=== PATIENT | female | born 1940 | race Caucasian/White ===

== ENCOUNTER → 2017-12-23 10:05 | Outpatient (CLI) | payer MEDICARE, SELFPAY ==
--- NOTE | 2017-12-23 10:10 | XR_ITS ---
XR knee LT 4V HISTORY: ITS.REASON: Left knee pain ORDERING PHYSICIAN: Dimas Reina MD PATIENT AGE: 77 years COMPARISON: 03/04/2013 FINDINGS: Moderate osteoarthritic changes involving the medial compartment and patellofemoral joint there is chondrocalcinosis of the menisci. There is increased density in the suprapatellar region suggesting knee joint effusion. No acute fracture or dislocation. IMPRESSION: Moderate osteoarthritis slightly progressed compared to the previous exam with knee joint effusion
== END ==
PROVIDERS: PCP Family Medicine; Visit Provider Orthopaedic Surgery
DX: M25.562 Pain in left knee (principal)
CPT/HCPCS: 73564

== ENCOUNTER 2018-12-10 14:00 | Outpatient (RCR) | payer MEDICARE, SELFPAY ==
--- NOTE | 2018-11-16 09:56 | HMH.PTOPEV ---
PT Outpatient Evaluation Rehab PT Outpatient Evaluation Start: 11/16/18 09:24 Freq: Status: Active Protocol: Document 11/16/18 09:24 [facility] (Rec: 11/16/18 09:56 [facility] [id number]) Electronically Signed By Charbel Muse, PT 11/16/18 09:24 Outpatient Therapy Subjective History Subjective History Pt reports h/o chronic B knee pain beginning ~1 yr ago. Pt reports anterio-medial B knee pain, and global L knee pain w /ambulation. pt reports recent Xrays have revealed DJD/OA in L knee, 'trying to hold off a replacement'. Pt reports R TKA 2004. Chief Complaint Pain Weakness Symptom Type Ache Sharp Dull Symptoms Relieved By Rest/Positioning Heat Symptoms Aggravated By Physical Activity Walking Prior Functional Limitations Housework Standing Walking Current Functional Limitations Housework Standing Squatting Walking Stairs Symptom Description Constant but Variable Level of pain today (0-10) 4 Pain scale - at its best (0-10) 3 Pain scale - at its worst (0-10) 8 Hip/Knee Eval Gait Observation General Gait Pattern Observation Antalgic Gait Wide Based Gait Palpation Tenderness left Knee Palpation Finding Tenderness Knee Palpation Overall Comment pes ans. 3/4, medial and lateral jt line 3/4 right Knee Palpation Finding Tenderness Knee Palpation Overall Comment pes ans. 3/4, medial jt line 3 /4 MMT bilateral Hip Flexion Strength Grade 4- Good- Hip Abduction Strength Grade 4- Good- Hip Adduction Strength Grade 4- Good- Hip Extension Strength Grade 4 Good Hip External Rotation Strength Grade 4 Good Hip Internal Rotation Strength Grade 4- Good- Knee Extension Strength Grade 4 Good Knee Flexion Strength Grade 4 Good ROM left Knee Flexion Active Range of Motion ( 0-130 degrees) right Knee Flexion Active Range of Motion ( 0-118 degrees) Effusion joint effusion knee exam standard left Mid - Patellar Circumerential Measure ( 41 cm) Special Tests K
== END 2018-12-10 14:05 | disposition home or self-care (01) ==
LOC: PT 14:00
PROVIDERS: Visit Provider Orthopaedic Surgery
DX: M71.562 Other bursitis, not elsewhere classified, left knee (principal); M71.561 Other bursitis, not elsewhere classified, right knee
CPT/HCPCS: 97010; 97014; 97033; 97035; 97110; 97163; G0283

== ENCOUNTER → 2019-03-25 13:35 | Outpatient (CLI) | payer MEDICARE, SELFPAY ==
--- NOTE | 2019-03-25 13:41 | US_ITS ---
PROCEDURE: US KIDNEY CLINICAL INDICATION: BACK PAIN,H/O OF FREQUENT URINARY TRACT INFECTIONS COMPARISON: No exams were available for comparison FINDINGS: The right kidney is 9.2 x 4.4 x 4.4 cm. Scarring is present along the lower pole of the right kidney. No hydronephrosis or mass evident. The left kidney is 9.3 x 4.2 x 4.7 cm. There is an 18 mm cyst along the lower pole of the left kidney IMPRESSION: Small cyst along the lower pole of the left kidney with cortical scarring on the right. No hydronephrosis or other significant anomaly Dictated by: Jayden Prealta MD 03/25/2019 16:53 Signed by: <Electronically signed by Jayden Peralta MD in [place]> 03/25/2019 16:53
== END ==
PROVIDERS: PCP Family Medicine; Visit Provider Nurse Practitioner Family
DX: M54.9 Dorsalgia, unspecified (principal); Z87.440 Personal history of urinary (tract) infections
CPT/HCPCS: 76770

== ENCOUNTER → 2019-04-14 10:03 | Outpatient (CLI) | payer MEDICARE, SELFPAY ==
--- NOTE | 2019-04-14 10:47 | CT_ITS ---
PROCEDURE: CT ABDOMEN PELVIS W CON CLINICAL HISTORY: ABD PAIN Abdominal pain, frequent UTIs COMPARISON: No exams were available for comparison TECHNIQUE: 75 mL Optiray 350 Axial images obtained with sagittal and coronal reformats. All CT scans at the facility use one or more dose reduction, viz: automated exposure control, ma/kV adjustment per patient size (including targeted exams where dose is matched to indication, i.e. head), or iterative reconstruction technique. FINDINGS: The there are atelectatic or fibrotic changes in the left lung base. Prior cholecystectomy. The liver, spleen, adrenal glands, and pancreas have an unremarkable appearance. There is a 2 cm cyst along the lower pole of the left kidney. No intestinal obstruction or free air. Unremarkable appendix. There is a mild amount of retained colonic feces. Postsurgical changes are present at the rectosigmoid junction. There is scattered diverticula but no evidence of diverticulitis. The uterus is bulky and has a somewhat heterogeneous density and may be related to fibroid involvement. Cystic lesion is present in the right adnexa at 3 by 4 cm. No adenopathy or cul-de-sac fluid evident. No ascites. Postsurgical changes are present in the lumbar spine with inter pedicular screws from L2-L5 with associated degenerative changes. There is an epidural stimulator device in the midthoracic region. IMPRESSION: Enlarged uterus with heterogeneous density which may be due to fibroid involvement. 4 x 3 cm cystic right adnexal lesion. Recommend pelvic ultrasound for further evaluation. Dictated by: Jayden Peralta MD 04/16/2019 05:21 Electronically signed by Jayden Peralta MD in [facility] 04/16/2019 05:21
== END ==
PROVIDERS: PCP Family Medicine; Visit Provider Nurse Practitioner Family
DX: R10.9 Unspecified abdominal pain (principal)
CPT/HCPCS: 74177; Q9967

== ENCOUNTER → 2019-04-22 13:44 | Outpatient (CLI) | payer MEDICARE, SELFPAY ==
--- NOTE | 2019-04-22 14:00 | US_ITS ---
PROCEDURE: US PELVIC CLINICAL INDICATION: ENLARGED UTERUS Pain, back pain, right adnexal cystic lesion by CT COMPARISON: CT ABDOMEN PELVIS W CON from 04/14/2019 FINDINGS: The uterus is enlarged at 10 x 5 x 6.5 cm with some heterogeneous echogenicity. Combined endometrial thickness is 9 mm which is abnormal for a postmenopausal patient. In the left aspect of the body uterus there is a 3.5 by 2.8 cm area of heterogeneous echogenicity consistent with a fibroid. The left ovary is small and unremarkable. The right ovary measures 4.3 x 3 cm and contains a 3 x 2 cm cyst. No cul-de-sac fluid evident. IMPRESSION: 1. Enlarged uterus with a 3.5 x 2.8 cm fibroid 2. Mildly thickened endometrium 3. 3 x 2 cm right ovarian cyst. The cyst has a simple appearance. Follow-up is suggested to confirm stability Dictated by: Jayden Peralta MD 04/22/2019 17:39 Electronically signed by Jayden Peralta MD in [facility] 04/22/2019 17:39
== END ==
PROVIDERS: PCP Family Medicine; Visit Provider Nurse Practitioner Family
DX: N85.2 Hypertrophy of uterus (principal)
CPT/HCPCS: 76856

== ENCOUNTER → 2019-05-17 14:49 | Outpatient (CLI) | payer MEDICARE, SELFPAY ==
--- NOTE | 2019-05-17 14:54 | XR_ITS ---
PROCEDURE: XR PELVIS 1-2V CLINICAL INDICATION: Back/Hip pain Low back pain and hip pain COMPARISON: No exams were available for comparison TECHNIQUE: XR Pelvis AP View FINDINGS: No fracture or dislocation is evident. Neurostimulator device is present with the power pack overlying the right ilium. There are inter pedicular screws at L3-L4 and L5. No acute fracture or dislocation is evident. There are mild osteoarthritic changes of the hips. IMPRESSION: No acute findings. Dictated by: Jayden Peralta MD 05/17/2019 17:05 Electronically signed by Jayden Peralta MD in [facility] 05/17/2019 17:05
--- NOTE | 2019-05-17 14:54 | XR_ITS ---
PROCEDURE: XR LUMBAR SPINE 2-3V CLINICAL INDICATION: back/hip pain Low back pain COMPARISON: CT ABDOMEN PELVIS W CON from 04/14/2019 FINDINGS: There is straightening of the lumbar lordosis. There is mild lumbar scoliosis convex left. Inter pedicular screws are present at L2 and L3 with connecting rods and L4 and L5 with connecting rods. Bony fusion with hyperostosis laterally at L2 through L5. There is minimal anterolisthesis of L4 of 6 mm. No acute fracture or dislocation. Degenerative disc disease is present at L1-L2 L2-L3 L3-L4 L4-5 and L5-S1. No acute fracture or dislocation. No lytic or blastic change. IMPRESSION: Postsurgical and degenerative changes as described above not significantly changed from 04/14/2019 Dictated by: Jayden Peralta MD 05/17/2019 17:10 Electronically signed by Jayden Peralta MD in [facility] 05/17/2019 17:10
== END ==
PROVIDERS: PCP Family Medicine; Visit Provider Orthopaedic Surgery
DX: M17.10 Unilateral primary osteoarthritis, unspecified knee (principal)
CPT/HCPCS: 72100; 72170

== ENCOUNTER → 2019-05-26 08:44 | Outpatient (CLI) | payer MEDICARE, SELFPAY ==
--- NOTE | 2019-05-26 08:46 | XR_ITS ---
PROCEDURE: XR DEXA AXIAL SKELETON CLINICAL HISTORY: screening COMPARISON: No exams were available for comparison FINDINGS: Right femoral neck density is 0.806 grams/centimeters sq with a T-score of -1.7 indicating osteopenia. IMPRESSION: Osteopenia with moderate fracture risk. Treatment advised. Suggest follow-up exam May 2021 Dictated by: Jayden Peralta MD 05/27/2019 09:55 Electronically signed by Jayden Peralta MD in [place] 05/27/2019 09:55
== END ==
PROVIDERS: PCP Family Medicine; Visit Provider Orthopaedic Surgery
DX: N95.9 Unspecified menopausal and perimenopausal disorder (principal); M85.89 Other specified disorders of bone density and structure, multiple sites
CPT/HCPCS: 77080

== ENCOUNTER → 2019-06-08 17:14 | Outpatient (CLI) | payer MEDICARE, SELFPAY | PROVIDERS: Visit Provider Urology | DX: N39.0 Urinary tract infection, site not specified (principal) | CPT/HCPCS: 87086; 87088; 87186 ==

== ENCOUNTER → 2019-06-15 08:52 | Outpatient (POV) | payer MEDICARE, SELFPAY ==
[2019-06-15 09:05] VITALS: BP 125/73; PULSE 81; RESP 18; O2SAT 98; BMI 25.7
--- NOTE | 2019-06-15 09:39 | HMH.PMCON ---
Assessment and Plan (1) Postlaminectomy syndrome Current visit: Yes Status: Chronic Category: Medical Code(s): M96.1 - Postlaminectomy syndrome, not elsewhere classified - Assessment and plan all Dx Assessment and Plan for all problems:: I will follow-up with the patient in 2 weeks. If patient decides she would like to go ahead with a intrathecal pain pump trial she is to call our office to be put on the schedule. We can trial the patient due to the fact that she is not on any anticoagulation therapy or have any active infections and then obtain a psychological evaluation. She is had one several years ago that was appropriate however we will update it. Patient also has a neurostimulator by [employer]. We will have her sales representative meats call her today to set up a time to reprogram her. Patient is been instructed to call the office if she has any issues prior to her next appointment. She is not currently on any opioid medications. Dr. Solo has reviewed this note and agrees with this plan of care. This note was dictated using voice recognition software and may contain errors or omissions HPI - Data of Consult Consult date: 06/15/19 Requesting Physician: Araceli Wang APRN Primary Care Provider: Andrew Benito MD - Consult Narrative Reason for consult: Back pain back pain History of present illness: Ms. Alejandro is a 78 year old female who presents today for consultation in regards to her low back pain. Patient had a lumbar fusion back in 2017. Patient states that since then she has had continual pain. She was seen by Dr. Hemphill for multiple injection therapies including medial branch blocks and epidurals she did not get any relief from this. She is completed physical therapy with no relief. She had a paddle lead [employer] stimulator placed which worked originally but now is not as effective. She rates her pain today 6 out of 10. She has troubles with activities of daily living including standing. Patient and I had a long discussion in regards to intrathecal pain pump. Patient was given information. Patient has a adverse reaction to morphine which is aggression. We discussed that morphine is not the only option for pain pump. I answered her questions in regards to this and gave her information to take home. Most of her pain is in her low back. CC: Araceli Wang APRN [facility] History I have reviewed the patient's past medical history: Yes Medical History: Reports:: Hyperlipidemia, Hypertension Denies:: Diabetes Mellitus Type 1, Diabetes Mellitus Type 2, Lung Disease *Have you ever received a pneumonia vaccine?: Yes *Have you received a flu vaccine this season?: Yes Other Medical History: Reports: Other Other Surgeries: Yes: Colonoscopy, Colon Resection, Other - *Social History Smoking Status: Current every day smoker Alcohol Intake: never Substance Use Type: denies use *Occupational Status:: other Housing: house Household Members: spouse *Travel in the last 8 weeks: None Family Hx:: No significant family history Review of Systems - Review of Systems ROS General: no recent weight change, no fever, no sleep disturbances Respiratory: no cough, no shortness of air, no recurring pulmonary infections Cardiovascular/Peripheral Vascular: No chest pain, No palpitations, no edema, no shortness of breath. Gastrointestinal: no new onset incontinence, normal bowel movements reported Genitourinary: no new onset incontinence Musculoskeletal: Back pain Psychiatric: normal mood/ affect Neurological: [denies new onset weakness in extremities], [denies new onset balance issues] Meds Home Medications Medication Instructions Recorded Confirmed Type aspirin 81 mg tablet,delayed 81 mg PO DAILY 04/02/18 06/08/19 History release calcium carbonate 400 mg/5 mL oral 400 mg PO DAILY ml 04/02/18 06/08/19 History suspension omega-3 fatty acids 1,000 mg 1,000 mg PO DAILY 04/02/18 06/08/19
--- NOTE | 2019-06-15 09:43 | P.CONS_ITS ---
Assessment and Plan (1) Postlaminectomy syndrome Current visit: Yes Status: Chronic Category: Medical Code(s): M96.1 - Postlaminectomy syndrome, not elsewhere classified - Assessment and plan all Dx Assessment and Plan for all problems:: I will follow-up with the patient in 2 weeks. If patient decides she would like to go ahead with a intrathecal pain pump trial she is to call our office to be put on the schedule. We can trial the patient due to the fact that she is not on any anticoagulation therapy or have any active infections and then obtain a psychological evaluation. She is had one several years ago that was appropriate however we will update it. Patient also has a neurostimulator by [employer]. We will have her site safety representative call her today to set up a time to reprogram her. Patient is been instructed to call the office if she has any issues prior to her next appointment. She is not currently on any opioid medications. Dr. Solo has reviewed this note and agrees with this plan of care. This note was dictated using voice recognition software and may contain errors or omissions HPI - Data of Consult Consult date: 06/15/19 Requesting Physician: Araceli Wang APRN Primary Care Provider: Andrew Benito MD - Consult Narrative Reason for consult: Back pain back pain History of present illness: Ms. Alejandro is a 78 year old female who presents today for consultation in regards to her low back pain. Patient had a lumbar fusion back in 2017. Patient states that since then she has had continual pain. She was seen by Dr. Hemphill for multiple injection therapies including medial branch blocks and epidurals she did not get any relief from this. She is completed physical therapy with no relief. She had a paddle lead [employer] stimulator placed which worked originally but now is not as effective. She rates her pain today 6 out of 10. She has troubles with activities of daily living including standing. Patient and I had a long discussion in regards to intrathecal pain pump. Patient was given information. Patient has a adverse reaction to morphine which is aggression. We discussed that morphine is not the only option for pain pump. I answered her questions in regards to this and gave her information to take home. Most of her pain is in her low back. CC: Araceli Wang APRN [facility] History I have reviewed the patient's past medical history: Yes Medical History: Reports:: Hyperlipidemia, Hypertension Denies:: Diabetes Mellitus Type 1, Diabetes Mellitus Type 2, Lung Disease *Have you ever received a pneumonia vaccine?: Yes *Have you received a flu vaccine this season?: Yes Other Medical History: Reports: Other Other Surgeries: Yes: Colonoscopy, Colon Resection, Other - *Social History Smoking Status: Current every day smoker Alcohol Intake: never Substance Use Type: denies use *Occupational Status:: other Housing: house Household Members: spouse *Travel in the last 8 weeks: None Family Hx:: No significant family history Review of Systems - Review of Systems ROS General: no recent weight change, no fever, no sleep disturbances Respiratory: no cough, no shortness of air, no recurring pulmonary infections Cardiovascular/Peripheral Vascular: No chest pain, No palpitations, no edema, no shortness of breath. Gastrointestinal: no new onset incontinence, normal bowel movements reported Genitourinary: no new onset incontinence Musculoskeletal: Back pain Psychiatric: normal mood/ affect Neurological: [denies new onset weakness in extremities], [denies new
== END ==
PROVIDERS: PCP Family Medicine; Visit Provider Clinical Nurse Specialist Family Health
DX: M96.1 Postlaminectomy syndrome, not elsewhere classified (principal)
CPT/HCPCS: 99202

== ENCOUNTER → 2019-06-29 08:56 | Outpatient (POV) | payer MEDICARE, SELFPAY ==
[2019-06-29 09:09] VITALS: BP 142/57; PULSE 66; RESP 18; BMI 25.7
--- NOTE | 2019-06-29 09:20 | HMH.PAINSOAP ---
[facility] Pain Management SOAP Note Subjective:: Patient is a pleasant 78-year-old white female who presents today for follow-up. Patient is asking me about the mild procedure. We also discussed intrathecal therapy in the past. She is unsure if she would like to move forward with anything. She rates her pain a 0 out of 10 today. She states for the first time she turned up her neurostimulator and it is been effective. Patient does have an appointment with the jewelry sales representative at [facility] this afternoon for reprogram. Patient would like to not move forward with any other therapies until we see if we can optimize this therapy and I do agree with her. ROS General: no recent weight change, no fever, no sleep disturbances Respiratory: no cough, no shortness of air, no recurring pulmonary infections Cardiovascular/Peripheral Vascular: No chest pain, No palpitations, no edema, no shortness of breath. Gastrointestinal: no new onset incontinence, normal bowel movements reported Genitourinary: no new onset incontinence Musculoskeletal: Back pain, leg pain Psychiatric: normal mood/ affect Neurological: [denies new onset weakness in extremities], [denies new onset balance issues] Objective:: Physical Exam General: Alert and oriented x3, no acute distress, pleasant and cooperative, [on room air] Lungs: Resps E/U, Symmetrical chest expansion, Eyes: PERRL Musculoskeletal: Flexion and extension of lumbar spine somewhat guarded secondary to pain, deep tendon reflexes normal, strength in upper and lower extremities [5/5], [abnormal gait noted] Neurological: speech clear, senior net application developer equal, no gross sensory deficits Assessment:: Degenerative disc disease lumbar spine with lumbar radiculopathy post laminectomy syndrome Plan:: We will see the patient back in 2 months reassess her symptoms at that time she is been instructed to call the office if she has any issues prior to her next appointment. My recommendation to her was to get an updated MRI she would like to think about this. Dr. Solo has reviewed this note and agrees with this plan of care. This note was dictated using voice recognition software and may contain errors or omissions [facility] History I have reviewed the patient's past medical history: Yes Medical History: Reports:: Hyperlipidemia, Hypertension Denies:: Diabetes Mellitus Type 1, Diabetes Mellitus Type 2, Lung Disease *Have you ever received a pneumonia vaccine?: Yes *Have you received a flu vaccine this season?: No Other Medical History: Reports: Other Other Surgeries: Yes: Colonoscopy, Colon Resection, Other - *Social History Smoking Status: Current every day smoker Alcohol Intake: never Substance Use Type: denies use *Occupational Status:: employed Housing: house Household Members: spouse *Travel in the last 8 weeks: None Family Hx:: No significant family history
--- NOTE | 2019-06-29 09:25 | P.CONS_ITS ---
[facility] Pain Management SOAP Note Subjective:: Patient is a pleasant 78-year-old white female who presents today for follow-up. Patient is asking me about the mild procedure. We also discussed intrathecal therapy in the past. She is unsure if she would like to move forward with anything. She rates her pain a 0 out of 10 today. She states for the first time she turned up her neurostimulator and it is been effective. Patient does have an appointment with the veterans contact representative at [facility] this afternoon for reprogram. Patient would like to not move forward with any other therapies until we see if we can optimize this therapy and I do agree with her. ROS General: no recent weight change, no fever, no sleep disturbances Respiratory: no cough, no shortness of air, no recurring pulmonary infections Cardiovascular/Peripheral Vascular: No chest pain, No palpitations, no edema, no shortness of breath. Gastrointestinal: no new onset incontinence, normal bowel movements reported Genitourinary: no new onset incontinence Musculoskeletal: Back pain, leg pain Psychiatric: normal mood/ affect Neurological: [denies new onset weakness in extremities], [denies new onset balance issues] Objective:: Physical Exam General: Alert and oriented x3, no acute distress, pleasant and cooperative, [on room air] Lungs: Resps E/U, Symmetrical chest expansion, Eyes: PERRL Musculoskeletal: Flexion and extension of lumbar spine somewhat guarded secondary to pain, deep tendon reflexes normal, strength in upper and lower extremities [5/5], [abnormal gait noted] Neurological: speech clear, sr. 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 My recommendation to her was to get an updated MRI she would like to think about this. Dr. Solo has reviewed this note and agrees with this plan of care. This note was dictated using voice recognition software and may contain errors or omissions [facility] History I have reviewed the patient's past medical history: Yes Medical History: Reports:: Hyperlipidemia, Hypertension Denies:: Diabetes Mellitus Type 1, Diabetes Mellitus Type 2, Lung Disease *Have you ever received a pneumonia vaccine?: Yes *Have you received a flu vaccine this season?: No Other Medical History: Reports: Other Other Surgeries: Yes: Colonoscopy, Colon Resection, Other - *Social History Smoking Status: Current every day smoker Alcohol Intake: never Substance Use Type: denies use *Occupational Status:: employed Housing: house Household Members: spouse *Travel in the last 8 weeks: None Family Hx:: No significant family history
== END ==
PROVIDERS: PCP Family Medicine; Visit Provider Clinical Nurse Specialist Family Health
DX: M51.16 Intervertebral disc disorders with radiculopathy, lumbar region (principal); M96.1 Postlaminectomy syndrome, not elsewhere classified
CPT/HCPCS: 99212

== ENCOUNTER → 2019-08-30 09:00 | Outpatient (POV) | payer MEDICARE, SELFPAY ==
[2019-08-30 09:18] VITALS: BP 136/86; PULSE 69; RESP 18; O2SAT 99; BMI 24.1
--- NOTE | 2019-08-31 08:19 | HMH.PAINSOAP ---
[facility] Pain Management SOAP Note Subjective:: Patient is a pleasant 78-year-old white female who presents today for follow-up. Patient denies any pain today. Patient states her pain does become quite significant when she is working or walking or having any other activities. Patient had lumbar back surgery. She also had the implant of a [employer] stimulator. Patient has failed the stimulation stating that it has never been very beneficial. Patient has been reprogrammed recently. Patient and I have talked about intrathecal therapy in the past. I do believe it would be beneficial for her. Patient and I discussed the process in great detail. Patient will be sent for psychological evaluation to determine if she is a candidate for an intrathecal pain pump we will also send her for an updated CT of her lower back. Patient is concerned in regards to having an MRI due to her titanium implants. ROS General: no recent weight change, no fever, no sleep disturbances Respiratory: no cough, no shortness of air, no recurring pulmonary infections Cardiovascular/Peripheral Vascular: No chest pain, No palpitations, no edema, no shortness of breath. Gastrointestinal: no new onset incontinence, normal bowel movements reported Genitourinary: no new onset incontinence Musculoskeletal: [Back pain, leg pain] Psychiatric: normal mood/ affect, [denies depression], [denies anxiety] Neurological: [denies new onset weakness in extremities], [denies new onset balance issues] Objective:: Physical Exam General: Alert and oriented x3, no acute distress, pleasant and cooperative, [on room air] Lungs: Resps E/U, Symmetrical chest expansion, Eyes: PERRL Musculoskeletal: Flexion and extension of lumbar spine somewhat guarded secondary to pain, deep tendon reflexes normal, strength in upper and lower extremities [5/5], [abnormal gait noted] Neurological: speech clear, video editing internship equal, no gross sensory deficits Assessment:: Postlaminectomy syndrome, degenerative disc disease lumbar spine lumbar radiculopathy Plan:: We will send the patient for psychological evaluation to determine if she is a candidate for intrathecal pain pump therapy. Patient currently is not on any narcotics I do believe she would be a good candidate for intrathecal pain pump therapy. Patient and I had a long talk about realistic goals, risks and benefits. Patient will also have a CT scan ordered for her lumbar spine to help determine any new pathology. I will follow-up with her after this reassess her symptoms at that time she is been instructed to call the office if she has any issues prior to her next appointment. Dr. Solo has reviewed this note and agrees with this plan of care. This note was dictated using voice recognition software and may contain errors or omissions [facility] History I have reviewed the patient's past medical history: Yes Medical History: Reports:: Hyperlipidemia, Hypertension Denies:: Diabetes Mellitus Type 1, Diabetes Mellitus Type 2, Lung Disease *Have you ever received a pneumonia vaccine?: Yes *Have you received a flu vaccine this season?: Yes Other Medical History: Reports: Other Other Surgeries: Yes: Colonoscopy, Colon Resection, Other - *Social History Smoking Status: Current every day smoker Alcohol Intake: never Substance Use Type: denies use *Occupational Status:: other Housing: house Household Members: spouse *Travel in the last 8 weeks: None Family Hx:: No significant family history
== END ==
PROVIDERS: PCP Family Medicine; Visit Provider Clinical Nurse Specialist Family Health
DX: M96.1 Postlaminectomy syndrome, not elsewhere classified (principal); M51.16 Intervertebral disc disorders with radiculopathy, lumbar region; Z72.0 Tobacco use
CPT/HCPCS: 99212

== ENCOUNTER → 2019-09-02 13:40 | Outpatient (CLI) | payer MEDICARE, SELFPAY ==
--- NOTE | 2019-09-02 13:42 | CT_ITS ---
PROCEDURE: CT LUMBAR SPINE WO CON CLINICAL HISTORY: BACK PAIN Low back pain, prior surgery COMPARISON: CT ABDOMEN PELVIS W CON from 04/14/2019 XR LUMBAR SPINE 2-3V from 05/17/2019 TECHNIQUE: Axial images obtained with sagittal and coronal reformats. All CT scans at the facility use one or more dose reduction, viz: automated exposure control, ma/kV adjustment per patient size (including targeted exams where dose is matched to indication, i.e. head), or iterative reconstruction technique. FINDINGS: There are extensive postsurgical and degenerative changes as described below. There is mild lumbar scoliosis convex left. T10-T11: Mild degenerative disc disease. T11-T12: Mild degenerative disc disease with mild bulging disc with minimal right paracentral disc osteophyte complex. T12-L1: Unremarkable. L1-L2: Severe degenerative disc disease. There is 3 mm retrolisthesis of L1. There is mild bilateral foraminal narrowing from facet and uncovertebral hypertrophy. Laminectomy defect is noted on the right.. There is suggestion of some minimal erosive change of the anterior inferior aspect of L1 with mild prominence of the paravertebral soft tissues at this region. This could be related to severe spondylopathy. There is vacuum disc at this level. This did have a similar appearance on 04/14/2019 and is not significantly changed. L2-L3: Inter pedicular screws are present at L2 and L3 with connecting rods. There are post laminectomy changes. There is some calcification along the right aspect of the thecal sac at L2-L3. There is a disc spacer at L2-L3. L3-L4: Mild bulging disc slightly eccentric toward the right. There is prominent hypertrophy of the posterior elements from prior fusion. L4-5: There is 6 mm anterolisthesis of L4 with degenerative disc disease and ossification of the disc space. There has been prior fixation with posterior inter pedicular screws and connecting rods at L4-L5. Significant artifact is present. There is bulging disc. L5-S1: Degenerate disc disease with bulging disc with partial calcification of the disc. Facet and ligamentum hypertrophy noted greater on the left. 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 There is generalized osteopenia. No acute fracture or dislocation is evident. There is a right ovarian cyst incidentally noted measuring 2.7 cm. There is diverticulosis of the sigmoid colon and postsurgical changes at the rectosigmoid junction. IMPRESSION: 1. Extensive postsurgical and degenerative changes. Please see above for detailed description at each level 2. L1-L2: Severe degenerative disc disease. There is 3 mm retrolisthesis of L1. There is mild bilateral foraminal narrowing from facet and uncovertebral hypertrophy. Laminectomy defect is noted on the right.. There is suggestion of some minimal erosive change of the anterior inferior aspect of L1 with mild prominence of the paravertebral soft tissues at this region. This could be related to severe spondylopathy. There is vacuum disc at this level. This did have a similar appearance on 04/14/2019 and is not significantly changed. 3. L2-L3: Inter pedicular screws are present at L2 and L3 with connecting rods. There are post laminectomy changes. There is some calcification along the right aspect of the thecal sac at L2-L3. There is a disc spacer at L2-L3. 4. L3-L4: Mild bulging disc slightly eccentric toward the right. There is prominent hypertrophy of the posterior elements from prior fusion. 5. L4-5: There is 6 mm anterolisthesis of L4 with degenerative disc disease and ossification of the disc space. There has been prior fixation with posterior inter pedicular screws and connecting rods at L4-L5. Si
== END ==
PROVIDERS: PCP Family Medicine; Visit Provider Clinical Nurse Specialist Family Health
DX: M54.5 Low back pain (principal)
CPT/HCPCS: 72131

== ENCOUNTER → 2019-09-17 08:06 | Outpatient (CLI) | payer MEDICARE, SELFPAY ==
[2019-09-17 08:42] LABS: Basophils % 0.5 % (0.1-2.0); Eosinophils # 0.1 K/mm3 (0.0-0.4); Hematocrit 39.8 % (37.0-47.0); Hemoglobin 12.4 g/dL (12.2-16.2); Lymphocytes # 1.7 K/mm3 (0.7-4.5); Lymphocytes % 37.4 % (10-50); Mean Corpuscular HGB Conc 31.3 g/dL (31.8-35.4); Mean Corpuscular Hemoglobin 30.9 pg (27.0-31.2); Mean Corpuscular Volume 98.7 fl (81-99); Mean Platelet Volume 8.3 fl (7.4-10.4); Monocytes # 0.2 K/mm3 (0.1-1.0); Monocytes % 5.3 % (1.7-9.3); Neutrophils # 2.4 K/mm3 (1.8-7.8); Neutrophils % 53.6 % (37.0-80.0); Platelet Count 270 K/mm3 (142-424); Red Blood Count 4.03 M/mm3 (4.20-5.40); Red Cell Distribution Width 12.9 % (11.5-17.5); White Blood Count 4.5 K/mm3 (4.8-10.8)
[2019-09-17 09:58] LABS: Alanine Aminotransferase 31 U/L (9-52); Albumin Level 3.6 g/dL (3.4-5.0); Albumin/Globulin Ratio 1.1 (1.1-1.8); Alkaline Phosphatase 60 U/L (46-116); Anion Gap 12.7 mEq/L (5-15); Aspartate Amino Transferase 23 U/L (15-37); Bilirubin,Total 0.4 mg/dL (0.2-1.0); Blood Urea Nitrogen 20 mg/dL (7-18); Calcium 8.9 mg/dL (8.5-10.1); Carbon Dioxide 26 mmol/L (21.0-32.0); Chloride 110 mmol/L (98-107); Cholesterol 266 mg/dL (140-200); Creatinine,Serum 1.12 mg/dL (0.55-1.02); Estimated Glomerular Filt Rate 47 ml/min (>60); GFR (African American) 57 ML/MIN (>60); Globulin 3.3 gm/dl (1.3-3.2); Glucose 88 mg/dL (74-106); HDL Cholesterol 66 mg/dL (29-89); LDL Cholesterol 179 mg/dL (0-130); Potassium 4.7 mmoL/L (3.5-5.1); Sodium 144 mmol/L (137-145); Thyroid Stimulating Hormone 3.04 uIU/ml (0.358-3.740); Total Protein,Serum 6.9 g/dL (6.4-8.2); Triglycerides 106 mg/dL (30-200); Uric Acid 5.3 mg/dL (2.6-7.2); VLDL Cholesterol 21 mg/dL (0-40)
[2019-09-18 19:11] LABS: Vitamin B12 >2000 pg/mL (232-1245)
[2019-09-18 19:12] LABS: Vitamin D 25 Hydroxy 34.2 ng/mL (30.0-100.0)
[2019-09-21 11:05] LABS: Iron 94 ug/dL (37-170)
== END ==
PROVIDERS: Visit Provider Nurse Practitioner Family
DX: I10 Essential (primary) hypertension (principal); E78.5 Hyperlipidemia, unspecified; E55.9 Vitamin D deficiency, unspecified; D64.9 Anemia, unspecified; G25.0 Essential tremor; R35.0 Frequency of micturition; M25.50 Pain in unspecified joint
CPT/HCPCS: 36415; 80053; 80061; 82607; 82652; 83540; 84443; 84550; 85025

== ENCOUNTER → 2019-09-27 10:18 | Outpatient (CLI) | payer MEDICARE, SELFPAY ==
--- NOTE | 2019-09-27 10:25 | XR_ITS ---
PROCEDURE: XR KNEE LT 4V CLINICAL INDICATION: lt knee pain COMPARISON: KNEE3L KNEE-3 VIEWS-LT from 03/04/2013 [id number] XR knee LT 4V from 12/23/2017 FINDINGS: There are severe osteoarthritic changes of the medial compartment with mild to moderate osteoarthritic changes of the patellofemoral joint. Chondrocalcinosis is present involving the lateral compartment. No fracture or dislocation. Other findings:There are vascular calcifications noted at the popliteal artery. Suspect small suprapatellar effusion IMPRESSION: Osteoarthritis. Small suprapatellar effusion Dictated by: Jayden Peralta MD 09/27/2019 10:43 Electronically signed by Jayden Peralta MD in [place] 09/27/2019 10:43
--- NOTE | 2019-09-27 12:11 | XR_ITS ---
PROCEDURE: XR KNEE RT 3V CLINICAL INDICATION: knee pain COMPARISON: KNEE3L KNEE-3 VIEWS-LT from 03/04/2013 [id number] XR knee LT 4V from 12/23/2017 XR KNEE LT 4V from 09/27/2019 FINDINGS: Status post total knee replacement. There is good alignment of the prosthesis with no obvious complication. No obvious fracture or dislocation . IMPRESSION: Status post total knee replacement, no acute finding Dictated by: Jayden Peralta MD 09/27/2019 12:42 Electronically signed by Jayden Peralta MD in [facility] 09/27/2019 12:42
== END ==
PROVIDERS: PCP Family Medicine; Visit Provider Orthopaedic Surgery
DX: M25.561 Pain in right knee (principal); Z96.651 Presence of right artificial knee joint; M17.12 Unilateral primary osteoarthritis, left knee
CPT/HCPCS: 73562; 73564

== ENCOUNTER → 2020-01-12 08:56 | Outpatient (CLI) | payer MEDICARE, SELFPAY ==
--- NOTE | 2020-01-12 09:12 | XR_ITS ---
PROCEDURE: XR CHEST 2V CLINICAL HISTORY: HTN Hypertension COMPARISON: No exams were available for comparison FINDINGS: The cardiomediastinal silhouette and pulmonary vascularity are within normal limits. The lungs are clear without infiltrates, suspicious nodules, or pleural effusions. There is an epidural stimulator device present overlying the mid thoracic region. There has been prior lumbar spine surgery. A small surgical clips are noted over the upper tracheal area. There are degenerative changes of the thoracic spine IMPRESSION: No acute findings. Dictated by: Jayden Peralta MD 01/12/2020 14:31 Electronically signed by Jayden Peralta MD in [facility] 01/12/2020 14:31
--- NOTE | 2020-01-12 09:32 | ECG_ITS ---
APPROVED REPORT Exam: Resting ECG HR:73 bpm ECG Measurements Heart Rate 73 AXES AR 136 P 54 QRSd 82 QRS 4 QT 390 T 19 QTc 429 <Conclusion> Normal sinus rhythm Normal ECG Electronically signed by : Case Valentin, 01/12/2020 17:32:16
== END ==
PROVIDERS: PCP Family Medicine; Visit Provider Family Medicine
DX: Z01.818 Encounter for other preprocedural examination (principal)
CPT/HCPCS: 71046; 93005

== ENCOUNTER → 2020-01-31 15:21 | Outpatient (CLI) | payer MEDICARE, SELFPAY | PROVIDERS: Visit Provider Orthopaedic Surgery | DX: Z01.818 Encounter for other preprocedural examination (principal) | CPT/HCPCS: 87081 ==

== ENCOUNTER → 2020-02-14 07:55 | Outpatient (CLI) | payer MEDICARE, SELFPAY ==
[2020-02-14 09:51] LABS: Coronavirus 19 IgG Antibody Negative (Negative); Coronavirus 19 IgM Antibody Negative (Negative)
== END ==
PROVIDERS: Visit Provider Orthopaedic Surgery
DX: Z01.818 Encounter for other preprocedural examination (principal)
CPT/HCPCS: 36415; 86328; 86850

== ENCOUNTER 2020-02-15 13:44 | Observation (INO) | payer MEDICARE, SELFPAY ==
--- NOTE | 2020-02-02 15:57 | SW/DCPLANNER ---
Addendum entered by [facility] 02/17/20 10:59: Patients COVID is NEGATIVE. I have informed Aidee with [facility] and . Dr Desai has stated that she will discharge today. Patient will transport via [facility] bus. I have made Dr Desai that latest bus will transport is 4PM. Patient agrees with this plan. Addendum entered by Jeanne Alton 02/16/20 14:28: Aidee from [facility] has stated that they can accept this patient pending negative nasal COVID testing. Nasal swab will be ordered. Aidee will visit this patient at [facility] today. Addendum entered by [facility] 02/16/20 13:27: Patient information has been faxed to [facility] and [facility] per patients request. Patient has been accepted to [facility]. I informed patient of situation and she stated she would prefer [facility]. Patient information has now been faxed to Aidee at [facility]. Addendum entered by [facility] 02/16/20 10:28: I did speak with this patient this morning. Patient did express that she is interested in placement at this time rather than home health if covered under [facility]. I will follow up with facilities (interested in [facility] and [facility]) to make sure [facility] guidelines are still not requiring qualifying stay due to COVID. Patient could potentially discharge tomorrow. Original Note: Received notification from [facility] staff (Enriqueta Garnett) regarding this patient and total knee replacement on 02/15/2020. I called and spoke with this patient this afternoon. Patient stated that she resides in a newly built home that is completely handicap accessible. Patient also stated that she resides with family that assist her whenever needed. Patient does have a walker x2 at home. Patient stated that due to handicap accessible home no other DME is needed. Patients intends on discharging home with family once medically stable for discharge after surgery. I will follow up with this patient once admitted to [facility].
[2020-02-09 08:53] VITALS: BMI 25.0
[2020-02-15] VITALS (23 sets, daily range): BP systolic 114–169; BP diastolic 61–95; PULSE 57–107; RESP 13–20; TEMP 36.4–43; O2SAT 90–100; BMI 25.0
--- NOTE | 2020-02-15 08:34 | P.PN_ITS ---
[facility] Anesthesia Checklist - Patient Identification Patient Identification: Arm Band - Structural Data Admitted From: Home Planned Operative Procedure/s: left total knee arthroplasty Consent for Planned Operative Procedure(s) Verified: Yes Verified Documents: Surgical Consent, History and Physical - NPO Status Verified Time NPO: 00:00 - Additional verifications Anesthesia Reactions: No - Airway Assessment C-Spine Mobility Assessed: Yes (mp2) TMJ Mobility Assessed: Yes Dentition: Partials (upper) - Neurological Assessment Level of Consciousness: Awake, Alert - Anesthesia Plan Anesthesia Risk discussed: Yes Anesthesia Plan: Verified ASA Class: II Anesthesia Type: General w/block [facility] History I have reviewed the patient's past medical history: Yes Medical History: Reports:: Anxiety, Cancer (breast), Hyperlipidemia, H ypertension Denies:: Diabetes Mellitus Type 1, Diabetes Mellitus Type 2, Lung Disease, MRSA *Have you ever received a pneumonia vaccine?: Yes *Have you received a flu vaccine this season?: Yes Other Medical History: Reports: Other Anesthesia experience/problems:: nac Laterality Cases: Right: Breast Biopsy, Lumpectomy, Total Knee Replacement Other Surgeries: Yes: Colonoscopy, Colon Resection, Other Amputation: No Fractures: No - *Social History Last grade of school completed: Some college Smoking Status: Never smoker Alcohol Intake: never Substance Use Type: denies use *Occupational Status:: retired Housing: house Household Members: spouse *Travel in the last 8 weeks: None Family Hx:: No significant family history
--- NOTE | 2020-02-15 13:23 | HMH.ANESI ---
[facility] Anesthesia Record Part I Intake, IV Amount: 1,500 Estimated blood loss (mL): 25 Urine output (mL): 500 Blood Products used (#): none Blood Pressure: 145/78 SaO2: 96 Pulse Rate: 92 Respiratory Rate: 13 Temperature: 97.5 F Patient is:: Awake, Drowsy, Stable Stable to PACU at:: 13:18
--- NOTE | 2020-02-15 13:46 | XR_ITS ---
PROCEDURE: XR KNEE LT 2V CLINICAL INDICATION: s/p L TKA Follow-up total knee replacement COMPARISON: KNEE3L KNEE-3 VIEWS-LT from 03/04/2013 [id number] XR knee LT 4V from 12/23/2017 XR KNEE LT 4V from 09/27/2019 XR KNEE RT 3V from 09/27/2019 FINDINGS: There is good alignment status post total knee replacement. There is air present within the joint space and the subcutaneous tissues. Lucency is noted in the intramedullary region of the distal femur consistent with postsurgical defect IMPRESSION: Good alignment status post total knee replacement Dictated by: Jayden Peralta MD 02/15/2020 14:40 Electronically signed by Jayden Peralta MD in [place] 02/15/2020 14:40
--- NOTE | 2020-02-15 13:53 | HMH.PHAVTE ---
[facility] Pharmacy VTE Monitoring - Patient Demographics Admission date: 02/15/20 Report Date: 02/15/20 Time: 13:53 Allergies/Adverse Reactions: Patient Allergies Sulfa (Sulfonamide Antibiotics) Allergy (Severe, Verified 02/15/20 08:33) Rash Penicillins Allergy (Verified 02/15/20 08:33) Height: 1.65 m Weight: 68.039 kg - Prophylaxis VTE Prophylaxis Ordered?: Yes Types of VTE Prophylaxis: IPCS Thigh High Location of Applied Device: Bilateral Lower Extremeties - VTE Diagnosis Confirmed Treatment or plan recommended: Continue Current Treatment
--- NOTE | 2020-02-15 13:53 | HMH.ORTHHP ---
*Admission Date: 02/15/20 *Reason for consult:: s/p L TKA *History of present illness: The patient underwent L TKA this morning without complication. EBL 100cc; tourniquet time 111min. Adductor canal block was performed post-operatively. [facility] History I have reviewed the patient's past medical history: Yes Medical History: Reports:: Anxiety, Cancer (breast), Hyperlipidemia, Hypertension Denies:: Diabetes Mellitus Type 1, Diabetes Mellitus Type 2, Lung Disease, MRSA, Seizures *Have you ever received a pneumonia vaccine?: Yes *Have you received a flu vaccine this season?: Yes Other Medical History: Reports: Other. Denies: Blood Transfusion Reaction Anesthesia experience/problems:: nac Laterality Cases: Right: Breast Biopsy, Lumpectomy, Total Knee Replacement Other Surgeries: Yes: Colonoscopy, Colon Resection, Other Amputation: No Fractures: No - *Social History Last grade of school completed: Some college Smoking Status: Never smoker Alcohol Intake: never Substance Use Type: denies use *Occupational Status:: retired Housing: house Household Members: spouse *Travel in the last 8 weeks: None - Psychiatric History Pschychiatric History:: Reports:: Anxiety Family Hx:: No significant family history Review of Systems - Review of Systems Review of systems:: pertinent systems reviewed and negative unless documented below Meds Home Medications Medication Instructions Recorded Confirmed Type atorvastatin 10 mg tablet 10 mg PO DAILY 09/27/19 02/15/20 History trazodone 100 mg tablet 100 mg PO HS tab 09/27/19 02/15/20 History Saccharomyces boulardii 250 mg 250 mg PO BID 01/06/20 02/15/20 History capsule cyanocobalamin (vitamin B-12) 500 500 mcg PO DAILY 01/06/20 02/15/20 History mcg tablet cyclobenzaprine 10 mg tablet 10 mg PO BID 01/06/20 02/15/20 History methylcellulose (laxative) 500 mg 500 mg PO DAILY 01/06/20 02/15/20 History tablet Losartan Potassium 100 mg PO DAILY 02/09/20 02/15/20 History hydroCHLOROthiazide 12.5 mg PO DAILY 02/09/20 02/15/20 History [Hydrochlorothiazide 12.5mg Tab] Calcium Carbonate/Vitamin D3 1 each PO BID 02/15/20 02/15/20 History [Calcium 600-Vit D3 200 Tablet] Citalopram Hydrobromide 10 mg PO DAILY 02/15/20 02/15/20 History [Citalopram 10mg Tablet] Allergies Allergy/AdvReac Type Severity Reaction Status Date / Time Sulfa (Sulfonamide Allergy Severe Rash Verified 02/15/20 08:33 Antibiotics) Penicillins Allergy Verified 02/15/20 08:33 Exam Vital signs and Labs for Last 24 Hours: Temp Pulse Resp BP Pulse Ox 97.5 F L 92 H 13 145/78 H 100 02/15/20 13:25 02/15/20 13:25 02/15/20 13:25 02/15/20 13:25 02/15/20 08:35 I & O for Last 24 hours: Intake & Output 02/13/20 02/14/20 02/15/20 02/16/20 11:59 11:59 11:59 11:59 Intake Total 1500 / 1500 Balance 1500 / 1500 - Constitutional no acute distress - *Routine HEENT Exam Head: Present: normocephalic Eye: Present: EOMI ENT: Present: mucous membranes moist - *Routine Neck Exam Present: supple - *Routine Respiratory Exam Present: CTA bilaterally. Absent: respiratory distress, wheezes - *Routine Cardiovascular Exam Present: RRR - *Routine Abdominal Exam Present: soft. Absent: tenderness - *Routine Rectal Exam Comments: deferred - *Routine Exam Comments: anderson placed for procedure - *Routine Extremities Exam Comments: LLE dressings c/d/i, no strikethrough motor/sensory impairment from distal thigh downwards; adductor canal block in place L calf soft, compressible palpable pedal pulses LLE - *Routine Skin Exam Present: warm - *Routine Neurological Exam Present: alert, oriented X3 Results - Labs Labs: All other labs normal. Assessment and Plan (1) Degenerative joint disease of left knee Current visit: Yes Status: Acute Category: Medical Code(s): M17.12 - Unilateral primary osteoarthritis, left knee (2) Chronic back pain
--- NOTE | 2020-02-15 13:53 | HMH.OPNOTE ---
Date of procedure: 02/15/20 Pre-op Diagnosis:: L knee degenerative joint disease Post-op Diagnosis:: L knee degenerative joint disease Procedure performed:: L total knee arthroplasty Surgeon:: Chelle Desai MD Assembler Billiard Table(s):: Kalyn Carpenter GAS LEAK TESTER:: Luis Langley Anesthesia: GETA, regional (adductor canal block) Estimated blood loss (mL): 100 Clinical Note:: 79yo F with chronic L knee pain, increasing difficulty with activity and radiographic findings of significant tricompartmetnal DJD of the knee. She has attempted conservative treatment consisting of tylenol, NSAIDs, votaren gel, ice, OTC bracing, physical therapy, intra-articular corticosteroid injections. She underwent R TKA in 2007, which she reports doing well after, but she did develop a post-operative DVT after that procedure. She is not currently on any anti-coagulation. The pain has become so severe that it is inhibiting her ability to perform ADLs and is adversely affecting her quality of life. I?ve discussed surgical options with the patient and have recommended total knee arthroplasty. We discussed at length the surgical technique and expected perioperative course, including length of hospitalization, need for postoperative physical therapy, use of anticoagulants, expected level of pain, and total length of recovery. I also explained the potential risks of surgery, including bleeding, infection, fracture, wound healing complications, need for revision surgery, continued pain post-operatively, DVT/PE, and risks of both general and regional anesthesia, including nerve damage, heart attack, stroke and even . The patient vocalized understanding of these risks and has agreed to proceed with surgery; informed consent was obtained. Operative findings:: [employer] Nephew Journey II BCS TKA 5 femur 4 tibia 11mm poly 32 x 9mm patella Operative note:: The patient was identified in pre-operative holding and the L leg signed by myself with marking pen. Consent was verified with the patient and all questions were answered. Pre-operative labs were confirmed to be within acceptable limits, and MRSA nasal swab negative. The patient was then taken to the OR and placed supine on the operative table; 900mg clindamycin was infused intravenously and general anesthesia induced. Once the patient was asleep, a nonsterile tourniquet was placed on the upper L thigh and the leg was prepped and draped in the usual sterile fashion for knee arthroplasty. Timeout was performed, identifying the correct patient, correct procedure, and correct site. The procedure was begun by exsanguinating the L lower extremity with an Esmarch and inflating the tourniquet to 300 mmHg. A longitudinal incision was made down the anterior aspect of the L knee centered over the patella, extending from 2 fingerbreadths superior to the patella to the tibial tubercle. Subcutaneous tissue was incised down to the patellar retinaculum and limited medial and lateral flaps were raised. Medial parapatellar arthrotomy was then made and Bovie used to perform a moderate medial release. Next, the patella was everted and the knee flexed to around 100 degrees. Fat pad was excised and both medial and lateral menisci were excised as well. The ACL and PCL were then excised sharply. The joint was exposed with Thalia retractors medially and laterally. Next the entry reamer was used to find and create the starting point for the distal femoral cutting guide. Through this entry point, the intramedullary geneva component of the distal femoral cutting guide was inserted and the cutting guide pinned into place, set at 6 degrees valgus. This cutting guide was pinned into place, the intramedullary geneva removed, and oscillating saw used to create distal femoral cut, removing 9 mm from the distal femur. The tibial cut was made next, using an extramedullary cutting guide. The decision was made to take 3 mm off the deficient medial plateau, and the guide was pinned
--- NOTE | 2020-02-15 14:24 | PC.NURSE ---
Pt arrived to floor at this time.
--- NOTE | 2020-02-15 14:52 | HMH.PHAINT ---
MEDICATION RECONCILIATION COMPLETED ON PATIENT USING LIST FROM [facility] OFFICE AND EXTERNAL FILL HISTORY FROM PHARMACY. -FRANCO SIDDIQUID
[2020-02-15 16:51] LABS: Microscopic,Cath URINE MICROSCOPIC (MICROSCOPIC)
[2020-02-15 16:55] LABS: Appearance,Urine/Cath CLEAR (Clear); Bilirubin,Cath Negative (Negative); Blood, Urine/Cath TRACE-L (Negative); Color,Urine/Cath STRAW (Yellow); Glucose,Urine/Cath (UA) TRACE (Negative); Ketones,Urine/Cath Negative (Negative); Leukocyte Esterase,Cath Negative (Negative); Nitrate,Cath Negative (Negative); Protein,Urine/Cath Negative (Negative); Specific Gravity, Urine/Cath 1.015 (1.005-1.030); Urobilinogen,Cath 0.2 EU/dl (0.2)
[2020-02-15 17:37] LABS: Bacteria,Urine/Cath TRACE /lpf; RBC,Urine/Cath Occasional # /hpf (0-3)
--- NOTE | 2020-02-15 18:21 | PC.NURSE ---
PT HAS HAD A GOOD DAY POST OP SINCE ARRIVAL TO FLOOR. EXPRESSED RANDOM SHARP PAINS TO RIGHT LEG. PRN PAIN MEDICATION GIVEN AND PT HAD ADEQUATE RELIEF. DRESSING IS CDI. POLAR PACK IN PLACE. FAMILY AT BEDSIDE. VSS. WILL CONT. TO MONITOR.
--- NOTE | 2020-02-15 19:06 | P.PN_ITS ---
[facility] Anesthesia Record Part II Discharge Time: 14:08 Destination: Medical Surgical Department PACU nurse assessment reviewed?: Yes Patient Condition:: Good Anesthesia Complications:: None Swallowing reflex intact?: Yes Cyanosis?: No Blood Pressure: 157/61 Pulse Rate: 107 Temperature: 98 F Mental Status: Alert & Oriented Pain level:: 5 (Medication administered, pain management controlled) Nausea and/or vomitting:: None Intake, IV Amount: 0
--- NOTE | 2020-02-15 19:20 | HMH.CONS ---
*Admission Date: 02/15/20 *Reason for consult:: Medical management of HBP *History of present illness: Ms. Alejandro is a 79-year-old white female with a history of hypertension, hyperlipidemia, and osteoarthritis who underwent a left total knee arthroplasty by Dr. Claire today and is now been admitted for postoperative care. I have been consulted for medical management of her hypertension. She had some issues with uncontrolled hypertension preoperatively but her blood pressure was brought well under control with losartan and hydrochlorothiazide. Her surgery went well today. She had no issues with her blood pressure during surgery. At the present time she is resting in bed. She appears reasonably comfortable with no unusual complaints of pain. She denies chest pain, palpitations, or shortness of breath. [facility] History Medical History: Reports:: Anxiety, Cancer (LEFT BREAST), Hyperlipidemia, Hypertension Denies:: Diabetes Mellitus Type 1, Diabetes Mellitus Type 2, Lung Disease, MRSA, Seizures *Have you ever received a pneumonia vaccine?: Yes *Have you received a flu vaccine this season?: Yes Other Medical History: Reports: Cataracts, Other (spinal nerve stimulator). Denies: Blood Transfusion Reaction Anesthesia experience/problems:: nac Laterality Cases: Right: Breast Biopsy, Lumpectomy, Total Knee Replacement Other Surgeries: Yes: Appendectomy, Colonoscopy, Colon Resection, Other Amputation: No Fractures: No - *Social History Last grade of school completed: Some college Smoking Status: Never smoker Alcohol Intake: never Substance Use Type: denies use *Occupational Status:: retired Housing: house Household Members: spouse *Travel in the last 8 weeks: None - Psychiatric History Pschychiatric History:: Reports:: Anxiety Family Hx:: Kidney Disease Review of Systems - Constitutional Denies headache(s) - Eyes Denies blurry vision - *Cardiovascular Denies chest pain, Denies shortness of breath, Denies generalized swelling - *Respiratory Denies chest congestion, Denies cough - *Gastrointestinal Reports constipation, Denies abdominal pain - *Genitourinary Denies painful urination - *Musculoskeletal Reports joint pain, Reports back pain - *Neurologic Denies dizziness, Denies memory loss - Psychiatric Reports anxiety Meds Home Medications Medication Instructions Recorded Confirmed Type atorvastatin 10 mg tablet 10 mg PO DAILY 09/27/19 02/15/20 History trazodone 100 mg tablet 100 mg PO HS tab 09/27/19 02/15/20 History Saccharomyces boulardii 250 mg 250 mg PO BID 01/06/20 02/15/20 History capsule cyanocobalamin (vitamin B-12) 500 500 mcg PO DAILY 01/06/20 02/15/20 History mcg tablet cyclobenzaprine 10 mg tablet 10 mg PO BID 01/06/20 02/15/20 History methylcellulose (laxative) 500 mg 500 mg PO DAILY 01/06/20 02/15/20 History tablet Losartan Potassium 100 mg PO DAILY 02/09/20 02/15/20 History hydroCHLOROthiazide 12.5 mg PO DAILY 02/09/20 02/15/20 History [Hydrochlorothiazide 12.5mg Tab] Calcium Carbonate/Vitamin D3 1 each PO BID 02/15/20 02/15/20 History [Calcium 600-Vit D3 200 Tablet] Citalopram Hydrobromide 10 mg PO DAILY 02/15/20 02/15/20 History [Citalopram 10mg Tablet] Allergies Allergy/AdvReac Type Severity Reaction Status Date / Time Sulfa (Sulfonamide Allergy Severe Rash Verified 02/15/20 08:33 Antibiotics) Penicillins Allergy Verified 02/15/20 08:33 Exam Vital signs and Labs for Last 24 Hours: Temp Pulse Resp BP Pulse Ox 98 F 107 H 16 157/61 H 99 02/15/20 19:09 02/15/20 19:09 02/15/20 14:08 02/15/20 19:09 02/15/20 14:08 Laboratory Results - last 24 hr 02/15/20 16:45: Urine Color Straw, Urine Appearance Clear, Urine pH 7.0, Ur Specific [place] 1.015, Urine Protein Negative, Urine Glucose (UA) Trace, Urine Ketones Negative, Urine Blood Trace-l, Urine Nitrate Negative, Urine Bilirubin Negative, Urine Urobilinogen 0.2, Ur Leukocyte Esterase
[2020-02-16] VITALS: BP 108/61; PULSE 80; RESP 18; TEMP 36.7; O2SAT 93
[2020-02-16 04:00] VITALS: BP 104/60; PULSE 77; RESP 18; TEMP 36.9; O2SAT 90
[2020-02-16 05:00] VITALS: BMI 26.2
--- NOTE | 2020-02-16 05:19 | PC.NURSE ---
A&OX4. PT HAS TOLERATED RA T/O SHIFT. PT HAS DONE VERY WELL THIS SHIFT. L KNEE WRAPPED AND WITH POLAR PACK APPLIED, CDI, PULSES PRESENT. PT HAS NOT C/O ANY PAIN T/O THIS SHIFT. PT HAS ALSO BEEN WIGGLING TOES AND FOOT. PT ALSO MOVING R LEG T/O SHIFT. F/C PRESENT DRAINING BRIGHT YELLOW URINE. PT DEMONSTRATES CORRECT USE OF IS. FAMILY AT BEDSIDE. PT HAS RESTED T/O MAJORITY OF THIS SHIFT. NO C/O THUS FAR. VSS WILL CONTINUE TO MONITOR.
[2020-02-16 07:59] LABS: Basophils % 0.1 % (0.1-2.0); Eosinophils # 0.2 K/mm3 (0.0-0.4); Eosinophils % 1.2 % (0.1-12.0); Hemoglobin 11.1 g/dL (12.2-16.2); Mean Corpuscular HGB Conc 31.6 g/dL (31.8-35.4); Mean Corpuscular Hemoglobin 31.4 pg (27.0-31.2); Mean Corpuscular Volume 99.2 fl (81-99); Mean Platelet Volume 8.5 fl (7.4-10.4); Monocytes # 0.4 K/mm3 (0.1-1.0); Monocytes % 2.6 % (1.7-9.3); Neutrophils # 12.8 K/mm3 (1.8-7.8); Neutrophils % 89.2 % (37.0-80.0); Platelet Count 238 K/mm3 (142-424); Red Blood Count 3.53 M/mm3 (4.20-5.40); Red Cell Distribution Width 12.9 % (11.5-17.5); White Blood Count 14.3 K/mm3 (4.8-10.8)
[2020-02-16 08:00] VITALS: BP 112/54; PULSE 86; RESP 18; TEMP 36.9; O2SAT 96
[2020-02-16 08:03] LABS: MANUAL DIFFERENTIAL MANUAL DIFFERENTIAL (MANUAL DIFF)
[2020-02-16 08:08] LABS: Chloride 104 mmol/L (98-107); Potassium 4.3 mmoL/L (3.5-5.1); Sodium 135 mmol/L (136-145)
[2020-02-16 08:11] LABS: Anion Gap 12.3 mEq/L (5-15); Blood Urea Nitrogen 28 mg/dl (7-17); Carbon Dioxide 23 mmol/L (22.0-30.0); Creatinine Clearance Estimated 53 mL/min (50-200); Estimated Glomerular Filt Rate 70 ml/min (>60); GFR (African American) 84 ML/MIN (>60)
[2020-02-16 08:12] LABS: Calcium 8.8 mg/dl (8.4-10.2); Glucose 131 mg/dl (74-100)
[2020-02-16 08:51] LABS: Lymphocytes % 4 % (10-50); Monocytes % 1 % (2-9); Neutrophils % 94 % (42-76); Total Cells Counted 100
--- NOTE | 2020-02-16 08:51 | HMH.PTEV ---
Physical Therapy Evaluation Rehab PT IP Evaluation Start: 02/15/20 13:47 Freq: ONCE Status: Active Protocol: Document 02/16/20 08:46 [email or web address] (Rec: 02/16/20 08:51 [email or web address] [id number]) Subjective/History History History This is the initial IPPT evalaution for Shani Do. Pt is a 79 y/o female admitted to [facility] s/p L TKA. Pt had TKA 02/15/20 due to severe degenerative OA in L knee. - Pt lives w/ spouse in 1 story home that is handicap accessible. Pt had previous R TKA. Subjective Subjective Pt reports 0/10 pain w/out mvmnt Rehab PT IP Eval Objective Appearance Patient Behavior Appropriate,Cooperative Patient Orientation Person,Place,Time Difficulty following instructions none Speech Pattern Clear,Appropriate Ambulation Patient Able to Ambulate Yes Ambulation Observation IP General Gait Pattern Observation Antalgic Gait Ambulation Distance (feet) 7 Ambulation Assistive Device None Ambulation Ability Contact Guard/Hand Hold Balance Ability to Arise Able, uses arms to help Sitting Balance Steady, safe Standing Balance Steady, wide stance Dynamic Sitting Balance Ability Good Dynamic Standing Balance Ability Fair Transfers Bed Transfer Ability Independent Chair Transfer Ability Independent Sit to Stand Bed Transfer Ability Contact Guard/Hand Hold Sit to Stand Chair Transfer Ability Contact Guard/Hand Hold Rehab PT IP prob,goals,plan Problems Date of Evaluation: 02/16/20 PT IP Problems Transfers,Gait,Self care Rehab Potential Rehab Potential Good Equipment Needs Assistive Devices Rolling / Wheeled Walker Plan PT Intervention Plan Transfers,Gait,Balance,Self care,Safety,Therapeutic Exercise PT Plan Frequency BID Duration LOS Discharge Goals Bed Transfer Ability Independent Sit to Stand Chair Transfer Ability Contact Guard/Hand Hold Ambulation Assistive Device Rolling Walker Ambulation Distance (feet) 15 Discharge Plan PT Discharge Plan Pt would benefit from skilled PT and SNF to allow return to PLOF and PLOI. Pt could be safe to return home w/ 24hr supervision and assistance for
[2020-02-16 08:52] LABS: Macrocytosis 1+; Platelet Estimate Normal
--- NOTE | 2020-02-16 08:59 | HMH.ACPN2 ---
Internal Medicine - PN: Subj *Date: 02/16/20 *Time: 08:59 Interval history: No unusual complaints. Rested fairly well. No SOA or CP. Exam Vital signs and Labs for Last 24 Hours: Temp Pulse Resp BP Pulse Ox 98.5 F 86 18 112/54 L 96 02/16/20 08:00 02/16/20 08:00 02/16/20 08:00 02/16/20 08:00 02/16/20 08:00 Laboratory Results - last 24 hr 02/15/20 16:45: Urine Color Straw, Urine Appearance Clear, Urine pH 7.0, Ur Specific [place] 1.015, Urine Protein Negative, Urine Glucose (UA) Trace, Urine Ketones Negative, Urine Blood Trace-l, Urine Nitrate Negative, Urine Bilirubin Negative, Urine Urobilinogen 0.2, Ur Leukocyte Esterase Negative, Urine RBC Occasional, Urine WBC 10-20 A, Ur Transition Epith Cell 3-5, Urine Bacteria Trace 02/16/20 07:45: WBC 14.3 H, RBC 3.53 L, Hgb 11.1 L, Hct 35.0 L, MCV 99.2 H, MCH 31.4 H, MCHC 31.6 L, RDW 12.9, Plt Count 238, MPV 8.5, Neut % (Auto) 89.2 H, Lymph % (Auto) 7.0 L, [place] % (Auto) 2.6, Eos % (Auto) 1.2, Baso % (Auto) 0.1, Neut # (Auto) 12.8 H, Lymph # (Auto) 1.0, [place] # (Auto) 0.4, Eos # (Auto) 0.2, Baso # (Auto) 0.0, Total Counted 100, Neutrophils % (Manual) 94 H, Band Neutrophils % 1.0, Lymphocytes % (Manual) 4 L, Monocytes % (Manual) 1 L, Platelet Estimate Normal, Macrocytosis 1+ 02/16/20 07:45: Sodium 135 L, Potassium 4.3, Chloride 104, Carbon Dioxide 23, Anion Gap 12.3, BUN 28 H, Creatinine 0.80, Estimated Creat Clear 53, Estimated GFR 70, Est GFR ( Amer) 84, Glucose 131 H, Calcium 8.8 I & O for Last 24 hours: Intake & Output 02/13/20 02/14/20 02/15/20 07/15/20 11:59 11:59 11:59 11:59 Intake Total 2825 / 2825 Output Total 1860 / 1860 Balance 965 / 965 Weight 157 lb 9 oz - Constitutional no acute distress - *Routine Respiratory Exam Present: CTA bilaterally - *Routine Cardiovascular Exam Present: RRR. Absent: murmur - *Routine Extremities Exam Absent: edema, calf tenderness Assessment and Plan (1) Hypertension Current visit: Yes Status: Acute Category: Medical Code(s): I10 - Essential (primary) hypertension (2) Degenerative joint disease of left knee Current visit: Yes Status: Acute Category: Medical Code(s): M17.12 - Unilateral primary osteoarthritis, left knee (3) Chronic back pain Current visit: Yes Status: Acute Category: Medical Code(s): M54.9 - Dorsalgia, unspecified; G89.29 - Other chronic pain (4) History of breast cancer Current visit: Yes Status: Acute Category: Medical Code(s): Z85.3 - Personal history of malignant neoplasm of breast - Assessment and plan all Dx Assessment and Plan for all problems:: Doing well. BP stable. Continue PT per ortho.
--- NOTE | 2020-02-16 10:45 | HMH.OTOPEV ---
PHYSICIAN CERTIFICATION: I certify the specified therapy services for Shani Sosbe are required, authorized, and reviewed every 30 days.
--- NOTE | 2020-02-16 11:06 | HMH.ORTHPN ---
Subjective Date: 02/16/20 Time: 10:00 Principal diagnosis: s/p L TKA Interval history: The patient is doing well this morning. She had a pain pill last night and once this morning; not requiring IV pain medication. Her block has worn off and motor/sensation returned to LLE. No fevers or chills reported, no chest pain or shortness of breath. Ibrahim was pulled this morning. She has been out of bed with PT and is currently sitting in bedside chair. PN: Obj Ex Vital signs: Temp Pulse Resp BP Pulse Ox 98.5 F 86 18 112/54 L 96 02/16/20 08:00 02/16/20 08:00 02/16/20 08:00 02/16/20 08:00 02/16/20 08:00 - Constitutional no acute distress - Routine HEENT Exam Head: Present: normocephalic Eye: Present: EOMI ENT: Present: mucous membranes moist - Routine Respiratory Exam Present: CTA bilaterally. Absent: respiratory distress, wheezes - Routine Cardiovascular Exam Present: RRR - Routine Abdominal Exam Present: soft. Absent: tenderness - Routine Extremities Exam Comments: LLE dressings c/d/i, no strikethrough +DF/PF/EHL LLE SILT distally LLE in all distributions L calf soft, non-tender; negative Homans palpable pedal pulses LLE, foot warm/pink - Routine Skin Exam Present: warm - Routine Neurological Exam Present: alert, oriented X3, moving all extremities, normal tone, vision grossly intact, hearing grossly intact, normal speech. Absent: sensory deficit, motor deficit, altered mental status - Routine Psychiatric Exam Present: normal affect - Urinary Catheter Management Ibrahim Cath placed during this visit: yes, but has since been removed by the nurse Urethral indwelling: No Insertion date: 02/15/20 Removal date: 02/16/20 Progress Note: A&P (1) Hypertension Status: Acute Current Visit: Yes (2) Degenerative joint disease of left knee Status: Acute Current Visit: Yes (3) Chronic back pain Status: Acute Current Visit: Yes (4) History of breast cancer Status: Acute Current Visit: Yes Assessment and Plan for All Diagnoses:: 79yo F POD 1 s/p L TKA -- up ad lizeth, with assistance/RW -- WBAT LLE -- elevate, ice L knee -- PT/OT to continue -- finish 24 hour prophy antibiotics -- continue home medications -- pain control; oral percocet w/dilaudid for breakthrough + IV toradol PRN x24hrs -- DVT prophy: lovenox 40mg SQ daily x14 days, when will transition to aspirin x1 month -- SCDs BLE -- encourage incentive spirometry 10x/hr while awake -- dispo planning: anticipate SNF transfer tomorrow if accepted -- Dr. Benito on consult
[2020-02-16 12:00] VITALS: BP 119/67; PULSE 76; RESP 16; TEMP 37; O2SAT 96
[2020-02-16 16:00] VITALS: BP 112/61; PULSE 85; RESP 18; TEMP 36.9; O2SAT 94
--- NOTE | 2020-02-16 18:23 | PC.NURSE ---
Awake and up to chair for most of the day, tolerating well. Remains on room air. Has been medicated per MAR for pain. Jame wraps/ surgical dressing C/D/I. Pt is able to move her toes freely, cap refill <3 sec. Ibrahim cath dc'd this shift, pt has voided w/o difficulty since that time. Polar pac has been applied to (R) knee at pt's request. Call mario w/in reach. Report to be given to oncoming shift.
--- NOTE | 2020-02-16 19:01 | PC.NURSE ---
reort given to manuel
[2020-02-16 20:00] VITALS: BP 179/85; PULSE 80; RESP 18; TEMP 36.4; O2SAT 95
[2020-02-17 04:00] VITALS: BP 186/95; PULSE 82; RESP 16; TEMP 36.8; O2SAT 97
--- NOTE | 2020-02-17 04:16 | PC.NURSE ---
A&OX4 pt has been medicated for pain per OCT. surgical dressing of nabeel wraps C/D/I. Polar pack apply to left knee. Pt has ambulated to BR with walker and x 1 assistance several times this shift. 20G R hand infusing LR @ 75. Pt has rested quietly this shift once pain was control
[2020-02-17 05:00] VITALS: BMI 27.0
[2020-02-17 06:56] LABS: Basophils % 0.2 % (0.1-2.0); Eosinophils # 0.1 K/mm3 (0.0-0.4); Eosinophils % 0.6 % (0.1-12.0); Hematocrit 33.1 % (37.0-47.0); Hemoglobin 10.8 g/dL (12.2-16.2); Lymphocytes # 2.3 K/mm3 (0.7-4.5); Lymphocytes % 29.8 % (10-50); Mean Corpuscular HGB Conc 32.6 g/dL (31.8-35.4); Mean Corpuscular Hemoglobin 31.8 pg (27.0-31.2); Mean Corpuscular Volume 97.5 fl (81-99); Monocytes # 0.6 K/mm3 (0.1-1.0); Monocytes % 7.3 % (1.7-9.3); Neutrophils # 4.7 K/mm3 (1.8-7.8); Neutrophils % 62.1 % (37.0-80.0); Platelet Count 221 K/mm3 (142-424); Red Blood Count 3.39 M/mm3 (4.20-5.40); Red Cell Distribution Width 12.9 % (11.5-17.5); White Blood Count 7.6 K/mm3 (4.8-10.8)
[2020-02-17 07:03] LABS: Anion Gap 7.4 mEq/L (5-15); Blood Urea Nitrogen 21 mg/dl (7-17); Calcium 8.9 mg/dl (8.4-10.2); Carbon Dioxide 31 mmol/L (22.0-30.0); Chloride 103 mmol/L (98-107); Creatinine Clearance Estimated 55 mL/min (50-200); Estimated Glomerular Filt Rate 70 ml/min (>60); GFR (African American) 84 ML/MIN (>60); Glucose 111 mg/dl (74-100); Potassium 4.4 mmoL/L (3.5-5.1); Sodium 137 mmol/L (136-145)
[2020-02-17 07:59] VITALS: BP 151/87; PULSE 94; RESP 20; TEMP 36.8; O2SAT 92
[2020-02-17 08:00] VITALS: O2SAT 92
[2020-02-17 08:34] LABS: Adenovirus,PCR Not Detected (NotDetected); Bordetella Pertussis Not Detected (NotDetected); Chlamydophila Pneumoniae, PCR Not Detected (NotDetected); Coronavirus 19, PCR Not Detected (NotDetected); Coronavirus 229E Not Detected (NotDetected); Coronavirus NL63 Not Detected (NotDetected); Coronavirus OC43 Not Detected (NotDetected); Coronovirus HKU1,PCR Not Detected (NotDetected); Human Metapneumovirus Not Detected (NotDetected); Influenza A, PCR Not Detected (NotDetected); Influenza AH1, 2009 Not Detected (NotDetected); Influenza AH1, PCR Not Detected (NotDetected); Influenza AH3,PCR Not Detected (NotDetected); Influenza B, PCR Not Detected (NotDetected); Mycoplasma Pneumoniae, PCR Not Detected (NotDected); Parainfluenza 1, PCR Not Detected (NotDetected); Parainfluenza 2, PCR Not Detected (NotDetected); Parainfluenza 3, PCR Not Detected (NotDetected); Parainfluenza 4, PCR Not Detected (NotDetected); Respiratory Syncytial Virus Not Detected (NotDetected); Rhinovirus/Enterovirus Not Detected (NotDetected)
--- NOTE | 2020-02-17 09:37 | PC.NURSE ---
Addendum entered by Deepali Carballo RN 02/17/20 09:59: OT HAD PATIENT UP TO RESTROOM. OT LET RN KNOW THAT INCISION TO LEFT KNEE WAS BLEEDING. DR GERMAN CALLED AND AWARE. N/O FOR 4X4, ANDREA WRAP, AND ICE TO LEFT KNEE FOR TIME BEING AND SHE WILL COME BACK AND EVALUATE HER AGAIN BEFORE DISCHARGE. PATIENT TOLERATED WELL, PLACED BACK TO BED WITH SAFETY MEASURES IN PLACE. Original Note: MD GERMAN AT BEDSIDE. REMOVED DSG TO LEFT KNEE; APPLIED [place] BORDER DRESSING. PLANS TO D/C PATIENT TO [facility] THIS AFTERNOON. ORDERS TO D/C IVF. PATIENT IN RECLINER; SAFETY MEASURES IN PLACE, OT AT BEDSIDE WORKING WITH PATIENT CURRENTLY.
--- NOTE | 2020-02-17 09:42 | HMH.ORTHPN ---
Subjective Date: 02/17/20 Time: 09:30 Principal diagnosis: s/p L TKA Interval history: The patient is doing well today, having increased pain in posterior/anterior knee, has required a few doses of dilaudid. No fevers/chills, no chest pain or shortness of breath. Vitals have remained stable. Taking good PO, voiding independently. PN: Obj Ex Vital signs: Temp Pulse Resp BP Pulse Ox 98.2 F 94 H 20 151/87 H 92 L 02/17/20 07:59 02/17/20 07:59 02/17/20 07:59 02/17/20 07:59 02/17/20 08:00 - Constitutional no acute distress - Routine HEENT Exam Head: Present: normocephalic Eye: Present: EOMI ENT: Present: mucous membranes moist - Routine Neck Exam Present: supple - Routine Respiratory Exam Present: CTA bilaterally. Absent: respiratory distress, wheezes - Routine Cardiovascular Exam Present: RRR - Routine Abdominal Exam Present: soft. Absent: tenderness, distended - Routine Extremities Exam Comments: LLE dressings c/d/i, no strikethrough as ANDREA/webril unwrapped, mild strikethrough on deeper layers L knee incision c/d/i, no active drainage +DF/PF/EHL LLE SILT distally LLE in all distributions L calf soft, non-tender; negative Homans palpable pedal pulses LLE, foot warm/pink - Routine Skin Exam Present: warm - Routine Neurological Exam Present: alert, oriented X3, moving all extremities, normal tone, vision grossly intact, hearing grossly intact, normal speech. Absent: sensory deficit, motor deficit, altered mental status - Urinary Catheter Management Ibrahim Cath placed during this visit: yes, but has since been removed by the nurse Urethral indwelling: No Insertion date: 02/15/20 Removal date: 02/16/20 Progress Note: A&P (1) Hypertension Status: Acute Current Visit: Yes (2) Degenerative joint disease of left knee Status: Acute Current Visit: Yes (3) Chronic back pain Status: Acute Current Visit: Yes (4) History of breast cancer Status: Acute Current Visit: Yes Assessment and Plan for All Diagnoses:: 79yo F POD 2 s/p L TKA -- up ad lizeth, with assistance/RW -- WBAT LLE -- elevate, ice L knee -- PT/OT to continue -- pain control; oral percocet w/dilaudid for breakthrough -- DVT prophy: lovenox 40mg SQ daily x14 days, when will transition to aspirin x1 month -- SCDs BLE -- encourage incentive spirometry 10x/hr while awake -- Dr. Benito on consult -- dispo planning: anticipate SNF transfer today, has been accepted and awaiting results of covid swab prior to transfer
--- NOTE | 2020-02-17 13:04 | HMH.ACPN2 ---
Internal Medicine - PN: Subj *Date: 02/17/20 *Time: 13:04 Interval history: Patient seen and examined this morning. States she had a rough night due to increased pain in the knee. She reportedly did well with physical therapy yesterday. She is anticipating possible discharge to [facility] today. Exam Vital signs and Labs for Last 24 Hours: Temp Pulse Resp BP Pulse Ox 98.2 F 94 H 20 151/87 H 92 L 02/17/20 07:59 02/17/20 07:59 02/17/20 07:59 02/17/20 07:59 02/17/20 08:00 Laboratory Results - last 24 hr 02/17/20 06:10: WBC 7.6 D, RBC 3.39 L, Hgb 10.8 L, Hct 33.1 L, MCV 97.5, MCH 31.8 H, MCHC 32.6, RDW 12.9, Plt Count 221, MPV 8.0, Neut % (Auto) 62.1, Lymph % (Auto) 29.8, [place] % (Auto) 7.3, Eos % (Auto) 0.6, Baso % (Auto) 0.2, Neut # (Auto) 4.7, Lymph # (Auto) 2.3, [place] # (Auto) 0.6, Eos # (Auto) 0.1, Baso # (Auto) 0.0 02/17/20 06:10: Sodium 137, Potassium 4.4, Chloride 103, Carbon Dioxide 31 H D, Anion Gap 7.4, BUN 21 H, Creatinine 0.80, Estimated Creat Clear 55, Estimated GFR 70, Est GFR ( Amer) 84, Glucose 111 H, Calcium 8.9 02/17/20 08:25: Chlamy pneumoniae PCR Not detected, Adenovirus (PCR) Not detected, B. pertussis DNA (PCR) Not detected, Coronavirus OC43 (PCR) Not detected, Coronavirus HKU1 (PCR) Not detected, Coronavirus 229E (PCR) Not detected, COVID-19 PCR Not detected, Coronavirus NL63 (PCR) Not detected, Human Metapneumovir PCR Not detected, Influenza A (H1) PCR Not detected, Influ A (H1N1/09) PCR Not detected, Influenza A (H3) PCR Not detected, Influenza Type A (PCR) Not detected, Influenza Type B (PCR) Not detected, M. pneumoniae (PCR) Not detected, Parainfluenza 1 (PCR) Not detected, Parainfluenza 2 (PCR) Not detected, Parainfluenza 3 (PCR) Not detected, Parainfluenza 4 (PCR) Not detected, RSV (PCR) Not detected, Entero/Rhino (PCR) Not detected I & O for Last 24 hours: Intake & Output 02/15/20 02/16/20 02/17/20 02/18/20 11:59 11:59 11:59 11:59 Intake Total 2825 / 2825 2893 / 2893 Output Total 2310 / 2310 450 / 450 Balance 515 / 515 2443 / 2443 Weight 157 lb 9 oz 162 lb 7 oz Microbiology Reports for the Last 24 Hours: Microbiology 02/15/20 16:45 Urine,Catheterized Urine Culture - Preliminary Narrative: She is sitting up in the chair this morning. She appears a bit uncomfortable but no acute distress. Color is adequate. Lungs are clear. Heart is regular with no ectopy. No calf tenderness. Assessment and Plan (1) Hypertension Current visit: Yes Status: Acute Category: Medical Code(s): I10 - Essential (primary) hypertension (2) Degenerative joint disease of left knee Current visit: Yes Status: Acute Category: Medical Code(s): M17.12 - Unilateral primary osteoarthritis, left knee (3) Chronic back pain Current visit: Yes Status: Acute Category: Medical Code(s): M54.9 - Dorsalgia, unspecified; G89.29 - Other chronic pain (4) History of breast cancer Current visit: Yes Status: Acute Category: Medical Code(s): Z85.3 - Personal history of malignant neoplasm of breast (5) Pyuria Current visit: Yes Status: Acute Category: Medical Code(s): R82.81 - Pyuria - Assessment and plan all Dx Assessment and Plan for all problems:: Her blood pressure is a bit elevated this morning likely due to her increased pain. She is medically stable for discharge if arrangements are made. If she goes to [facility], I would be happy to follow the patient at that facility.
--- NOTE | 2020-02-17 13:13 | PC.NURSE ---
MD JESUS AT BEDSIDE REDRESSING LEFT KNEE INCISION
--- NOTE | 2020-02-17 13:34 | HMH.DCSUM ---
General - General Admission date:: 02/15/20 Discharge date: 02/17/20 HPI HPI: 79yo F with chronic L knee pain, increasing difficulty with activity and radiographic findings of significant tricompartmetnal DJD of the knee. She has attempted conservative treatment consisting of tylenol, NSAIDs, votaren gel, ice, OTC bracing, physical therapy, intra-articular corticosteroid injections. She underwent R TKA in 2007, which she reports doing well after, but she did develop a post-operative DVT after that procedure. She is not currently on any anti-coagulation. The pain has become so severe that it is inhibiting her ability to perform ADLs and is adversely affecting her quality of life. I?ve discussed surgical options with the patient and have recommended total knee arthroplasty. We discussed at length the surgical technique and expected perioperative course, including length of hospitalization, need for postoperative physical therapy, use of anticoagulants, expected level of pain, and total length of recovery. I also explained the potential risks of surgery, including bleeding, infection, fracture, wound healing complications, need for revision surgery, continued pain post-operatively, DVT/PE, and risks of both general and regional anesthesia, including nerve damage, heart attack, stroke and even . The patient vocalized understanding of these risks and has agreed to proceed with surgery; informed consent was obtained. Hospital Course Hospital Course: The patient underwent L TKA on 02/15/20 without complication. Post-operatively she was admitted to the med/surg floor for continuing post-operative care. IV clindamycin was continued x24 hours for routine antibiotic prophylaxis. DVT prophy was started the morning of POD 1, lovenox 40mg SQ daily. Cryotherapy was initiated with a [facility] care device. SCDs were worn on the RLE and incentive spirometry encouraged. Pain medication was available as needed, which adequately controlled the patient's pain. Her anderson was removed POD 1 and she was able to void independently. Good PO intake was noted and IVF stopped. BP remained well controlled during stay, and she was followed medically by Dr. Benito. PT/OT was initiated and the patient performed well. She was medically appropriate for discharge on POD 2 and was transferred to local SNF for continuing care/PT. Objective Vital signs: Temp Pulse Resp BP Pulse Ox 98.2 F 94 H 20 151/87 H 92 L 02/17/20 07:59 02/17/20 07:59 02/17/20 07:59 02/17/20 07:59 02/17/20 08:00 no acute distress - *Routine HEENT Exam Head: Present: normocephalic Eye: Present: EOMI ENT: Present: mucous membranes moist - *Routine Neck Exam Present: supple - *Routine Respiratory Exam Present: CTA bilaterally. Absent: respiratory distress, wheezes - *Routine Cardiovascular Exam Present: RRR - *Routine Abdominal Exam Present: soft. Absent: tenderness, distended - *Routine Extremities Exam Comments: LLE dressings c/d/i, no strikethrough as ANDREA/webril unwrapped, mild strikethrough on deeper layers L knee incision c/d/i, no active drainage +DF/PF/EHL LLE SILT distally LLE in all distributions L calf soft, non-tender; negative Homans palpable pedal pulses LLE, foot warm/pink - *Routine Skin Exam Present: warm - *Routine Neurological Exam Present: alert, oriented X3, moving all extremities, normal tone, vision grossly intact, hearing grossly intact, normal speech. Absent: sensory deficit, motor deficit, altered mental status - Routine Psychiatric Exam Present: normal affect Results Completed studies during hospitalization [Text1]: Laboratory Tests 02/15/20 02/16/20 02/16/20 16:45 07:45 07:45 WBC 14.3 H RBC 3.53 L Hgb 11.1 L Hct 35.0 L MCV 99.2 H MCH 31.4 H MCHC 31.6 L RDW 12.9 Plt Count 238 MPV 8.5 Neut % (Auto) 89.2 H Lymph % (Auto) 7.0 L [place] % (Auto) 2.6 Eos % (Auto) 1.2 Baso % (Auto)
--- NOTE | 2020-02-17 14:30 | PC.NURSE ---
Detailed report called to DONY Cuellar @ [facility] at this time.
== END 2020-02-17 15:00 ==
LOC: 2ND 14:45
PROVIDERS: Admitting Provider Orthopaedic Surgery; PCP Family Medicine; Visit Provider Orthopaedic Surgery
PROC: (CPT 27447; principal; 2020-02-15 08:50)
DX: M17.12 Unilateral primary osteoarthritis, left knee (principal); I10 Essential (primary) hypertension; E78.5 Hyperlipidemia, unspecified; M54.9 Dorsalgia, unspecified; Z85.3 Personal history of malignant neoplasm of breast; Z88.0 Allergy status to penicillin; Z88.2 Allergy status to sulfonamides; Z79.899 Other long term (current) drug therapy; Z96.651 Presence of right artificial knee joint
CPT/HCPCS: 27447; 36415; 73560; 80048; 81001; 85007; 85025; 86328; 86850; 87086; 87088; 87186; 87581; 87633; 87798; 96374; 97110; 97116; 97161; 97165; 97530; 97535; C1713; C1776; G0378; J2405

== ENCOUNTER → 2020-02-24 08:51 | Outpatient (CLI) | payer MEDICARE, SELFPAY ==
--- NOTE | 2020-02-24 08:56 | XR_ITS ---
PROCEDURE: XR KNEE LT 3V CLINICAL INDICATION: s/p lt TKA Follow-up surgery COMPARISON: [id number] XR knee LT 4V from 12/23/2017 XR KNEE LT 4V from 09/27/2019 XR KNEE RT 3V from 09/27/2019 XR KNEE LT 2V from 02/15/2020 FINDINGS: Good alignment status post total knee replacement. No evidence of orthopedic complication. No acute fracture or dislocation. No lytic or blastic change. There is minimal amount of soft tissue gas once again noted but decreased in amount compared to 02/15/2020 IMPRESSION: Status post total knee replacement with good alignment. Dictated by: Jayden Peralta MD 02/24/2020 16:30 Electronically signed by Jayden Peralta MD in [place] 02/24/2020 16:30
== END ==
PROVIDERS: PCP Family Medicine; Visit Provider Orthopaedic Surgery
DX: Z96.652 Presence of left artificial knee joint (principal); M25.562 Pain in left knee
CPT/HCPCS: 73562

== ENCOUNTER → 2020-02-29 14:33 | Outpatient (CLI) | payer MEDICARE, SELFPAY ==
--- NOTE | 2020-02-29 | CA_ITS ---
APPROVED REPORT Left Lower Extremity Venous Study for DVT. Heel Slugger: CT Indications Left TKR 02/15/20 Vein Imaging CFV (L): compressive, spontaneous, phasic, augmentation SFJ (L): compressive, spontaneous, phasic, augmentation FEM (L): compressive, spontaneous, phasic, augmentation POP (L): compressive, spontaneous, phasic, augmentation DFV (L): compressive, spontaneous, phasic, augmentation PTV (L): compressive, spontaneous, phasic, augmentation GSV (L): compressive, spontaneous, phasic, augmentation SSV (L): compressive, spontaneous, phasic, augmentation Peroneals (L):compressive, spontaneous, phasic, augmentation GAS (L): compressive, spontaneous, phasic, augmentation Findings LLE Negative for DVT/SVT Vessels compressible No reflux noted Conclusion LLE Negative for DVT/SVT Vessels compressible No reflux noted Electronically signed by : Dora Martinez 03/01/2020 11:33:53
== END ==
PROVIDERS: PCP Family Medicine; Visit Provider Orthopaedic Surgery
DX: M79.605 Pain in left leg (principal); Z96.652 Presence of left artificial knee joint
CPT/HCPCS: 93971

== ENCOUNTER → 2020-03-03 12:28 | Outpatient (CLI) | payer MEDICARE, SELFPAY ==
--- NOTE | 2020-03-03 12:32 | XR_ITS ---
PROCEDURE: XR KNEE LT 3V CLINICAL INDICATION: s/p LT TKA Follow-up. COMPARISON: XR KNEE LT 4V from 09/27/2019 XR KNEE RT 3V from 09/27/2019 XR KNEE LT 2V from 02/15/2020 XR KNEE LT 3V from 02/24/2020 FINDINGS: There is bony demineralization. Redemonstrated total left knee replacement. Cemented for femoral and tibial prosthetic components appear in place. The patella is placed at an appropriate height. There is no acute fracture or dislocation. Other findings:Anteriorly extra-articular mild/moderate soft tissue edema/swelling is seen increased since the prior exam.. IMPRESSION: 1. Uncomplicated total left knee arthroplasty. 2. Anteriorly mild/moderate soft tissue edema/swelling of the knee. Dictated by: Dora Martinez 03/03/2020 15:49 Electronically signed by Dora Martinez in [place] 03/03/2020 15:49
== END ==
PROVIDERS: PCP Family Medicine; Visit Provider Orthopaedic Surgery
DX: M17.12 Unilateral primary osteoarthritis, left knee (principal)
CPT/HCPCS: 73562

== ENCOUNTER → 2020-05-05 08:33 | Outpatient (CLI) | payer MEDICARE, SELFPAY ==
--- NOTE | 2020-05-05 08:37 | XR_ITS ---
PROCEDURE: XR KNEE LT 3V CLINICAL INDICATION: s/p LT TKA COMPARISON: No exams were available for comparison FINDINGS: The femoral component is in good alignment and apposition to the tibial plateau component. The opaque plug is seen undersurface of the patella in good position. The soft tissues appear normal. IMPRESSION: Satisfactory appearance total knee prosthesis left knee Dictated by: Dr. Roberth Grover MD 05/05/2020 10:45 Dr. Roberth Grover MD in [place] 05/05/2020 10:45
== END ==
PROVIDERS: PCP Family Medicine; Visit Provider Orthopaedic Surgery
DX: Z96.659 Presence of unspecified artificial knee joint (principal); M25.562 Pain in left knee
CPT/HCPCS: 73562

== ENCOUNTER → 2020-05-30 13:11 | Outpatient (CLI) | payer MEDICARE, SELFPAY ==
[2020-05-31 09:09] LABS: Covid-19 Nasal PCR Sendout Lex NOT DETECTED
== END ==
PROVIDERS: PCP Nurse Practitioner Family; Visit Provider Nurse Practitioner Family
DX: Z03.818 Encounter for observation for suspected exposure to other biological agents ruled out (principal)
CPT/HCPCS: U0004

== ENCOUNTER → 2020-06-22 09:02 | Outpatient (POV) | payer MEDICARE, SELFPAY ==
[2020-06-22 09:40] VITALS: BP 145/81; PULSE 85; RESP 18; TEMP 36.6; O2SAT 98; BMI 25.7
--- NOTE | 2020-06-22 16:21 | HMH.PAINSOAP ---
[facility] Pain Management SOAP Note Subjective:: Patient is a 79-year-old white female who presents today for follow-up. She is being treated for chronic low back pain with lumbar radiculopathy symptoms and postlaminectomy syndrome of her lumbar spine. Patient does have a spinal cord stimulator in place. She does report that this does give her relief of her pain in her lower extremities, however, the patient does continue to have pain in her left low back area. She did discuss undergoing a psychological evaluation for intrathecal pain pump in the past, however, patient did decide against it and did not follow-up for the psychological evaluation. She is here today because she has decided she would like to, once again, proceed with the psychological evaluation. Patient has tried and failed other conservative therapies of injections, as well as physical therapy for greater than 6 weeks and anti-inflammatories. She also has had a spinal cord stimulator placed for her lower extremity pain. Oral medications have not been beneficial nor has physical therapy or a continued home stretching program. She does rate her pain a 7 out of 10 today. Review of Systems General: No recent weight changes, no fever, no sleep disturbances Respiratory: No cough, no shortness of air, no recurring pulmonary infections Cardiovascular/peripheral vascular: No chest pain, no palpitations, no edema, no shortness of breath Gastrointestinal: No new onset incontinence, normal bowel movements reported Genitourinary: No new onset incontinence Musculoskeletal: Low back pain worse in the left low back area Psychiatric: Normal mood/affect Neurological: [Denies weakness in extremities], [denies balance issues] Objective:: Physical exam General: Alert and oriented x3, no acute distress, pleasant and cooperative, [on room air] Lungs: Respirations even and unlabored, symmetrical chest expansion Eyes: PERRL Musculoskeletal: Flexion and extension of lumbar spine somewhat guarded secondary to pain, deep tendon reflexes normal, strength in upper and lower extremities [5/5], [abnormal gait noted] Neurological: Speech clear, dough catcher equal, no gross sensory deficit Assessment:: Degenerative disc disease lumbar spine with lumbar radiculopathy symptoms, postlaminectomy syndrome lumbar spine Plan:: Patient has decided she would like to proceed with the psychological evaluation. We we will schedule her for the psychological evaluation to see if she is a candidate for intrathecal therapy. She is not currently on any oral narcotics. She does have a spinal cord stimulator that does give her relief in her bilateral legs. She continues to have significant pain in her low back that is worse with standing and walking. She does have postlaminectomy syndrome of her lumbar spine. We will send her for psychological evaluation and follow-up with her after the evaluation to discuss further plan of care. She has been instructed to contact clinic if she has any concerns before next appointment. The patient and I specifically discussed risk factors for COVID19. These risks include, but are not limited to age greater than 60, heart or lung disease, diabetes, immunosuppression, and travel. We also discussed NSAIDs may worsen COVID19 infection or symptoms. Patient should not use NSAIDs to treat COVID19 signs or symptoms. Patient was also informed that any type of corticosteroid of any form (oral or injection) will decrease the patient's immune system response and may increase the likelihood of COVID19 infection [address] symptoms[address] Dr. Solo has reviewed this note and agrees with this plan of care. This note was dictated using voice recognition software and make contain errors or omissions. [facility] History I have reviewed the patient's past medical history: Yes Medical History: Reports:: Anxiety, Cancer, Hyperlipidemia, Hypertension Denies:: Diabetes Mellitus Type 1, Diabetes Mellitus Type 2, Lung Disease,
== END ==
PROVIDERS: PCP Family Medicine; Visit Provider Clinical Nurse Specialist Family Health
DX: M51.16 Intervertebral disc disorders with radiculopathy, lumbar region (principal); M96.1 Postlaminectomy syndrome, not elsewhere classified
CPT/HCPCS: 99212

== ENCOUNTER → 2020-08-11 08:02 | Outpatient (CLI) | payer MEDICARE, SELFPAY ==
--- NOTE | 2020-08-11 08:11 | XR_ITS ---
PROCEDURE: XR KNEE LT 3V CLINICAL INDICATION: s/p LT TKA- dos: 02/15/20 COMPARISON: CR XR KNEE LT 2V from 02/15/2020 CR XR KNEE LT 3V from 02/24/2020 CR XR KNEE LT 3V from 03/03/2020 CR XR KNEE LT 3V from 05/05/2020 FINDINGS: Status post total knee arthroplasty with good alignment. No change with no acute finding. Other findings:None. IMPRESSION: Good alignment status post total knee arthroplasty Dictated by: Jayden Peralta MD 08/11/2020 17:10 Jayden Peralta MD in [place] 08/11/2020 17:10
== END ==
PROVIDERS: PCP Family Medicine; Visit Provider Orthopaedic Surgery
DX: M25.562 Pain in left knee; Z96.652 Presence of left artificial knee joint
CPT/HCPCS: 73562

== ENCOUNTER 2020-08-18 08:20 | Day surgery (SDC) | payer MEDICARE, SELFPAY ==
[2020-08-18] VITALS (10 sets, daily range): BP systolic 142–170; BP diastolic 72–90; PULSE 53–79; RESP 18–20; TEMP 36.1; O2SAT 95–99; BMI 26.7
--- NOTE | 2020-08-18 09:32 | HMH.PMPROC ---
- Procedure Date: 08/18/20 Time: 09:32 Anesthesiologist:: Yariel Solo MD Complications:: None Pre-procedure Diagnosis:: Generative disc disease of lumbar spine with lumbar radiculopathy symptoms and postlaminectomy syndrome of lumbar spine Post-procedure Diagnosis:: Same Indications for Procedure:: Patient is a pleasant 79-year-old white female who we are treating for low back pain with lumbar radiculopathy symptoms and postlaminectomy syndrome lumbar spine. She does have a spinal cord stimulator in place which helps with her radicular symptoms however she does have increasing pain in her low back and radiation to her hips. She has failed all previous conservative therapy including injections, oral medications and previous surgery. She has had 2 surgeries on her back. She has had a successful psychological evaluation. She presents for intrathecal pump trial today. Procedure Details:: Pain pump trial Informed consent was obtained and the risk and benefits of the procedure was explained to the patient. The patient was taken to the procedure room and placed prone on the procedure table. Patient was prepped and draped in sterile fashion. C-arm fluoroscopy was used to view the lumbar spine. The skin and subcutaneous tissues were anesthetized using lidocaine. I placed a 18-gauge spinal needle into the L4-5 interspace and advanced until clear CSF was obtained. After this intrathecal catheter was inserted and advanced very easily to the L1 vertebral body. The needle was withdrawn. We were able to freely withdraw clear CSF through the catheter. We then injected intrathecal fentanyl single shot bolus of 25 mcg followed by saline and followed by the previous CSF that was withdrawn. The needle and catheter were then removed and a Band-Aid was placed. Patient tolerated the procedure well with no complications. We reevaluated the patient after 30 minutes to 1 hour. She was also reassessed by physical therapy. Patient did very well with 80 to 90% relief in her pain symptoms. She is also much more functional. She was to proceed to permanent placement of intrathecal pain pump. Plan and Disposition:: We will plan on permanent placement of intrathecal pain pump. This will be with intrathecal morphine 5 mg per mall to start at 0.25 mg/day. Catheter tip will be at the L1 vertebral body. We will also have her see Dr. Cardenas for evaluation of placement of pain pump reservoir.
--- NOTE | 2020-08-18 12:41 | PC.NURSE ---
0900-physical therapist at bedside, performing evaluation 0930-pt returned to bay, accompanied by nursing staff. no c/o pain. VSS. pt offered PO fluids and is agreeable, spouse remains at bedside. 0945-pt resting in chair. VSS, no c/o pain. spouse at bedside, no needs or concerns at this time 1000-pt resting in chair. VSS, no c/o pain. spouse remains at bedside. no needs or concerns at this time 1015-pt dozing in chair. VSS, no c/o pain. no needs or concerns at this time, no needs or concerns at this time. 1030-pt resting in chair. VSS, no c/o pain. spouse remains at bedside. no needs or concerns at this time. 1045-pt sitting up in chair. VSS, no c/o pain. spouse at bedside. no needs or concerns at this time. 1050-physical therapy at bedside, performing evaluation 1105-Dr. Solo at bedside.
== END 2020-08-18 11:15 | disposition home or self-care (01) ==
LOC: SC.PAINP 08:22
PROVIDERS: PCP Family Medicine; Visit Provider Anesthesiology
DX: M51.16 Intervertebral disc disorders with radiculopathy, lumbar region (principal); M96.1 Postlaminectomy syndrome, not elsewhere classified; I10 Essential (primary) hypertension; E78.5 Hyperlipidemia, unspecified; F41.9 Anxiety disorder, unspecified; F32.9 Major depressive disorder, single episode, unspecified; E07.9 Disorder of thyroid, unspecified; R25.1 Tremor, unspecified; Z85.3 Personal history of malignant neoplasm of breast; M19.90 Unspecified osteoarthritis, unspecified site; Z88.0 Allergy status to penicillin; Z88.2 Allergy status to sulfonamides
CPT/HCPCS: 62323; 96365

== ENCOUNTER → 2020-08-22 07:26 | Outpatient (CLI) | payer MEDICARE, SELFPAY ==
[2020-08-22 08:05] LABS: Basophils % 0.5 % (0.1-2.0); Eosinophils # 0.1 K/mm3 (0.0-0.4); Hematocrit 42.5 % (37.0-47.0); Hemoglobin 13.6 g/dL (12.2-16.2); Lymphocytes % 34.3 % (10-50); Mean Corpuscular HGB Conc 32.1 g/dL (31.8-35.4); Mean Corpuscular Hemoglobin 31.6 pg (27.0-31.2); Mean Corpuscular Volume 98.4 fl (81-99); Monocytes # 0.3 K/mm3 (0.1-1.0); Monocytes % 4.5 % (1.7-9.3); Neutrophils # 3.4 K/mm3 (1.8-7.8); Neutrophils % 58.6 % (37.0-80.0); Platelet Count 254 K/mm3 (142-424); Red Blood Count 4.32 M/mm3 (4.20-5.40); White Blood Count 5.8 K/mm3 (4.8-10.8)
[2020-08-22 09:13] LABS: Coronavirus 19 IgG Antibody Negative (Negative); Coronavirus 19 IgM Antibody Negative (Negative)
[2020-08-22 09:24] LABS: Anion Gap 11.7 mEq/L (5-15); Blood Urea Nitrogen 24 mg/dl (7-17); Calcium 10.2 mg/dl (8.4-10.2); Carbon Dioxide 28 mmol/L (22.0-30.0); Chloride 104 mmol/L (98-107); Estimated Glomerular Filt Rate 48 ml/min (>60); GFR (African American) 58 ML/MIN (>60); Glucose 101 mg/dl (74-100); Potassium 4.7 mmoL/L (3.5-5.1); Sodium 139 mmol/L (136-145)
[2020-08-22 09:38] LABS: Amphetamine/Metha Screen,Urine Negative ng/ml (<1000); Barbiturates Screen,Urine Negative ng/ml (<200)
[2020-08-22 09:39] LABS: Benzodiazepines Screen,Urine Negative ng/ml (<200)
[2020-08-22 09:40] LABS: Cannabinoid Screen,Urine Negative ng/ml (<50); Cocaine Screen,Urine Negative ng/ml (<300)
[2020-08-22 09:41] LABS: Methadone Screen,Urine Negative ng/ml (<300)
[2020-08-22 09:42] LABS: Opiate Screen,Urine Negative ng/ml (<300); Phencyclidine Screen,Urine Negative ng/ml (<25)
== END ==
PROVIDERS: Visit Provider Anesthesiology
DX: Z01.812 Encounter for preprocedural laboratory examination (principal); Z11.52 Encounter for screening for COVID-19; M51.36 Other intervertebral disc degeneration, lumbar region
CPT/HCPCS: 36415; 80048; 80305; 85025; 86328

== ENCOUNTER 2020-08-23 12:32 | Day surgery (SDC) | payer MEDICARE, SELFPAY ==
[2020-08-21 12:36] VITALS: BMI 26.6
[2020-08-23 13:20] VITALS: BP 184/91; PULSE 61; RESP 18; TEMP 36.2; O2SAT 96
--- NOTE | 2020-08-23 13:58 | HMH.PMCON ---
Assessment and Plan - Assessment and plan all Dx Assessment and Plan for all problems:: Impression-degenerative disc disease of the lumbar spine with radiculopathy as well as postlaminectomy syndrome Plan-placement of intrathecal pain pump system today HPI - Data of Consult Patient: new to practice Consult date: 08/23/20 Requesting Physician: Yariel Solo MD Primary Care Provider: Andrew Benito MD - Consult Narrative Reason for consult: Chronic back pain History of present illness: Ms. Alejandro is a 79 year old female with degenerative disc disease of the lumbar spine with radiculopathy. She has also had a lumbar laminectomy with postlaminectomy syndrome. She had a pain pump trial significant improvement in her pain. She also has a pain stimulator system in place which is helpful to her pain. CC: Yariel Solo MD [facility] History Medical History: Reports:: Anxiety, Cancer (breast), Hyperlipidemia, Hypertension Denies:: Diabetes Mellitus Type 1, Diabetes Mellitus Type 2, Internal Pacemaker, Lung Disease, MRSA, Seizures *Have you ever received a pneumonia vaccine?: Yes *Have you received a flu vaccine this season?: No Other Medical History: Reports: Cataracts, Thyroid Disease, Other. Denies: Blood Transfusion Reaction Comment:: Illnesses-hypertension, hyperlipidemia, breast cancer, chronic back pain, osteoarthritis, hypothyroidism Laterality Cases: Left: Breast Biopsy, Lumpectomy, Bilateral: Total Knee Replacement Other Surgeries: Yes: Appendectomy, Cholecystectomy, Colonoscopy, Colon Resection, Other (three back surgery). No: Pacemaker Amputation: No Fractures: No Comment: Operations right breast biopsy, lumbar laminectomy, bilateral total knee surgery, appendectomy, cholecystectomy, colon resection for diverticulitis, right stimulator placement - *Social History Last grade of school completed: Some college Smoking Status: Never smoker Alcohol Intake: never Substance Use Type: denies use *Occupational Status:: retired Housing: house Household Members: spouse *Travel in the last 8 weeks: None - Psychiatric History Pschychiatric History:: Reports:: Anxiety Family Hx:: Hypertension Review of Systems - Review of Systems Review of systems:: pertinent systems reviewed and negative unless documented below Meds Home Medications Medication Instructions Recorded Confirmed Type atorvastatin 10 mg tablet 10 mg PO DAILY 09/27/19 08/18/20 History trazodone 100 mg tablet 100 mg PO HS tab 09/27/19 08/18/20 History Saccharomyces boulardii 250 mg 250 mg PO BID 01/06/20 08/18/20 History capsule cyanocobalamin (vitamin B-12) 500 500 mcg PO DAILY 01/06/20 08/18/20 History mcg tablet cyclobenzaprine 10 mg tablet 10 mg PO BID 01/06/20 08/18/20 History methylcellulose (laxative) 500 mg 500 mg PO DAILY 01/06/20 08/18/20 History tablet Losartan Potassium 100 mg PO DAILY 02/09/20 08/18/20 History hydroCHLOROthiazide 12.5 mg PO DAILY 02/09/20 08/18/20 History [Hydrochlorothiazide 12.5mg Tab] Calcium Carbonate/Vitamin D3 1 each PO BID 02/15/20 08/18/20 History [Calcium 600-Vit D3 200 Tablet] Citalopram Hydrobromide 10 mg PO DAILY 02/15/20 08/18/20 History [Citalopram 10mg Tablet] Acetaminophen [Acetaminophen 325mg 650 mg PO Q6HP PRN tab 02/17/20 08/18/20 Rx tab] Docusate Sodium [Docusate Sodium 100 mg PO BIDP PRN cap 02/17/20 08/18/20 Rx 100mg Cap] oxycodone-acetaminophen 5 mg-325 1 tab PO Q6HP PRN #30 tab 03/16/20 08/18/20 Rx mg tablet propranolol 20 mg tablet 20 mg PO BID 08/11/20 08/18/20 History Calcium Citrate/Vitamin D3 1 each PO DAILY 08/21/20 08/21/20 History [Citracal + D Maximum Caplet] Cholecalciferol (Vitamin D3) 5,000 unit PO DAILY 08/21/20 08/21/20 History [Vitamin D3 1,000 Unit Tab] Meloxicam 7.5 mg PO BID 08/21/20 08/21/20 History Oxybutynin Chloride [Ditropan Xl] 10 mg PO DAILY 08/21/20 08/21/20 History Primidone 50 mg PO DAILY 08/21/20 08/21/20 Hist
--- NOTE | 2020-08-23 15:06 | P.OP_ITS ---
Date of procedure: 08/23/20 Pre-op Diagnosis:: Degenerative disc disease of the lumbar spine with radiculopathy Post-op Diagnosis:: Same Procedure performed:: Placement of pain pump generator Surgeon:: Ehsan Cardenas MD OUTSIDE SALES REPRESENTATIVE:: Hernan Nicole, Lucius Fatima, Jay Marin, Luis Langley, Other Anesthesia: MAC Estimated blood loss (mL): 5 Operative findings:: Not applicable Operative note:: Patient was placed prone on the operating table and her back and flank regions were prepped and draped in sterile fashion. Once adequate IV sedation was obtained utilizing anesthesia and local using 1% Xylocaine with epinephrine a paraspinal incision was made by Dr. Arreguin there which an intrathecal catheter was passed into the intrathecal space where he desired. At this point a left flank incision was made over generator for pocket for placement of the generator. Utilizing of the tunneling device the catheter was passed from the paraspinal incision to the pocket incision. Both pockets incisions were irrigated with antibiotic solution. The catheter was connected to the generator which was placed in the pocket. CSF was aspirated from the generator noting patency of the system. This point subcutaneous tissues closed with interrupted stitches of 2-0 Vicryl. Skin closed with stitches of 4-0 nylon. Wound VAC dressings and a binder applied to the wound. The patient taught procedure well was taken recovery in stable condition. Upon recovery the patient will be discharged home and will follow 1 week for wound removal and wound VAC dressings and in 2 weeks for removal of sutures. Antibiotic x1 week per protocol. The patient tolerated procedure well. Condition: stable Disposition: PACU Complications:: None
--- NOTE | 2020-08-23 15:54 | P.PN_ITS ---
[facility] Anesthesia Checklist - Patient Identification Patient Identification: Verbal (Name & ) - Structural Data Admitted From: Home Planned Operative Procedure/s: tiva Consent for Planned Operative Procedure(s) Verified: Yes Verified Documents: Surgical Consent, History and Physical - NPO Status Verified Time NPO: 00:00 - Additional verifications Anesthesia Reactions: No Hx Blood Transfusions: No Blood Transfusion Reaction: No - Neurological Assessment Level of Consciousness: Awake - Anesthesia Plan Anesthesia Plan: Verified ASA Class: III Anesthesia Type: Local & MAC [facility] History I have reviewed the patient's past medical history: Yes Medical History: Reports:: Anxiety, Cancer (breast), Hyperlipidemia, Hypertension Denies:: Diabetes Mellitus Type 1, Diabetes Mellitus Type 2, Internal Pacemaker, Lung Disease, MRSA, Seizures *Have you ever received a pneumonia vaccine?: Yes *Have you received a flu vaccine this season?: No Other Medical History: Reports: Cataracts, Thyroid Disease, Other. Denies: Blood Transfusion Reaction Anesthesia experience/problems:: non Laterality Cases: Left: Breast Biopsy, Lumpectomy, Bilateral: Total Knee Replacement Other Surgeries: Yes: Appendectomy, Cholecystectomy, Colonoscopy, Colon Resection, Other (three back surgery). No: Pacemaker Amputation: No Fractures: No - *Social History Last grade of school completed: Some college Smoking Status: Never smoker Alcohol Intake: never Substance Use Type: denies use *Occupational Status:: retired Housing: house Household Members: spouse *Travel in the last 8 weeks: None - Psychiatric History Pschychiatric History:: Reports:: Anxiety Family Hx:: Hypertension
[2020-08-23 16:15] VITALS: BP 106/65; PULSE 75; RESP 16; TEMP 36.9; O2SAT 95
--- NOTE | 2020-08-23 16:16 | P.OP_ITS ---
Date of procedure: 08/23/20 Pre-op Diagnosis:: Degenerative disc disease of lumbar spine with lumbar radiculopathy symptoms Post-op Diagnosis:: Same Procedure performed:: Intrathecal catheter placement with tunneling for permanent intrathecal pain pump Surgeon:: Yariel Solo MD ORNAMENTAL METAL WORKER:: Other Anesthesia: GETA Estimated blood loss (mL): 5 Clinical Note:: This patient is a pleasant 79-year-old white female who we are treating for low back pain with lumbar radiculopathy symptoms and postlaminectomy syndrome lumbar spine. She does have a spinal cord stimulator in place which helps her radicular symptoms however she does have increasing pain in her low back with radiation to her hips. She has failed all previous conservative therapy. She has had 2 back surgeries. She has had a successful psychological evaluation and a successful intrathecal pump trial. She presents for permanent placement of her intrathecal pain pump today. Operative findings:: None Operative note:: Informed consent was obtained and the risk and benefits of the procedure were explained to the patient. The patient was taken to the procedure room. The back was prepped using ChloraPrep. The skin and subcutaneous tissues adjacent to the L4-5 and L5-S1 interspace were anesthetized using lidocaine. I made an incision and dissected down to the lumbar paraspinous fascia. A 14-gauge spinal needle was inserted and advanced into the L3-L4 interspace until clear CSF was obtained. After this intrathecal catheter was inserted and advanced very easily to the T12 vertebral body. The stylette of the catheter and the needle were withdrawn. The catheter was secured to the fascia with 2 anchoring devices and 2-0 Prolene. I prepared the pump with 20 mL of intrathecal morphine 5 mg/mL while Dr. Cardenas prepared the pump pocket. I tunneled the catheter from the back to the pump pocket and attached the catheter to the pump. We were able to freely withdraw clear CSF through the side-port. The pump was placed in the pocket. The pump was secured to the fascia with 2-0 Prolene. Both incisions were irrigated with bacitracin solution. Both incisions were then closed with 2-0 Vicryl followed by 4-0 nylon. The pump was interrogated and started at 0.25 mg/day of intrathecal morphine. Patient tolerated the procedure well with no complications. She was discharged home neurologically intact with good relief of pain symptoms. Plan and disposition: We will follow-up with patient in 1 week for reprogramming and wound check. We will follow-up in 2 weeks for suture removal. If the patient has any problems or questions she is to call us back in the pain clinic. Condition: stable Disposition: PACU Complications:: None
[2020-08-23 16:30] VITALS: BP 148/60; PULSE 80; RESP 16; O2SAT 98
[2020-08-23 16:45] VITALS: BP 152/90; PULSE 82; RESP 16; O2SAT 98
[2020-08-23 17:00] VITALS: BP 162/90; PULSE 72; RESP 16; O2SAT 98
[2020-08-23 17:25] VITALS: BP 167/92; PULSE 68; RESP 16; TEMP 36.7; O2SAT 98
== END 2020-08-23 17:30 | disposition home or self-care (01) ==
LOC: OR 12:33
PROVIDERS: PCP Family Medicine; Visit Provider Anesthesiology
PROC: (CPT 62362; principal; 2020-08-23 13:30)
DX: M51.16 Intervertebral disc disorders with radiculopathy, lumbar region (principal); M96.1 Postlaminectomy syndrome, not elsewhere classified; Z85.3 Personal history of malignant neoplasm of breast; F41.9 Anxiety disorder, unspecified; E78.5 Hyperlipidemia, unspecified; I10 Essential (primary) hypertension; E07.9 Disorder of thyroid, unspecified; Z90.49 Acquired absence of other specified parts of digestive tract; Z82.49 Family history of ischemic heart disease and other diseases of the circulatory system; Z88.0 Allergy status to penicillin; Z88.2 Allergy status to sulfonamides; Z79.899 Other long term (current) drug therapy
CPT/HCPCS: 62362; 63650; 96374; C1755; C1772; J3370

== ENCOUNTER → 2020-08-31 13:22 | Outpatient (POV) | payer MEDICARE, SELFPAY ==
[2020-08-31 14:02] VITALS: BP 139/78; PULSE 70; RESP 20; TEMP 36.5; O2SAT 97; BMI 26.6
--- NOTE | 2020-08-31 15:23 | HMH.PAINSOAP ---
[facility] Pain Management SOAP Note Subjective:: Patient is a pleasant 79-year-old white female who presents today for follow-up after intrathecal pain pump placement. Patient's wound VAC was removed her stitches are intact no sign symptoms of infection. Overall patient doing quite well she denies any side effects to her intrathecal infusion of morphine 0.25 mg/day patient states that she has no pain today. Overall doing well ROS General: no recent weight change, no fever, no sleep disturbances Respiratory: no cough, no shortness of air, no recurring pulmonary infections Cardiovascular/Peripheral Vascular: No chest pain, No palpitations, no edema, no shortness of breath. Gastrointestinal: no new onset incontinence, normal bowel movements reported Genitourinary: no new onset incontinence Musculoskeletal: Back pain and leg pain at times Psychiatric: normal mood/ affect Neurological: [denies new onset weakness in extremities], [denies new onset balance issues] Objective:: Physical Exam General: Alert and oriented x3, no acute distress, pleasant and cooperative, [on room air] Lungs: Resps E/U, Symmetrical chest expansion, Eyes: PERRL Musculoskeletal: Flexion and extension of lumbar spine somewhat guarded secondary to pain, deep tendon reflexes normal, strength in upper and lower extremities [5/5], [abnormal gait noted] Neurological: speech clear, munitions worker equal, no gross sensory deficits Assessment:: Degenerative disc disease lumbar spine lumbar radiculopathy Plan:: We will see the patient back in 2 weeks for stitch removal. She is been instructed to call the office if she has any issues prior to her next appointment. Dr. Solo has reviewed this note and agrees with this plan of care. This note was dictated using voice recognition software and may contain errors or omissions [facility] History I have reviewed the patient's past medical history: Yes Medical History: Reports:: Anxiety, Cancer (breast), Hyperlipidemia, Hypertension Denies:: Diabetes Mellitus Type 1, Diabetes Mellitus Type 2, Internal Pacemaker, Lung Disease, MRSA, Seizures *Have you ever received a pneumonia vaccine?: Yes *Have you received a flu vaccine this season?: Yes Other Medical History: Reports: Cataracts, Thyroid Disease, Other. Denies: Blood Transfusion Reaction Laterality Cases: Left: Breast Biopsy, Lumpectomy Other Surgeries: Yes: Appendectomy, Cholecystectomy, Colonoscopy, Colon Resection, Other (three back surgery). No: Pacemaker Amputation: No Fractures: No - *Social History Smoking Status: Never smoker Alcohol Intake: never Substance Use Type: denies use *Occupational Status:: retired Housing: house Household Members: spouse *Travel in the last 8 weeks: None - Psychiatric History Pschychiatric History:: Reports:: Anxiety Family Hx:: Hypertension
== END ==
PROVIDERS: PCP Family Medicine; Visit Provider Clinical Nurse Specialist Family Health
DX: M51.16 Intervertebral disc disorders with radiculopathy, lumbar region (principal)
CPT/HCPCS: 99212; G0463

== ENCOUNTER → 2020-09-18 11:59 | Outpatient (POV) | payer MEDICARE, SELFPAY ==
[2020-09-18 12:23] VITALS: BP 135/85; PULSE 85; RESP 18; TEMP 36.8; O2SAT 98; BMI 26.6
--- NOTE | 2020-09-18 12:47 | HMH.PMPROC ---
- Procedure Date: 09/18/20 Time: 12:47 Anesthesiologist:: Araceli Wang APRN Complications:: None Pre-procedure Diagnosis:: Degenerative disc disease lumbar spine lumbar radiculopathy Post-procedure Diagnosis:: Same Indications for Procedure:: Patient is a pleasant 79-year-old white female who presents today for follow-up. Patient had intrathecal pain pump placed. She had her stitches removed today no sign symptoms of infection overall patient doing extremely well patient would like a slight increase in her intrathecal infusion. Patient is currently going at 0.25 mg of morphine a day. Patient denies any side effects to this. Procedure Details:: Informed consent was obtained and the risk and benefits of the procedure were explained to the patient. The patient was taken to the procedure room where noninvasive monitoring was placed including noninvasive blood pressure cuff and pulse oximeter. Patient's pump was interrogated and reprogrammed. The infusion rate was increased to 0.3 mg of morphine a day. The patient tolerated the procedure well. Plan and Disposition:: I will see the patient at her next intrathecal pain pump refill and reprogram she has been instructed to call the office if she has any issues prior to her next appointment. Dr. Solo has reviewed this note and agrees with this plan of care. This note was dictated using voice recognition software and may contain errors or omissions
== END ==
PROVIDERS: PCP Family Medicine; Visit Provider Clinical Nurse Specialist Family Health
DX: M51.16 Intervertebral disc disorders with radiculopathy, lumbar region (principal)
CPT/HCPCS: 62368

== ENCOUNTER → 2020-10-05 08:27 | Outpatient (POV) | payer MEDICARE, SELFPAY ==
[2020-10-05 08:30] VITALS: BP 141/76; PULSE 73; RESP 20; TEMP 36.7; O2SAT 99; BMI 31.1
--- NOTE | 2020-10-05 08:39 | P.PCN_ITS ---
- Procedure Date: 10/05/20 Time: 08:39 Anesthesiologist:: Karine Butcher APRN Complications:: None Pre-procedure Diagnosis:: Degenerative disc disease lumbar spine with lumbar radiculopathy symptoms Post-procedure Diagnosis:: Same Indications for Procedure:: Patient is a 79-year-old white female who presents today for intrathecal pain pump adjustment. She is being treated for pain due to degenerative disc disease lumbar spine with lumbar radiculopathy symptoms. Patient rates her pain a 7 out of 10 when standing is 0 out of 10 with sitting. She says anytime she gets up her pain is severe. She would like an increase in her dose. She is currently on morphine at 0.3 mg/day. We will increase her to see if she gets relief. Jordy and drug screens have been appropriate. Physical exam General: Alert and oriented x3, no acute distress, pleasant and cooperative, [on room air] Lungs: Respirations even and unlabored, symmetrical chest expansion Eyes: PERRL Musculoskeletal: Flexion and extension of lumbar spine somewhat guarded secondary to pain, deep tendon reflexes normal, strength in upper and lower extremities [5/5], [abnormal gait noted] Neurological: Speech clear, cardiology nurse practitioner equal, no gross sensory deficit Procedure Details:: Informed consent was obtained and the risk and benefits of the procedure were explained to the patient. Patient was taken to the procedure room where noninvasive monitoring was placed including noninvasive blood pressure cuff and pulse oximeter. Patient's pump was interrogated and was reprogrammed to morphin e at 0.37 mg/day. The patient tolerated the procedure well with no complications. Plan and Disposition:: We will see the patient back at her next intrathecal refill and reprogram. Her PTC was set up today as well to begin at morphine at 0.03 mg up to 4 times daily. If the patient is having pain before her refill she can contact clinic and we will get her back in for an adjustment. She has been instructed to contact clinic if she has any concerns before next appointment. The patient and I specifically discussed risk factors for COVID19. These risks include, but are not limited to age greater than 60, heart or lung disease, diabetes, immunosuppression, and travel. We also discussed NSAIDs may worsen COVID19 infection or symptoms. Patient should not use NSAIDs to treat COVID19 signs or symptoms. Patient was also informed that any type of corticosteroid of any form (oral or injection) will decrease the patient's immune system response and may increase the likelihood of COVID19 infection and symptoms[address] Dr. Solo has reviewed this note and agrees with this plan of care. This note was dictated using voice recognition software and make contain errors or omissions.
== END ==
PROVIDERS: Visit Provider Clinical Nurse Specialist Family Health
DX: M51.16 Intervertebral disc disorders with radiculopathy, lumbar region (principal)
CPT/HCPCS: 62368

== ENCOUNTER → 2020-10-17 09:33 | Outpatient (CLI) | payer MEDICARE, SELFPAY ==
[2020-10-17 10:44] LABS: Hemoglobin A1C 5.7 % (4.0-6.0)
[2020-10-17 10:58] LABS: 25-OH Vitamin D, Total 49.9 ng/mL (30-100)
[2020-10-17 11:00] LABS: Free T4 (Free Thyroxine) 0.99 ng/dl (0.78-2.19)
--- NOTE | 2020-10-17 12:57 | XR_ITS ---
PROCEDURE: XR DEXA AXIAL SKELETON CLINICAL HISTORY: OSTEOPENIA COMPARISON: No exams were available for comparison FINDINGS: The right hip BMD is 0.703 with a T-score of -1.3. The left hip BMD is 0.627 with a T-score of -2.0. The left forearm BMD is 0.646 with a T-score of -0.8. IMPRESSION: This patient is considered osteopenic according to the World Health Organization criteria. Bone density is between 10 and 25 percent below young normal. Fracture risk is moderate. Treatment is advised. Based on these results a follow-up exam is recommended in 2 year. Dictated by: Jayden Peralta MD 10/18/2020 20:25 Jayden Peralta MD in [place] 10/19/2020 07:59
[2020-10-17 19:47] LABS: Alanine Aminotransferase 13 U/L (12-78); Albumin Level 4.1 g/dl (3.5-5.0); Albumin/Globulin Ratio 1.2 (1.1-1.8); Alkaline Phosphatase 78 U/L (38-126); Aspartate Amino Transferase 26 U/L (14-36); Bilirubin,Total 0.3 mg/dl (0.2-1.3); Blood Urea Nitrogen 19 mg/dl (7-17); Calcium 9.8 mg/dl (8.4-10.2); Carbon Dioxide 27 mmol/L (22.0-30.0); Chloride 104 mmol/L (98-107); Chol/HDL Ratio 3.4 (1-3.5); Cholesterol 228 mg/dl (140-200); Estimated Glomerular Filt Rate 54 ml/min (>60); GFR (African American) 65 ML/MIN (>60); Globulin 3.5 g/dL (1.3-3.2); Glucose 99 mg/dl (74-100); HDL Cholesterol 67 mg/dl (40-60); Iron 76 ug/dL (37-170); Sodium 138 mmol/L (136-145); Total Protein,Serum 7.6 g/dl (6.3-8.2); Triglycerides 201 mg/dl (30-150); VLDL Cholesterol 40 mg/dL (0-40)
[2020-10-17 19:58] LABS: Direct LDL Cholesterol 94.72 mg/dL (100-129)
[2020-10-17 20:18] LABS: Thyroid Stimulating Hormone 3.39 uIU/mL (0.465-4.68)
[2020-10-17 20:36] LABS: Vitamin B12 950 pg/mL (239-931)
[2020-10-17 21:00] LABS: Total Iron Binding Capacity 273 ug/dL (265-497)
== END ==
PROVIDERS: PCP Family Medicine; Visit Provider Nurse Practitioner Family
DX: M85.89 Other specified disorders of bone density and structure, multiple sites (principal); R73.9 Hyperglycemia, unspecified; D64.9 Anemia, unspecified; E53.8 Deficiency of other specified B group vitamins; E55.9 Vitamin D deficiency, unspecified; I10 Essential (primary) hypertension; Z13.29 Encounter for screening for other suspected endocrine disorder
CPT/HCPCS: 36415; 77080; 80053; 80061; 82306; 82607; 83036; 83540; 83550; 84439; 84443

== ENCOUNTER → 2020-10-19 09:38 | Outpatient (CLI) | payer MEDICARE, SELFPAY ==
[2020-10-19 12:14] LABS: Basophils % 0.5 % (0.1-2.0); Eosinophils # 0.2 K/mm3 (0.0-0.4); Eosinophils % 1.9 % (0.1-12.0); Hematocrit 41.8 % (37.0-47.0); Hemoglobin 12.9 g/dL (12.2-16.2); Lymphocytes # 2.4 K/mm3 (0.7-4.5); Lymphocytes % 30.8 % (10-50); Mean Corpuscular HGB Conc 30.8 g/dL (31.8-35.4); Mean Corpuscular Volume 100.7 fl (81-99); Mean Platelet Volume 7.9 fl (7.4-10.4); Monocytes # 0.5 K/mm3 (0.1-1.0); Monocytes % 6.1 % (1.7-9.3); Neutrophils # 4.8 K/mm3 (1.8-7.8); Neutrophils % 60.7 % (37.0-80.0); Platelet Count 246 K/mm3 (142-424); Red Blood Count 4.15 M/mm3 (4.20-5.40); Red Cell Distribution Width 13.2 % (11.5-17.5); White Blood Count 7.9 K/mm3 (4.8-10.8)
== END ==
PROVIDERS: Visit Provider Nurse Practitioner Family
DX: I10 Essential (primary) hypertension (principal); R73.9 Hyperglycemia, unspecified; E55.9 Vitamin D deficiency, unspecified; E53.8 Deficiency of other specified B group vitamins; E78.5 Hyperlipidemia, unspecified; D64.9 Anemia, unspecified; Z79.899 Other long term (current) drug therapy
CPT/HCPCS: 36415; 85025

== ENCOUNTER → 2020-10-26 15:18 | Outpatient (POV) | payer MEDICARE, SELFPAY ==
--- NOTE | 2020-10-26 15:33 | HMH.PMPROC ---
- Procedure Date: 10/26/20 Time: 15:33 Anesthesiologist:: Araceli Wang APRN Complications:: None Pre-procedure Diagnosis:: Degenerative disc disease lumbar spine lumbar radiculopathy symptoms of back pain Post-procedure Diagnosis:: Same Indications for Procedure:: Patient is a pleasant 79-year-old white female who presents today for intrathecal pain pump adjustment. She rates her pain a 3 out of 10. Patient overall doing well she is currently on a morphine infusion of 0.37 mg/day. We will give her a 22% increase today. She denies side effects to her medication. She states her PTC is beneficial. Procedure Details:: Informed consent was obtained and the risk and benefits of the procedure were explained to the patient. The patient was taken to the procedure room where noninvasive monitoring was placed including noninvasive blood pressure cuff and pulse oximeter. Patient's pump was interrogated and reprogrammed. The infusion rate was increased to 0.45 mg/day of morphine. The patient tolerated the procedure well. Plan and Disposition:: We will see the patient back at her next intrathecal pain pump refill and reprogram she has been instructed to call the office if she has any issues prior to her next appointment. Dr. Solo has reviewed this note and agrees with this plan of care. This note was dictated using voice recognition software and may contain errors or omissions
[2020-10-26 16:06] VITALS: BP 135/74; PULSE 87; RESP 18; O2SAT 96; BMI 28.3
== END ==
PROVIDERS: Visit Provider Clinical Nurse Specialist Family Health
DX: M51.16 Intervertebral disc disorders with radiculopathy, lumbar region (principal)
CPT/HCPCS: 62368

== ENCOUNTER → 2020-11-09 08:21 | Outpatient (POV) | payer MEDICARE, SELFPAY ==
[2020-11-09 08:36] VITALS: BP 159/94; PULSE 65; RESP 20; TEMP 36; O2SAT 97; BMI 28.3
--- NOTE | 2020-11-09 08:39 | P.PCN_ITS ---
- Procedure Date: 11/09/20 Time: 08:39 Anesthesiologist:: Araceli Wang APRN Complications:: None Pre-procedure Diagnosis:: Degenerative disc disease lumbar spine lumbar radiculopathy, back pain Post-procedure Diagnosis:: Same Indications for Procedure:: Patient is a pleasant 79-year-old white female who presents today for intrathecal pain pump adjustment. She rates her pain an 8 out of 10 when she standing and walking she denies any side effects from medication. We will increase her today. She is currently on 0.45 mg of morphine. [facility] #[id number] reviewed and appropriate. Procedure Details:: Informed consent was obtained and the risk and benefits of the procedure were explained to the patient. The patient was taken to the procedure room where noninvasive monitoring was placed including noninvasive blood pressure cuff and pulse oximeter. Patient's pump was interrogated and reprogrammed. The infusion rate was increased to 0.6 mg of morphine a day. The patient tolerated the procedure well. Plan and Disposition:: The patient back at her next intrathecal pain pump refill and reprogram. She has been instructed to call the office if she has any issues prior to her next appointment. Dr. Solo has reviewed this note and agrees with this plan of care. This note was dictated using voice recognition software and may contain errors or omissions
== END ==
PROVIDERS: PCP Family Medicine; Visit Provider Clinical Nurse Specialist Family Health
DX: M51.16 Intervertebral disc disorders with radiculopathy, lumbar region (principal)
CPT/HCPCS: 62368

== ENCOUNTER 2020-11-16 16:50 | Emergency (ER) | payer MEDICARE, SELFPAY ==
[2020-11-16 16:51] VITALS: BP 178/106; PULSE 76; RESP 16; TEMP 37.1; O2SAT 98; BMI 27.4
--- NOTE | 2020-11-16 16:53 | CT_ITS ---
PROCEDURE: CT CERVICAL SPINE WO CON CLINICAL INDICATION: trauma Neck injury with pain, contusion/abrasion or hematoma, cervical sprain/strain the COMPARISON: No exams were available for comparison TECHNIQUE: Axial images obtained with sagittal and coronal reformats. All CT scans at the facility use one or more dose reduction, viz: automated exposure control, ma/kV adjustment per patient size (including targeted exams where dose is matched to indication, i.e. head), or iterative reconstruction technique. Axial spiral CT scanning performed of the cervical spine beginning at the base of the skull and continuing to the upper T-spine. 3-D multiplanar reconstruction with 3-D manipulation of volumetric data set in image rendering was completed by the radiologist and/or technologist with the supervision of the radiologist on independent workstation. FINDINGS: There is straightening/reversal of the normal lordosis which may be due to patient positioning or muscle spasm.. No acute fracture or dislocation. Multilevel cervical spondylosis. C2-C3 unremarkable. C3-C4: Degenerative disc disease. 2 mm anterolisthesis of C3 C4-C5: Degenerative disc disease. Mild bony exostosis of the left lamina medially projecting inward into the posterior canal. C5-C6: Degenerative disc disease with endplate hypertrophy with bony canal stenosis and mild bilateral foraminal narrowing. C6-C7: Degenerative disc disease with endplate sclerosis and bony canal stenosis. C7-T1: Unremarkable. There is prominent calcification posteriorly at the C7 and T1 spinous processes involving the soft tissues. Lung apices are clear. There is bony sclerosis involving the left 1st rib anteriorly and may be related to an old fracture. Surgical clips are present in the thyroid region IMPRESSION: 1. No acute fracture. 2. Multilevel cervical spondylosis as detailed above. 3. Sclerosis of the anterior aspect of the left 1st rib possibly related to an old fracture versus a blastic lesion Dictated by: Jayden Peralta MD 11/17/2020 06:51 Jayden Peralta MD in [place] 11/17/2020 06:51
--- NOTE | 2020-11-16 16:53 | CT_ITS ---
PROCEDURE: CT HEAD/BRAIN WO CON CLINICAL INDICATION: trauma Head injury with headache/pain, contusion, abrasion or hematoma COMPARISON: No exams were available for comparison TECHNIQUE: Axial images obtained. All CT scans at the facility use one or more dose reduction, viz: automated exposure control, ma/kV adjustment per patient size (including targeted exams where dose is matched to indication, i.e. head), or iterative reconstruction technique. FINDINGS: No midline shift, mass effect, intracranial hemorrhage, hydrocephalus, or extra-axial fluid collection is evident. Mild involutional changes of age. The calvarium has an unremarkable appearance. No mastoid effusion. Left paracentral parietal occipital scalp hematoma with overlying skin clips. Mild mucosal thickening ethmoid sinuses. IMPRESSION: 1. No acute intracranial findings. 2. Left posterior parietal occipital scalp hematoma Dictated by: Jayden Peralta MD 11/17/2020 06:46 Jayden Peralta MD in [place] 11/17/2020 06:46
--- NOTE | 2020-11-16 17:11 | HMH.EDGENADL ---
ED Disposition Clinical Impression: Head injury, Laceration Disposition: Home, Self-Care Condition on Discharge: Good Instructions: DI for Laceration Repair Additional Instructions: Follow-up in 1 week for table removal. Return to emergency department for any other concerns headache nausea vomiting within the next 8 hours otherwise follow-up with your primary care physician Referrals: Andrew Benito MD [Primary Care Provider] - - Critical Care Critical Care Time: No Attestation: On 11/16/20, the high probability of a clinically significant, sudden or life threatening deterioration of the following system(s) required my full and direct attention, intervention and personal management. The time I documented below is in addition to time spent performing reported procedures but includes the following listed in this critical care notation. Medical Decision Making - Medical Records Medical records reviewed: Yes: I reviewed the patient's medical records. - Jordy Inquiry Pt receiving controlled substance: No Vital Signs: 11/16/20 16:51 11/16/20 17:45 Temperature 98.7 F Temperature Source Oral Pulse Rate 61 Pulse Rate [Radial] 76 Respiratory Rate 16 Blood Pressure 184/89 H Blood Pressure [Right Arm] 178/106 H Blood Pressure Mean [Right Arm] 130 Blood Pressure Source Automatic Cuff Blood Pressure Position Sitting Blood Pressure Position [Right Arm] Sitting 02 Sat by Pulse Oximetry 98 97 Oxygen Delivery Method Room Air Room Air Orders (Tests/Meds): ORDERS Category Date Time Status CT cervical spine wo con Stat Cat Scan 11/16/20 16:[address] head/brain wo con Stat Cat Scan 11/16/20 16:53 Taken Medical Decision Narrative: 79-year-old female with traumatic head injury. She is awake and alert with normal neurological exam on initial evaluation with normal vital signs as well. She is in no acute distress. Tetanus shot is up-to-date and laceration was repaired with 2 nikolas. She is high risk per Indian CT head and C-spine rules for injury, CT scans obtained CT scans were negative, patient to be discharged with return precautions General Adult HPI - General Chief complaint: Wound/Laceration Stated complaint: [id number] fell hit head Time Seen by Provider: 11/16/20 17:00 Mode of Arrival: Ambulatory Limitations: No Limitations Description of Symptoms (Recalled from ER Triage Doc. by RN): TO ED PER PVT CAR PT STATES OUTSIDE BENDING DOWN LOST BALANCE FELL BACKWARDS HITTING HEAD ON A CONCRETE BIRD FEEDER. PT DENIES ANY LOC. LAC NOTED TO OCCIPITAL AREA SCALP. NO ACTIVE BLEEDING NOTED, - History of Present Illness HPI narrative: Female with fall from standing. She says she lost her balance and fell backwards and hit the bird feeder. She had no loss of consciousness nausea vomiting numbness weakness or tingling arms or legs. She says that this was a mechanical fall. She is not on a blood thinner. Her tetanus shot with is within the last 10 years. Onset (ago): hour(s) (1) Location: head Radiation: non-radiation Quality: burning Consistency: constant - Related Data Home Medications Medication Instructions Recorded Confirmed atorvastatin 10 mg tablet 10 mg PO DAILY 09/27/19 11/09/20 trazodone 100 mg tablet 100 mg PO HS tab 09/27/19 11/09/20 Saccharomyces boulardii 250 mg 250 mg PO BID 01/06/20 11/09/20 capsule cyanocobalamin (vitamin B-12) 500 500 mcg PO DAILY 01/06/20 11/09/20 mcg tablet cyclobenzaprine 10 mg tablet 10 mg PO BID 01/06/20 11/09/20 methylcellulose (laxative) 500 mg 500 mg PO DAILY 01/06/20 11/09/20 tablet Losartan Potassium 100 mg PO DAILY 02/09/20 11/09/20 hydroCHLOROthiazide 12.5 mg PO DAILY 02/09/20 11/09/20 [Hydrochlorothiazide 12.5mg Tab] Calcium Carbonate/Vitamin D3 1 each PO BID 02/15/20 11/09/20 [Calcium 600-Vit D3 200 Tablet] Citalopram Hydrobromide 10 mg PO DAILY 02/15/20 11/09/20 [Citalopram 10mg Tablet] propranolol 20 mg
--- NOTE | 2020-11-16 17:26 | PC.NURSE ---
pt returning from rad
[2020-11-16 17:45] VITALS: BP 184/89; PULSE 61; O2SAT 97
--- NOTE | 2020-11-16 17:53 | PC.NURSE ---
Preliminary radiology report given to MD Olivas
[2020-11-16 18:42] VITALS: BP 179/87; PULSE 78; RESP 16; TEMP 36.6; O2SAT 98
== END 2020-11-16 18:43 | disposition home or self-care (01) ==
PROVIDERS: Emergency Provider Emergency Medicine; PCP Family Medicine
DX: S01.01XA Laceration without foreign body of scalp, initial encounter (principal); W01.10XA Fall on same level from slipping, tripping and stumbling with subsequent striking against unspecified object, initial encounter; Y92.89 Other specified places as the place of occurrence of the external cause; I10 Essential (primary) hypertension; E78.5 Hyperlipidemia, unspecified; E03.9 Hypothyroidism, unspecified; Z79.899 Other long term (current) drug therapy; Z88.0 Allergy status to penicillin; Z88.2 Allergy status to sulfonamides
CPT/HCPCS: 12001; 70450; 72125; 99282

== ENCOUNTER 2020-11-20 13:11 | Day surgery (SDC) | payer MEDICARE, SELFPAY ==
[2020-11-20 13:26] VITALS: BP 183/91; PULSE 69; RESP 18; TEMP 36.4; O2SAT 98; BMI 28.3
[2020-11-20 13:37] VITALS: BP 171/84; PULSE 68; RESP 18; O2SAT 98
--- NOTE | 2020-11-20 13:44 | P.PCN_ITS ---
- Procedure Date: 11/20/20 Time: 13:44 Anesthesiologist:: Araceli Wang APRN Complications:: None Pre-procedure Diagnosis:: Degenerative disc disease lumbar spine lumbar radiculopathy and back pain Post-procedure Diagnosis:: Same Indications for Procedure:: Patient is a pleasant 79-year-old white female who presents today for intrathecal pain pump refill and reprogram. Patient recently had a fall and hit her head on a birdbath. She was seen in the emergency room she has nikolas in the back of her head and appointment with her primary care physician tomorrow. Patient states she is not getting any pain relief from her pain pump. She rates it an 8 out of 10. We will make some adjustments today she is currently on 0.6 mg of morphine a day she does denies side effects from medication. [facility] #[id number] reviewed Procedure Details:: Informed consent was obtained and the risk and benefits of the procedure were explained to the patient. The patient was taken to the procedure room where noninvasive monitoring was placed including noninvasive blood pressure cuff and pulse oximeter. Patient's pump was interrogated. The area over the pump was cleansed with chlorhexidine as a cleansing solution. In sterile fashion the pump was accessed with a 22-gauge needle. Approximately 13 mL's were removed of the pump solution and discarded appropriately. The pump was then refilled with 20 mL's of morphine 5 mg/mL. The needle was withdrawn and a bandage was placed over the puncture site. The infusion rate was reprogrammed to 0.75 mg/day. The patient tolerated the procedure well. Plan and Disposition:: We will see the patient back in our office in 2 weeks reassess her symptoms at that time. If she is not getting any relief we may discuss changing to Dilaudid. Patient's been instructed to call the office if she has any issues prior to her next appointment. Dr. Solo has reviewed this note and agrees with this plan of care. This note was dictated using voice recognition software and may contain errors or omissions
[2020-11-20 13:49] VITALS: BP 168/84; PULSE 66; RESP 18; O2SAT 98
[2020-11-20 14:31] VITALS: BP 158/84; PULSE 58; RESP 18; TEMP 36.4; O2SAT 98
== END 2020-11-20 14:00 | disposition home or self-care (01) ==
LOC: SC.PAINP 13:12
PROVIDERS: PCP Family Medicine; Visit Provider Clinical Nurse Specialist Family Health
DX: M51.16 Intervertebral disc disorders with radiculopathy, lumbar region (principal); E78.5 Hyperlipidemia, unspecified; I10 Essential (primary) hypertension; F41.9 Anxiety disorder, unspecified; H26.9 Unspecified cataract; Z88.0 Allergy status to penicillin; Z88.2 Allergy status to sulfonamides; F32.9 Major depressive disorder, single episode, unspecified
CPT/HCPCS: 62370

== ENCOUNTER → 2020-11-21 15:11 | Outpatient (CLI) | payer MEDICARE, SELFPAY ==
--- NOTE | 2020-11-21 15:14 | XR_ITS ---
PROCEDURE: XR MULTIPLE SPINE 6+V CLINICAL INDICATION: BACK PAIN COMPARISON: CT CT LUMBAR SPINE WO CON from 09/02/2019 DX XR CHEST 2V from 01/12/2020 FINDINGS: Thoracic spine: There is an epidural stimulator device present at T7 region. There is minimal lower thoracic curvature convex right. Mild multilevel degenerative disc disease is present with endplate hypertrophic change. No acute fracture or dislocation. No lytic or blastic change. Lumbar spine: Lumbar scoliosis convex left. Inter pedicular screws are present at L2-L3 and L4-5. There is a pain pump present with the tip at the L1 level. There is degenerative disc disease at L1-L2. Disc spacers are noted at L2-L3 and L4-L5. There is minimal rounding off of the anterior inferior endplate of L1. This had a similar appearance on 09/02/2019 CT scan IMPRESSION: Mild degenerative changes of the thoracic spine with degenerative and postsurgical changes of the lumbar spine. No acute finding Dictated by: Jayden Peralta MD 11/21/2020 17:07 Jayden Peralta MD in [place] 11/21/2020 17:07
== END ==
PROVIDERS: PCP Nurse Practitioner Family; Visit Provider Nurse Practitioner Family
DX: M54.6 Pain in thoracic spine (principal); M54.5 Low back pain
CPT/HCPCS: 72084

== ENCOUNTER → 2020-12-01 15:55 | Outpatient (CLI) | payer MEDICARE, SELFPAY ==
--- NOTE | 2020-12-01 16:01 | XR_ITS ---
PROCEDURE INFORMATION: Exam: XR Left Hip Exam date and time: 12/01/2020 4:01 PM Age: 79 years old Clinical indication: Injury or trauma; Fall; Sprain or strain; Left; Hip; Additional info: Recent fall on 11/16/20 TECHNIQUE: Imaging protocol: XR Left hip. Views: 2 or 3 views hip with pelvis when performed. COMPARISON: CR XR PELVIS 1-2V 05/17/2019 3:33 PM FINDINGS: Bones/joints: There is no evidence of acute fracture. There is no evidence of joint malalignment or dislocation. Postoperative changes of the lower lumbar spine. Soft tissues: There are no soft tissue masses or fluid collections. IMPRESSION: 1. No evidence of acute fracture. 2. No evidence of acute dislocation.
--- NOTE | 2020-12-01 16:20 | XR_ITS ---
PROCEDURE INFORMATION: Exam: XR Left Knee Exam date and time: 12/01/2020 4:20 PM Age: 79 years old Clinical indication: Pain and injury or trauma; Fall; Swelling (edema); Bilateral; Injury date: 11/16/20; Prior surgery; Surgery date: 6+ months; Surgery type: Lt knee replacement; Additional info: Recent fall TECHNIQUE: Imaging protocol: XR Left knee. Views: 4 or more views. COMPARISON: CR XR KNEE LT 3V 08/11/2020 8:13 AM FINDINGS: Bones/joints: Status post left total knee replacement without evidence of complication. There is no evidence of acute fracture. There is no evidence of joint malalignment or dislocation. Soft tissues: Mild soft tissue swelling. IMPRESSION: 1. Status post left total knee replacement without evidence of complication. 2. No evidence of acute fracture. 3. No evidence of acute dislocation. 4. Mild soft tissue swelling.
== END ==
PROVIDERS: PCP Nurse Practitioner Family; Visit Provider Orthopaedic Surgery
DX: M25.562 Pain in left knee (principal); M25.561 Pain in right knee; Z96.652 Presence of left artificial knee joint; W19.XXXA Unspecified fall, initial encounter
CPT/HCPCS: 73502; 73564

== ENCOUNTER → 2020-12-04 10:34 | Outpatient (POV) | payer MEDICARE, SELFPAY ==
[2020-12-04 10:57] VITALS: BP 128/69; PULSE 72; RESP 18; O2SAT 98; BMI 28.4
--- NOTE | 2020-12-04 11:15 | HMH.PMPROC ---
- Procedure Date: 12/04/20 Time: 11:15 Anesthesiologist:: Araceli Wang APRN Complications:: None Pre-procedure Diagnosis:: Degenerative disc disease lumbar spine lumbar radiculopathy and back pain Post-procedure Diagnosis:: Same Indications for Procedure:: Is a very pleasant 79-year-old white female who presents today for intrathecal pain pump program. Patient notes she rates her pain today a 5 out of 10. Overall she is doing well. She is currently at 0.75 mg of morphine a day. She would like a slight increase. She denies side effects. [facility] #[id number] reviewed and appropriate. Procedure Details:: Informed consent was obtained and the risk and benefits of the procedure were explained to the patient. The patient was taken to the procedure room where noninvasive monitoring was placed including noninvasive blood pressure cuff and pulse oximeter. Patient's pump was interrogated and reprogrammed. The infusion rate was increased to 0.8 mg of morphine a day. The patient tolerated the procedure well. Plan and Disposition:: I will see the patient back at her next intrathecal pain pump refill and reprogram. She has been instructed to call the office if she has any issues prior to her next appointment. Patient also is awaiting a appointment with a [facility] herbicide service sales representative for her neurostimulator. [facility] is aware. Dr. Solo has reviewed this note and agrees with this plan of care. This note was dictated using voice recognition software and may contain errors or omissions
== END ==
PROVIDERS: PCP Family Medicine; Visit Provider Clinical Nurse Specialist Family Health
DX: M51.16 Intervertebral disc disorders with radiculopathy, lumbar region (principal); Z45.1 Encounter for adjustment and management of infusion pump
CPT/HCPCS: 62368

== ENCOUNTER → 2021-01-16 10:36 | Outpatient (CLI) | payer MEDICARE, SELFPAY ==
[2021-01-16 11:15] LABS: Basophils % 0.4 % (0.1-2.0); Eosinophils # 0.1 K/mm3 (0.0-0.4); Eosinophils % 1.4 % (0.1-12.0); Hematocrit 40.6 % (37.0-47.0); Hemoglobin 13.3 g/dL (12.2-16.2); Lymphocytes % 31.3 % (10-50); Mean Corpuscular HGB Conc 32.8 g/dL (31.8-35.4); Mean Corpuscular Hemoglobin 31.8 pg (27.0-31.2); Mean Platelet Volume 8.1 fl (7.4-10.4); Monocytes # 0.4 K/mm3 (0.1-1.0); Monocytes % 5.6 % (1.7-9.3); Neutrophils # 3.9 K/mm3 (1.8-7.8); Neutrophils % 61.2 % (37.0-80.0); Platelet Count 211 K/mm3 (142-424); Red Blood Count 4.18 M/mm3 (4.20-5.40); White Blood Count 6.3 K/mm3 (4.8-10.8)
[2021-01-16 11:42] LABS: Chloride 104 mmol/L (98-107); Sodium 137 mmol/L (136-145)
[2021-01-16 11:43] LABS: Potassium 5.3 mmoL/L (3.5-5.1)
[2021-01-16 11:45] LABS: Anion Gap 10.3 mEq/L (5-15); Blood Urea Nitrogen 19 mg/dl (7-17); Carbon Dioxide 28 mmol/L (22.0-30.0); Estimated Glomerular Filt Rate 61 ml/min (>60); GFR (African American) 73 ML/MIN (>60)
[2021-01-16 11:46] LABS: Calcium 9.5 mg/dl (8.4-10.2); Glucose 99 mg/dl (74-100)
== END ==
PROVIDERS: Visit Provider Anesthesiology
DX: Z01.812 Encounter for preprocedural laboratory examination (principal); Z20.822 Contact with and (suspected) exposure to COVID-19; I10 Essential (primary) hypertension
CPT/HCPCS: 36415; 80048; 85025; U0003

== ENCOUNTER 2021-01-17 06:14 | Day surgery (SDC) | payer MEDICARE, SELFPAY ==
[2021-01-11 08:16] VITALS: BMI 27.4
[2021-01-17] VITALS (7 sets, daily range): BP systolic 96–151; BP diastolic 59–84; PULSE 47–67; RESP 16–18; TEMP 36.4–36.9; O2SAT 93–97
--- NOTE | 2021-01-17 06:54 | P.PN_ITS ---
[facility] Anesthesia Checklist - Patient Identification Patient Identification: Arm Band - Structural Data Admitted From: Home Planned Operative Procedure/s: Removal of existing neurostimulator generator/placement of generator Consent for Planned Operative Procedure(s) Verified: Yes - NPO Status Verified Time NPO: 00:00 - Additional verifications Anesthesia Reactions: No Hx Blood Transfusions: No Blood Transfusion Reaction: No - Airway Assessment C-Spine Mobility Assessed: Yes TMJ Mobility Assessed: Yes Dentition: Dentures-good fit (Removed) - Neurological Assessment Level of Consciousness: Awake Hx Seizures: No Numbness or tingling in extremities: No - Anesthesia Plan Anesthesia Risk discussed: Yes Anesthesia Plan: Verified ASA Class: III Anesthesia Type: General [facility] History I have reviewed the patient's past medical history: Yes Medical History: Reports:: Anxiety, Cancer (Left breast cancer), Depression, Hyperlipidemia, Hypertension Denies:: Diabetes Mellitus Type 1, Diabetes Mellitus Type 2, Internal Pacemaker, Lung Disease, MRSA, Seizures *Have you ever received a pneumonia vaccine?: Yes *Have you received a flu vaccine this season?: Yes Other Medical History: Reports: Arthritis, Cataracts, Thyroid Disease, Other (Tremors). Denies: Blood Transfusion Reaction Anesthesia experience/problems:: None Laterality Cases: Left: Breast Biopsy, Lumpectomy, Bilateral: Total Knee Replacement Other Surgeries: Yes: Appendectomy, Cholecystectomy, Colonoscopy, Colon Resection, Other (three back surgery). No: Pacemaker Amputation: No Fractures: No - *Social History Last grade of school completed: Some college Smoking Status: Never smoker Alcohol Intake: never Substance Use Type: denies use *Occupational Status:: retired Housing: house Household Members: spouse *Travel in the last 8 weeks: None - Psychiatric History Pschychiatric History:: Reports:: Anxiety Family Hx:: Hypertension
--- NOTE | 2021-01-17 08:28 | P.OP_ITS ---
Date of procedure: 01/17/21 Pre-op Diagnosis:: End of life, pain stimulator generator Post-op Diagnosis:: Same Procedure performed:: Removal and replacement of pain stimulator generator Surgeon:: Ehsan Cardenas MD POT HOLDER BINDER:: Hernan Nicole, Lucius Fatima, Jay Marin, Luis Langley, Leticia Anesthesia: MAC Estimated blood loss (mL): 1 Operative findings:: Not applicable Operative note:: Once adequate IV sedation was obtained via anesthesia the patient was placed prone on the operating table and her back and flank region was prepped and draped in sterile fashion. Once adequate local anesthesia was obtained with 1% Xylocaine with epinephrine and incision was made over the generator site and carried down through the skin and subcutaneous tissues. Generator was easily delivered from the incision without difficulty. The leads were disconnected from the old generator and were put into the new generator without difficulty. Evaluation of the system noted to be functioning properly. The generator was then placed back into the pocket without difficulty. Subcutaneous tissues closed with 2-0 Vicryl. Skin closed with interrupted stitches of 4-0 nylon. Wound VAC dressing and a binder applied to the wound. The patient Toller procedure well and was taken recovery in stable fashion. Upon recovery the patient will be discharged home will follow up in 1 week for removal of the wound VAC dressing and in 2 weeks remove the sutures. Bactrim DS twice daily x1 week per protocol. The patient tolerated procedure well. Condition: stable Disposition: PACU Complications:: None
--- NOTE | 2021-01-17 09:00 | PC.NURSE ---
called in Rx for Clindamycin 300mg TID PO x7 days per MD order.
== END 2021-01-17 10:25 | disposition home or self-care (01) ==
LOC: OR 06:16
PROVIDERS: PCP Family Medicine; Visit Provider Surgery
DX: T85.190A Other mechanical complication of implanted electronic neurostimulator of brain electrode (lead), initial encounter (principal); F41.9 Anxiety disorder, unspecified; Z85.3 Personal history of malignant neoplasm of breast; F32.9 Major depressive disorder, single episode, unspecified; E78.5 Hyperlipidemia, unspecified; I10 Essential (primary) hypertension; M19.90 Unspecified osteoarthritis, unspecified site; E07.9 Disorder of thyroid, unspecified; Z90.49 Acquired absence of other specified parts of digestive tract; Z88.0 Allergy status to penicillin; Z88.2 Allergy status to sulfonamides; Z79.899 Other long term (current) drug therapy
CPT/HCPCS: 63688; 96374; C1767; J2704; J3370

== ENCOUNTER → 2021-01-25 11:56 | Outpatient (POV) | payer MEDICARE, SELFPAY ==
[2021-01-25 12:14] VITALS: BP 132/78; PULSE 61; RESP 18; O2SAT 97; BMI 26.6
--- NOTE | 2021-01-25 13:48 | HMH.PAINSOAP ---
[facility] Pain Management SOAP Note Subjective:: Patient is a 80-year-old white female who presents today for follow-up after replacement of spinal cord stimulator. The patient is being treated for degenerative disc disease lumbar spine with lumbar radiculopathy symptoms. Patient says she is doing well overall since replacement of her device. She does have sutures in place. Her wound VAC will be removed today. She says she is doing well overall with the pain of 0 out of 10. Patient I discussed we will follow up with her in 2 weeks for suture removal. Her incision is well approximated, no redness, no drainage, no edema noted to site. Sutures intact. Review of Systems General: No recent weight changes, no fever, no sleep disturbances Respiratory: No cough, no shortness of air, no recurring pulmonary infections Cardiovascular/peripheral vascular: No chest pain, no palpitations, no edema, no shortness of breath Gastrointestinal: No new onset incontinence, normal bowel movements reported Genitourinary: No new onset incontinence Musculoskeletal: No pain Psychiatric: Normal mood/affect Neurological: [Denies weakness in extremities], [denies balance issues] Objective:: Physical exam General: Alert and oriented x3, no acute distress, pleasant and cooperative, [on room air] Lungs: Respirations even and unlabored, symmetrical chest expansion Eyes: PERRL Musculoskeletal: Flexion and extension of [] spine nonguarded, deep tendon reflexes normal, strength in upper and lower extremities [5/5], [abnormal gait noted] Neurological: Speech clear, commercial diver equal, no gross sensory deficit Integumentary: Incision well approximated, no redness, no drainage, no edema noted site. Wound VAC removed from incision. Sutures intact Assessment:: Degenerative disc disease lumbar spine with lumbar radiculopathy symptoms Plan:: Patient is doing well overall since replacement of her spinal cord stimulator. We will follow up with her in 2 weeks for suture removal. Her incision is well approximated, no redness, no drainage, no edema noted to site. Sutures intact. [facility] History I have reviewed the patient's past medical history: Yes Medical History: Reports:: Anxiety, Cancer (Left breast cancer), Depression, Hyperlipidemia, Hypertension Denies:: Diabetes Mellitus Type 1, Diabetes Mellitus Type 2, Internal Pacemaker, Lung Disease, MRSA, Seizures *Have you ever received a pneumonia vaccine?: Yes *Have you received a flu vaccine this season?: Yes Other Medical History: Reports: Arthritis, Cataracts, Thyroid Disease, Other (Tremors). Denies: Blood Transfusion Reaction Laterality Cases: Left: Breast Biopsy, Lumpectomy Other Surgeries: Yes: Appendectomy, Cholecystectomy, Colonoscopy, Colon Resection, Other (three back surgery). No: Pacemaker Amputation: No Fractures: No - *Social History Smoking Status: Never smoker Alcohol Intake: never Substance Use Type: denies use *Occupational Status:: unemployed Housing: house Household Members: spouse *Travel in the last 8 weeks: None - Psychiatric History Pschychiatric History:: Reports:: Anxiety, Depression Family Hx:: Hypertension
== END ==
PROVIDERS: PCP Family Medicine; Visit Provider Clinical Nurse Specialist Family Health
DX: M51.16 Intervertebral disc disorders with radiculopathy, lumbar region (principal); Z96.82 Presence of neurostimulator
CPT/HCPCS: 99212; G0463

== ENCOUNTER → 2021-02-08 13:50 | Outpatient (POV) | payer MEDICARE, SELFPAY ==
[2021-02-08 13:59] VITALS: BP 125/71; PULSE 66; RESP 18; O2SAT 97; BMI 26.6
--- NOTE | 2021-02-08 15:07 | HMH.PAINSOAP ---
[facility] Pain Management SOAP Note Subjective:: Patient is a 80-year-old white female who presents today for follow-up. She recently underwent replacement of her spinal cord stimulator. She is being treated for degenerative disc disease lumbar spine with lumbar radiculopathy symptoms. She is doing well overall since replacement of her device. She denies any side effects. She is here today to have her sutures removed and meet with the stimulator manufacturers representative. She says her pain is a 0 out of 10. She is having some occasional left hip pain, however, she says that it is not to the point that she needs injective therapy. Overall, she is doing well. Her incision is well approximated, no redness, no drainage, no edema is noted to site. Review of Systems General: No recent weight changes, no fever, no sleep disturbances Respiratory: No cough, no shortness of air, no recurring pulmonary infections Cardiovascular/peripheral vascular: No chest pain, no palpitations, no edema, no shortness of breath Gastrointestinal: No new onset incontinence, normal bowel movements reported Genitourinary: No new onset incontinence Musculoskeletal: Intermittent left hip pain Psychiatric: Normal mood/affect Neurological: [Denies weakness in extremities], [denies balance issues] Objective:: Physical exam General: Alert and oriented x3, no acute distress, pleasant and cooperative, [on room air] Lungs: Respirations even and unlabored, symmetrical chest expansion Eyes: PERRL Musculoskeletal: Flexion and extension of [] spine nonguarded, deep tendon reflexes normal, strength in upper and lower extremities [5/5], [abnormal gait noted] Neurological: Speech clear, dtp operator equal, no gross sensory deficit Integumentary: Incision well approximated, no redness, no drainage, no edema noted to site. Sutures removed today Assessment:: Degenerative disc disease lumbar spine with lumbar radiculopathy symptoms Plan:: Patient sutures were removed today. She is doing well overall. She is having some occasional left hip pain but does not want to undergo intervention at this time. We will plan to follow-up with the patient at her next intrathecal refill for reevaluation of symptoms. She has been encouraged to bring her PTC device with her at that time. She says the device has not been giving her any boluses. She has been instructed to contact the clinic if she has any concerns for next ointment. Patient has been instructed to contact the clinic with any concerns before the next appointment. Dr. Solo has reviewed this note and agrees with this plan of care. This note was dictated using voice recognition software and make contain errors or omissions. [facility] History I have reviewed the patient's past medical history: Yes Medical History: Reports:: Anxiety, Cancer (Left breast cancer), Depression, Hyperlipidemia, Hypertension Denies:: Diabetes Mellitus Type 1, Diabetes Mellitus Type 2, Internal Pacemaker, Lung Disease, MRSA, Seizures *Have you ever received a pneumonia vaccine?: Yes *Have you received a flu vaccine this season?: Yes Other Medical History: Reports: Arthritis, Cataracts, Thyroid Disease, Other (Tremors). Denies: Blood Transfusion Reaction Laterality Cases: Left: Breast Biopsy, Lumpectomy Other Surgeries: Yes: Appendectomy, Cholecystectomy, Colonoscopy, Colon Resection, Other (three back surgery). No: Pacemaker Amputation: No Fractures: No - *Social History Smoking Status: Never smoker Alcohol Intake: never Substance Use Type: denies use *Occupational Status:: employed, unemployed Housing: house Household Members: spouse *Travel in the last 8 weeks: None - Psychiatric History Pschychiatric History:: Reports:: Anxiety, Depression Family Hx:: Hypertension
== END ==
PROVIDERS: PCP Family Medicine; Visit Provider Clinical Nurse Specialist Family Health
DX: M51.16 Intervertebral disc disorders with radiculopathy, lumbar region (principal)
CPT/HCPCS: 99212; G0463

== ENCOUNTER 2021-02-19 14:42 | Day surgery (SDC) | payer MEDICARE, SELFPAY ==
[2021-02-19 14:44] VITALS: BP 178/96; PULSE 71; RESP 19; TEMP 36.4; O2SAT 98; BMI 27.4
[2021-02-19 15:07] VITALS: BP 144/97; PULSE 67; RESP 18; O2SAT 98
[2021-02-19 15:08] VITALS: BP 144/97; PULSE 64; RESP 18; O2SAT 100
[2021-02-19 15:19] VITALS: BP 155/92; PULSE 58; RESP 20; O2SAT 98
--- NOTE | 2021-02-19 15:26 | HMH.PMPROC ---
- Procedure Date: 02/19/21 Time: 15:00 Anesthesiologist:: Karine Butcher APRN Complications:: None Pre-procedure Diagnosis:: Degenerative disc disease lumbar spine with lumbar radiculopathy symptoms Post-procedure Diagnosis:: Same Indications for Procedure:: Is a pleasant 80-year-old white female who presents today for intrathecal pain pump refill and reprogram. She has been treated for degenerative disc disease lumbar spine with lumbar radiculopathy symptoms. Patient rates her pain a 3 out of 10. She would like a small increase today. She says the medication is working well for her. She denies any side effects to the medicine. Jordy #[id number] has been reviewed and is appropriate. Morphine equivalent is 0. Physical exam General: Alert and oriented x3, no acute distress, pleasant and cooperative, [on room air] Lungs: Respirations even and unlabored, symmetrical chest expansion Eyes: PERRL Musculoskeletal: Flexion and extension of lumbar spine somewhat guarded secondary to pain, deep tendon reflexes normal, strength in upper and lower extremities [5/5], [abnormal gait noted] Neurological: Speech clear, chlorobutadiene scrubber operator equal, no gross sensory deficit Procedure Details:: Informed consent was obtained and the risk and benefits of the procedure were explained to the patient. The patient was taken to the procedure room where noninvasive monitoring was placed including noninvasive blood pressure cuff and pulse oximeter. Patient's pump was interrogated. The area over the pump was cleansed with chlorhexidine as a cleansing solution. In sterile fashion the pump was accessed with a 22-gauge needle. Approximately 5 mls of the pump solution was removed and discarded appropriately. The pump was then refilled with 20 mL's of morphine 5 mg/mL. The needle was withdrawn and a bandage was placed over the puncture site. The infusion rate was reprogrammed at increased to morphine at 0.88 mg/day. The patient tolerated well with no complication. Plan and Disposition:: We will see the patient back at her next intrathecal refill and reprogram. She has been instructed to contact the clinic if she has any concerns for next appointment. Patient has been instructed to contact the clinic with any concerns before the next appointment. Dr. Solo has reviewed this note and agrees with this plan of care. This note was dictated using voice recognition software and make contain errors or omissions.
== END 2021-02-19 15:20 | disposition home or self-care (01) ==
LOC: SC.PAINP 14:43
PROVIDERS: PCP Family Medicine; Visit Provider Clinical Nurse Specialist Family Health
DX: M51.16 Intervertebral disc disorders with radiculopathy, lumbar region (principal); Z45.1 Encounter for adjustment and management of infusion pump
CPT/HCPCS: 62370

== ENCOUNTER → 2021-03-12 14:12 | Outpatient (POV) | payer MEDICARE, SELFPAY ==
[2021-03-12 14:24] VITALS: BP 183/82; PULSE 60; RESP 20; TEMP 36.2; O2SAT 97; BMI 26.6
--- NOTE | 2021-03-12 14:55 | HMH.PMPROC ---
- Procedure Date: 03/12/21 Time: 14:56 Anesthesiologist:: Karine Butcher APRN Complications:: None Pre-procedure Diagnosis:: Degenerative disc disease lumbar spine with lumbar radiculopathy symptoms Post-procedure Diagnosis:: Same Indications for Procedure:: Patient is a 80-year-old white female who presents today for intrathecal pain pump adjustment. She is complaining of worsening low back pain. Her pain is a 7 out of 10. She says that she is unable to use her boluses. She says sometimes it works and sometimes it does not work. She says her bolus PTC device has reported that she needs to see a physician . She is here today to discuss the PTC device. She is currently on morphine at 0.88 mg/day. She denies any side effects. Her Jordy and drug screen are appropriate. Physical exam General: Alert and oriented x3, no acute distress, pleasant and cooperative, [on room air] Lungs: Respirations even and unlabored, symmetrical chest expansion Eyes: PERRL Musculoskeletal: Flexion and extension of lumbar [spine] somewhat guarded secondary to pain, strength in upper and lower extremities [5/5], [antalgic gait noted] Neurological: Speech clear, [sales order specialist equal], no gross sensory deficit Procedure Details:: Informed consent was obtained and the risk and benefits of the procedure were explained to the patient. Patient was taken to the procedure room where noninvasive monitoring was placed including noninvasive blood pressure cuff and pulse oximeter. Patient's pump was interrogated and was reprogrammed to morphine at 1 mg/day. The patient tolerated the procedure well with no complications. Plan and Disposition:: Patient was educated regarding her PTC device and location of her intrathecal pump. The PTC device is working properly today. We did increase her. She has been advised if she continues to have pain to contact clinic and we will see her back in the clinic for adjustment. We will see the patient back at the next refill. If the patient has any questions, contact the clinic.
== END ==
PROVIDERS: PCP Family Medicine; Visit Provider Clinical Nurse Specialist Family Health
DX: M51.16 Intervertebral disc disorders with radiculopathy, lumbar region (principal); Z45.1 Encounter for adjustment and management of infusion pump
CPT/HCPCS: 62368

== ENCOUNTER → 2021-04-16 11:44 | Outpatient (POV) | payer MEDICARE, SELFPAY ==
[2021-04-16 12:09] VITALS: BP 196/98; PULSE 63; RESP 18; O2SAT 94; BMI 27.4
--- NOTE | 2021-04-16 12:11 | P.PCN_ITS ---
- Procedure Date: 04/16/21 Time: 12:11 Anesthesiologist:: Karine Butcher APRN Complications:: None Pre-procedure Diagnosis:: Degenerative disc disease lumbar spine with lumbar radiculopathy symptoms Post-procedure Diagnosis:: Same Indications for Procedure:: Patient is a pleasant 80-year-old white female who presents today for intrathecal pain pump adjustment. She is being treated for degenerative disc disease lumbar spine with lumbar radiculopathy today, the patient says she is not having pain, for, she does say last week her pain was excruciating. Her pain does intermittently start into the low back area and radiate into the right leg. She says that she was having to use a walker last week due to her pain. She would like a small increase in her dosing today. She says that her PTC device is also not functioning. She would like it reprogrammed today as well. She is currently getting intrathecal therapy at morphine at 1 mg/day. Jordy and drug screen are appropriate. Physical exam General: Alert and oriented x3, no acute distress, pleasant and cooperative, [on room air] Lungs: Respirations even and unlabored, symmetrical chest expansion Eyes: PERRL Musculoskeletal: Flexion and extension of lumbar [spine] somewhat guarded secondary to pain, strength in upper and lower extremities [5/5], [antalgic gait noted] Neurological: Speech clear, [student life coordinator equal], no gross sensory deficit Procedure Details:: Informed consent was obtained and the risk and benefits of the procedure were explained to the patient. Patient was taken to the procedure room where noninvasive monitoring was placed including noninvasive blood pressure cuff and pulse oximeter. Patient's pump was interrogated and was reprogrammed to morphine at 1.2 to 0 mg/day, PTC increased to 0.12 mg up to 4 times daily. The patient tolerated the procedure well with no complications. Plan and Disposition:: We will see the patient back at the next refill. If the patient has any questions, contact the clinic.
== END ==
PROVIDERS: Visit Provider Clinical Nurse Specialist Family Health
DX: M51.16 Intervertebral disc disorders with radiculopathy, lumbar region (principal); Z45.1 Encounter for adjustment and management of infusion pump
CPT/HCPCS: 62368

== ENCOUNTER → 2021-04-18 15:58 | Outpatient (CLI) | payer MEDICARE, SELFPAY ==
[2021-04-18 16:51] LABS: D-Dimer 0.97 ug/mL (0.0-0.5)
[2021-04-18 17:37] LABS: Alanine Aminotransferase 12 U/L (12-78); Albumin Level 3.8 g/dl (3.5-5.0); Albumin/Globulin Ratio 1.3 (1.1-1.8); Alkaline Phosphatase 78 U/L (38-126); Anion Gap 13.6 mEq/L (5-15); Aspartate Amino Transferase 24 U/L (14-36); Blood Urea Nitrogen 24 mg/dl (7-17); Carbon Dioxide 26 mmol/L (22.0-30.0); Chloride 103 mmol/L (98-107); Estimated Glomerular Filt Rate 61 ml/min (>60); GFR (African American) 73 ML/MIN (>60); Glucose 82 mg/dl (74-100); Potassium 4.6 mmoL/L (3.5-5.1); Sodium 138 mmol/L (136-145); Total Protein,Serum 6.8 g/dl (6.3-8.2)
[2021-04-18 17:43] LABS: NT Pro Brain Natriuretic Pep. 452 pg/mL (0-450)
[2021-04-18 17:46] LABS: Bilirubin,Total 0.1 mg/dl (0.2-1.3)
== END ==
PROVIDERS: Visit Provider Nurse Practitioner Family
DX: R06.02 Shortness of breath (principal); I10 Essential (primary) hypertension; M54.9 Dorsalgia, unspecified
CPT/HCPCS: 80053; 83880; 85378

== ENCOUNTER → 2021-04-19 11:00 | Outpatient (CLI) | payer MEDICARE, SELFPAY ==
--- NOTE | 2021-04-19 | CA_ITS ---
APPROVED REPORT Right Lower Extremity Venous Study for DVT. Elder Assistant: Mina RCS, RVS Indications Lower Extremity Pain: Right Hx-bilateral knee replacements, Pain pump Vein Imaging CFV (R): compressive, spontaneous, phasic, augmentation SFJ (R): compressive, spontaneous, phasic, augmentation FEM (R): compressive, spontaneous, phasic, augmentation POP (R): compressive, spontaneous, phasic, augmentation DFV (R): compressive, spontaneous, phasic, augmentation PTV (R): compressive, spontaneous, phasic, augmentation GSV (R): compressive, spontaneous, phasic, augmentation SSV (R): compressive, spontaneous, phasic, augmentation Peroneals (R):compressive, spontaneous, phasic, augmentation GAS (R): compressive, spontaneous, phasic, augmentation CFV (L): compressive, spontaneous, phasic, augmentation SFJ (L): compressive, spontaneous, phasic, augmentation FEM (L): compressive, spontaneous, phasic, augmentation POP (L): compressive, spontaneous, phasic, augmentation DFV (L): compressive, spontaneous, phasic, augmentation PTV (L): compressive, spontaneous, phasic, augmentation GSV (L): compressive, spontaneous, phasic, augmentation SSV (L): compressive, spontaneous, phasic, augmentation Peroneals (L):compressive, spontaneous, phasic, augmentation GAS (L): compressive, spontaneous, phasic, augmentation Findings Color flow duplex demonstrates no evidence of DVT of the following bilateral lower extremity Veins:Common Femoral Vein, Femoral Vein, Popliteal Vein, Posterior Tibial Veins, Peroneal Veins, Deep Femoral Vein. Negative for DVT. Conclusion Negative for DVT. Electronically signed by : Jayden Perlata MD 04/19/2021 15:57:41
--- NOTE | 2021-04-19 11:08 | XR_ITS ---
PROCEDURE: XR KNEE RT 3V CLINICAL INDICATION: LEG PAIN Right knee pain COMPARISON: CR XR KNEE RT 3V from 09/27/2019 CR XR KNEE LT 3V from 03/03/2020 CR XR KNEE LT 3V from 05/05/2020 CR XR KNEE LT 3V from 08/11/2020 CR XR KNEE LT 4V from 12/01/2020 FINDINGS: Status post total knee arthroplasty with good alignment. No fracture or dislocation. No lytic or blastic change. No evidence of prosthesis loosening. Other findings:None. IMPRESSION: No change with no acute finding status post right total knee arthroplasty Dictated by: Jayden Peralta MD 04/19/2021 13:46 Jayden Peralta MD in [facility] 04/19/2021 13:46
--- NOTE | 2021-04-19 11:08 | XR_ITS ---
PROCEDURE: XR CHEST 2V CLINICAL HISTORY: SOB COMPARISON: DX XR CHEST 2V from 01/12/2020 FINDINGS: Normal heart size. Faint increased markings are present in the left lung base laterally and could be due to an area of atelectasis or infiltrate with some silhouetting out of the hemidiaphragm. The right lung is clear. There is an epidural stimulator device with electrode tips in the midthoracic spine region. The electrodes are coiled at the spinal entrance at the T10-T11 level. Inter pedicular screws are present in the upper lumbar region. IMPRESSION: Faint increased markings in the left lung base which may be due to an area of atelectasis or infiltrate Dictated by: Jayden Peralta MD 04/19/2021 13:45 Jayden Peralta MD in [facility] 04/19/2021 13:45
== END ==
PROVIDERS: PCP Family Medicine; Visit Provider Family Medicine
DX: R06.02 Shortness of breath (principal); M79.604 Pain in right leg
CPT/HCPCS: 71046; 73562; 93971

== ENCOUNTER 2021-05-01 15:07 | Day surgery (SDC) | payer MEDICARE, SELFPAY ==
--- NOTE | 2021-05-01 10:15 | CT_ITS ---
PROCEDURE: CT CHEST W CON CLINCAL INDICATION: ABN CXR COMPARISON: CT CT CERVICAL SPINE WO CON from 11/16/2020 CR XR CHEST 2V from 04/19/2021 TECHNIQUE: IV Contrast: 75ml Isovue 370 Axial images obtained with sagittal and coronal reformats. All CT scans at the facility use one or more dose reduction, viz: automated exposure control, ma/kV adjustment per patient size (including targeted exams where dose is matched to indication, i.e. head), or iterative reconstruction technique. FINDINGS: HEART AND MEDIASTINAL STRUCTURES: There is a small metallic density at the sternal notch and small metallic densities are present also in the right lower neck consistent with surgical clips. No mediastinal or hilar mass or adenopathy. No evidence of aortic aneurysm or central pulmonary embolus. A 12 x 6 mm hypodense nodule is present in the right lobe of the thyroid gland inferiorly LUNGS AND PLEURAL SPACES: No suspicious pulmonary nodule evident. Calcified granuloma is present in the left upper lobe. There are mild atelectatic or fibrotic changes in the left lung base. Small subpleural opacities are present in the right CP angle and in the right upper lobe nonspecific each approximately 5 mm. There is sclerosis of the anterior aspect of the left 1st rib similar to a prior CT of the cervical spine on 11/16/2020 simulating a left upper lobe nodule. No effusions or infiltrates. BONY STRUCTURES: Sclerosis of the anterior aspect of the left 1st rib. Degenerative change thoracic spine. Minimal periarticular calcification noted in the right shoulder posterior to the humeral head UPPER ABDOMEN: Small hiatal hernia. ADDITIONAL FINDINGS: Neurostimulator device is present. The cephalad portion of the device is at the T7-T8 level. IMPRESSION: No acute finding. No suspicious pulmonary nodule evident. Minimal atelectatic or fibrotic change left lung base Persistent sclerosis and mild expansion of the left 1st rib anteriorly simulating a left apical nodule not significantly changed from 11/16/2020. This could be due to an old fracture. Please correlate with clinical findings. Other nonacute findings as described above. Dictated by: Jayden Peralta MD 05/03/2021 07:18 Jayden Peralta MD in [facility] 05/03/2021 07:18
[2021-05-01 10:25] LABS: Blood Urea Nitrogen 16 mg/dl (7-17); Estimated Glomerular Filt Rate 69 ml/min (>60); GFR (African American) 84 ML/MIN (>60)
--- NOTE | 2021-05-01 15:16 | P.PCN_ITS ---
- Procedure Date: 05/01/21 Time: 15:16 Anesthesiologist:: Karine Butcher APRN Complications:: None Pre-procedure Diagnosis:: Degenerative disc disease lumbar spine with lumbar radiculopathy symptoms Post-procedure Diagnosis:: Same Indications for Procedure:: Patient is a 80-year-old white female who presents today for intrathecal pain pump refill and reprogram. She has been treated for degenerative disc disease lumbar spine with lumbar radiculopathy symptoms. Patient reports that she has had an increase in swelling in her bilateral lower extremities with shortness of breath. She did undergo a Doppler of her bilateral lower extremities that she reports was negative for DVT. She recently had a CT of the chest today. These results are pending. She does rate her pain a 7 out of 10. Due to the patient's increased swelling, she and I did discuss decreasing her intrathecal pump today to see if it is morphine that is causing her symptoms. If the patient does not have any changes in symptoms, we creased the patient's medication back to previous dose. If she does notice a change in symptoms, we will need to change the medication. [facility] #[id number] has been reviewed and is appropriate. Morphine equivalent is 0. Drug screens have been appropriate. Physical exam General: Alert and oriented x3, no acute distress, pleasant and cooperative, [on room air] Lungs: Respirations even and unlabored, symmetrical chest expansion Eyes: PERRL Musculoskeletal: Flexion and extension of lumbar [spine] somewhat guarded secondary to pain, strength in upper and lower extremities [5/5], [antalgic gait noted] Neurological: Speech clear, [water technician equal], no gross sensory deficit Procedure Details:: Informed consent was obtained and the risk and benefits of the procedure were explained to the patient. The patient was taken to the procedure room where noninvasive monitoring was placed including noninvasive blood pressure cuff and pulse oximeter. Patient's pump was interrogated. The area over the pump was cleansed with chlorhexidine as a cleansing solution. In sterile fashion the pump was accessed with a 22-gauge needle. Approximately 7.5 mls of the pump solution was removed and discarded appropriately. The pump was then refilled with 20 mL's of morphine 5 mg per. The needle was withdrawn and a bandage was placed over the puncture site. The infusion rate was reprogrammed and decreased to morphine at 1.08 mg/day. The patient tolerated well with no complication. Plan and Disposition:: Patient was decreased with her intrathecal therapy today. We did decrease the patient today to see if this helps with her symptoms of edema to bilateral lower extremities. If the patient does see changes in edema and shortness of breath, we will change the medication in the pump. She is seeing Dr. Serrato. She did have a CT of the chest today. She is also had Doppler study to rule out DVT lower extremities. If the patient does not have any changes in symptoms, we can increase the patient back to previous dose. We will see the patient back in the clinic at the next intrathecal refill. Patient has been instructed to contact the clinic with any concerns before the next appointment. Dr. Solo has reviewed this note and agrees with this plan of care. This note was dictated using voice recognition software and make contain errors or omissions.
[2021-05-01 15:34] VITALS: BP 148/82; PULSE 63; RESP 20; O2SAT 97; BMI 27.4
[2021-05-01 15:46] VITALS: BP 182/86; PULSE 65; RESP 18; O2SAT 96
[2021-05-01 15:49] VITALS: BP 185/95; PULSE 60; RESP 18; O2SAT 97
[2021-05-01 16:03] VITALS: BP 150/80; PULSE 55; RESP 20; O2SAT 97
== END 2021-05-01 16:05 | disposition home or self-care (01) ==
LOC: SC.PAINP 15:08
PROVIDERS: Nurse Practitioner Family; PCP Family Medicine; Visit Provider Clinical Nurse Specialist Family Health
DX: M51.16 Intervertebral disc disorders with radiculopathy, lumbar region (principal); Z45.1 Encounter for adjustment and management of infusion pump
CPT/HCPCS: 36415; 62370; 71260; 82565; 84520; Q9967

== ENCOUNTER → 2021-05-04 10:43 | Outpatient (POV) | payer MEDICARE, SELFPAY ==
[2021-05-04 11:14] VITALS: BP 168/81; PULSE 71; RESP 20; TEMP 36.9; O2SAT 96; BMI 27.4
--- NOTE | 2021-05-04 11:24 | HMH.PMPROC ---
- Procedure Date: 05/04/21 Time: 11:24 Anesthesiologist:: Yariel Solo MD Complications:: None Pre-procedure Diagnosis:: Degenerative disc disease of lumbar spine with lumbar radiculopathy symptoms Post-procedure Diagnosis:: Same Indications for Procedure:: Patient is a pleasant 80-year-old white female who we are treating for low back pain with lumbar radiculopathy symptoms. She has had some swelling of her legs. She was refilled last Friday and her pump infusion was decreased. This has increased her pain however it has not affected her swelling. She also does note some shortness of breath. She is on a water pill once a day. She may be exhibiting some symptoms of heart failure. We will not adjust her constant infusion however I will give her additional boluses to help with her pain symptoms. We will also refer her back to her primary care to adjust her water pill and evaluate her for symptoms of CHF. Procedure Details:: Analysis and reprogram of intrathecal pain pump Informed consent was obtained the risk and benefits of the procedure were explained to the patient. Patient was taken the procedure room. The pump was interrogated. Patient continued on a dose of 1 mg/day of intrathecal morphine. PTC was adjusted to 0.15 mg up to 6 times a day. Patient tolerated procedure well with no complications. Plan and Disposition:: We will refer this patient back to her primary care to be evaluated for symptoms of CHF. We can adjust her intrathecal morphine dose lower if needed also we can switch her over to Dilaudid if this is contributing to her lower extremity swelling. However given her shortness of breath and other symptoms I believe she may need an increase in her water pill. We reduced her dose which did not have any effect on her lower extremity swelling.
== END ==
PROVIDERS: PCP Family Medicine; Visit Provider Anesthesiology
DX: M51.16 Intervertebral disc disorders with radiculopathy, lumbar region (principal); Z45.1 Encounter for adjustment and management of infusion pump
CPT/HCPCS: 62368

== ENCOUNTER → 2021-05-09 13:12 | Outpatient (CLI) | payer MEDICARE, SELFPAY ==
[2021-05-09 13:49] LABS: Basophils % 0.7 % (0.1-2.0); Eosinophils # 0.2 K/mm3 (0.0-0.4); Eosinophils % 2.7 % (0.1-12.0); Hematocrit 37.9 % (37.0-47.0); Hemoglobin 12.3 g/dL (12.2-16.2); Lymphocytes # 2.3 K/mm3 (0.7-4.5); Lymphocytes % 41.1 % (10-50); Mean Corpuscular HGB Conc 32.6 g/dL (31.8-35.4); Mean Corpuscular Hemoglobin 32.4 pg (27.0-31.2); Mean Corpuscular Volume 99.3 fl (81-99); Mean Platelet Volume 9.1 fl (7.4-10.4); Monocytes # 0.3 K/mm3 (0.1-1.0); Monocytes % 5.5 % (1.7-9.3); Neutrophils # 2.8 K/mm3 (1.8-7.8); Platelet Count 230 K/mm3 (142-424); Red Blood Count 3.81 M/mm3 (4.20-5.40); Red Cell Distribution Width 13.4 % (11.5-17.5); White Blood Count 5.6 K/mm3 (4.8-10.8)
[2021-05-09 15:21] LABS: Alanine Aminotransferase 13 U/L (12-78); Albumin Level 3.6 g/dl (3.5-5.0); Albumin/Globulin Ratio 1.2 (1.1-1.8); Alkaline Phosphatase 78 U/L (38-126); Anion Gap 7.7 mEq/L (5-15); Aspartate Amino Transferase 26 U/L (14-36); Blood Urea Nitrogen 17 mg/dl (7-17); Carbon Dioxide 26 mmol/L (22.0-30.0); Chloride 107 mmol/L (98-107); Estimated Glomerular Filt Rate 61 ml/min (>60); GFR (African American) 73 ML/MIN (>60); Globulin 2.9 g/dL (1.3-3.2); Glucose 93 mg/dl (74-100); Potassium 4.7 mmoL/L (3.5-5.1); Sodium 136 mmol/L (136-145); Total Protein,Serum 6.5 g/dl (6.3-8.2)
[2021-05-09 15:24] LABS: Bilirubin,Total 0.1 mg/dl (0.2-1.3)
[2021-05-09 16:24] LABS: Folate 7.94 ng/mL; Vitamin B12 > 1000 pg/mL (239-931)
[2021-05-14 18:09] LABS: Methylmalonic Acid 241 nmol/L (0-378)
== END ==
PROVIDERS: Visit Provider Specialist
DX: R25.1 Tremor, unspecified (principal); R26.9 Unspecified abnormalities of gait and mobility; Z85.3 Personal history of malignant neoplasm of breast; R06.00 Dyspnea, unspecified
CPT/HCPCS: 36415; 80053; 82131; 82607; 82746; 85025

== ENCOUNTER → 2021-05-16 12:58 | Outpatient (CLI) | payer MEDICARE, SELFPAY ==
[2021-05-16 13:45] VITALS: PULSE 60; PULSE 66
--- NOTE | 2021-05-16 14:15 | CT_ITS ---
PROCEDURE: CT CERVICAL SPINE WO CON CLINICAL INDICATION: Gait disturbances COMPARISON: CT CT CERVICAL SPINE WO CON from 11/16/2020 TECHNIQUE: Axial images obtained with sagittal and coronal reformats. All CT scans at the facility use one or more dose reduction, viz: automated exposure control, ma/kV adjustment per patient size (including targeted exams where dose is matched to indication, i.e. head), or iterative reconstruction technique. Axial spiral CT scanning performed of the cervical spine beginning at the base of the skull and continuing to the upper T-spine. 3-D multiplanar reconstruction with 3-D manipulation of volumetric data set in image rendering was completed by the radiologist and/or technologist with the supervision of the radiologist on independent workstation. FINDINGS: There is normal alignment. There is multilevel cervical spondylosis as outlined below. No fracture or dislocation. No lytic or blastic change. C1-C2: Mild ossification and hypertrophy the transverse ligament posterior to the odontoid. This is causing canal stenosis superiorly with the canal measuring 10 mm. C2-C3: Minimal bulging disc with a small broad-based central and right paracentral disc osteophyte complex. Degenerative disc disease C3-C4: Degenerative disc disease with minimal partially calcified bulging disc. C4-C5: Degenerative disc disease. Small area of bony exostosis projects off the lamina posteriorly at C4 medially projecting inward into the posterior canal as before. This measures 7 x 6 mm. C5-C6: Degenerative disc disease with canal stenosis and moderate bilateral foraminal narrowing from endplate hypertrophic change. Similar to the previous exam. C6-C7: Degenerative disc disease with bulging disc and canal stenosis with bilateral foraminal narrowing slightly greater on the right similar to the previous exam. C7-T1: Unremarkable. Lung apices are clear. There is extensive ossification of the soft tissues posteriorly to the spinous processes at C7 and T1 also similar to the previous exam. Surgical clips are present adjacent to the right lobe of the thyroid gland and at the sternal notch area. IMPRESSION: Multilevel cervical spondylosis as detailed above overall not significantly changed. Dictated by: Jayden Peralta MD 05/17/2021 08:13 Jayden Peralta MD in [place] 05/17/2021 08:13
--- NOTE | 2021-05-16 14:15 | CT_ITS ---
PROCEDURE: CT HEAD/BRAIN WO/W CON CLINICAL INDICATION: Gait disturbances, ataxia, tremor COMPARISON: CT CT HEAD/BRAIN WO CON from 11/16/2020 TECHNIQUE: IV Contrast: 100ML Isovue 370 Axial images obtained. All CT scans at the facility use one or more dose reduction, viz: automated exposure control, ma/kV adjustment per patient size (including targeted exams where dose is matched to indication, i.e. head), or iterative reconstruction technique. FINDINGS: No midline shift, mass effect, intracranial hemorrhage, hydrocephalus, or extra-axial fluid collection is evident. No enhancing lesions are evident. No enhancing CP angle mass apparent. The calvarium has an unremarkable appearance. No mastoid effusion. No sinus air-fluid level. IMPRESSION: No acute finding, negative CT head without and contrast Dictated by: Jayden Peralta MD 05/16/2021 19:13 Jayden Peralta MD in [place] 05/16/2021 19:13
== END ==
PROVIDERS: PCP Nurse Practitioner Family; Visit Provider Specialist
DX: R26.9 Unspecified abnormalities of gait and mobility (principal); Z85.3 Personal history of malignant neoplasm of breast; R06.09 Other forms of dyspnea
CPT/HCPCS: 70470; 72125; 94060; 94640; 94727; 94729; Q9967

== ENCOUNTER → 2021-05-22 06:11 | Outpatient (CLI) | payer MEDICARE, SELFPAY ==
--- NOTE | 2021-05-22 | CA_ITS ---
APPROVED REPORT Exam: Pharmacologic Technologist: Deepali Meadows, Ht: 5 ft 5 in Wt: 172 lbs BSA: 1.86 m2 HR: 56 bpm BP: 153/84 mmHg Rhythm: SINUS WARREN, PVC Medical History Medical History: HTN, Hyperlipidemia Medications: Trazadone,,,,, Losartan,,,,, Atorvastatin,,,,, HCTZ,,,,, Citalopram,,,,, MeLOXICAM,,,,, B12,,,,, D3,,,,, PropANOLOL,,,,, MoRPHINE,,,,, PriMIDONE,,,,, DOcusate,,,,, Allergies: No known drug allergies Cardiac Risk Factors: HTN, Hyperlipidemia Stress Test Details Test: LEXISCAN HR Resting HR: 56 bpm Max Heart Rate (APMHR): 142.818573 bpm Max HR Achieved: 79 bpm Target HR (85% APMHR): 120.971150 bpm % of APMHR: 55.63 Recovery HR: 68 bpm BP Resting BP: 153/84 mmHg Max BP: 174/79 mmHg Recovery BP: 163.0/82.0 mmHg ECG Resting ECG: SINUS WARREN, PVC Clinical Exercise duration: 04:04 min Highest Stage Achieved: Exercise capacity: 1.0 METs Stress ECG Conclusion PT BECAME SOA, HAD STOMACH CRAMPS, TROTTER, MALAISE. AMINOPHYLLINE 100MG SLOW IV GIVEN. SYMPTOMS BECAME BETTER AND MOST OF THEM RESOLVED AT 7 MINUTES. PT HAD NO CP. TRANSIENT SINUS WARREN INTO MID-30S. NO SIGNIFICANT ST-T CHANGES. UNREMARKABLE LEXISCAN STRESS. MYOVIEW IMAGES REPORTED CHRISTEL. Test Summary REST 05:58 . . 56 . 153/ 84 . . Stage 1 01:00 . . 58 . . . . Stage 2 01:00 . . 74 . 162/ 84 . . Stage 3 01:00 . . 78 . . . . Stage 4 01:00 . . 74 . . . . Stage 4 01:04 . . 76 . . . Stop exercise at 04:04 RECOVERY 01:00 . . 65 . . . . RECOVERY 02:00 . . 71 . . . . RECOVERY 03:00 . . 67 . 174/ 79 . . RECOVERY 04:00 . . 68 . 174/ 79 . . RECOVERY 05:00 . . 63 . 174/ 79 . . RECOVERY 06:00 . . 64 . 173/ 85 . . RECOVERY 07:00 . . 69 . 173/ 85 . . RECOVERY 08:00 . . 60 . 163/ 82 . . RECOVERY 08:03 . . 61 . 163/ 82 . . Electronically signed by : Ga Page MD 05/23/2021 06:25:19
--- NOTE | 2021-05-22 06:13 | CA_ITS ---
APPROVED REPORT EXAM: Comprehensive 2D, Doppler, and color-flow Echocardiogram Wind Turbine Installer: Antonia Gannon CRT Ht: 5 ft 5 in Wt: 172lbs BSA: 1.86 BP: 131/70 mmHg Indications: CP, SOB, HTN, Edema, Fatigue 2D Dimensions LVOT 2.00 cm (M/F) 1.5-2.5 M-Mode Dimensions RVDd 2.00 cm (0.9-2.6) LA Diam 4.00 cm (1.9-4.0) LVDd 4.50 cm (3.5-5.7) Ao Diam 3.50 cm (2.0-3.7) LVDs 3.20 cm (3.5-5.7) AV Cusp 2.00 cm (1.5-2.6) IVSd 1.40 cm (0.6-1.1) PWd 0.90 cm (0.6-1.1) EF (Teich) 55.60% FS 28.90% EDV (Teich) 92.40 mL ESV (Teich) 41.00 mL LV Diastology E/A Ratio 0.9 MED E' 3.31 (< 7 cm/sec) MED A' 7.02 cm/s E'/MED E' Ratio 22.50 (>14) LAT E' 3.12 (<10 cm/sec) LAT A' 11.70 cm/s E/LAT E' Ratio 23.90 (>14) Aortic Valve AoV Peak Ryan. 89.00 (50-130 cm/s) AO Peak GR. 3.00 mmHg Mitral Valve MV E Max Ryan. 74.50 (40-130 cm/s) MV A Velocity 84.40 (40-130 cm/s) E/A Ratio 0.90 Pulmonary Valve OH End VMAX 138.00 cm/s PA Accel Time 285.00 (>120 msec) Tricuspid Valve TR P. Velocity 132.00 cm/s RAP Estimate 10.00 mmHg RVSP 17.00 mmHg Left Ventricle Left atrium is mildly enlarged, left ventricle is normal size, mild concentric left ventricular hypertrophy, visually estimated ejection fraction 55% with no regional wall motion abnormality, grade 1 diastolic dysfunction seen with tissue Doppler evidence of raise left atrial pressure. Right Ventricle Right atrium and right ventricle are normal size and contractility. Aortic Valve Aortic valve is minimally thickened and fibrosed, there is no aortic stenosis or aortic insufficiency. Mitral Valve Mitral valve grossly normal, there is trace mitral regurgitation. Tricuspid Valve Tricuspid valve grossly normal, there is trace tricuspid regurgitation, tricuspid regurgitation jet velocity is inadequate for calculation of the right ventricular systolic pressure. Pulmonic Valve Pulmonic valve is poorly visualized. Great Vessels Aortic root is normal size. Inferior vena cava normal size with normal inspiratory collapse. Pericardium No significant pericardial effusion noted. Conclusion 1. Mildly enlarged left atrium, normal left ventricular size, mild concentric left ventricular hypertrophy, visually estimated ejection fraction 55% with no regional wall motion abnormality, grade 1 diastolic dysfunction seen with tissue Doppler evidence of raise left atrial pressure. 2. Trace mitral and tricuspid regurgitation. 3. No significant pericardial effusion noted. 4. Inferior vena cava is normal size with normal inspiratory collapse. Electronically signed by : Ga Page MD 05/22/2021 20:59:19
--- NOTE | 2021-05-22 06:13 | NM_ITS ---
APPROVED REPORT Exam: Nuclear Stress Test Indication: Chest pain, SOB, HTN, High cholesterol Patient Location: Outpatient Stress Tech: Deepali Meadows [place] Tech:Holly Awan, ARRT, RT (R)(N) Ht: 5 ft 5 in Wt: 170 lbs Bra Size: 40B HR: 56 bpm BP: 153/84 mmHg BSA: 1.85 m2 BMI: 28.2 History: Chest pain, SOB, HTN, High cholesterol Procedure: Patient received a 0.4 mg of intravenous Lexiscan, resting heart rate 56 bpm, resting blood pressure 153/84 mmHg, with Lexiscan maximum heart rate achived was 74 bpm which is Less than 85 % of the maximum predicted heart rate and blood pressure was 162/84 mmHg. With Lexiscan, patient denied any complaint of chest pain. Electrocardiogram Resting electrocardiogram showed sinus rhythm, with Lexiscan there is less than 1.[address] segment depression noted from the baseline EKG. The EKG portion of the Lexiscan is nondiagnostic. Cardiac Stress and Resting SPECT Images: Cardiac Stress and Resting SPECT images were obtained using technetium 99m Myoview 30.7 mCi stress and 9.99 mCi at rest. Gated SPECT for analysis of segmental wall motion and calculation of the ejection fraction also done. Cardiac stress and resting SPECT images show uniform myocardial activity without segmental perfusion abnormality, computer derived ejection fraction is 63% with no regional wall motion abnormality, right ventricle is normal size and contractility. Conclusion: 1. The EKG portion of the Lexiscan is nondiagnostic. 2. No scintigraphic evidence of reversible ischemia seen, computer derived ejection fraction is 63% with no regional wall motion abnormality, right ventricle is normal size and contractility. 3. Normal Lexiscan Myoview study. Electronically signed by : Ga Page MD 05/23/2021 06:45:23
--- NOTE | 2021-05-22 08:25 | HMH.ITSHM ---
Current Home Medications as stated by this patient Shani Alejandro or traveling representative. []TRAZODONE PROPRANOLOL HCTZ VITAMIN B12 CITALOPRAM ATORVASTATIN PRIMIDONE OXYBUTYNIN LOSARTAN MELOXICAM DOCUSATE VITAMIN D3
== END ==
PROVIDERS: PCP Nurse Practitioner Family; Visit Provider Physician Assistant
DX: I10 Essential (primary) hypertension (principal); R06.00 Dyspnea, unspecified; R60.0 Localized edema; Z86.718 Personal history of other venous thrombosis and embolism; R07.9 Chest pain, unspecified
CPT/HCPCS: 78452; 93017; 93306; A9502; J2785

== ENCOUNTER → 2021-06-07 11:59 | Outpatient (CLI) | payer MEDICARE, SELFPAY ==
--- NOTE | 2021-06-07 12:13 | XR_ITS ---
PROCEDURE: XR CHEST 2V CLINICAL HISTORY: SOB COMPARISON: DX XR CHEST 2V from 01/12/2020 CR XR CHEST 2V from 04/19/[address] CHEST W CON from 05/01/2021 FINDINGS: The cardiomediastinal silhouette and pulmonary vascularity are within normal limits. Patchy density is present in the left lung base laterally consistent with an area of atelectasis or infiltrate. The remaining lungs are clear. Epidural neurostimulator device is noted in the midthoracic region. Postsurgical changes with prior posterior fusion at L1-L2. IMPRESSION: Patchy left basilar atelectasis or infiltrate. Dictated by: Jayden Peralta MD 06/07/2021 16:14 Jayden Peralta MD in [place] 06/07/2021 16:14
[2021-06-07 12:48] LABS: Basophils % 0.4 % (0.1-2.0); Eosinophils # 0.1 K/mm3 (0.0-0.4); Eosinophils % 1.9 % (0.1-12.0); Hemoglobin 13.1 g/dL (12.2-16.2); Lymphocytes # 2.1 K/mm3 (0.7-4.5); Lymphocytes % 32.4 % (10-50); Mean Corpuscular HGB Conc 31.3 g/dL (31.8-35.4); Mean Corpuscular Hemoglobin 31.6 pg (27.0-31.2); Mean Corpuscular Volume 101.1 fl (81-99); Mean Platelet Volume 8.9 fl (7.4-10.4); Monocytes # 0.3 K/mm3 (0.1-1.0); Neutrophils # 3.9 K/mm3 (1.8-7.8); Neutrophils % 60.3 % (37.0-80.0); Platelet Count 255 K/mm3 (142-424); Red Blood Count 4.15 M/mm3 (4.20-5.40); Red Cell Distribution Width 12.8 % (11.5-17.5); White Blood Count 6.5 K/mm3 (4.8-10.8)
[2021-06-07 12:58] LABS: D-Dimer 1.36 ug/mL (0.0-0.5)
[2021-06-07 13:39] LABS: Blood Urea Nitrogen 16 mg/dl (7-17); Estimated Glomerular Filt Rate 81 ml/min (>60); GFR (African American) 98 ML/MIN (>60)
[2021-06-10 21:07] LABS: D001-IgE D pteronyssinus <0.10 kU/L (Class 0); D002-IgE D farinae <0.10 kU/L (Class 0); E001-IgE Cat Dander <0.10 kU/L (Class 0); E005-IgE Dog Dander <0.10 kU/L (Class 0); E072-IgE Mouse Urine <0.10 kU/L (Class 0); G002-IgE Bermuda Grass <0.10 kU/L (Class 0); G006-IgE Timothy Grass <0.10 kU/L (Class 0); I006-IgE Cockroach, German <0.10 kU/L (Class 0); Immunoglobulin E, Total 14 IU/mL (6-495); M001-IgE Penicillium chrysogen <0.10 kU/L (Class 0); M002-IgE Cladosporium herbarum <0.10 kU/L (Class 0); M003-IgE Aspergillus fumigatus <0.10 kU/L (Class 0); M006-IgE Alternaria alternata <0.10 kU/L (Class 0); T001-IgE Maple/Box Elder <0.10 kU/L (Class 0); T003-IgE Common Silver Birch <0.10 kU/L (Class 0); T006-IgE Cedar, Mountain <0.10 kU/L (Class 0); T007-IgE Oak, White <0.10 kU/L (Class 0); T008-IgE Elm, American <0.10 kU/L (Class 0); T010-IgE Walnut <0.10 kU/L (Class 0); T011-IgE Maple Leaf Sycamore <0.10 kU/L (Class 0); T014-IgE Cottonwood <0.10 kU/L (Class 0); T015-IgE Ash, White <0.10 kU/L (Class 0); T022-IgE Pecan, Hickory <0.10 kU/L (Class 0); T070-IgE White Mulberry <0.10 kU/L (Class 0); W001-IgE Ragweed, Short <0.10 kU/L (Class 0); W011-IgE Thistle, Russian <0.10 kU/L (Class 0); W014-IgE Pigweed, Common <0.10 kU/L (Class 0); W018-IgE Sheep Sorrel <0.10 kU/L (Class 0)
== END ==
PROVIDERS: Visit Provider Internal Medicine Pulmonary Disease
DX: I26.99 Other pulmonary embolism without acute cor pulmonale; J45.909 Unspecified asthma, uncomplicated
CPT/HCPCS: 36415; 71046; 82565; 82785; 84520; 85025; 85378; 86003

== ENCOUNTER → 2021-06-08 09:45 | Outpatient (CLI) | payer MEDICARE, SELFPAY ==
--- NOTE | 2021-06-08 09:47 | CA_ITS ---
APPROVED REPORT Bilateral Lower Extremity Venous Study for DVT. Humanities Division Chair: MELISSA Indications Lower Extremity Edema: Bilateral dyspnea, edema x 3 months. Denies trauma. Patient states she has a history of DVT. HTN, HLD. Vein Imaging CFV (R): compressive, spontaneous, phasic, augmentation FEM (R): compressive, spontaneous, phasic, augmentation POP (R): compressive, spontaneous, phasic, augmentation PTV (R): Compressible GSV (R): compressive, spontaneous, phasic, augmentation Peroneals (R):Compressible GAS (R): Compressible CFV (L): compressive, spontaneous, phasic, augmentation FEM (L): compressive, spontaneous, phasic, augmentation POP (L): compressive, spontaneous, phasic, augmentation PTV (L): Compressible GSV (L): compressive, spontaneous, phasic, augmentation Peroneals (L):Compressible GAS (L): Compressible Findings No evidence of DVT or superficial thrombophlebitis in the veins scanned of the right lower extremity. No evidence of DVT or superficial thrombophlebitis in the veins scanned of the left lower extremity. Conclusion No evidence of DVT or superficial thrombophlebitis in the veins scanned of the right lower extremity. No evidence of DVT or superficial thrombophlebitis in the veins scanned of the left lower extremity. Electronically signed by : Jayden Peralta MD 06/08/2021 15:33:44
--- NOTE | 2021-06-08 09:54 | CT_ITS ---
PROCEDURE: CT ANGIO CHEST PE PROTOCOL CLINCIAL INDICATION: Dyspnea COMPARISON: CT CT CHEST W CON from 05/01/2021 TECHNIQUE: IV Contrast: 70ML Isovue 370 Axial images obtained with sagittal and coronal reformats. All CT scans at the facility use one or more dose reduction, viz: automated exposure control, ma/kV adjustment per patient size (including targeted exams where dose is matched to indication, i.e. head), or iterative reconstruction technique. FINDINGS: HEART AND MEDIASTINAL STRUCTURES: No evidence of pulmonary embolus, aortic aneurysm, or aortic dissection.. No mediastinal or mass or adenopathy. LUNGS AND PLEURAL SPACES: 3 mm noncalcified nodule right upper lobe anteriorly image 38 series 3. Calcified granuloma left upper lobe medially. 3 mm noncalcified nodule lingula image 56 series 3. 3 mm noncalcified nodule left lower lobe laterally image 47 series 3. The small nodules are not significantly changed. No new nodules or suspicious nodules. There is slightly elevated left hemidiaphragm with mild left basilar atelectasis. No effusions. Scattered areas of scarring in the lung bases. No change in the nodular opacity in the right CP angle. BONY STRUCTURES: Epidural stimulator device is present in the midthoracic region. There are degenerative changes of the thoracic spine. Postsurgical changes in the upper lumbar spine with intrathecal catheter present with the tip at the L1 region. Sclerotic changes involving anterior aspect of the left 1st rib as before. UPPER ABDOMEN: Unremarkable. ADDITIONAL FINDINGS: No other significant abnormalities. IMPRESSION: Overall stable CT appearance of the chest with no acute finding.. Dictated by: Jayden Peralta MD 06/08/2021 17:32 Jayden Peralta MD in [place] 06/08/2021 17:32
== END ==
PROVIDERS: PCP Nurse Practitioner Family; Visit Provider Internal Medicine Pulmonary Disease
DX: R06.00 Dyspnea, unspecified (principal); R07.9 Chest pain, unspecified; R79.89 Other specified abnormal findings of blood chemistry
CPT/HCPCS: 71275; 93970; Q9967

== ENCOUNTER → 2021-06-11 13:52 | Outpatient (CLI) | payer MEDICARE, SELFPAY ==
[2021-06-11 13:56] LABS: Microscopic, Urine URINE MICROSCOPIC (MICROSCOPIC)
[2021-06-11 14:22] LABS: Appearance,Urine CLOUDY (Clear); Bilirubin,Urine Negative (Negative); Blood, Urine 1+ (Negative); Color,Urine YELLOW (Yellow); Glucose,Urine (UA) Negative (Negative); Ketones,Urine Negative (Negative); Leukocyte Esterase,Urine 2+ (Negative); Nitrate,Urine POSITIVE (Negative); PH,Urine 5.5 (5.0-8.5); Protein,Urine Negative (Negative); Urobilinogen,Urine 0.2 EU/dl (0.2)
[2021-06-11 14:57] LABS: RBC,Urine 20-50 #/hpf (0-3)
[2021-06-11 14:58] LABS: Bacteria,Urine 3+ /lpf; WBC,Urine 50-100 #/hpf (0-3)
[2021-06-11 15:29] LABS: Amphetamine/Metha Screen,Urine Negative ng/ml (<1000); Barbiturates Screen,Urine Positive ng/ml (<200)
[2021-06-11 15:30] LABS: Benzodiazepines Screen,Urine Negative ng/ml (<200)
[2021-06-11 15:31] LABS: Cannabinoid Screen,Urine Negative ng/ml (<50)
[2021-06-11 15:32] LABS: Cocaine Screen,Urine Negative ng/ml (<300); Methadone Screen,Urine Negative ng/ml (<300)
[2021-06-11 15:33] LABS: Opiate Screen,Urine Positive ng/ml (<300); Phencyclidine Screen,Urine Negative ng/ml (<25)
== END ==
PROVIDERS: Visit Provider Family Medicine
DX: N39.0 Urinary tract infection, site not specified (principal); Z79.891 Long term (current) use of opiate analgesic
CPT/HCPCS: 80305; 81001; 87086; 87088

== ENCOUNTER 2021-06-11 14:03 | Day surgery (SDC) | payer MEDICARE, SELFPAY ==
[2021-06-11 14:07] VITALS: BP 197/101; PULSE 69; RESP 18; TEMP 36.3; O2SAT 99; BMI 28.3
--- NOTE | 2021-06-11 14:08 | P.PCN_ITS ---
- Procedure Date: 06/11/21 Time: 14:08 Anesthesiologist:: Karine Butcher APRN Complications:: None Pre-procedure Diagnosis:: Degenerative disc disease lumbar spine with lumbar radiculopathy symptoms, low back pain Post-procedure Diagnosis:: Same Indications for Procedure:: Patient is a pleasant 61-year-old white female who presents today for intrathecal pain pump refill and reprogram.. Patient is being treated for degenerative disc disease lumbar spine with lumbar radiculopathy symptoms. He is being treated for degenerative disc disease lumbar spine with lumbar radiculopathy symptoms and low back pain. She rates her pain a 7/10. She does report that she has had an extensive workup with cardiology and pulmonary, as well as her PCP. She had an unremarkable workup per the patient. She has been advised her bilateral lower extremity is likely due to her intrathecal therapy. I did discuss the patient with Dr. Solo. We will plan to change the patient's medication out to Dilaudid 1 mg/mL to start at 0.05 mg/day. Physical exam Physical exam General: Alert and oriented x3, no acute distress, pleasant and cooperative, Lungs: Respirations even and unlabored, symmetrical chest expansion Eyes: PERRL Musculoskeletal: Flexion and extension of lumbar [spine] somewhat guarded secondary to pain, strength in upper and lower extremities [5/5], [antalgic gait noted] Neurological: Speech clear, [utilization review specialist equal], no gross sensory deficit Procedure Details:: Informed consent was obtained and the risk and benefits of the procedure were explained to the patient. The patient was taken to the procedure room where noninvasive monitoring was placed including noninvasive blood pressure cuff and pulse oximeter. Patient's pump was interrogated. The area over the pump was cleansed with chlorhexidine as a cleansing solution. In sterile fashion the pump was accessed with a 22-gauge needle. Approximately 10 mls of the pump solution was removed and discarded appropriately. The pump was then refilled with 20 mL's of morphine 5 mg per male. The needle was withdrawn and a bandage was placed over the puncture site. The infusion rate was reprogrammed at morphine 1.08 mg/day. The patient tolerated well with no complication. Plan and Disposition:: We will plan to change the patient's medication to Dilaudid at 1 mg per mill to start at 0.05 mg/day per Dr. Solo. She is having swelling to her bilateral lower extremities. She did have an extensive work-up with cardiology, pulmonary, and her primary care provider which is proven unremarkable, and has been advised that is likely due to her morphine intrathecal therapy. She will undergo a double cath with Dr. Solo. We will see the patient back at her next refill. Patient has been instructed to contact the clinic with any concerns before the next appointment. Dr. Solo has reviewed this note and agrees with this plan of care. This note was dictated using voice recognition software and make contain errors or omissions.
[2021-06-11 14:28] VITALS: BP 154/82; PULSE 70; PULSE 73; RESP 18; O2SAT 96; O2SAT 97
[2021-06-11 14:45] VITALS: BP 180/91; PULSE 75; RESP 20; O2SAT 96
== END 2021-06-11 14:45 | disposition home or self-care (01) ==
LOC: SC.PAINP 14:04
PROVIDERS: PCP Nurse Practitioner Family; Visit Provider Clinical Nurse Specialist Family Health
DX: M51.16 Intervertebral disc disorders with radiculopathy, lumbar region (principal); Z45.1 Encounter for adjustment and management of infusion pump; E07.9 Disorder of thyroid, unspecified; E78.5 Hyperlipidemia, unspecified; I10 Essential (primary) hypertension; M19.90 Unspecified osteoarthritis, unspecified site; F41.9 Anxiety disorder, unspecified; F32.9 Major depressive disorder, single episode, unspecified; Z79.891 Long term (current) use of opiate analgesic
CPT/HCPCS: 62370; 80305; 81001; 87086; 87088; 87186

== ENCOUNTER 2021-06-12 16:00 | Outpatient (RCR) | payer MEDICARE, SELFPAY ==
--- NOTE | 2021-06-06 15:28 | HMH.PTOPWND ---
Rehab Outpt Wound Evaluation Rehab OP Wound Evaluation Start: 06/06/21 15:03 Freq: Status: Active Protocol: Document 06/06/21 15:22 RADHA (Rec: 06/06/21 15:27 PHORCHELSEY [id number]) Electronically Signed By Marquise Contreras, PT 06/06/21 15:22 Subjective/History History History Pt is 81 yowf who presents with c/o increased B LE edema x ~ 2-3 mos with significant tenderness throughout as well with insidious onset of symptoms. She also reports increased SOA over the same time-span. She reports an increase in her diuretic medications has helped her condition slightly. She has hx of B TKA, HTN, HL, chronic back pain with implanted stimulator and pain pump. Subjective Subjective Currently pain is 0/10 at rest , 5/10 with walking. Multiple areas of obvious varicosities throughout B LE. Lymphedema Eval Classification of Lymphedema Secondary Lymphedema Yes Stemmer's sign Stemmer's Sign no Stage of Lymphedema Lymphedema stages Stage I (Pitting edema, reduces w/ elevation, no fibrosis) Skin Changes Dry Skin Yes Redness Yes Discoloration of Skin Yes Other Changes Yes Pain Scale Pain Scale (0-10) 5 Affected Extremities Areas Affected by Lymphedema/Edema Right Lower Extremity,Left Lower Extremity Manual Lymphatic Drainage Treatment Area MLD Treatment Area Right Lower Extremity,Left Lower Extremity Wound Problems/Impairments Impairments Problems/Impairmments Palpation Tenderness,Impaired Endurance,Impaired Gait Pattern,Impaired Walking, Impaired Standing,Increased Edema,Lymphedema Present, Subjective C/O Pain,Impaired Self Care/Self Management Prognosis Rehab Potential Good Clinical Impression Consistent with Diagnosis Yes Short Term Goals Number of Weeks 4 Decreased Palpation Tenderness Yes: 1/4 Decrease Edema Yes Patient to Understand Lymphedema Yes Treatment and Exercises Decrease Girth Me
== END 2021-06-12 16:05 | disposition home or self-care (01) ==
LOC: PT 16:00
PROVIDERS: PCP Nurse Practitioner Family; Visit Provider Nurse Practitioner Family
DX: I89.0 Lymphedema, not elsewhere classified (principal)
CPT/HCPCS: 97140; 97162; 97760

== ENCOUNTER → 2021-07-23 11:37 | Outpatient (CLI) | payer MEDICARE, SELFPAY ==
--- NOTE | 2021-07-23 11:42 | XR_ITS ---
PROCEDURE: XR CHEST PORTABLE CLINICAL HISTORY: COVID OUTPATIENT COMPARISON: DX XR CHEST 2V from 01/12/2020 CR XR CHEST 2V from 04/19/2021 CR XR CHEST 2V from 06/07/[address] ANGIO CHEST PE PROTOCOL from 06/08/2021 FINDINGS: The cardiomediastinal silhouette and pulmonary vascularity are within normal limits. The lungs are clear without infiltrates, suspicious nodules, or pleural effusions. Mild atelectatic or fibrotic change left lung base. Epidural stimulator device noted in the midthoracic region. IMPRESSION: No change with no acute finding Dictated by: Jayden Peralta MD 07/23/2021 12:35 Jayden Peralta MD in OV 07/23/2021 12:35
[2021-07-23 12:39] LABS: Microscopic, Urine URINE MICROSCOPIC (MICROSCOPIC)
[2021-07-23 12:50] LABS: Basophils % 0.8 % (0.1-2.0); Eosinophils # 0.1 K/mm3 (0.0-0.4); Eosinophils % 2.4 % (0.1-12.0); Hematocrit 38.9 % (37.0-47.0); Hemoglobin 12.7 g/dL (12.2-16.2); Lymphocytes # 2.3 K/mm3 (0.7-4.5); Lymphocytes % 42.3 % (10-50); Mean Corpuscular HGB Conc 32.6 g/dL (31.8-35.4); Mean Corpuscular Hemoglobin 32.1 pg (27.0-31.2); Mean Corpuscular Volume 98.5 fl (81-99); Mean Platelet Volume 8.2 fl (7.4-10.4); Monocytes # 0.4 K/mm3 (0.1-1.0); Monocytes % 6.9 % (1.7-9.3); Neutrophils # 2.6 K/mm3 (1.8-7.8); Neutrophils % 47.6 % (37.0-80.0); Platelet Count 247 K/mm3 (142-424); Red Blood Count 3.95 M/mm3 (4.20-5.40); Red Cell Distribution Width 12.4 % (11.5-17.5); White Blood Count 5.4 K/mm3 (4.8-10.8)
[2021-07-23 14:43] LABS: Appearance,Urine CLEAR (Clear); Bilirubin,Urine Negative (Negative); Blood, Urine Negative (Negative); Color,Urine YELLOW (Yellow); Glucose,Urine (UA) Negative (Negative); Ketones,Urine Negative (Negative); Leukocyte Esterase,Urine Negative (Negative); Nitrate,Urine Negative (Negative); Protein,Urine Negative (Negative); Urobilinogen,Urine 0.2 EU/dl (0.2)
[2021-07-23 15:08] LABS: WBC,Urine Occasional #/hpf (0-3)
[2021-07-23 15:09] LABS: Bacteria,Urine Trace /lpf
== END ==
PROVIDERS: PCP Nurse Practitioner Family; Visit Provider Nurse Practitioner
DX: Z20.822 Contact with and (suspected) exposure to COVID-19 (principal)
CPT/HCPCS: 36415; 71045; 81001; 85025; 87275; 87276; C9803; U0003; U0005

== ENCOUNTER → 2021-08-23 12:48 | Day surgery (SDC) | payer MEDICARE, SELFPAY ==
[2021-08-23 13:40] VITALS: BP 125/92; BP 144/86; PULSE 66; PULSE 76; RESP 18; TEMP 36.2; O2SAT 95; O2SAT 96; BMI 26.6
--- NOTE | 2021-08-23 13:47 | HMH.PMPROC ---
- Procedure Date: 08/23/21 Time: 13:47 Anesthesiologist:: Karine Butcher APRN Complications:: None Pre-procedure Diagnosis:: Degenerative disc disease lumbar spine with lumbar radiculopathy symptoms Post-procedure Diagnosis:: Same Indications for Procedure:: Patient is a 80-year-old black female who presents today for intrathecal pain pump refill and reprogram. The patient is managed with intrathecal therapy she is currently on morphine 1.08 mg/day. She does report to continue to have significant swelling bilateral lower. She is seeing pulmonary as well as cardiology. The patient I have discussed in the past this may be related to medications. We did discuss changing the medication to Dilaudid versus bupivacaine in the past. The patient did defer. She does report to have gotten a bill from a as. She says that the cost of medication has doubled in size as well. She is unsure if she will be able to think she would, however, like an increase in the medication today pain is 6 or 7 out of 10 Jordy #[id number] has been reviewed and is appropriate. Physical exam General: Alert and oriented x3, no acute distress, pleasant and cooperative Lungs: Respirations even and unlabored, symmetrical chest expansion Eyes: PERRL Musculoskeletal: Flexion and extension of lumbar [spine] somewhat guarded secondary to pain, [antalgic gait noted] Neurological: Speech clear, no gross sensory deficit Procedure Details:: Informed consent was obtained and the risk and benefits of the procedure were explained to the patient. The patient was taken to the procedure room where noninvasive monitoring was placed including noninvasive blood pressure cuff and pulse oximeter. Patient's pump was interrogated. The area over the pump was cleansed with chlorhexidine as a cleansing solution. In sterile fashion the pump was accessed with a 22-gauge needle. Approximately 4 mls of the pump solution was removed and discarded appropriately. The pump was then refilled with 20 mL's of morphine 5 mg/mL. The needle was withdrawn and a bandage was placed over the puncture site. The infusion rate was reprogrammed at increased to morphine at 1.19 mg. The patient tolerated well with no complication. Plan and Disposition:: We will see the patient back in the clinic at the next intrathecal refill. Patient has been instructed to contact the clinic with any concerns before the next appointment. Dr. Solo has reviewed this note and agrees with this plan of care. This note was dictated using voice recognition software and make contain errors or omissions.
== END ==
PROVIDERS: PCP Nurse Practitioner Family; Visit Provider Clinical Nurse Specialist Family Health
DX: M51.16 Intervertebral disc disorders with radiculopathy, lumbar region (principal); Z45.1 Encounter for adjustment and management of infusion pump
CPT/HCPCS: 62370

== ENCOUNTER 2021-10-01 12:55 | Day surgery (SDC) | payer MEDICARE, SELFPAY ==
[2021-10-01 13:32] VITALS: BP 138/20; BP 144/79; BP 156/76; PULSE 62; PULSE 64; PULSE 74; RESP 18; TEMP 36.3; O2SAT 96; O2SAT 97; O2SAT 98; BMI 26.6
[2021-10-01 14:00] VITALS: BP 142/78; PULSE 70; RESP 20; O2SAT 97
--- NOTE | 2021-10-01 14:12 | P.PCN_ITS ---
- Procedure Date: 10/01/21 Time: 14:13 Anesthesiologist:: Christiana Park MD Complications:: None Pre-procedure Diagnosis:: Degenerative disc disease of the lumbar spine with lumbar radiculopathy Post-procedure Diagnosis:: Same Indications for Procedure:: Patient is a very pleasant 80-year-old white female who presents today for intrathecal pump refill and reprogram. She is currently being treated for degenerative disc disease of the lumbar spine with lumbar radiculopathy. She has a pump with a flow Withams system with intrathecal morphine 5 mg/mL on constant flow and PCC with a daily dose of 1.19 mg/day. She states that her pain has gradually worsened since her last refill and she is requesting an increase in her dose settings today. The plan for today is for the patient to undergo intrathecal pain pump refill and reprogram with an increase of 20% to her constant flow rate. Procedure Details:: Informed consent was obtained and the risks and benefits of the procedure was explained to the patient. The patient was taken to the procedure room. The pump was interrogated. The area over the pump was prepped using ChloraPrep. The pump was accessed with a 22-gauge needle. Approximately 10.1 mL's of the intrathecal solution was withdrawn and discarded. The pump was then refilled with 20 mL's of intrathecal morphine 5 mg/mL. The pump was interrogated and the infusion was [increased to 1.3 mg per day]. The patient tolerated the procedure well with no complications. Next refill date is on [November 16, 2021]. Plan and Disposition:: Follow-up with this patient on her before next refill date. Will reassess pain symptoms at that time and make additional pain at adjustments if needed. [facility] #[id number] from prior drug screens were reviewed and appropriate.
== END 2021-10-01 13:45 | disposition home or self-care (01) ==
LOC: SC.PAINP 12:56
PROVIDERS: PCP Nurse Practitioner Family; Visit Provider Anesthesiology Pain Medicine
DX: M51.16 Intervertebral disc disorders with radiculopathy, lumbar region (principal); Z45.1 Encounter for adjustment and management of infusion pump; E78.5 Hyperlipidemia, unspecified; I10 Essential (primary) hypertension; Z86.718 Personal history of other venous thrombosis and embolism
CPT/HCPCS: 62370

== ENCOUNTER 2021-11-05 12:47 | Day surgery (SDC) | payer MEDICARE, SELFPAY ==
[2021-11-05 12:53] VITALS: BP 188/91; PULSE 66; RESP 20; TEMP 36.4; O2SAT 96; BMI 27.4
[2021-11-05 13:03] VITALS: BP 153/88; PULSE 64; RESP 18; O2SAT 97
[2021-11-05 13:08] VITALS: BP 175/73; PULSE 69; RESP 17; O2SAT 96
[2021-11-05 13:16] VITALS: BP 168/87; PULSE 62; RESP 18; TEMP 36.5; O2SAT 96
--- NOTE | 2021-11-05 13:21 | P.PCN_ITS ---
- Procedure Date: 11/05/21 Time: 13:21 Anesthesiologist:: NORA Mcmahon Complications:: None Pre-procedure Diagnosis:: Degenerative disc disease of lumbar spine with lumbar radiculopathy symptoms Post-procedure Diagnosis:: Same Indications for Procedure:: Patient is a pleasant 80-year-old female who presents today for intrathecal pain pump [refill] [and reprogram]. The patient is being treated for degenerative disc disease of lumbar spine with lumbar radiculopathy symptoms. Patient is currently being managed with morphine 5 mg/mL at a rate of 1.3 mg/day. Denies any constipation or urinary hesitancy. Patient is complaining of bilateral leg swelling that has been going on for several months now. We have discussed this issue previously and have tried to decrease her intrathecal pain pump dose. However, decreasing her dose did not help her swelling. Her swelling did get worse when we increase it. She has been cleared by her heart doctor and lung doctor from any issues that might cause her bilateral leg swelling. She is interested in switching to a different medication. Patient rates pain a 0 out of 10 when standing but it goes up to a 10 out of 10 when she starts moving around. Drug screen is appropriate. Jordy [id number] has been reviewed and is appropriate. Physical exam General: Alert and oriented x3, no acute distress, pleasant and cooperative, [on room air] Lungs: Respirations even and unlabored, symmetrical chest expansion Eyes: PERRL Musculoskeletal: Flexion and extension of lumbar [spine] somewhat guarded secondary to pain, [antalgic gait noted] Neurological: Speech clear, no gross sensory deficit Procedure Details:: Informed consent was obtained and the risk and benefits of the procedure were explained to the patient. The patient was taken to the procedure room where noninvasive monitoring was placed including noninvasive blood pressure cuff and pulse oximeter. Patient's pump was interrogated. The area over the pump was cleansed with chlorhexidine as a cleansing solution. In sterile fashion the pump was accessed with a 22-gauge needle. Approximately 10 mls of the pump solution was removed and discarded appropriately. The pump was then refilled with 20 mL's of morphine 5 mg/mL. The needle was withdrawn and a bandage was placed over the puncture site. The infusion rate was reprogrammed and continued at morphine 1.3 mg/day. The patient tolerated well with no complication. Plan and Disposition:: Patient has been having bilateral leg swelling with the morphine. Has been going on for several months. She has seen her electronic imaging system operator and death surveys coder and have ruled out cardiovascular and pulmonary to cause her bilateral leg swelling. We will schedule the patient for a change of intrathecal medication to Dilaudid. Patient has been instructed to contact the clinic with any concerns before the next appointment. Dr. Solo has reviewed this note and agrees with this plan of care. This note was dictated using voice recognition software and make contain errors or omissions.
== END 2021-11-05 13:16 | disposition home or self-care (01) ==
LOC: SC.PAINP 12:48
PROVIDERS: PCP Nurse Practitioner Family; Visit Provider Student in an Organized Health Care Education/Training Program
DX: M51.16 Intervertebral disc disorders with radiculopathy, lumbar region (principal); Z45.1 Encounter for adjustment and management of infusion pump; F41.9 Anxiety disorder, unspecified; F32.A Depression, unspecified; E78.5 Hyperlipidemia, unspecified; I10 Essential (primary) hypertension; Z86.718 Personal history of other venous thrombosis and embolism
CPT/HCPCS: 95991

== ENCOUNTER 2021-11-30 10:50 | Day surgery (SDC) | payer MEDICARE, SELFPAY ==
[2021-11-30 11:24] VITALS: BP 163/71; PULSE 61; RESP 20; TEMP 36.3; O2SAT 99; BMI 27.4
[2021-11-30 11:25] VITALS: BP 156/77; PULSE 67; RESP 18; O2SAT 96
[2021-11-30 11:36] VITALS: BP 148/77; PULSE 72; RESP 18; O2SAT 97
--- NOTE | 2021-11-30 11:45 | P.PCN_ITS ---
- Procedure Date: 11/30/21 Time: 11:45 Anesthesiologist:: Yariel Solo MD Complications:: None Pre-procedure Diagnosis:: Degenerative disc disease of lumbar spine with lumbar radiculopathy symptoms and increasing side effects with current intrathecal morphine infusion Post-procedure Diagnosis:: Same Indications for Procedure:: This patient is a pleasant 80-year-old white female who has an intrathecal morphine pain pump currently going at 1.3 mg/day. She continues to have swelling of her lower extremities. She does have adequate pain control it seems however side effects have worsened. We will change her out to intrathecal Dilaudid today. We will fill her with intrathecal Dilaudid 1 mg/mL and start at 0.1 mg/day. She does have an antalgic gait. Motor strength of the lower e xtremities is 5/5. There is no gross sensory deficit. Jordy and drug screen are all appropriate. Procedure Details:: Informed consent was obtained and the risks and benefits of the procedure was explained to the patient. The patient was taken to the procedure room. The pump was interrogated. The area over the pump was prepped using ChloraPrep. The pump was accessed with a 22-gauge needle. Approximately 12 mL's of the intrathecal solution was withdrawn and discarded. The pump was then refilled with 20 mL's of intrathecal Dilaudid 1 mg/mL. After double catheter aspiration at the catheter aspiration port, the pump was interrogated and the infusion was started at 0.1 mg/day. The patient tolerated the procedure well with no complication. Plan and Disposition:: We will follow-up with her in 2 weeks. Will reevaluate her symptoms at that time and make adjustments as needed.
[2021-11-30 11:53] VITALS: BP 143/73; PULSE 61; RESP 20; TEMP 36.4; O2SAT 96
== END 2021-11-30 11:54 | disposition home or self-care (01) ==
LOC: SC.PAINP 10:51
PROVIDERS: PCP Nurse Practitioner Family; Visit Provider Anesthesiology
DX: M51.16 Intervertebral disc disorders with radiculopathy, lumbar region (principal); Z45.1 Encounter for adjustment and management of infusion pump; F41.9 Anxiety disorder, unspecified; F32.A Depression, unspecified; E78.5 Hyperlipidemia, unspecified; I10 Essential (primary) hypertension; Z86.718 Personal history of other venous thrombosis and embolism; M19.90 Unspecified osteoarthritis, unspecified site; M96.1 Postlaminectomy syndrome, not elsewhere classified; Z85.3 Personal history of malignant neoplasm of breast; Z88.0 Allergy status to penicillin; Z88.2 Allergy status to sulfonamides
CPT/HCPCS: 62370; C1772

== ENCOUNTER 2021-12-01 16:57 | Observation (INO) | payer MEDICARE, SELFPAY ==
[2021-12-01] VITALS (9 sets, daily range): BP systolic 168–195; BP diastolic 79–152; PULSE 58–77; RESP 12–24; TEMP 36.7–36.8; O2SAT 97–100; BMI 28.3; BMI 26.9
--- NOTE | 2021-12-01 17:08 | HMH.EDGENADL ---
ED Disposition Clinical Impression: Opiate withdrawal Disposition: Admitted as Observation Condition on Discharge: Fair Referrals: Andrew Benito MD [Primary Care Provider] - - Critical Care Critical Care Time: No Attestation: On 12/01/21, the high probability of a clinically significant, sudden or life threatening deterioration of the following system(s) required my full and direct attention, intervention and personal management. The time I documented below is in addition to time spent performing reported procedures but includes the following listed in this critical care notation. Medical Decision Making - Medical Records Medical records reviewed: Yes: I reviewed the patient's medical records. MR Comment: Pain clinic note from 11/30/2021 reviewed. - Jordy Inquiry Pt receiving controlled substance: Yes Jordy was queried for this patient: Yes Risks and benefits of using a controlled substance: were discussed with pt by me Vital Signs: 12/01/21 16:58 12/01/21 17:32 12/01/21 17:42 Temperature 98.3 F Temperature Source Oral Pulse Rate 77 76 Pulse Rate [Right Radial] 74 Respiratory Rate 16 16 17 Blood Pressure 183/152 H 168/113 H Blood Pressure [Right Arm] 176/98 H Blood Pressure Mean 161 147 Blood Pressure Mean [Right Arm] 124 Blood Pressure Source [Right Arm] Automatic Cuff Blood Pressure Position [Right Arm] Sitting 02 Sat by Pulse Oximetry 99 100 98 Oxygen Delivery Method Room Air Oxygen Flow Rate (LPM) 12/01/21 18:08 12/01/21 18:21 Temperature Temperature Source Pulse Rate 61 60 Pulse Rate [Right Radial] Respiratory Rate 16 24 Blood Pressure 188/100 H 182/98 H Blood Pressure [Right Arm] Blood Pressure Mean 149 137 Blood Pressure Mean [Right Arm] Blood Pressure Source [Right Arm] Blood Pressure Position [Right Arm] 02 Sat by Pulse Oximetry 97 97 Oxygen Delivery Method Nasal Cannula Oxygen Flow Rate (LPM) 4 - Lab Data Lab Results 12/01/21 17:15: WBC 7.1, RBC 4.27, Hgb 13.7, Hct 41.4, MCV 97.0, MCH 32.2 H, MCHC 33.2, RDW 13.9, Plt Count 283, MPV 8.8, Neut % (Auto) 67.1, Lymph % (Auto) 28.2, Finney % (Auto) 2.9, Eos % (Auto) 0.2, Baso % (Auto) 1.6, Neut # (Auto) 4.8, Lymph # (Auto) 2.0, Finney # (Auto) 0.2, Eos # (Auto) 0.0, Baso # (Auto) 0.1 12/01/21 17:15: Sodium 139, Potassium 3.4 L, Chloride 109 H, Carbon Dioxide 20 L, Anion Gap 13.4, BUN 18 H, Creatinine 0.90, Estimated Creat Clear 56, Estimated GFR 61, Est GFR ( Amer) 73, Glucose 131 H, Calcium 10.4 H, Total Bilirubin 0.6, AST 37 H, ALT 30, Alkaline Phosphatase 111, Total Protein 7.6, Albumin 4.3, Globulin 3.3 H, Albumin/Globulin Ratio 1.3 Result diagrams: 12/01/21 17:15 12/01/21 17:15 Orders (Tests/Meds): ED MEDICATIONS Generic Name Dose Route Start Last Admin Trade Name Freq PRN Reason Stop Dose Admin Sodium Chloride 10 ml 12/01/21 17:20 Sodium Chloride 0.9% 10ml Flush Syringe IV 12/31/21 17:19 NEEDED PRN Maintain IV Site Discontinued Medications Generic Name Dose Route Start Last Admin Trade Name Freq PRN Reason Stop Dose Admin Diazepam 5 mg 12/01/21 18:02 12/01/21 18:10 Diazepam 10mg/2ml Syringe IV 12/01/21 18:03 5 mg ONCE ONE Administration Morphine Sulfate 4 mg 12/01/21 17:33 12/01/21 17:35 Morphine 4mg/Ml Syringe IV 12/01/21 17:34 4 mg ONCE ONE Administration Ondansetron HCl 4 mg 12/01/21 17:33 12/01/21 17:35 Ondansetron 4mg/2ml Vial IV 12/01/21 17:34 4 mg ONCE ONE Administration - ECG Data Tracing #1 EKG interpreted by Dash Krishnamurthy MD: Rhythm: sinus Rate: 65 [place]: normal Ectopy: none Conduction: normal ST Segment Changes: none T Wave Changes: none Q Waves: none No evidence of acute ischemia or injury Normal electrocardiogram - Physician Consults Physician Consulted: Bux Time: 18:03 Reason -: Pt condition Comment/Response: Discussed patient's symptoms. Discussed my concern that
--- NOTE | 2021-12-01 17:20 | ECG_ITS ---
APPROVED REPORT Exam: Resting ECG HR:65 bpm ECG Measurements Heart Rate 65 AXES NV 146 P 37 QRSd 88 QRS 26 QT 421 T 27 QTc 432 Conclusion SINUS RHYTHM NORMAL ECG UNCONFIRMED REPORT Electronically signed by : Lucius Garcia MD 12/02/2021 20:11:44
--- NOTE | 2021-12-01 17:26 | PC.NURSE ---
ENMA PARRISH at
[2021-12-01 17:27] LABS: Basophils # 0.1 K/mm3 (0-0.2); Basophils % 1.6 % (0.1-2.0); Eosinophils % 0.2 % (0.1-12.0); Hematocrit 41.4 % (37.0-47.0); Hemoglobin 13.7 g/dL (12.2-16.2); Lymphocytes % 28.2 % (10-50); Mean Corpuscular HGB Conc 33.2 g/dL (31.8-35.4); Mean Corpuscular Hemoglobin 32.2 pg (27.0-31.2); Mean Platelet Volume 8.8 fl (7.4-10.4); Monocytes # 0.2 K/mm3 (0.1-1.0); Monocytes % 2.9 % (1.7-9.3); Neutrophils # 4.8 K/mm3 (1.8-7.8); Neutrophils % 67.1 % (37.0-80.0); Platelet Count 283 K/mm3 (142-424); Red Blood Count 4.27 M/mm3 (4.20-5.40); Red Cell Distribution Width 13.9 % (11.5-17.5); White Blood Count 7.1 K/mm3 (4.8-10.8)
--- NOTE | 2021-12-01 17:28 | PC.NURSE ---
ED MD at
[2021-12-01 17:30] LABS: Chloride 109 mmol/L (98-107); Sodium 139 mmol/L (136-145)
[2021-12-01 17:31] LABS: Potassium 3.4 mmoL/L (3.5-5.1)
[2021-12-01 17:33] LABS: Alanine Aminotransferase 30 U/L (12-78); Albumin Level 4.3 g/dl (3.5-5.0); Albumin/Globulin Ratio 1.3 (1.1-1.8); Alkaline Phosphatase 111 U/L (38-126); Anion Gap 13.4 mEq/L (5-15); Aspartate Amino Transferase 37 U/L (14-36); Bilirubin,Total 0.6 mg/dl (0.2-1.3); Blood Urea Nitrogen 18 mg/dl (7-17); Carbon Dioxide 20 mmol/L (22.0-30.0); Creatinine Clearance Estimated 56 mL/min (50-200); Estimated Glomerular Filt Rate 61 ml/min (>60); GFR (African American) 73 ML/MIN (>60); Globulin 3.3 g/dL (1.3-3.2); Total Protein,Serum 7.6 g/dl (6.3-8.2)
[2021-12-01 17:34] LABS: Calcium 10.4 mg/dl (8.4-10.2); Glucose 131 mg/dl (74-100)
--- NOTE | 2021-12-01 17:41 | PC.NURSE ---
family at BS pt given blanket and pillow pt is medicated per MAR will continue to monitor
--- NOTE | 2021-12-01 17:46 | PC.NURSE ---
has been paged.
--- NOTE | 2021-12-01 18:24 | PC.NURSE ---
has bee paged
--- NOTE | 2021-12-01 18:26 | PC.NURSE ---
on the phone with
--- NOTE | 2021-12-01 18:32 | PC.NURSE ---
drying and winding supervisor has been called about admission. Will call back with a bed.
--- NOTE | 2021-12-01 18:35 | PC.NURSE ---
pt placed on O2 at 4L per NC, pt had fallen asleep and SaO2 dropped. Pt was easily arousable. will continue to monitor ER MD aware
[2021-12-01 18:38] LABS: Coronavirus 19, PCR Not Detected (NotDetected); Influenza A, PCR Not Detected (NotDetected); Influenza B, PCR Not Detected (NotDetected)
--- NOTE | 2021-12-01 18:56 | PC.NURSE ---
decreased O2 to 3L per NC at this time pt given ice chips
--- NOTE | 2021-12-01 20:31 | PC.NURSE ---
patient up to floor via wheelchair @ this time.
[2021-12-02] VITALS: BP 185/78; PULSE 70; RESP 16; O2SAT 98
[2021-12-02 00:47] VITALS: RESP 22
[2021-12-02 04:00] VITALS: BP 159/82; PULSE 71; RESP 14; TEMP 36.9; O2SAT 93
--- NOTE | 2021-12-02 05:15 | PC.NURSE ---
When patient arrived to floor could state name and , appeared to be very drowsy. As shift has continued pt is now A/O x4. Can state name, , place, and situation. Pt c/o of shivering and could not get comfortable and showed signs of agitation x1 this shift, admin meds per MAR with relief. Pt seems to be doing much better after medication. Pt can ambulate to bathroom to void with x1 assist.
[2021-12-02 08:00] VITALS: BP 178/95; PULSE 94; RESP 17; TEMP 36.7; O2SAT 97
--- NOTE | 2021-12-02 08:56 | HMH.HP ---
*Admission Date: 12/01/21 *Chief complaint: Shakey and weak *History of present illness: Ms. 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 Solo with an intrathecal pain pump. She had her pump medication changed from morphine to Dilaudid on 11/30/2021 due to side effects and ineffectiveness of morphine. She was previously on morphine 1.3 mg/day and was switched to Dilaudid 0.1 mg/day. She states she felt well after the change of medication on Friday and rested well Friday night. As the day progressed yesterday, she began feeling more restless, shaky, and weak. She presented to the ER with these complaints. Her work-up was noncontributory it was felt she was experiencing withdrawal from the morphine. Dr. Solo was contacted and recommended starting the patient on Valium 5 mg daily with plans to follow-up on Friday for adjustment in the Dilaudid dose. She was given a dose of Valium in the ER and the pain on the left. Family was concerned about taking her home and her somnolent state. She has been admitted for further observation. She still feels shaky and weak this morning although feels better than yesterday. [facility] History Medical History: Reports:: Anxiety, Cancer (Breast Cancer), Deep Vein Thrombosis, Depression, Hyperlipidemia, Hypertension, Urinary Tract Infection Denies:: Diabetes Mellitus Type 1, Diabetes Mellitus Type 2, Internal Pacemaker, Lung Disease, MRSA, Seizures *Have you ever received a pneumonia vaccine?: Yes *Have you received a flu vaccine this season?: Yes Other Medical History: Reports: Arthritis, Cataracts, Other (DDD/DJD of spine, gout, tremors). Denies: Blood Transfusion Reaction Laterality Cases: Left: Breast Biopsy, Lumpectomy, Bilateral: Cataract, Total Knee Replacement Other Surgeries: Yes: Appendectomy, Cholecystectomy, Colonoscopy, Colon Resection, Other (three back surgery, nerve stimulator, intrathecal pain pump). No: Pacemaker Amputation: No Fractures: No - *Social History Smoking Status: Never smoker Alcohol Intake: never Substance Use Type: denies use *Occupational Status:: retired Housing: house Household Members: spouse *Travel in the last 8 weeks: None - Psychiatric History Pschychiatric History:: Reports:: Anxiety, Depression Family Hx:: Coronary Artery Disease, Kidney Disease Review of Systems - Constitutional Reports fatigue, Reports weakness, Denies weight loss - Eyes Denies change in vision - ENT Reports poor balance, Denies abnormal hearing, Denies difficulty swallowing - *Respiratory Denies chest congestion, Denies cough - *Gastrointestinal Reports constipation, Denies abdominal pain, Denies nausea, Denies vomiting - *Genitourinary Denies abnormal vaginal bleeding - *Musculoskeletal Reports back pain, Denies joint swelling, Denies muscle cramps - Integumentary/Breasts Denies hair loss, Denies change in skin color, Denies rash - *Neurologic Reports weakness, Denies headache(s), Denies numbness, Denies seizure-like activity - Psychiatric Reports abnormal sleep pattern, Reports depression - Endocrine Denies cold intolerance, Denies excessive sweating, Denies flushing - Hematologic/Lymphatic Denies easy bruising - Allergic/Immunologic Denies itchy eyes, Denies wheezing Meds Home Medications Medication Instructions Recorded Confirmed Type atorvastatin 10 mg tablet 10 mg PO DAILY 09/27/19 12/01/21 History trazodone 100 mg tablet 100 mg PO HS tab 09/27/19 11/30/21 History Saccharomyces boulardii 250 mg 250 mg PO BID 01/06/20 11/30/21 History capsule cyanocobalamin (vitamin B-12) 500 500 mcg PO DAILY 01/06/20 11/30/21 History mcg tablet Losartan Potassium 100 mg PO DAILY 02/09/20 12/01/21 History hydroCHLOROthiazide 25 mg PO DAILY 02/09/20 12/01/21 History [Hydrochlorothiazide 12.5mg Tab] Calcium Carbonate/Vitamin D3 1 each PO BID 02/15/20 11/30/21 History [Calcium 60
--- NOTE | 2021-12-02 09:13 | P.CONPHA_ITS ---
[facility] Pharmacy VTE Monitoring - Patient Demographics Admission date: 12/01/21 Report Date: 12/02/21 Time: 09:13 Allergies/Adverse Reactions: Patient Allergies Sulfa (Sulfonamide Antibiotics) Allergy (Severe, Verified 06/11/21 14:25) Rash Penicillins Allergy (Verified 08/09/21 10:18) Unknown allergy reaction Height: 1.65 m Weight: 73.255 kg Patient Problems: Current Active Problems Opiate withdrawal (Acute) - VTE Risk Labs: VTE Related Lab Results Hgb 13.7 g/dL (12.2-16.2) 12/01/21 17:15 Hct 41.4 % (37.0-47.0) 12/01/21 17:15 Plt Count 283 K/mm3 (142-424) 12/01/21 17:15 BUN 18 mg/dl (7-17) H 12/01/21 17:15 Creatinine 0.90 mg/dl (0.52-1.04) 12/01/21 17:15 Estimated Creat Clear 56 mL/min (50-200) 12/01/21 17:15 VTE Score: 1 VTE Risk Level: Very Low Risk - Prophylaxis VTE Prophylaxis Ordered?: Yes Types of VTE Prophylaxis: TEDS Knee High Location of Applied Device: Bilateral Lower Extremeties
--- NOTE | 2021-12-02 10:42 | HMH.PHAINT ---
MEDICATION RECONCILIATION COMPLETED ON PATIENT USING EXTERNAL FILL HISTORY FROM PHARMACY AND ENEIDA REPORT. -FRANCO SIDDIQUID
--- NOTE | 2021-12-02 14:00 | PC.NURSE ---
pt noted to be confused. She is tremulous and anxious. son @ bedside. Gave medications per MAR
[2021-12-02 15:35] VITALS: BP 148/81; PULSE 67; RESP 16; TEMP 37.1; O2SAT 96
--- NOTE | 2021-12-02 17:23 | PC.NURSE ---
PT IS SITTING UP IN THE CHAIR WITH FAMILY IN THE ROOM. SAFETY IN PLACE DUE TO PT HAVING SOME OCCASIONAL CONFUSION. PT STATES SHE STILL FEELS VERY WEAK/JITTERY. MEDICATED PER MAR WITH VALIUM. AMBULATES TO THE BATHROOM WITH 1 ASSIST AND PT AMBULATED IN THE MOHR X1 THIS SHIFT. LUNG SOUNDS CLEAR. ABDOMEN SOFT/NON TENDER WITH ACTIVE BOWEL SOUNDS. WILL CONTINUE TO MONITOR.
[2021-12-02 20:00] VITALS: BP 184/97; PULSE 83; RESP 17; TEMP 36.3; O2SAT 95
[2021-12-03 04:00] VITALS: BP 132/76; PULSE 68; RESP 16; TEMP 36.7; O2SAT 95
--- NOTE | 2021-12-03 04:37 | PC.NURSE ---
Pt has rested well this shift. pt voiced x1 of feeling weak and jittery, admin meds per MAR. No c/o of pain, N/V. Pt ambulates to bathroom with standby assist. Bed alarm on for safety. Pt remains on RA with O2 sats >90%.
[2021-12-03 05:00] VITALS: BMI 27.0
[2021-12-03 08:00] VITALS: BP 146/90; PULSE 91; RESP 16; TEMP 36.6; O2SAT 95; O2SAT 97
--- NOTE | 2021-12-03 08:54 | HMH.ACPN2 ---
<Joi Lepe - Last Filed: 12/03/21 08:54> Internal Medicine - PN: Subj *Date: 12/03/21 *Time: 08:54 Interval history: Patient feels better today. She denies dizziness and shakiness. She did sleep after taking Valium last night. She is eating without difficulty. She is ambulated without problems. She is anxious to go home. She awaits Dr. Solo's input. She states that she has no pain whatsoever this AM. Exam Vital signs and Labs for Last 24 Hours: Temp Pulse Resp BP Pulse Ox 98.1 F 68 16 132/76 95 12/03/21 04:00 12/03/21 04:00 12/03/21 04:00 12/03/21 04:00 12/03/21 04:00 I & O for Last 24 hours: Intake & Output 11/30/21 12/01/21 12/02/21 12/03/21 11:59 11:59 11:59 11:59 Intake Total 240 / 240 120 / 120 Output Total 1000 / 1000 300 / 300 Balance -760 / -760 -180 / -180 Weight 161 lb 8 oz 162 lb 1.6 oz - Constitutional no acute distress Comments: Appears comfortable. - *Routine Respiratory Exam Present: CTA bilaterally (Anteriorly and posteriorly) - *Routine Cardiovascular Exam Present: RRR - *Routine Abdominal Exam Present: soft, normoactive bowel sounds. Absent: tenderness - *Routine Extremities Exam Absent: edema, calf tenderness - *Routine Neurological Exam Present: alert, oriented X3 Assessment and Plan (1) Opiate withdrawal Status: Acute Category: Medical Code(s): F11.23 - Opioid dependence with withdrawal (2) Chronic back pain Status: Acute Qualifiers: Back pain location: low back pain Back pain laterality: midline Sciatica presence: unspecified whether sciatica present Qualified Code(s): M54.50 - Low back pain, unspecified; G89.29 - Other chronic pain Category: Medical Code(s): M54.9 - Dorsalgia, unspecified; G89.29 - Other chronic pain (3) Constipation Status: Acute Category: Medical Code(s): K59.00 - Constipation, unspecified (4) Osteoarthritis Status: Acute Category: Medical Code(s): M19.90 - Unspecified osteoarthritis, unspecified site (5) History of DVT (deep vein thrombosis) Status: Chronic Category: Medical Code(s): Z86.718 - Personal history of other venous thrombosis and embolism (6) Hypertension Status: Chronic Qualifiers: Hypertension type: primary hypertension Qualified Code(s): I10 - Essential (primary) hypertension Category: Medical Code(s): I10 - Essential (primary) hypertension (7) History of breast cancer Status: Resolved Category: Medical Code(s): Z85.3 - Personal history of malignant neoplasm of breast - Assessment and plan all Dx Assessment and Plan for all problems:: Await Dr. Solo's input. Will be discharged after this. <Andrew Benito - Last Filed: 12/03/21 21:50> Internal Medicine - PN: Subj *Date: 12/03/21 *Time: 21:46 Exam Vital signs and Labs for Last 24 Hours: Temp Pulse Resp BP Pulse Ox 97.8 F 91 H 16 146/90 H 95 12/03/21 08:00 12/03/21 08:00 12/03/21 08:00 12/03/21 08:00 12/03/21 08:00 I & O for Last 24 hours: Intake & Output 12/01/21 12/02/21 12/03/21 12/04/21 11:59 11:59 11:59 11:59 Intake Total 240 / 240 480 / 480 Output Total 1000 / 1000 300 / 300 Balance -760 / -760 180 / 180 Weight 161 lb 8 oz 162 lb 1.6 oz Assessment and Plan (1) Opiate withdrawal Status: Acute Category: Medical Code(s): F11.23 - Opioid dependence with withdrawal (2) Chronic back pain Status: Acute Qualifiers: Back pain location: low back pain Back pain laterality: midline Sciatica presence: unspecified whether sciatica present Qualified Code(s): M54.50 - Low back pain, unspecified; G89.29 - Other chronic pain Category: Medical Code(s): M54.9 - Dorsalgia, unspecified; G89.29 - Other chronic pain (3) Constipation Status: Acute Category: Medical Code(s): K59.00 - Constipation, unspecified (4) Osteoarthritis Status: Acute Category: Medical Code(s): M19.90 - Unspeci
--- NOTE | 2021-12-03 11:12 | PC.NURSE ---
Addendum entered by Camille Sharma RN 12/03/21 11:26: Dr. Benito notified Original Note: Received call from Dulce Landa RN at Dr. Solo's office stating patient has been given clearance to be discharged with a follow-up on , December 06, at 8:30AM as long as Dr. Benito approved the discharge. Dr. Solo's was doing surgery's today and that there is not another provider in the office at this time to consult. Dr. Roberson and Joi Lepe APRN notified during rounds this AM.
--- NOTE | 2021-12-03 15:28 | HMH.HP ---
*Admission Date: 12/01/21 *History of present illness: Ms. 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 Solo with an intrathecal pain pump. She had her pump medication changed from morphine to Dilaudid on 11/30/2021 due to side effects and ineffectiveness of morphine. She was previously on morphine 1.3 mg/day and was switched to Dilaudid 0.1 mg/day. She stated she felt well after the change of medication on Friday and rested well Friday night. As the day progressed yesterday, she began feeling more restless, shaky, and weak. She presented to the ER with these complaints. Her work-up was noncontributory. it was felt she was experiencing withdrawal from the morphine. Dr. Solo was contacted and recommended starting the patient on Valium 5 mg daily with plans to follow-up on Friday for adjustment in the Dilaudid dose. She was given a dose of Valium in the ER and the pain left. Family was concerned about taking her home in her somnolent state. She was admitted for further observation. She still felt shaky and weak the following morning although better than the previous day. [facility] History Medical History: Reports:: Anxiety, Cancer (Breast Cancer), Deep Vein Thrombosis, Depression, Hyperlipidemia, Hypertension, Urinary Tract Infection Denies:: Diabetes Mellitus Type 1, Diabetes Mellitus Type 2, Internal Pacemaker, Lung Disease, MRSA, Seizures *Have you ever received a pneumonia vaccine?: No *Have you received a flu vaccine this season?: No Other Medical History: Reports: Arthritis, Cataracts, Other (DDD/DJD of spine, gout, tremors). Denies: Blood Transfusion Reaction Laterality Cases: Left: Breast Biopsy, Lumpectomy, Bilateral: Cataract, Total Knee Replacement Other Surgeries: Yes: Appendectomy, Cholecystectomy, Colonoscopy, Colon Resection, Other (three back surgery, nerve stimulator, intrathecal pain pump). No: Pacemaker Amputation: No Fractures: No - *Social History Smoking Status: Never smoker Alcohol Intake: never Substance Use Type: denies use *Occupational Status:: retired Housing: house Household Members: spouse *Travel in the last 8 weeks: None - Psychiatric History Pschychiatric History:: Reports:: Anxiety, Depression Family Hx:: Coronary Artery Disease, Kidney Disease Review of Systems - *Neurologic Reports unsteadiness, Reports weakness, Denies abnormal hearing, Denies headache(s), Denies numbness, Denies seizure-like activity Meds Home Medications Medication Instructions Recorded Confirmed Type atorvastatin 10 mg tablet 10 mg PO DAILY 09/27/19 12/01/21 History Losartan Potassium 100 mg PO DAILY 02/09/20 12/01/21 History hydroCHLOROthiazide 25 mg PO DAILY 02/09/20 12/01/21 History [Hydrochlorothiazide 12.5mg Tab] propranolol 20 mg tablet 20 mg PO BID 08/11/20 12/01/21 History Ciprofloxacin HCl [Cipro 500mg 500 mg PO BID 12/02/21 12/02/21 History Tab] Citalopram Hydrobromide 20 mg PO DAILY 12/02/21 12/02/21 History [Citalopram 20mg Tablet] Diclofenac Sodium [Diclofenac 75mg 75 mg PO BID 12/02/21 12/02/21 History Tab] Hydromorphone HCl 0.1 mg IT DAILY 12/02/21 12/02/21 History Primidone [Mysoline] 50 mg PO BID 12/02/21 12/02/21 History Allergies Allergy/AdvReac Type Severity Reaction Status Date / Time Sulfa (Sulfonamide Allergy Severe Rash Verified 06/11/21 14:25 Antibiotics) Penicillins Allergy Unknown Verified 08/09/21 10:18 allergy reaction Exam Vital signs and Labs for Last 24 Hours: Temp Pulse Resp BP Pulse Ox 97.8 F 91 H 16 146/90 H 97 12/03/21 08:00 12/03/21 08:00 12/03/21 08:00 12/03/21 08:00 12/03/21 08:00 I & O for Last 24 hours: Intake & Output 12/01/21 12/02/21 12/03/21 12/04/21 11:59 11:59 11:59 11:59 Intake Total 240 / 240 120 / 120 Output Total 1000 / 1000 300 / 300 Balance -760 / -760 -180 / -180 Weight 161 lb 8 oz 162 lb 1.6 oz
--- NOTE | 2021-12-03 15:34 | HMH.DCSUM ---
General - General Admission date:: 12/01/21 <Andrew Benito - 12/17/21 14:26> 12/01/21 <Joi Lepe - 12/03/21 15:49> Discharge date: 12/03/21 <Joi Lepe - 12/03/21 15:49> HPI HPI: Ms. 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 Solo with an intrathecal pain pump. She had her pump medication changed from morphine to Dilaudid on 11/30/2021 due to side effects and ineffectiveness of morphine. She was previously on morphine 1.3 mg/day and was switched to Dilaudid 0.1 mg/day. She stated she felt well after the change of medication on Friday and rested well Friday night. As the day progressed yesterday, she began feeling more restless, shaky, and weak. She presented to the ER with these complaints. Her work-up was noncontributory it was felt she was experiencing withdrawal from the morphine. Dr. Solo was contacted and recommended starting the patient on Valium 5 mg daily with plans to follow-up on Friday for adjustment in the Dilaudid dose. She was given a dose of Valium in the ER. Family was concerned about taking her home and in her somnolent state. She was admitted for further observation. She still felt shaky and weak the following morning although better than the previous day. <Joi Lepe - 12/03/21 15:49> Hospital Course Hospital Course: On admission patient was very drowsy but oriented. Nursing did note some confusion. She had also some weakness/jitteriness and was medicated with Valium. She ambulated to the bathroom and in the hallway. The a.m. of 12/03/2021 patient was alert and oriented. Speech was very clear. She was noted to have her usual tremor. She was eating her breakfast. She noted no some shortness of breath or chest pain. Also she had no leg edema. She states she was ambulating independently. She was anxious to be discharged. Dr. Solo's office was contacted and she was given clearance for discharge. She was to follow-up with him Thursday, May 5 at 8:30 AM. Patient was discharged to home in stable and satisfactory condition. Medications as per medication reconciliation sheet. To follow-up with Dr. Benito As well as Dr. Solo. <Joi Lepe - 12/03/21 15:49> Objective Vital signs: Temp Pulse Resp BP Pulse Ox 97.8 F 91 H 16 146/90 H 95 12/03/21 08:00 12/03/21 08:00 12/03/21 08:00 12/03/21 08:00 12/03/21 08:00 <Andrew Benito - 12/17/21 14:26> Temp Pulse Resp BP Pulse Ox 97.8 F 91 H 16 146/90 H 97 12/03/21 08:00 12/03/21 08:00 12/03/21 08:00 12/03/21 08:00 12/03/21 08:00 <Joi Lepe - 12/03/21 15:49> Narrative: Exam Vital signs and Labs for Last 24 Hours: Temp Pulse Resp BP Pulse Ox 98.1 F 68 16 132/76 95 12/03/21 04:00 12/03/21 04:00 12/03/21 04:00 12/03/21 04:00 12/03/21 04:00 I & O for Last 24 hours: Intake & Output 11/30/21 12/01/21 12/02/21 12/03/21 11:59 11:59 11:59 11:59 Intake Total 240 / 240 120 / 120 Output Total 1000 / 1000 300 / 300 Balance -760 / -760 -180 / -180 Weight 161 lb 8 oz 162 lb 1.6 oz - Constitutional no acute distress Comments: Appears comfortable. - *Routine Respiratory Exam Present: CTA bilaterally (Anteriorly and posteriorly) - *Routine Cardiovascular Exam Present: RRR - *Routine Abdominal Exam Present: soft, normoactive bowel sounds. Absent: tenderness - *Routine Extremities Exam Absent: edema, calf tenderness - *Routine Neurological Exam Present: alert, oriented X3 <Joi Lepe - 12/03/21 15:49> Results Completed studies during hospitalization [Text1]: EKG 12/01/2021 Conclusion SINUS RHYTHM NORMAL ECG UNCONFIRMED REPORT Electronically signed by : Lucius Garcia MD 12/02/2021 20:11:44 12/01/21 17:15: WBC 7.1, RBC 4.27, Hgb 13.7, Hct 41.4, MCV 97.0, MCH 32.2 H, MCHC 33.2, RDW 13.9, Plt Count 283, MPV 8.8, Neut %
--- NOTE | 2021-12-04 13:33 | CARE MANAGER ---
Spoke with patient. She has follow up appointment with Dr. Solo on and will call and schedule appointment with Dr. Benito for next week. She had no new medication she states. Denies any other questions or concerns. DONY Roberts
== END 2021-12-03 11:35 | disposition home or self-care (01) ==
LOC: ER 18:31 → 2ND 19:13
PROVIDERS: Admitting Provider Family Medicine; Emergency Provider Emergency Medicine; PCP Family Medicine; Visit Provider Family Medicine
DX: F11.23 Opioid dependence with withdrawal (principal); T40.2X5A Adverse effect of other opioids, initial encounter; Z45.1 Encounter for adjustment and management of infusion pump; Z20.822 Contact with and (suspected) exposure to COVID-19; Z86.718 Personal history of other venous thrombosis and embolism; M54.50 Low back pain, unspecified; K59.00 Constipation, unspecified; I10 Essential (primary) hypertension; Z85.3 Personal history of malignant neoplasm of breast
CPT/HCPCS: 96365; G0378; 80053; 85025; 93005; 96375; 99285; C9803; J2405; U0003; U0005

== ENCOUNTER → 2021-12-06 08:25 | Outpatient (POV) | payer MEDICARE, SELFPAY ==
[2021-12-06 08:48] VITALS: BP 136/76; PULSE 74; RESP 18; TEMP 36.6; O2SAT 98; BMI 26.6
--- NOTE | 2021-12-06 09:02 | HMH.PAINSOAP ---
[facility] Pain Management SOAP Note Subjective:: Patient is a pleasant 80-year-old female who presents today for follow-up. Patient is currently being treated for degenerative disc disease of lumbar spine with lumbar radiculopathy symptoms. Patient has an intrathecal pain pump with the [employer] system. We changed this patient's intrathecal morphine to Dilaudid this past 11/30/2021, because the patient felt like she was not getting any relief from the medication. Over the weekend, the patient developed withdrawal symptoms from changing to Dilaudid and had to be hospitalized. She was given Valium to help with the withdrawal symptoms. She was discharged home on Friday. Before the change, patient was on morphine 1.3 mg/day. She is currently on Dilaudid 1 mg/mL at a rate of 0.1 mg/day. Today, patient says that she still feels a little weak and groggy. She also has had no appetite in the last week. She is also frustrated because nobody discussed with her that she might develop withdrawal symptoms. She does rate her pain a 0 out of 10. Denies any falls in the last week. Denies any nausea, vomiting, headache. [facility] #[id number] with an active morphine equivalent of 0. Review of Systems: General: No recent weight changes, no fever, no sleep disturbances Respiratory: No cough, no shortness of air, no recurring pulmonary infections Cardiovascular/peripheral vascular: No chest pain, no palpitations, no edema, no shortness of breath Gastrointestinal: No new onset incontinence, normal bowel movements reported Genitourinary: No new onset incontinence Musculoskeletal: Low back pain Psychiatric: [Normal mood/affect] Neurological: [Denies weakness in extremities], [denies balance issues] Objective:: Physical Exam: General: Alert and oriented x3, no acute distress, pleasant and cooperative Lungs: Respirations even and unlabored, symmetrical chest expansion Eyes: PERRL Musculoskeletal: Flexion and extension of lumbar [spine] somewhat guarded secondary to pain, [antalgic gait noted] Neurological: Speech clear, no gross sensory deficit Assessment:: Degenerative disc disease of the lumbar spine with lumbar radiculopathy symptoms Plan:: Patient is doing better with the Dilaudid in terms of her pain. She rates her pain as 0 out of 10 today. She does still feel weak and groggy. She is walking with a cane today. We will not adjust her intrathecal pain pump today. I will refer the patient for physical therapy to help with her weakness and mobility. We will follow-up with the patient on December 17, 2021. Patient has been instructed to contact the clinic with any concerns before the next appointment. Dr. Solo has reviewed this note and agrees with this plan of care. This note was dictated using voice recognition software and make contain errors or omissions. [facility] History Medical History: Reports:: Anxiety, Cancer (Breast Cancer), Deep Vein Thrombosis, Depression, Hyperlipidemia, Hypertension, Urinary Tract Infection Denies:: Diabetes Mellitus Type 1, Diabetes Mellitus Type 2, Internal Pacemaker, Lung Disease, MRSA, Seizures *Have you ever received a pneumonia vaccine?: Yes *Have you received a flu vaccine this season?: Yes Other Medical History: Reports: Arthritis, Cataracts, Other (DDD/DJD of spine, gout, tremors). Denies: Blood Transfusion Reaction Laterality Cases: Left: Breast Biopsy, Lumpectomy Other Surgeries: Yes: Appendectomy, Cholecystectomy, Colonoscopy, Colon Resection, Other (three back surgery, nerve stimulator, intrathecal pain pump). No: Pacemaker Amputation: No Fractures: No - *Social History Smoking Status: Never smoker Alcohol Intake: never Substance Use Type: denies use *Occupational Status:: retired Housing: house Household Members: spouse *Travel in the last 8 weeks: None - Psychiatric History Pschychiatric History:: Reports:: Anxiety, Depression Family Hx:: Coronary Artery Disease, Kidney Disease
== END ==
PROVIDERS: Visit Provider Student in an Organized Health Care Education/Training Program
DX: M51.16 Intervertebral disc disorders with radiculopathy, lumbar region (principal)
CPT/HCPCS: 99212; G0463

== ENCOUNTER 2021-12-13 10:00 | Outpatient (RCR) | payer MEDICARE, SELFPAY ==
--- NOTE | 2021-11-14 13:56 | HMH.PTOPWND ---
Rehab Outpt Wound Evaluation Rehab OP Wound Evaluation Start: 11/14/21 12:56 Freq: Status: Active Protocol: Document 11/14/21 13:51 RADHA (Rec: 11/14/21 13:56 RADHA [id number]) Electronically Signed By Marquise Contreras, PT 11/14/21 13:51 Subjective/History History History Pt is 80 yowf who presents with c/o B LE edema, worse x ~ 6 mos. She has an implanted pain pump for chronic LBP and the medication appears to increase her edema. She has worsening edema with LE in dependent positioning. She also suffers from CVI. Subjective Subjective Pain with palpation 2/4 throughout L lower leg and B LE superior calf. 2+ pitting edema throughout B lower legs. Lymphedema Eval Classification of Lymphedema Secondary Lymphedema Yes Stemmer's sign Stemmer's Sign no Stage of Lymphedema Lymphedema stages Stage I (Pitting edema, reduces w/ elevation, no fibrosis) Skin Changes Dry Skin Yes Redness Yes Other Changes Yes Affected Extremities Areas Affected by Lymphedema/Edema Right Lower Extremity,Left Lower Extremity Manual Lymphatic Drainage Treatment Area MLD Treatment Area Right Lower Extremity,Left Lower Extremity Wound Problems/Impairments Impairments Problems/Impairmments Palpation Tenderness,Impaired Endurance,Impaired Walking, Impaired Standing,Impaired Stepping on Uneven Surface, Impaired Recreational Activities,Increased Edema, Lymphedema Present,Subjective C/O Pain,Impaired Self Care/ Self Management Prognosis Rehab Potential Good Clinical Impression Consistent with Diagnosis Yes Short Term Goals Number of Weeks 2 Decreased Palpation Tenderness Yes Decrease Edema Yes Patient to Understand Lymphedema Yes Treatment and Exercises Digital Marketing Analyst Goals Number of Weeks 4 Return to Recreational Activities Yes Decrease Lymphedema Yes Patient to be Ind w/ HEP Yes Patient to be Ind w/ Donning/[place] Yes Compression Garments Patient to Adhere Lymphedema Precau
== END 2021-12-13 10:05 | disposition home or self-care (01) ==
LOC: PT 10:00
PROVIDERS: PCP Nurse Practitioner Family; Visit Provider Nurse Practitioner Family
DX: R60.0 Localized edema (principal)
CPT/HCPCS: 97140; 97162

== ENCOUNTER → 2021-12-17 09:36 | Outpatient (POV) | payer MEDICARE, SELFPAY ==
[2021-12-17 09:47] VITALS: BP 130/76; PULSE 68; RESP 18; TEMP 36.6; O2SAT 100; BMI 27.4
--- NOTE | 2021-12-17 09:54 | HMH.PMPROC ---
- Procedure Date: 12/17/21 Time: 09:54 Anesthesiologist:: NORA Mcmahon Complications:: None Pre-procedure Diagnosis:: Degenerative disc disease of the lumbar spine with lumbar radiculopathy symptoms Post-procedure Diagnosis:: Same Indications for Procedure:: Patient is a pleasant 80-year-old female who presents today for intrathecal pain pump reprogram. The patient is being treated for degenerative disc disease of lumbar spine with lumbar radiculopathy symptoms. Patient is currently being managed with intrathecal Dilaudid 1 mg/mL at a rate of 0.1 mg/day. We recently changed this patient to Dilaudid from morphine. She was previously on morphine 1.3 mg/day. When we changed her to Dilaudid, she developed some withdrawal symptoms and had to be hospitalized for a few days. She is not complaining of pain today and rates her pain a 0 out of 10. She is still complaining of weakness. She continues to go to physical therapy for this. She wants to know if we can decrease her intrathecal dose to see if this would help with some of her weakness. Drug screen is appropriate. Jordy [id number] has been reviewed and is appropriate. Physical Exam: General: Alert and oriented x3, no acute distress, pleasant and cooperative Lungs: Respirations even and unlabored, symmetrical chest expansion Eyes: PERRL Musculoskeletal: Flexion and extension of lumbar [spine] somewhat guarded secondary to pain, [antalgic gait noted] Neurological: Speech clear, no gross sensory deficit Procedure Details:: Informed consent was obtained and the risk and benefits of the procedure were explained to the patient. Patient was taken to the procedure room where noninvasive monitoring was placed including noninvasive blood pressure cuff and pulse oximeter. Patient's pump was interrogated and was reprogrammed to Dilaudid 0.08 mg/day. PTC device was set up to give Dilaudid 0.01 mg up to 4 times a day. The patient tolerated the procedure well with no complications. Plan and Disposition:: Patient is doing well overall for the intrathecal pain pump. We did decrease her intrathecal dose to Dilaudid 0.08 mg/day. We also set up her PTC device to Dilaudid 0.01 mg up to 4 times a day. She wants to see if decreasing the dose would improve her mobility and weakness. We will follow-up with this patient in 2 weeks. Patient has been instructed to contact the clinic with any concerns before the next appointment. Dr. Solo has reviewed this note and agrees with this plan of care. This note was dictated using voice recognition software and make contain errors or omissions.
== END ==
PROVIDERS: Visit Provider Student in an Organized Health Care Education/Training Program
DX: M51.16 Intervertebral disc disorders with radiculopathy, lumbar region (principal); Z45.1 Encounter for adjustment and management of infusion pump
CPT/HCPCS: 62368; 99213; G0463

== ENCOUNTER 2022-01-01 14:00 | Outpatient (RCR) | payer MEDICARE, SELFPAY ==
--- NOTE | 2021-12-11 14:46 | HMH.PTOPEV ---
PT Outpatient Evaluation Rehab PT Outpatient Evaluation Start: 12/11/21 14:01 Freq: Status: Active Protocol: Document 12/11/21 14:33 VALARIEEMMIE (Rec: 12/11/21 14:45 [place] [id number]) Electronically Signed By Mihir Hart, PT 12/11/21 14:33 Outpatient Therapy Subjective History Subjective History Patient is a 80 year old female presenting to outpatient PT with reports of chronic LBP and BLE weakness/ deconditioning. Patient has previously been seen by pain management where she had a lumbar spine stimulator and a pain pump inserted. Symptoms had progressively gotten worse until 11/2021. Pain managment decided to switch pain pump medication from morphine to dilaudid which has provied some significant improvements. Other comorbidities include hx of B TKA, LS fusion x 2, colon resection and HTN. Chief Complaint Pain,Weakness Symptom Type Sharp,Dull Symptoms Relieved By Rest/Positioning,Prescription Meds Symptoms Aggravated By Standing,Bending/Stooping, Physical Activity,Walking, Lifting Prior Functional Limitations Lifting,Housework,Standing, Walking,Bending/Stooping Current Functional Limitations Lifting,Housework,Standing, Walking,Bending/Stooping Symptom Description Intermittent Level of pain today (0-10) 0 Pain scale - at its best (0-10) 0 Pain scale - at its worst (0-10) 10 Lumbopelvic Eval Posture Thoracic Spine Posture Standing Position Increased Kyphosis Lumbar Spine Posture Standing Position Decreased Lordosis Assistive device Assistive Devices None / NA Accessory Movement L2 bilateral L3 bilateral L4 bilateral L5 bilateral S1 bilateral Range of Motion Lumbar Spine Active Flexion Range of 62 Motion (degrees) Lumbar Spine Active Extension Range of 14 Motion (degrees) Left Lumbar Spine Lateral Flexion Active 12 Range of Motion (degrees) Right Lumbar Spine Lateral Flexion 18 Active Range of Motion (degrees) Lumbar Spine ROM Limitations Soft Tissue Tightness,Bony
--- NOTE | 2022-01-03 13:24 | HMH.PMPROC ---
- Procedure Date: 01/03/22 Time: 13:24 Anesthesiologist:: NORA Mcmahon Complications:: None Pre-procedure Diagnosis:: Degenerative disc disease of the lumbar spine with lumbar radiculopathy symptoms Post-procedure Diagnosis:: Same Indications for Procedure:: Patient is a pleasant 81-year-old female presents today for intrathecal pain pump adjustment. Patient is currently being treated for degenerative disc disease of the lumbar spine with lumbar radiculopathy symptoms. We recently changed this patient's intrathecal medication from morphine to Dilaudid on 11/30/2021 because she felt like she was not getting any relief from this medication. She did develop some withdrawal symptoms after this change and had to be hospitalized. She was on morphine 1.3 mg/day before changing her to Dilaudid. We started her on Dilaudid 0.1 mg/day. When I saw her last time, she was complaining of weakness so we decrease her Dilaudid to 0.08 mg/day. Today, patient reports 0 out of 10 pain at rest and pain is slightly worse when she starts moving. She is wanting an adjustment today. She does report some mild constipation that she takes fiber for. I do recommend that she take MiraLAX on top of the fiber. She does use her PTC device up to 4 times a day. We will adjust her intrathecal pain pump today. Physical Exam: General: Alert and oriented x3, no acute distress, pleasant and cooperative Lungs: Respirations even and unlabored, symmetrical chest expansion Eyes: PERRL Musculoskeletal: Flexion and extension of lumbar [spine] somewhat guarded secondary to pain, [antalgic gait noted] Neurological: Speech clear, no gross sensory deficit Procedure Details:: Informed consent was obtained and the risk and benefits of the procedure were explained to the patient. Patient was taken to the procedure room where noninvasive monitoring was placed including noninvasive blood pressure cuff and pulse oximeter. Patient's pump was interrogated and was reprogrammed to Dilaudid 0.088 mg/day. The patient tolerated the procedure well with no complications. Plan and Disposition:: We will see the patient back in the clinic at the next intrathecal refill. Patient has been instructed to contact the clinic with any concerns before the next appointment. Dr. Solo has reviewed this note and agrees with this plan of care. This note was dictated using voice recognition software and make contain errors or omissions.
== END 2022-01-01 14:05 | disposition home or self-care (01) ==
LOC: PT 14:00
PROVIDERS: PCP Family Medicine; Visit Provider Student in an Organized Health Care Education/Training Program
DX: M54.50 Low back pain, unspecified (principal); M79.605 Pain in left leg; M79.604 Pain in right leg
CPT/HCPCS: 97110; 97163

== ENCOUNTER → 2022-01-03 10:05 | Outpatient (POV) | payer MEDICARE, SELFPAY ==
[2022-01-03 12:12] VITALS: BP 126/70; PULSE 70; RESP 18; TEMP 36.7; O2SAT 97; BMI 26.6
== END ==
PROVIDERS: Visit Provider Student in an Organized Health Care Education/Training Program
DX: M51.16 Intervertebral disc disorders with radiculopathy, lumbar region (principal)
CPT/HCPCS: 62368; 99213; G0463

== ENCOUNTER → 2022-03-19 13:03 | Outpatient (POV) | payer MEDICARE, SELFPAY ==
[2022-03-19 13:27] VITALS: BP 164/88; PULSE 76; RESP 20; BMI 27.4
--- NOTE | 2022-03-19 14:42 | HMH.PMPROC ---
- Procedure Date: 03/19/22 Time: 13:18 Anesthesiologist:: Kalyn Gill APRN Complications:: None Pre-procedure Diagnosis:: Degenerative disc disease of lumbar spine with lumbar radiculopathy symptoms Post-procedure Diagnosis:: Same Indications for Procedure:: Patient is a pleasant 81-year-old female who presents today for intrathecal pain pump adjustment. We are currently treating the patient for degenerative disc disease of lumbar spine with lumbar radiculopathy symptoms. Today she rates her pain a 0 out of 10 however patient states she just woke up and has not started moving around. She states her pain is typically in her low back that radiates into her legs and describes it as a aching throbbing sensation that is worse with activity. She is currently being managed with Dilaudid 1 mg/mL with a daily dose of 0.088 mg/day. She states that she has had 2 increased use of her bolus device and feels like it is still not adequately helping her manage her pain. She is requesting a adjustment at today's visit. Patient denies any side effects from this medication. She states it is adequately helping manage her pain. Patient denies any new trauma or injury to the site. She denies any change to the location or type of pain she experiences. Patient does have a spinal cord stimulator with [employer]. She states this does adequately help her right leg pain however they have been unable to get coverage on her left leg. Dr. Dennison was the physician who implanted her spinal cord stimulator. She states that they did contact the [employer] field representative previously to try and see if they could get better coverage with the device however they were unable to. Patient states this has been a while ago since they have tried to better capture her pain. Her Jordy is [id number]. It has been reviewed and appropriate. Physical Exam: General: Alert and oriented x3, no acute distress, pleasant and cooperative Lungs: Respirations even and unlabored, symmetrical chest expansion Eyes: PERRL Musculoskeletal: Flexion and extension of lumbar [spine] somewhat guarded secondary to pain, [antalgic gait noted] Neurological: Speech clear, no gross sensory deficit Procedure Details:: Informed consent was obtained and the risk and benefits of the procedure were explained to the patient. Patient was taken to the procedure room where noninvasive monitoring was placed including noninvasive blood pressure cuff and pulse oximeter. Patient's pump was interrogated and was reprogrammed to Dilaudid 1 mg/mL with a daily dose of 0.0968 mg/day. The patient tolerated the procedure well with no complications. Plan and Disposition:: We will see the patient back in the clinic in 2 weeks. I have discussed with the patient that I will contact our [employer] field representative and get them in contact with her to see if they can better capture her pain on her left leg. Patient has been instructed to contact the clinic with any concerns before the next appointment. Dr. Solo has reviewed this note and agrees with this plan of care. This note was dictated using voice recognition software and make contain errors or omissions. -- It Is medically necessary for this patient to continue to have their intrathecal pump refilled at regular intervals. This patient had an intrathecal pain pump implanted after meeting criteria of chronic intractable pain for greater than 3 months and failing conservative treatments. Patient has committed and been compliant to the treatment plan and all planned follow up care. Since implantation of the intrathecal pain pump, the patient has had decreased pain and been more functional. Oral medications have been reduced including intake of oral opioids. Patient continues to do well with intrathecal therapy with decrease in pain symptoms and increase in functional status. Stopping intrathecal medications can lead to life threatening withdrawal, seizures,
== END ==
PROVIDERS: PCP Family Medicine; Visit Provider Nurse Practitioner Family
DX: M51.16 Intervertebral disc disorders with radiculopathy, lumbar region (principal)
CPT/HCPCS: 62368

== ENCOUNTER → 2022-03-28 11:06 | Outpatient (CLI) | payer MEDICARE, SELFPAY ==
--- NOTE | 2022-03-28 11:14 | XR_ITS ---
FINAL REPORT CLINICAL HISTORY: RT HAND INJURY FINDINGS: AP, lateral and oblique views of the right hand were obtained. There is no prior exam for comparison. There is no acute fracture or dislocation. There is multi joint degenerative disease, most pronounced at the 1st CMC joint and the DIP joint of the 3rd and 4th fingers. There is no acute soft tissue abnormality. IMPRESSION: No acute osseous abnormality of the right hand. Degenerative joint disease. Reviewed, Interpreted and Dictated by Carlie Croonado MD Transcribed by Karine Saleh Authenticated and . [facility]
--- NOTE | 2022-03-28 11:14 | XR_ITS ---
FINAL REPORT CLINICAL HISTORY: RT HAND INJURY FINDINGS: AP, oblique, and lateral views of the right wrist were obtained. There is no prior exam for comparison. There is no acute fracture or dislocation. There is degenerative disease at the 1st CMC joint. There is no acute soft tissue abnormality. IMPRESSION: No acute osseous abnormality of the right wrist. If pain persists, MR is recommended. Reviewed, Interpreted and Dictated by Carlie Coronado MD Transcribed by Karine Saleh Authenticated and [facility]
== END ==
PROVIDERS: PCP Nurse Practitioner Family; Visit Provider Nurse Practitioner Family
DX: M25.531 Pain in right wrist (principal); S69.91XA Unspecified injury of right wrist, hand and finger(s), initial encounter
CPT/HCPCS: 73110; 73130

== ENCOUNTER → 2022-04-03 09:24 | Outpatient (POV) | payer MEDICARE, SELFPAY ==
[2022-04-03 09:39] VITALS: BP 133/72; PULSE 71; RESP 18; TEMP 36.1; O2SAT 99; BMI 27.4
--- NOTE | 2022-04-03 15:24 | EXP.PAIN.SOA ---
[facility] Pain Management SOAP Note Subjective:: Patient is a pleasant 81-year-old female who presents today for follow-up from intrathecal pump adjustment on 03/19/2022. We are currently treating the patient for degenerative disc disease of lumbar spine with lumbar radiculopathy symptoms. Patient states that she has had significant improvement in her symptoms following her increase of her pump medication. Today the patient rates her pain a 0 out of 10. She is currently managed with Dilaudid 1 mg/mL with a daily dose of 0.0968 mg/day. Patient denies any side effects from this medication. She states this medication is adequately managing her pain. Patient denies any falls. Her Jordy is [id number]. It has been reviewed and appropriate. Review of Systems: General: No recent weight changes, no fever, no sleep disturbances Respiratory: No cough, no shortness of air, no recurring pulmonary infections Cardiovascular/peripheral vascular: No chest pain, no palpitations, no edema, no shortness of breath Gastrointestinal: No new onset incontinence, normal bowel movements reported Genitourinary: No new onset incontinence Musculoskeletal: Low back pain Psychiatric: [Normal mood/affect] Neurological: [Denies weakness in extremities], [denies balance issues] Objective:: Physical Exam: General: Alert and oriented x3, no acute distress, pleasant and cooperative Lungs: Respirations even and unlabored, symmetrical chest expansion Eyes: PERRL Musculoskeletal: Flexion and extension of lumbar [spine] somewhat guarded secondary to pain, [antalgic gait noted] Neurological: Speech clear, no gross sensory deficit Assessment:: Degenerative disc disease of lumbar spine with lumbar radiculopathy symptoms Plan:: Patient has had significant improvement in her pain symptoms following her intrathecal pump adjustment. Patient is scheduled to have her next refill date in April. We will follow-up with the patient at this intrathecal refill date. At that time we will reevaluate her symptoms. Patient has been instructed to contact the clinic with any concerns before the next appointment. Dr. Solo has reviewed this note and agrees with this plan of care. This note was dictated using voice recognition software and make contain errors or omissions. -- It Is medically necessary for this patient to continue to have their intrathecal pump refilled at regular intervals. This patient had an intrathecal pain pump implanted after meeting criteria of chronic intractable pain for greater than 3 months and failing conservative treatments. Patient has committed and been compliant to the treatment plan and all planned follow up care. Since implantation of the intrathecal pain pump, the patient has had decreased pain and been more functional. Oral medications have been reduced including intake of oral opioids. Patient continues to do well with intrathecal therapy with decrease in pain symptoms and increase in functional status. Stopping intrathecal medications can lead to life threatening withdrawal, seizures, cardiac arrest, severe pain, and possible . Pumps that are not refilled at regular intervals can be damages and cause and need for replacement. We continually titrate dose and concentration to optimize pain relief and function. We are limited in concentration for certain drugs to safely deliver medications through the pump and stay within the recommendations from the Polyanalgesic Consensus Committee Guidelines. Depending on dose and concentration these pumps may need to be refilled sooner than 3 [address] [facility] Medical History (Updated 12/01/21 @ 18:31 by Dash Krishnamurthy MD) Chest pain Social History Smoking Status: Never smoker second hand exposure: No alcohol intake: never substance use type: denies use current occupational status: retired Travel in the last 8 weeks: None household members: spouse housing: house current occupational exposures/h
== END ==
PROVIDERS: PCP Family Medicine; Visit Provider Nurse Practitioner Family
DX: M51.16 Intervertebral disc disorders with radiculopathy, lumbar region (principal)
CPT/HCPCS: 99212; G0463

== ENCOUNTER → 2022-04-15 09:45 | Outpatient (POV) | payer MEDICARE, SELFPAY ==
--- NOTE | 2022-04-15 10:18 | EXP.PAIN.SOA ---
[facility] Pain Management SOAP Note Subjective:: Patient is a pleasant 81-year-old female who presents today for follow-up. We are currently treating the patient for degenerative disc disease of lumbar spine with lumbar radiculopathy symptoms. Today the patient rates her pain an 8 out of 10. She states this pain is in her low back that radiates into her left hip and left leg but stops at the knee. Patient states that she has been doing a yard sale and has increased her activity lately which has worsened her symptoms. She does feel like this is a aching, throbbing sensation that is worse with increased activity as well as weather dependent. Patient does use Tylenol arthritis as needed in these times of flareup. She is also managed with a intrathecal pain pump of Dilaudid 1 mg/mL with a daily dose of 0.0968 mg/day. Patient denies any side effects from this medication. She states this medication is adequately helping manage her pain. Patient denies any new falls or trauma. Patient states she also has a spinal cord stimulator that she believes is [employer]. She states she has not had this reprogrammed for quite a while. She states it was placed by Dr. Dennison. Review of Systems: General: No recent weight changes, no fever, no sleep disturbances Respiratory: No cough, no shortness of air, no recurring pulmonary infections Cardiovascular/peripheral vascular: No chest pain, no palpitations, no edema, no shortness of breath Gastrointestinal: No new onset incontinence, normal bowel movements reported Genitourinary: No new onset incontinence Musculoskeletal: Low back pain, left hip pain, left leg pain Psychiatric: [Normal mood/affect] Neurological: [Denies weakness in extremities], [denies balance issues] Objective:: Physical Exam: General: Alert and oriented x3, no acute distress, pleasant and cooperative Lungs: Respirations even and unlabored, symmetrical chest expansion Eyes: PERRL Musculoskeletal: Flexion and extension of lumbar [spine] somewhat guarded secondary to pain, [antalgic gait noted]. Point tenderness along left SI and greater trochanteric bursa. Positive left Camila's, Katia's, [place]'s, compression and distraction exam Neurological: Speech clear, no gross sensory deficit Assessment:: Degenerative disc disease of lumbar spine with lumbar radiculopathy symptoms, left sacroiliitis, left greater trochanteric bursitis Plan:: Patient continues to have significant pain in her low back that radiates to her left hip and into her left leg. Patient had positive point tenderness along her left SI and left greater trochanteric bursa, as well as positive left Camila's, Katia's, Ga[place]'s, compression and distraction exam during today's visit. I have discussed with the patient regarding SI and bursa injections. Risk and benefits were discussed with the patient. She would like to proceed forward with these injections. I will also contact [employer] to see if her solar sales representative and assessor can possibly reprogram her spinal cord stimulator. We will schedule the patient for left SI and left greater trochanteric bursa injections at today's visit. I have counseled the patient that if she continues to have significant pain in this area we will give a increase of her intrathecal Dilaudid medication at her next visit. Patient has been instructed to contact the clinic with any concerns before the next appointment. Dr. Solo has reviewed this note and agrees with this plan of care. This note was dictated using voice recognition software and make contain errors or omissions. -- It Is medically necessary for this patient to continue to have their intrathecal pump refilled at regular intervals. This patient had an intrathecal pain pump implanted after meeting criteria of chronic intractable pain for greater than 3 months and failing conservative treatments. Patient has committed and been compliant to the treatment plan and all planned follow up care. Since implantation o
[2022-04-15 10:44] VITALS: BP 150/90; PULSE 76; RESP 18; TEMP 36.3; O2SAT 99; BMI 27.4
== END ==
PROVIDERS: Visit Provider Nurse Practitioner Family
DX: M51.16 Intervertebral disc disorders with radiculopathy, lumbar region (principal); M46.1 Sacroiliitis, not elsewhere classified; M70.62 Trochanteric bursitis, left hip
CPT/HCPCS: 99212; G0463

== ENCOUNTER 2022-04-23 13:00 | Day surgery (SDC) | payer MEDICARE, SELFPAY ==
[2022-04-23 13:12] VITALS: BP 186/88; PULSE 70; RESP 20; TEMP 36.7; O2SAT 96; BMI 28.3
[2022-04-23 13:16] VITALS: BP 191/110; PULSE 69; RESP 18; O2SAT 99
[2022-04-23 13:17] VITALS: BP 191/110; PULSE 69; RESP 18; O2SAT 99
--- NOTE | 2022-04-23 13:32 | P.PCN_ITS ---
Procedure Date: 04/23/22 Time: 13:32 Anesthesiologist:: Shubham Lao CRNA Complications:: None Pre-procedure Diagnosis:: Left trochanteric bursitis. Left sacroiliitis Post-procedure Diagnosis:: Same Indications for Procedure:: Very pleasant 81-year-old female that comes to our clinic today for her initial left SI joint injection as well as left trochanteric bursa injection. She has extreme point tenderness over each area. She rates pain 8/10. Procedure Details:: Procedure:Left trochanteric bursa injection under fluoroscopy We then moved to the left trochanteric bursa.~ C-arm fluoroscopy was used to view the left greater trochanter.~ The skin and subcutaneous tissues overlying the left greater trochanter were anesthetized using lidocaine, 1.5% and a 25- gauge needle.~ After this, a 22-gauge spinal needle was inserted and advanced until it contacted the left greater trochanter.~ Dye was injected and good spread was seen throughout the left trochanteric bursa. After this, approximately 5 mL of bupivacaine, 0.25% and Depo-Medrol, 40 mg was incrementally injected into the left trochanteric bursa.~ The patient tolerated the procedure well with no complications. Informed consent was obtained and the risk and benefits of the procedure were explained to the patient.~ The patient was taken to the procedure room and noninvasive monitors were placed including noninvasive blood pressure cuff and pulse oximeter.~ The patient was placed prone on the procedure table.~ The~ left hip was cleansed using Betadine as a cleansing solution.~ C-arm fluorosocpy was used to view the left SI joint.~ The skin and subcutaneous tissues were anesthetized using Lidocaine 1.5% and a 25-gauge needle.~ After this, a 22-gauge spinal needle was inserted under fluoroscopic guidance into the inferior aspect of the left SI joint.~ Omnipaque dye was injected and a good spread was seen throughout the joint.~ After this, approximately 5 mL of bupivacaine 0.25% and Depo-Medrol 40 mg was incrementally injected into the sacroiliac joint.~ The pat ient tolerated the procedure well with no complications.~ The patient was observed in the Pain Clinic for a period of 30-45 minutes, then discharged home neurologically intact.~ Plan and Disposition:: Patient was discharged without incident.
[2022-04-23 13:47] VITALS: BP 138/79; PULSE 61; RESP 18; O2SAT 98
== END 2022-04-23 13:47 | disposition home or self-care (01) ==
PROVIDERS: PCP Family Medicine; Visit Provider Nurse Anesthetist, Certified Registered
DX: M46.1 Sacroiliitis, not elsewhere classified (principal); M70.62 Trochanteric bursitis, left hip
CPT/HCPCS: 20610; 77002; J1030

== ENCOUNTER 2022-05-07 13:43 | Day surgery (SDC) | payer MEDICARE, SELFPAY ==
[2022-05-07 13:48] VITALS: BP 140/69; BP 149/79; PULSE 65; PULSE 67; RESP 20; TEMP 36.2; O2SAT 98; BMI 27.4
[2022-05-07 13:58] VITALS: BP 173/103; PULSE 69; RESP 18; O2SAT 98
[2022-05-07 14:00] VITALS: BP 172/103; PULSE 69; RESP 18; O2SAT 97
--- NOTE | 2022-05-07 14:05 | P.PCN_ITS ---
Procedure Date: 05/07/22 Time: 14:00 Anesthesiologist:: Shubham Lao CRNA Complications:: None Pre-procedure Diagnosis:: Degenerative disc disease of lumbar spine with lumbar radiculopathy symptoms, greater trochanteric bursitis, sacroiliitis Post-procedure Diagnosis:: Same Indications for Procedure:: patient is a pleasant 81-year-old female who presents today for intrathecal pain pump refill and reprogram. We are currently treating the patient for degenerative disc disease of lumbar spine with lumbar radiculopathy symptoms, greater trochanteric bursitis, sacroiliitis. Today the patient rates her pain a 6 out of 10. She states that she is done well on her left side following her left SI and left bursa injection on 04/23/2022 however last week she was doing some light mopping and dusting and may have pulled a muscle on the right. The patient is currently managed with Dilaudid 1 mg/mL with a daily dose of 0.0968 mg/day. Patient denies any side effects from this medication. She states this medication does adequately help manage her pain symptoms. Physical exam General: Alert and oriented x3, pleasant and cooperative on room air, no acute distress noted Lungs: Respirations even and unlabored, symmetrical chest expansion Eyes: PERRL Musculoskeletal: Flexion and extension of lumbar spine somewhat guarded secondary to pain, antalgic gait noted. Extreme point tenderness along right SI and positive right Camila's, Katia's, Gaenslen's, compression and distraction exam Neurological: Speech clear, no gross sensory deficit Procedure Details:: Informed consent was obtained and the risk and benefits of the procedure was discussed with the patient. The patient was taken to the procedure room where a noninvasive blood pressure cuff and pulse oximeter were placed on the patient. Patient was in a sitting position when the pump was interrogated. Area around the pump was cleansed with chlorhexidine as a cleansing solution. Through the interrogation of the pump 5.16 mL was expected. Using a 22-gauge needle the pum p was accessed and approximately 5 mL of pump solution was removed and discarded appropriately. The pump was then refilled with 20 mL of Dilaudid 1 mg/mL. Needle was withdrawn and a sterile bandage was applied over the puncture site. The pump was continued at Dilaudid 0.0968 mg/day. The patient tolerated the procedure well with no complication. Plan and Disposition:: Patient was watched in the clinic for short period of time following procedure and discharged neurologically intact. We will see the patient back at the next intrathecal pain pump refill date. Patient has been instructed to contact the clinic with any questions or concerns before the next appointment date. Dr. Solo is read this note and agrees with this plan of care. This note was dictated using voice recognition and may contain errors or omissions.
== END 2022-05-07 14:17 | disposition home or self-care (01) ==
PROVIDERS: PCP Family Medicine; Visit Provider Nurse Anesthetist, Certified Registered
DX: M51.16 Intervertebral disc disorders with radiculopathy, lumbar region (principal); M46.1 Sacroiliitis, not elsewhere classified; M70.60 Trochanteric bursitis, unspecified hip
CPT/HCPCS: 95991

== ENCOUNTER 2022-05-17 13:37 | Day surgery (SDC) | payer MEDICARE, SELFPAY ==
[2022-05-17 13:30] VITALS: BP 137/85; PULSE 60; RESP 20; O2SAT 96; BMI 27.4
[2022-05-17 13:56] VITALS: BP 148/73; PULSE 66; RESP 18; O2SAT 98
[2022-05-17 14:15] VITALS: BP 137/85; PULSE 66; RESP 20; O2SAT 96
--- NOTE | 2022-05-17 15:22 | P.PCN_ITS ---
Procedure Date: 05/17/22 Time: 15:22 Anesthesiologist:: Yariel Solo MD Complications:: None Pre-procedure Diagnosis:: Sacroiliitis Post-procedure Diagnosis:: Same Indications for Procedure:: Patient is a pleasant 81-year-old white female who we are treating for right- sided hip pain. She is tender over the right SI joint. She has a positive Camila's test on the right side. She has positive [place]'s test on the right side. She has positive SI joint compression test on the right side. She presents for right SI joint injection under fluoroscopy today to help her with her pain symptoms. Procedure Details:: Right SI joint injection under fluoroscopy Informed consent was obtained and the risks and benefits of the procedure was going to the patient. Patient was taken to the procedure room. Patient was placed prone on the procedure table. The right hip was prepped using ChloraPrep. The skin and subcutaneous tissues were anesthetized using lidocaine. I placed a 22-gauge spinal needle into the inferior aspect of the right SI joint. Needle placement was confirmed with dye. After this we injected 5 mL bupivacaine 0.25% and Depo-Medrol 40 mg into the right SI joint. The patient tolerated the procedure well with no complication. Plan and Disposition:: We will follow-up with her in 2 weeks. Will reevaluate symptoms at that time.
== END 2022-05-17 14:15 | disposition home or self-care (01) ==
PROVIDERS: PCP Family Medicine; Visit Provider Anesthesiology
DX: M46.1 Sacroiliitis, not elsewhere classified (principal)
CPT/HCPCS: 27096; G0260; J1040; Q9966

== ENCOUNTER → 2022-05-30 08:51 | Outpatient (POV) | payer MEDICARE, SELFPAY ==
[2022-05-30 09:38] VITALS: BP 150/73; PULSE 64; RESP 18; TEMP 36.6; O2SAT 96; BMI 27.4
--- NOTE | 2022-05-30 09:51 | EXP.PAIN.SOA ---
[facility] Pain Management SOAP Note Subjective:: Patient is a pleasant 81-year-old female who presents today for follow-up of right SI injection on 05/17/2022. We are currently treating the patient for degenerative disc disease of lumbar spine with lumbar radiculopathy symptoms, sacroiliitis, greater trochanteric bursitis. Today the patient states she is gotten about 70% relief following this injection and feels like it is continuing to help her pain symptoms. Today she rates her pain a 0 out of 10. Patient is currently managed with an intrathecal pain pump of Dilaudid 1 mg/mL with a daily dose of 0.0968 mg/day. Patient denies any side effects from this medication. She states this medication is adequately managing her pain symptoms. Patient does also have a spinal cord stimulator in place. Her Jordy is [id number]. Its been reviewed and appropriate. Review of Systems: General: No recent weight changes, no fever, no sleep disturbances Respiratory: No cough, no shortness of air, no recurring pulmonary infections Cardiovascular/peripheral vascular: No chest pain, no palpitations, no edema, no shortness of breath Gastrointestinal: No new onset incontinence, normal bowel movements reported Genitourinary: No new onset incontinence Musculoskeletal: Low back pain Psychiatric: [Normal mood/affect] Neurological: [Denies weakness in extremities], [denies balance issues] Objective:: Physical Exam: General: Alert and oriented x3, no acute distress, pleasant and cooperative Lungs: Respirations even and unlabored, symmetrical chest expansion Eyes: PERRL Musculoskeletal: Flexion and extension of lumbar [spine] somewhat guarded secondary to pain, [antalgic gait noted] Neurological: Speech clear, no gross sensory deficit Assessment:: Degenerative disc disease of lumbar spine with lumbar radiculopathy symptoms, sacroiliitis, greater trochanteric bursitis Plan:: Patient has had significant relief of her pain symptoms following this last injection. At this time the patient does not require any additional injective therapy. We will follow-up with the patient at her next intrathecal refill date. Patient has been instructed to contact the clinic with any concerns before the next appointment. Dr. Solo has reviewed this note and agrees with this plan of care. This note was dictated using voice recognition software and make contain errors or omissions. -- It Is medically necessary for this patient to continue to have their intrathecal pump refilled at regular intervals. This patient had an intrathecal pain pump implanted after meeting criteria of chronic intractable pain for greater than 3 months and failing conservative treatments. Patient has committed and been compliant to the treatment plan and all planned follow up care. Since implantation of the intrathecal pain pump, the patient has had decreased pain and been more functional. Oral medications have been reduced including intake of oral opioids. Patient continues to do well with intrathecal therapy with decrease in pain symptoms and increase in functional status. Stopping intrathecal medications can lead to life threatening withdrawal, seizures, cardiac arrest, severe pain, and possible . Pumps that are not refilled at regular intervals can be damages and cause and need for replacement. We continually titrate dose and concentration to optimize pain relief and function. We are limited in concentration for certain drugs to safely deliver medications through the pump and stay within the recommendations from the Polyanalgesic Consensus Committee Guidelines. Depending on dose and concentration these pumps may need to be refilled sooner than 3 months as we titrate. [facility] Medical History Chest pain H/O malignant neoplasm of female breast HLD (hyperlipidemia) Implantable intrathecal infusion pump present Lumbar degenerative disc disease Presence of neurostimulator
== END ==
PROVIDERS: PCP Family Medicine; Visit Provider Nurse Practitioner Family
DX: M51.16 Intervertebral disc disorders with radiculopathy, lumbar region (principal); M46.1 Sacroiliitis, not elsewhere classified; M70.60 Trochanteric bursitis, unspecified hip; Z79.899 Other long term (current) drug therapy
CPT/HCPCS: 99212; G0463

== ENCOUNTER → 2022-05-30 09:47 | Outpatient (CLI) | payer MEDICARE, SELFPAY ==
[2022-05-30 10:50] LABS: Barbiturates Screen,Urine Positive ng/ml (<200)
[2022-05-30 10:51] LABS: Amphetamine/Metha Screen,Urine Negative ng/ml (<1000); Benzodiazepines Screen,Urine Negative ng/ml (<200)
[2022-05-30 10:52] LABS: Methadone Screen,Urine Negative ng/ml (<300)
[2022-05-30 10:53] LABS: Cannabinoid Screen,Urine Negative ng/ml (<50); Cocaine Screen,Urine Negative ng/ml (<300)
[2022-05-30 10:54] LABS: Opiate Screen,Urine Negative ng/ml (<300); Phencyclidine Screen,Urine Negative ng/ml (<25)
[2022-06-05 11:12] LABS: Opiates Negative (Cutoff=100)
== END ==
PROVIDERS: PCP Family Medicine; Visit Provider Nurse Practitioner Family
DX: Z79.891 Long term (current) use of opiate analgesic (principal)
CPT/HCPCS: 80305; 80361; 80365; 99212; G0463; G0480

== ENCOUNTER 2022-08-27 13:00 | Day surgery (SDC) | payer MEDICARE, SELFPAY ==
[2022-08-27 13:09] VITALS: BP 157/93; PULSE 79; RESP 18; TEMP 36.2; O2SAT 96; BMI 27.4
[2022-08-27 13:20] VITALS: BP 180/90; PULSE 66; RESP 18; O2SAT 98
--- NOTE | 2022-08-27 13:30 | P.PCN_ITS ---
Procedure Date: 08/27/22 Time: 13:41 Anesthesiologist:: Shubham Lao CRNA Complications:: None Pre-procedure Diagnosis:: Degenerative disc disease of lumbar spine with lumbar radiculopathy symptoms, sacroiliitis, greater trochanteric bursitis Post-procedure Diagnosis:: Same Indications for Procedure:: Patient is a pleasant 81-year-old female who presents today for intrathecal refill and reprogram. We are currently treating the patient for degenerative disc disease of lumbar spine with lumbar radiculopathy symptoms, sacroiliitis, greater trochanteric bursitis. Today she rates her pain a 0 out of 10. Patient states that she has not done a whole lot's today and has only needed her bolus device on occasions such as extreme cold weather or rainy weather or in times of activity such as mopping and sweeping. Patient does state that she has had some trouble positioning the bolus device over her pump and is requesting that we check to make sure it is working correctly. Patient is currently managed with Dilaudid 1 mg/mL with a daily dose of 0.096 8 mg/day. Patient denies any side effects from this medication. She states this medication does adequately help manage her pain symptoms. Her Jordy has been reviewed and appropriate. General: Alert and oriented x3, no acute distress, pleasant and cooperative Lungs: Respiration even unlabored, symmetrical chest expansion Eyes: PERRL Musculoskeletal: Flexion and extension of lumbar spine somewhat guarded secondary to pain, antalgic gait noted Neurological: Speech clear, no gross sensory deficit Procedure Details:: Informed consent was obtained and the risk and benefits of the procedure were explained to the patient. The patient was taken to the procedure room where noninvasive monitoring was placed on the patient including a noninvasive blood pressure cuff and pulse oximeter. The area over the pump was interrogated with approximately 8.4 mL of solution expected. The area over the pump was then cleansed with ChloraPrep as a cleansing solution. Using a 22-gauge sterile needle the pump was accessed and approximately 9 mL of solution was removed and discarded appropriately. The pump was then refilled with 20 mL of Dilaudid 1 mg/mL. The needle was withdrawn and a sterile bandage placed over the puncture site. The pump was then reinterrogated and continued at Dilaudid 0.0968 mg/day. The patient's bolus device was checked and was determined to be working co rrectly. Patient tolerated the procedure well with no complications. Plan and Disposition:: Patient will return to clinic at the next intrathecal refill date. Patient has been counseled to contact the office with any questions or concerns before the next appointment day. Dr. Solo has read this note and agrees with this plan of care. This note was dictated using voice recognition software and may contain errors or omissions.
[2022-08-27 13:33] VITALS: BP 185/86; PULSE 62; RESP 18; O2SAT 99
== END 2022-08-27 13:33 | disposition home or self-care (01) ==
PROVIDERS: PCP Family Medicine; Visit Provider Nurse Anesthetist, Certified Registered
DX: M51.16 Intervertebral disc disorders with radiculopathy, lumbar region (principal); M46.1 Sacroiliitis, not elsewhere classified; M70.60 Trochanteric bursitis, unspecified hip; Z45.1 Encounter for adjustment and management of infusion pump
CPT/HCPCS: 62370

== ENCOUNTER → 2022-11-01 11:58 | Outpatient (POV) | payer MEDICARE, SELFPAY ==
[2022-11-01 12:48] VITALS: BP 125/67; PULSE 70; RESP 20; BMI 27.4
--- NOTE | 2022-11-01 12:48 | EXP.PAIN.PRO ---
Procedure Date: 11/01/22 Time: 12:49 Anesthesiologist:: Kalyn Gill APRN Complications:: None Pre-procedure Diagnosis:: Degenerative disc disease of lumbar spine with lumbar radiculopathy symptoms, sacroiliitis, greater trochanteric bursitis Post-procedure Diagnosis:: Same Indications for Procedure:: Patient is a pleasant 81-year-old female who presents today for intrathecal pain pump reprogramming adjustment. The patient is being treated for degenerative disc disease of lumbar spine with lumbar radiculopathy symptoms, sacroiliitis, greater trochanteric bursitis. Patient is currently being managed with Dilaudid 1 mg/mL with a daily dose of 0.0968 mg/day. Patient denies any side effects from this medication. Patient rates pain a 8 out of 10. Patient states she is having increased pain over her low back along the left side and describes this as a throbbing sensation that is worse with increased activity. Patient cannot tolerate prolonged standing, sitting, walking due to her pain. Patient does state this interferes with her ability to perform activities of daily living such as cooking and cleaning. She frequently has to take multiple breaks due to her worsening pain symptoms. Drug screen is appropriate. [facility] [id number] has been reviewed and is appropriate. Physical exam General: Alert and oriented x3, no acute distress, pleasant and cooperative Lungs: Respirations even and unlabored, symmetrical chest expansion Eyes: PERRL Musculoskeletal: Flexion and extension of lumbar [spine] somewhat guarded secondary to pain, [antalgic gait noted] extreme point tenderness along left SI with left Camila's, Katia's, Gaenslen's, compression and distraction exam Neurological: Speech clear, no gross sensory deficit Procedure Details:: Informed consent was obtained and the risk and benefits of the procedure were explained to the patient. Patient was taken to the procedure room where noninvasive monitoring was placed including noninvasive blood pressure cuff and pulse oximeter. Patient's pump was interrogated and was reprogrammed to Dilaudid 1 mg/mL with a daily dose of 0.106 mg/day. The patient tolerated the procedure well with no complications. Plan and Disposition:: Patient is experiencing significant pain in her low back along the left side with limited range of motion. Patient did have extreme point tenderness along her left SI with positive left Camila's, Katia's, Gaenslen's, compression and distraction exam. I have discussed with the patient that she may benefit from a left SI injection. Risk and benefits were discussed with the patient and she would like to proceed forward with this plan of care. Patient has had SI injections in the past that provided significant improvement. We will schedule her for a left SI injection. Patient has been instructed to contact the clinic with any concerns before the next appointment. Dr. Solo has reviewed this note and agrees with this plan of care. This note was dictated using voice recognition software and make contain errors or omissions. -- It Is medically necessary for this patient to continue to have their intrathecal pump refilled at regular intervals. This patient had an intrathecal pain pump implanted after meeting criteria of chronic intractable pain for greater than 3 months and failing conservative treatments. Patient has committed and been compliant to the treatment plan and all planned follow up care. Since implantation of the intrathecal pain pump, the patient has had decreased pain and been more functional. Oral medications have been reduced including intake of oral opioids. Patient continues to do well with intrathecal therapy with decrease in pain symptoms and increase in functional status. Stopping intrathecal medications can lead to life threatening withdrawal, seizures, cardiac arrest, severe pain, and possible . Pumps that are not refilled at regular intervals can be damages and cause
== END | disposition home or self-care (01) ==
PROVIDERS: PCP Family Medicine; Visit Provider Nurse Practitioner Family
DX: M51.16 Intervertebral disc disorders with radiculopathy, lumbar region (principal); M70.60 Trochanteric bursitis, unspecified hip; M46.1 Sacroiliitis, not elsewhere classified
CPT/HCPCS: 62368

== ENCOUNTER 2022-11-05 09:43 | Day surgery (SDC) | payer MEDICARE, SELFPAY ==
[2022-11-05 10:08] VITALS: BP 179/74; PULSE 59; RESP 18; TEMP 36.9; O2SAT 98; BMI 27.4
--- NOTE | 2022-11-05 10:33 | EXP.PAIN.PRO ---
Procedure Date: 11/05/22 Time: 10:30 Anesthesiologist:: Shubham Lao CRNA Complications:: None Pre-procedure Diagnosis:: Left sacroiliitis. Post-procedure Diagnosis:: Same. Indications for Procedure:: Patient is a pleasant 81-year-old female that comes our clinic today for left sacroiliac joint injection. She has had this in the past with significant improvement terms of her left low lumbar and posterior hip pain. She rates her pain today 8/10. Patient states pain is better while sitting. Pain increases with ambulation. Pain increases transitioning from sitting to standing. Procedure Details:: Procedure: Left sacroiliac injection under fluoroscopy Informed consent was obtained and the risk and benefits of the procedure were explained to the patient.~ The patient was taken to the procedure room and noninvasive monitors were placed including noninvasive blood pressure cuff and pulse oximeter.~ The patient was placed prone on the procedure table.~ The~ left hip was cleansed using Betadine as a cleansing solution.~ C-arm fluorosocpy was used to view the left SI joint.~ The skin and subcutaneous tissues were anesthetized using Lidocaine 1.5% and a 25-gauge needle.~ After this, a 22-gauge spinal needle was inserted under fluoroscopic guidance into the inferior aspect of the left SI joint.~ Omnipaque dye was injected and a good spread was seen throughout the joint.~ After this, approximately 5 mL of bupivacaine 0.25% and Depo-Medrol 40 mg was incrementally injected into the sacroiliac joint.~ The patient tolerated the procedure well with no complications.~ The patient was observed in the Pain Clinic for a period of 30-45 minutes, then discharged home neurologically intact.~ Plan and Disposition:: Patient was discharged without incident.
[2022-11-05 10:35] VITALS: BP 159/84; BP 160/87; PULSE 56; PULSE 69; RESP 18; TEMP 36.9; O2SAT 96; O2SAT 98
[2022-11-05 10:36] VITALS: BP 159/84; PULSE 69; RESP 18; O2SAT 96
== END 2022-11-05 10:35 | disposition home or self-care (01) ==
PROVIDERS: PCP Family Medicine; Visit Provider Nurse Anesthetist, Certified Registered
DX: M46.1 Sacroiliitis, not elsewhere classified (principal)
CPT/HCPCS: 27096; G0260; J1040

== ENCOUNTER 2022-11-26 12:59 | Day surgery (SDC) | payer MEDICARE, SELFPAY ==
[2022-11-26 13:16] VITALS: BP 156/77; PULSE 66; RESP 18; TEMP 36.6; O2SAT 99; BMI 26.6
[2022-11-26 13:19] VITALS: BP 149/92; PULSE 73; RESP 18; O2SAT 98
[2022-11-26 13:21] VITALS: BP 149/92; PULSE 73; RESP 18; O2SAT 98
[2022-11-26 13:33] VITALS: BP 164/71; PULSE 63; RESP 18; O2SAT 99
--- NOTE | 2022-11-26 14:27 | P.PCN_ITS ---
Procedure Date: 11/26/22 Time: 13:30 Anesthesiologist:: Shubham Lao CRNA Complications:: None Pre-procedure Diagnosis:: Degenerative disc disease lumbar spine multilevels. Lumbar radiculopathy. Bilateral sacroiliitis. Post-procedure Diagnosis:: Same. Indications for Procedure:: Patient is a pleasant 81-year-old female that comes our clinic today for intrathecal pain pump interrogation refill. She is currently being managed with Dilaudid 1 mg/mL at 0.1060 mg/day. She is doing very well on her current management. However, she has extreme point tenderness over the bilateral sacroiliac joints. She has positive Camila's test bilaterally. Positive bilateral sacroiliac joint compression test. Patient has difficulty sitting for any length of time. Standing for any length of time. She has extreme difficulty transitioning from sitting to standing. Flexion, extension is extremely painful. Procedure Details:: Details of the procedure explained to the patient. Patient taken to procedure room placed in the sitting position. The area over the pump was cleansed with chlorhexidine as a cleansing solution. The pump was interrogated. The pump was accessed with ease using 22-gauge inch and half needle. 5 mL of solution was wi thdrawn and discarded appropriately. The pump was then filled incrementally with 20 cc of Dilaudid 1 mg/mL. The rate will continue at 0.1060 mg/day.\ Discussed in detail with the patient regarding bilateral sacroiliac joint injections. Patient wishes to proceed. Procedure: Bilateral sacroiliac joint injections under fluoroscopy Informed consent was obtained and the risks and benefits of the procedure were explained to the patient.~ The patient was taken to the procedure room and noninvasive monitors were placed including a noninvasive blood pressure cuff and pulse oximeter.~ The patient was placed prone on the procedure table. Both hips were cleansed using Betadine as a cleansing solution. C-arm fluoroscopy was used to view the right sacroiliac joint.~ The skin and subcutaneous tissues were anesthetized using lidocaine 1.5% and a 25-gauge needle.~ After this, a 22-gauge spinal needle was inserted under fluoroscopic guidance into the inferior aspect of the right sacroiliac joint.~ Omnipaque dye was injected and good spread was seen throughout the joint.~ After this, approximately 5 mL of bupivacaine, 0.25% and Depo-Medrol, 40 mg was incrementally injected into the right sacroiliac joint. We then moved to the left sacroiliac joint.~ The skin and subcutaneous tissues were anesthetized using lidocaine 1.5% and a 25-gauge needle.~ After this, a 22- gauge spinal needle was inserted under fluoroscopic guidance into the inferior aspect of the left sacroiliac joint.~ Omnipaque dye was injected and good spread was seen throughout the joint. After this, approximately 5 mL of bupivacaine, 0.25% and Depo-Medrol, 40 mg was incrementally injected into the left sacroiliac joint.~ The patient tolerated the procedure well with no complications. The patient was observed in the Pain Clinic and then was discharged home neurologically intact. Plan and Disposition:: Patient was discharged without incident. Patient was reevaluated 10 minutes post procedure. She reports 90% improvement terms of her overall low lumbar back pain as well as bilateral posterior hip pain. Patient was observed sitting and standing, ambulating with minimal to no pain.
== END 2022-11-26 13:33 | disposition home or self-care (01) ==
LOC: SC.PAINP 13:00
PROVIDERS: PCP Family Medicine; Visit Provider Nurse Anesthetist, Certified Registered
DX: Z45.1 Encounter for adjustment and management of infusion pump (principal); M51.16 Intervertebral disc disorders with radiculopathy, lumbar region; M46.1 Sacroiliitis, not elsewhere classified
CPT/HCPCS: 27096; 95991; G0260

== ENCOUNTER → 2023-03-07 10:13 | Outpatient (CLI) | payer MEDICARE, SELFPAY ==
--- NOTE | 2023-03-07 10:36 | XR_ITS ---
FINAL REPORT CLINICAL HISTORY: neck pain COMPARISON: None FINDINGS: 3 views of the cervical spine were obtained. There is no fracture present. There is mild retrolisthesis of C4 on C5 and C5 on C6. There is moderate degenerative change with multilevel osteophytes. IMPRESSION: No acute process. Reviewed, Interpreted and Dictated by Brandon Michel III, MD Transcribed by Paula Biswas Authenticated and [facility]
[2023-03-07 11:18] LABS: Erythrocyte Sedimentation Rate 32 mm/hr (0-30)
[2023-03-07 11:39] LABS: Alanine Aminotransferase 17 U/L (12-78); Albumin Level 3.8 g/dl (3.5-5.0); Albumin/Globulin Ratio 1.2 (1.1-1.8); Alkaline Phosphatase 107 U/L (38-126); Aspartate Amino Transferase 25 U/L (14-36); Bilirubin,Total 0.3 mg/dl (0.2-1.3); Blood Urea Nitrogen 18 mg/dl (7-17); Calcium 9.1 mg/dl (8.4-10.2); Carbon Dioxide 24 mmol/L (22.0-30.0); Chloride 111 mmol/L (98-107); Estimated Glomerular Filt Rate 69 ml/min (>60); GFR (African American) 84 ML/MIN (>60); Globulin 3.1 g/dL (1.3-3.2); Glucose 91 mg/dl (74-100); Sodium 141 mmol/L (136-145); Total Protein,Serum 6.9 g/dl (6.3-8.2)
[2023-03-07 12:09] LABS: Thyroid Stimulating Hormone 1.42 uIU/mL (0.465-4.68)
[2023-03-07 12:52] LABS: Vitamin B12 > 1000 pg/mL (239-931)
== END ==
PROVIDERS: PCP Family Medicine; Visit Provider Specialist
DX: D51.9 Vitamin B12 deficiency anemia, unspecified (principal); R06.00 Dyspnea, unspecified; R25.1 Tremor, unspecified; R26.9 Unspecified abnormalities of gait and mobility; G89.29 Other chronic pain; M19.90 Unspecified osteoarthritis, unspecified site; M54.9 Dorsalgia, unspecified; Z85.3 Personal history of malignant neoplasm of breast; G90.3 Multi-system degeneration of the autonomic nervous system
CPT/HCPCS: 36415; 72040; 80053; 82607; 82746; 84443; 85651

== ENCOUNTER → 2023-03-12 12:45 | Outpatient (CLI) | payer MEDICARE, SELFPAY ==
--- NOTE | 2023-03-12 12:49 | CT_ITS ---
FINAL REPORT TECHNIQUE: Multiple axial CT sections were performed from the foramen magnum to the vertex. Coronal reformatted images were also obtained. Precontrast and postcontrast injection images were obtained. This study was performed with technique to keep radiation doses as low as reasonably achievable, (ALARA). Individualized dose reduction techniques using automated exposure control or adjustment of mA and/or kV according to the patient size were employed. CLINICAL HISTORY: tremor,gait imbalance COMPARISON: 05/16/2021 FINDINGS: The ventricles are normal in size. There is no evidence of hemorrhage. No masses are identified. No extra-axial fluid collection is seen. The sinuses are normal. No osseous abnormality is seen on the bone window images. Postcontrast images demonstrate no abnormal enhancement. IMPRESSION: Unremarkable CT of the head with and without contrast. Reviewed, Interpreted and Dictated by Brandon Michel III, MD Transcribed by Joi Cuba Authenticated and [facility]
== END ==
PROVIDERS: PCP Family Medicine; Visit Provider Specialist
DX: R25.1 Tremor, unspecified (principal); R26.89 Other abnormalities of gait and mobility
CPT/HCPCS: 70470; Q9966

== ENCOUNTER 2023-03-14 12:51 | Day surgery (SDC) | payer MEDICARE, SELFPAY ==
[2023-03-14 13:04] VITALS: BP 177/93; PULSE 62; RESP 16; TEMP 36.5; O2SAT 96; BMI 26.6
[2023-03-14 13:25] VITALS: BP 190/93; PULSE 65; RESP 18; O2SAT 97
--- NOTE | 2023-03-14 13:32 | P.PCN_ITS ---
Procedure Date: 03/14/23 Time: 13:30 Anesthesiologist:: Shubham Lao CRNA Complications:: None Pre-procedure Diagnosis:: Degenerative disc disease lumbar spine multilevels. Lumbar radiculopathy. Lumbar spondylosis. Bilateral sacroiliitis. Post-procedure Diagnosis:: Same. Indications for Procedure:: Patient is a very pleasant 82-year-old female comes our clinic today for intrathecal pain pump interrogation refill. Patient currently being managed with Dilaudid 1 mg/mL at 0.1060 mg/day. She is doing very well with her current settings. She does not complain of any complications or side effects. Procedure Details:: Details of the procedure explained to the patient. The patient taken to procedure room placed in the sitting position. The area of the pump was cleansed using chlorhexidine as a cleansing solution. The pump was in terrogated. The pump was accessed with ease using a 22-gauge inch and half needle. 8 mL of solution was withdrawn and discarded appropriately. The pump was then filled with 20 cc of a solution containing Dilaudid 1 mg/mL. Patient tolerated procedure without difficulty. There are no complications. Patient complaining of some anterior thigh pain bilaterally. Also, some posterior hip pain bilaterally. Patient has had success in terms of the symptoms with bilateral sacroiliac joint injections. Patient states she will call us in the event she needs a repeat of these bilateral sacroiliac joint injections. Patient has positive Gaenslen's test sign. Positive bilateral sacroiliac joint compression test. Positive Camila's test. She has extreme point tenderness over the bilateral sacroiliac joint at times. Plan and Disposition:: Patient was discharged without incident.
[2023-03-14 13:35] VITALS: BP 155/80; BP 190/93; PULSE 63; PULSE 65; RESP 18; O2SAT 96; O2SAT 97
[2023-03-14 14:50] LABS: Barbiturates Screen,Urine Positive ng/ml (<200); Benzodiazepines Screen,Urine Negative ng/ml (<200)
[2023-03-14 14:51] LABS: Amphetamine/Metha Screen,Urine Negative ng/ml (<1000)
[2023-03-14 14:52] LABS: Cannabinoid Screen,Urine Negative ng/ml (<50); Methadone Screen,Urine Negative ng/ml (<300)
[2023-03-14 14:53] LABS: Cocaine Screen,Urine Negative ng/ml (<300); Opiate Screen,Urine Negative ng/ml (<300)
[2023-03-14 14:54] LABS: Phencyclidine Screen,Urine Negative ng/ml (<25)
[2023-03-22 18:11] LABS: Opiates Negative (Cutoff=100)
== END 2023-03-14 13:35 | disposition home or self-care (01) ==
PROVIDERS: Anesthesiology; PCP Family Medicine; Visit Provider Nurse Anesthetist, Certified Registered
DX: M51.16 Intervertebral disc disorders with radiculopathy, lumbar region (principal); M46.1 Sacroiliitis, not elsewhere classified
CPT/HCPCS: 80305; 80361; 80365; 95991; G0480

== ENCOUNTER → 2023-03-19 09:48 | Day surgery (SDC) | payer MEDICARE, SELFPAY ==
[2023-03-19 10:16] VITALS: BMI 26.6
--- NOTE | 2023-03-19 12:17 | EXP.TILT ---
Findings:: PROCEDURE: Upright Tilt Table Test Requesting Provider: Steffanie Serrato MD Indication: Falls, evidence of orthostatic hypotension Beta Blockers: Took Propranolol last night Pre-Test Vital Signs (supine): HR 57 bpm and sinus rhythm, BP 181/96, O2Sats 96% PROCEDURE SUMMARY: Patient was prepped per protocol, IV started, connected to heart, blood pressure and oxygen saturation monitors and safety straps applied. She was then tilted upright at 70 degrees for a total of 10 minutes, which was all that she could tolerate. Immediately after being placed upright her blood pressure dropped slightly to 174/98 with a heart rate of 63 bpm. After seven minutes upright her blood pressure had fallen to 164/111 with a heart rate of 65 bpm and she complained of feeling mildly lightheaded. Two minutes later her BP had rebounded to 180/109 with a HR of 67 bpm. It was at this point that she asked to stop the test due to discomfort. After being returned to the supine position she stated that her lightheadedness was subsiding. BP at this time was 170/122 and HR was 59 bpm. She was in sinus rhythm throughout and her O2 Sats remained in the high 90s. CONCLUSION: Limited study due to patient's inability to remain upright for more than 10 minutes. She did have some mild lightheadedness after being upright for 7 minutes, which corresponded with a brief drop in systolic BP of 17 mmHg. This may suggest some degree of orthostatic hypotension. Clinical correlation is recommended. Poorly controlled HTN is also noted.
== END ==
PROVIDERS: PCP Family Medicine; Visit Provider Specialist
DX: I95.1 Orthostatic hypotension (principal)
CPT/HCPCS: 93660

== ENCOUNTER → 2023-03-24 11:01 | Outpatient (CLI) | payer MEDICARE, SELFPAY ==
--- NOTE | 2023-03-24 11:05 | XR_ITS ---
FINAL REPORT CLINICAL HISTORY: swelling rt ankle FINDINGS: RIGHT ANKLE 3 views of the right ankle were obtained. There is no acute fracture or dislocation. The mortise is intact. There is medial soft tissue swelling. A small plantar calcaneal spur is seen. There are moderate hypertrophic changes over the dorsal intertarsal joints. IMPRESSION: No acute bony abnormality. Reviewed, Interpreted and Dictated by Ike Monroy MD Transcribed by Essence Peter Authenticated and [facility]
== END ==
PROVIDERS: PCP Family Medicine; Visit Provider Specialist
DX: R60.0 Localized edema (principal)
CPT/HCPCS: 73610

== ENCOUNTER → 2023-05-21 11:14 | Outpatient (CLI) | payer MEDICARE, SELFPAY ==
--- NOTE | 2023-05-21 11:22 | XR_ITS ---
FINAL REPORT CLINICAL HISTORY: Fall with right rib pain, shortness of breath COMPARISON: None FINDINGS: A single view of the chest with 3 views of the right ribs were obtained. There is no acute cardiopulmonary process. No pneumothorax is identified. No displaced rib fracture identified. Spinal stimulator is present. IMPRESSION: No acute process. Reviewed, Interpreted and Dictated by Brandon Michel III, MD Transcribed by Paula Biswas Authenticated and [facility]
--- NOTE | 2023-05-21 11:22 | XR_ITS ---
FINAL REPORT CLINICAL HISTORY: Cough, shortness of breath, chest pain COMPARISON: 07/23/2021 FINDINGS: A single lateral view of the chest was obtained and correlated with the AP view performed at the same time. The heart size and pulmonary vascularity are within normal limits. The mediastinum is normal. No focal acute pulmonary abnormality is identified. There is no pneumothorax. The bony thorax is intact. There are mild degenerative changes in the thoracic spine. A spinal stimulator is present. IMPRESSION: No active cardiopulmonary disease. Reviewed, Interpreted and Dictated by Brandon Michel III, MD Transcribed by Paula Biswas Authenticated and [facility]
== END ==
PROVIDERS: PCP Family Medicine; Visit Provider Specialist
DX: R05.9 Cough, unspecified (principal); R07.81 Pleurodynia; W19.XXXA Unspecified fall, initial encounter
CPT/HCPCS: 71046; 71101

== ENCOUNTER 2023-06-17 13:11 | Day surgery (SDC) | payer MEDICARE, SELFPAY ==
[2023-06-17 13:18] VITALS: BP 153/76; PULSE 69; RESP 18; TEMP 36.5; O2SAT 97; BMI 27.4
[2023-06-17 13:21] VITALS: BP 155/89; PULSE 71; RESP 18; O2SAT 98
[2023-06-17 13:25] VITALS: BP 155/89; PULSE 68; O2SAT 98
--- NOTE | 2023-06-17 13:27 | EXP.PAIN.PRO ---
Procedure Date: 06/17/23 Time: 13:30 Anesthesiologist:: Shubham Lao CRNA Complications:: None Pre-procedure Diagnosis:: Degenerative disc lumbar spine multilevels. Lumbar radiculopathy. Lumbar spondylosis. Post-procedure Diagnosis:: Same. Indications for Procedure:: Patient is a very pleasant 82-year-old female that comes our clinic today for intrathecal pain pump interrogation refill. Patient is currently being managed with Dilaudid 1 mg/mL at a rate of 0.1060 mg/day. Patient doing very well with her current settings. She is not requesting any changes at this time. Procedure Details:: Details of the procedure explained to the patient. The patient taken to procedure room placed in the sitting position. The area over the pump was cleaned using chlorhexidine as a cleansing solution. The pump was interrogated. The pump was accessed with ease using 22-gauge inch and half needle. 9.3 mL of solution was withdrawn and discarded appropriately. The pump was then filled with 20 cc of solution containing Dilaudid 1 mg/mL. The rate will continue at 0.1060 mg/day. Patient tolerated procedure without difficulty. No complications. Plan and Disposition:: Patient was discharged without incident.
[2023-06-17 13:30] VITALS: BP 124/67; PULSE 64; RESP 18; O2SAT 97
== END 2023-06-17 13:30 | disposition home or self-care (01) ==
PROVIDERS: PCP Family Medicine; Visit Provider Nurse Anesthetist, Certified Registered
DX: M51.16 Intervertebral disc disorders with radiculopathy, lumbar region (principal); M47.26 Other spondylosis with radiculopathy, lumbar region; Z97.8 Presence of other specified devices
CPT/HCPCS: 95991

== ENCOUNTER 2023-06-24 15:00 | Outpatient (RCR) | payer MEDICARE, SELFPAY ==
--- NOTE | 2023-03-31 11:48 | HMH.PTOPEV ---
PT Outpatient Evaluation Rehab PT Outpatient Evaluation Start: 03/31/23 11:39 Freq: Status: Active Protocol: Document 03/31/23 11:39 [facility] (Rec: 03/31/23 11:48 [facility] [id number]) E-signed By Charbel Muse, PT Outpatient Therapy Subjective History Subjective History Pt reports h/o chronic balance deficit and weakness in bilateral LE's for 'at least 2 years.' Pt reports 'essential tremor on the right side gives me the trouble as much as anything.' Pt reports poor endurance as well w/standing and walking around 5 minutes before rest is needed. PMH: chronic LBP, post-laminectomy syndrome Chief Complaint Pain,Weakness,Decreased Coordination Symptom Type Ache,Dull Symptoms Relieved By Rest/Positioning Symptoms Aggravated By Standing,Walking Prior Functional Limitations Housework,Standing,Walking, Balance Current Functional Limitations Housework,Standing,Walking, Balance Symptom Description Constant but Variable Level of pain today (0-10) 5 Pain scale - at its best (0-10) 3 Pain scale - at its worst (0-10) 7 Lumbopelvic Eval Assistive device Assistive Devices Rolling / Wheeled Walker Gait Observation General Gait Pattern Observation No Deviations/Normal Manual Muscle Test Bilateral Knee Extension Strength Grade 4 Good Knee Flexion Strength Grade 4 Good Hip Flexion Strength Grade 4- Good- Hip Abduction Strength Grade 4- Good- Hip Adduction Strength Grade 4- Good- Extensor Hallucis Longus Strength Grade 4 Good Ankle Dorsiflexion Strength Grade 4 Good Gastronemius/Soleus Strength Grade 4 Good Balance Eval Timed Up and Go Test 1. Is the Timed Up and Go test result > yes or = to 12 seconds? Tinetti Sitting Balance Sitting Balance Steady, safe Arising from Chair Ability to Arise Able, uses arms to help Attempts to Arise Able, requires >1 attempt Standing Balance Immediate Standing Balance Steady with support Standing Balance Steady, wide stance Nudged Response Begins to fall Standing with Eyes Closed Unsteady Turning Step Pattern Turning 360 Degrees Continuous steps Stability Turning 360 Degrees Steady Sitting Down Sitting Down Uses arms or unsteady Gait and Step Initiation of Gait No hesitancy Right Foot Step Length Does pass stance foot Right Foot Step Height Completely clears floor Left Foot Step Length Does pass stance foot Left Foot Step Height Completely clears floor Step Description Step Symmetry Step length appears equal Step Continuity Steps appear continuous Gait Description Path Description Straight Trunk Description No sway Walking Stance Heels together Scoring and Interpretation Tinetti Composite Score (points) 20 Interpretation of Scores At risk for falls (19-24) Outpatient Therapy Assessment Impairments Problems/Impairmments Impaired Strength,Impaired Endurance,Impaired Gait Pattern,Impaired Walking, Impaired Standing,Impaired Household Care,Impaired Tinnetti Score,Impaired TUG Time,Subjective C/O Pain, Impaired Self Care/Self Management Prognosis Rehab Potential Good Clinical Impression Consistent with Diagnosis Yes Short Term Goals Number of Weeks 4 Increase Strength Yes: 4/5 B/L LE'S Improve Gait Pattern with Assistive Yes: 5MIN W/FWW Device Increase Ability to Walk Yes: 5MIN Increase Ability to Stand Yes: 10MIN Increase Tinnetti Score Yes: 22SEC Decrease TUG Time Yes: 14 SEC W/FWW Decrease Subjective C/O Pain Yes: 4/10 W/ABOVE ACTIVITIES Patient to be Ind w/ HEP Yes [facility] Goals Number of Weeks 8-10 Increase Strength Yes: 4+/5 B/L LE'S Improve Gait Pattern with Assistive Yes: 10-15MIN W/FWW Device Increase Ability to Walk Yes: 10-15MIN Increase Ability to Stand Yes: 20MIN Improve Ability For Household Care Yes: 15-20MIN Increase Tinnetti Score Yes: 24 Decrease TUG Time Yes: 12SEC W/FWW Decrease Subjective C/O Pain Yes: 2-3/10 W/ABOVE ACTIVITIES Patient to be Ind w/ Advanced HEP Yes Outpatient Therapy Plan of Care Treatment Plan May Include Therapeutic Exercise Including Home Yes Exercise Program Manual Therapy Techniques Yes Neuromuscular Re-education Yes Therapeutic Activities to Return to Yes Previous Functional/Work Level Gait Training Yes ADL/Self Care Education Yes Thermal Modalities Yes Electrical Stimulation Yes Eval/Re-Eval Yes Frequency Times per week 2-3 Duration Number of Weeks 8-10 Addendums This patient is a candidate for social No or vocational rehab? Patient/Guardian verbally acknowledges Yes understanding of treatment program and consents to further treatment? Patient/Guardian verbally acknowledges Yes understanding of diagnosis, prognosis and goals for treatment? G -code Required No Eval Complexity PT Charges 13429 - Moderate Complexity Shoulder/Elbow Eval Shoulder Objective Measurements Elbow Objective Measurements PHYSICIAN CERTIFICATION: I certify the specified therapy services for Shani Alejandro are required, authorized, and reviewed every 30 days.
--- NOTE | 2023-04-29 11:01 | HMH.RHREAS ---
Rehab Reassessment Rehab OP Re-assessment Start: 03/31/23 11:39 Freq: Status: Active Protocol: Document 04/29/23 10:53 [facility] (Rec: 04/29/23 11:01 [facility] [id number]) E-signed By Charbel Muse, PT Tinetti Sitting Balance Sitting Balance Steady, safe Arising from Chair Ability to Arise Able, uses arms to help Attempts to Arise Arises on 1st attempt Standing Balance Immediate Standing Balance Steady with support Standing Balance Steady, wide stance Nudged Response Staggers, catches self Standing with Eyes Closed Unsteady Turning Step Pattern Turning 360 Degrees Discontinuous steps Stability Turning 360 Degrees Unsteady, grabs/staggers Sitting Down Sitting Down Uses arms or unsteady Gait and Step Initiation of Gait Hesitancy, mult. attempts Right Foot Step Length Does pass stance foot Right Foot Step Height Completely clears floor Left Foot Step Length Does pass stance foot Left Foot Step Height Completely clears floor Step Description Step Symmetry Step length appears equal Step Continuity Steps appear continuous Gait Description Path Description Mild/moderate deviation Trunk Description No sway Walking Stance Heels together Scoring and Interpretation Tinetti Composite Score (points) 18 Interpretation of Scores High risk for falls(< 19) Rehab Re-assessment Subjective Subjective Pt reports slight improvements in balance and strength since I eval, however, 'these tremors yasmin come and go'. Pt also reports that her is coming home on hospice after D/C from NH and dialysis. 'So I'll miss some appointments, but I plan to come back after he passes.' Objective Objective Notes SEE TINETTI MMT: B/L HIP FLX 4/5, B/L HIP ABD 4--4/5, B/L HIP ADD 4/5, B /L KNEE EXT 4+/5, B/L KNEE FLX 4-4+/5 TUSEC W/FWW Assessment Progress Assessment Slower Than Expected Assessment Notes IMPROVED STRENGTH, SLIGHT REGRESSION IN TINETTI SCORE Patient goals met STG'S 10/09 Goals Not Met STG'S 12/09, LTG'S 04/12 Plan Plan Pt to continue w/skilled P.T. to make further improvements in strength, gait, balance to allow for optimal function Frequency of Therapy 1-2x/wk Duration of therapy 6-8wks Time and Billing Re-Eval Time 11 Re-Eval Billing Units 0 PHYSICIAN CERTIFICATION: I certify the specified therapy services for Shani C Sosbe are required, authorized, and reviewed every 30 days.
--- NOTE | 2023-05-27 11:42 | HMH.RHREAS ---
Rehab Reassessment Rehab OP Re-assessment Start: 03/31/23 11:39 Freq: Status: Active Protocol: Document 05/27/23 11:22 [facility] (Rec: 05/27/23 11:41 SAMPSONMAUROEVELIN [id number]) E-signed By Charbel Muse, PT Tinetti Sitting Balance Sitting Balance Steady, safe Arising from Chair Ability to Arise Able, w/o using arms Attempts to Arise Arises on 1st attempt Standing Balance Immediate Standing Balance Steady w/o support Standing Balance Steady, wide stance Nudged Response Steady Standing with Eyes Closed Unsteady Turning Step Pattern Turning 360 Degrees Continuous steps Stability Turning 360 Degrees Steady Sitting Down Sitting Down Uses arms or unsteady Gait and Step Initiation of Gait No hesitancy Right Foot Step Length Does pass stance foot Right Foot Step Height Completely clears floor Left Foot Step Length Does pass stance foot Left Foot Step Height Completely clears floor Step Description Step Symmetry Step length appears equal Step Continuity Steps appear continuous Gait Description Path Description Straight Trunk Description No sway Walking Stance Heels apart Scoring and Interpretation Tinetti Composite Score (points) 24 Interpretation of Scores Low risk for falls (>24) Rehab Re-assessment Subjective Subjective Pt reports absence from skilled P.T. d/t the passing of her . Pt reports some amount of fatigue this am , but overall 'I think it's helping.' Objective Objective Notes SEE JOSE F MMT: B/L HIP FLX 4/5, B/L HIP ABD 4/5, B/L HIP ADD 4-4+/5, B /L KNEE EXT 4+/5, B/L KNEE FLX 4-4+/5, DF 4+/5 TUSEC W/FWW Assessment Progress Assessment Slower Than Expected Assessment Notes SLOW PROGRESS WHICH IS ATTRIBUTED TO ABSENCE D/T IN THE FAMILY. TINETTI IMPROVED AND STRENGTH IMRPOVED Patient goals met STG'S 11/09 LTG'S 09/12 Goals Not Met STG'S 11/09, LTG'S 02/09 Plan Plan Pt to continue w/skilled P.T. to make further improvements in strength, gait, balance to allow for optimal function Frequency of Therapy 1-2X/WK Duration of therapy 3-5WKS Time and Billing Re-Eval Time 14 Re-Eval Billing Units 0 PHYSICIAN CERTIFICATION: I certify the specified therapy services for Shani C Sosbe are required, authorized, and reviewed every 30 days.
--- NOTE | 2023-06-24 15:56 | HMH.RHREAS ---
Rehab Reassessment Rehab OP Re-assessment Start: 03/31/23 11:39 Freq: Status: Active Protocol: Document 06/24/23 15:49 [facility] (Rec: 06/24/23 15:55 [facility] [id number]) E-signed By Charbel Muse, PT Rehab Re-assessment Subjective Subjective Pt reports no noticable improvement in balance or strength since I eval. 'I fell in the the other day, and I' ve got a UTI now, so I'm just really tired today. No issues though from the fall.' Objective Objective Notes MMT: B/L HIP FLX 4/5, B/L HIP ABD 4/5, B/L HIP ADD 4/5, B/L KNEE EXT 4+/5, B/L KNEE FLX 4/ 5, DF 4+/5 Assessment Progress Assessment No Progress Assessment Notes decreased bilateral LE strength since last reassess. Patient goals met STG'S 11/09 LTG'S 09/12 Goals Not Met STG'S 11/09, LTG'S 02/09 Plan Plan Pt to D/C to [facility] center to continue w/some or all of the exercises executed during skilled P.T. in an effort to maintain functional level/capacity Time and Billing Re-Eval Time 8 Re-Eval Billing Units 0 PHYSICIAN CERTIFICATION: I certify the specified therapy services for Shani Alejandro are required, authorized, and reviewed every 30 days.
== END 2023-06-24 16:00 | disposition home or self-care (01) ==
LOC: PT 15:00
PROVIDERS: PCP Family Medicine; Visit Provider Specialist
DX: M54.50 Low back pain, unspecified (principal); M96.1 Postlaminectomy syndrome, not elsewhere classified; R26.89 Other abnormalities of gait and mobility
CPT/HCPCS: 97112; 97163; 97164; 97530

== ENCOUNTER 2023-09-08 12:56 | Outpatient (CLI) | payer MEDICARE, SELFPAY ==
[2023-09-17 16:57] LABS: Atopobium vaginae Low - 0 Score (.); BVAB2 Low - 0 Score (.); Candida albicans NAA Negative (Negative); Candida glabrata Positive (Negative); Chlamydia Trachomatis NAA Negative (Negative); HSV 1 NAA Negative (Negative); HSV 2 NAA Negative (Negative); Megasphaera 1 Low - 0 Score (.); Neisseria gonorrhoeae NAA Negative (Negative); Trich vag NAA Negative (Negative)
[2023-09-18 10:10] LABS: Atopobium vaginae 0; Candida albicans, NAA 0
[2023-09-18 10:11] LABS: Bacterial Vaginosis Associated 0; Ureaplasma spp NAA NEGATIVE
[2023-09-18 10:12] LABS: Chlamydia trachomatis NAA 0; Mycoplasma genitalium NAA NEGATIVE; Mycoplasma hominis NAA 0; Mycoplasma hominis NAA NEGATIVE; Neisseria gonorrheae NAA 0; Ureaplasma spp NAA 0
[2023-09-18 10:13] LABS: Mycoplasma genitalium NAA 0
[2023-09-18 10:17] LABS: Megasphaera 1 0
== END 2023-09-08 23:59 ==
PROVIDERS: PCP Family Medicine; Visit Provider Urology
DX: N39.41 Urge incontinence; N89.8 Other specified noninflammatory disorders of vagina; R30.0 Dysuria; N77.1 Vaginitis, vulvitis and vulvovaginitis in diseases classified elsewhere; Z11.3 Encounter for screening for infections with a predominantly sexual mode of transmission
CPT/HCPCS: 87491; 87529; 87563; 87591; 87661; 87798; 87801

== ENCOUNTER 2023-09-23 08:15 | Day surgery (SDC) | payer MEDICARE, SELFPAY ==
[2023-09-23 09:56] LABS: Alanine Aminotransferase 19 U/L (12-78); Albumin Level 3.7 g/dl (3.5-5.0); Albumin/Globulin Ratio 1.3 (1.1-1.8); Alkaline Phosphatase 109 U/L (38-126); Anion Gap 7.3 mEq/L (5-15); Aspartate Amino Transferase 22 U/L (14-36); Bilirubin,Total 0.3 mg/dl (0.2-1.3); Blood Urea Nitrogen 24 mg/dl (7-17); Calcium 9.2 mg/dl (8.4-10.2); Carbon Dioxide 27 mmol/L (22.0-30.0); Chloride 107 mmol/L (98-107); Chol/HDL Ratio 5.4 (1-3.5); Cholesterol 299 mg/dl (140-200); Estimated Glomerular Filt Rate 53 ml/min (>60); GFR (African American) 65 ML/MIN (>60); Globulin 2.8 g/dL (1.3-3.2); Glucose 90 mg/dl (74-100); HDL Cholesterol 55 mg/dl (40-60); Potassium 4.3 mmoL/L (3.5-5.1); Sodium 137 mmol/L (136-145); Total Protein,Serum 6.5 g/dl (6.3-8.2); Triglycerides 339 mg/dl (30-150); VLDL Cholesterol 68 mg/dL (0-40)
[2023-09-23 10:07] LABS: Direct LDL Cholesterol 140.99 mg/dL (100-129)
[2023-09-23 13:05] VITALS: BP 156/73; PULSE 60; RESP 18; TEMP 36.3; O2SAT 97; BMI 26.6
[2023-09-23 13:08] VITALS: BP 177/59; PULSE 55; PULSE 56; RESP 18; O2SAT 97
--- NOTE | 2023-09-23 13:15 | EXP.PAIN.PRO ---
Procedure Date: 09/23/23 Time: 13:10 Anesthesiologist:: Shubham Lao CRNA Complications:: None Pre-procedure Diagnosis:: Degenerative disc lumbar spine multilevels. Lumbar radiculopathy. Post-procedure Diagnosis:: Same. Indications for Procedure:: Patient is a very pleasant 10-year-old female comes our clinic today for intrathecal pain pump interrogation refill. Patient reporting some increased pain in the low back with activity. She is requesting an increase in the pump rate. I think this is reasonable. Will increase her 5% today. Procedure Details:: Details of the procedure explained to the patient. The patient taken procedure and placed in sitting position. The area of the pump was cleansed using chlorhexidine's cleansing solution. The pump was interrogated. The pump was accessed with ease using a 22-gauge inch and half needle. 9 mL of solution was withdrawn discarded appropriately. The pump was then filled with 20 cc of solution containing Dilaudid 1 mg/mL. The new rate will be 0.1113 mg/day. Patient tolerated procedure without difficulty. There are no complications. Plan and Disposition:: Patient was discharged without incident.
[2023-09-23 13:20] VITALS: BP 147/73; PULSE 55; RESP 16; O2SAT 97
== END 2023-09-23 13:20 | disposition home or self-care (01) ==
PROVIDERS: Nurse Practitioner Family; PCP Family Medicine; Visit Provider Nurse Anesthetist, Certified Registered
DX: N39.0 Urinary tract infection, site not specified; M51.16 Intervertebral disc disorders with radiculopathy, lumbar region; Z97.8 Presence of other specified devices; Z45.1 Encounter for adjustment and management of infusion pump
CPT/HCPCS: 36415; 80053; 80061; 87086; 95991

== ENCOUNTER 2023-12-07 21:09 | Emergency (ER) | payer MEDICARE, SELFPAY ==
[2023-12-07] VITALS (7 sets, daily range): BP systolic 154–193; BP diastolic 89–116; PULSE 57–69; RESP 13–22; TEMP 36.6; O2SAT 94–98; BMI 27.4
--- NOTE | 2023-12-07 21:16 | ECG_ITS ---
APPROVED REPORT Exam: Resting ECG HR:59 bpm ECG Measurements Heart Rate 59 AXES AL 181 P 68 QRSd 90 QRS 17 QT 401 T 39 QTc 399 Conclusion SINUS BRADYCARDIA NONSPECIFIC T-WAVE ABNORMALITY Electronically signed by : ANA FARRELL, 12/07/2023 22:00:45
--- NOTE | 2023-12-07 21:19 | CT_ITS ---
PROCEDURE INFORMATION: Exam: CT Head Without Contrast Exam date and time: 12/07/2023 9:28 PM Age: 82 years old Clinical indication: Injury or trauma; Fall; Concussion/head injury; Additional info: Fall from standing, hit head, post occiput TECHNIQUE: Imaging protocol: Computed tomography of the head without contrast. Radiation optimization: All CT scans at this facility use at least one of these dose optimization techniques: automated exposure control; mA and/or kV adjustment per patient size (includes targeted exams where dose is matched to clinical indication); or iterative reconstruction. COMPARISON: CT HEAD/BRAIN WO/W CON 03/12/2023 1:12 PM FINDINGS: Brain: No evidence for intracranial hemorrhage, mass lesions or acute stroke. Intracranial vascular calcifications. Mild small vessel ischemic change in the periventricular white matter. Cerebral ventricles: No ventriculomegaly. Pituitary gland and sella: Negative Paranasal sinuses: Visualized sinuses are unremarkable. No fluid levels. Mastoid air cells: Visualized mastoid air cells are well aerated. Orbital cavities: Bilateral cataract extractions. Parotid and submandibular glands: Negative Bones: Unremarkable. No acute fracture. Soft tissues: Left posterior parietal scalp hematoma. Vasculature: Negative. Other findings: Mild generalized atrophy. IMPRESSION: 1. Left posterior parietal scalp hematoma. 2. No evidence for intracranial hemorrhage, mass lesions or acute stroke. 3. Intracranial vascular calcifications. 4. Mild generalized atrophy. 5. Mild small vessel ischemic change in the periventricular white matter.
--- NOTE | 2023-12-07 21:20 | CT_ITS ---
PROCEDURE INFORMATION: Exam: CT Cervical Spine Without Contrast Exam date and time: 12/07/2023 9:31 PM Age: 82 years old Clinical indication: Injury or trauma; Fall; Concussion/head injury; Additional info: Fall from standing, 82yof TECHNIQUE: Imaging protocol: Computed tomography of the cervical spine without contrast. Radiation optimization: All CT scans at this facility use at least one of these dose optimization techniques: automated exposure control; mA and/or kV adjustment per patient size (includes targeted exams where dose is matched to clinical indication); or iterative reconstruction. COMPARISON: CT CERVICAL SPINE WO CON 05/16/2021 2:22 PM FINDINGS: Bones: Straightening of the cervical spine. No fracture or bone destruction. Predental space narrowing, proliferative changes around the dens , erosive change and hypertrophic pannus around the dens consistent with arthritis. Multilevel degenerative disc disease predominantly at C3-C4, C4-C5, C5-C6, C6-C7 levels with disc space narrowing and small disc osteophyte complexes. Mild multilevel facet arthropathy. Focal ligamentum flavum thickening and dystrophic calcification at C4-C5 axial image 3/48 and sagittal image 1002/48. Lungs: Lung apices are normal. Soft tissues: Unremarkable. IMPRESSION: 1. Straightening of the cervical spine. 2. No fracture or bone destruction. 3. Predental space narrowing, proliferative changes around the dens , erosive change and hypertrophic pannus around the dens consistent with arthritis. 4. Multilevel degenerative disc disease predominantly at C3-C4, C4-C5, C5-C6, C6-C7 levels with disc space narrowing and small disc osteophyte complexes. 5. Mild multilevel facet arthropathy. 6. Focal ligamentum flavum thickening and dystrophic calcification at C4-C5 axial image 3/48 and sagittal image 1002/48.
--- NOTE | 2023-12-07 21:20 | XR_ITS ---
PROCEDURE INFORMATION: Exam: XR Chest Exam date and time: 12/07/2023 9:35 PM Age: 82 years old Clinical indication: Injury or trauma; Fall; Blunt trauma (contusions or hematomas); Additional info: Fall from standing, hit head TECHNIQUE: Imaging protocol: Radiologic exam of the chest. Views: 1 view. COMPARISON: CR XR RIBS RT MIN 3V W CXR1V 05/21/2023 11:45 AM FINDINGS: Lungs: Unremarkable. No consolidation. Pleural spaces: Unremarkable. No pleural effusion. No pneumothorax. Heart/Mediastinum: Unremarkable. No cardiomegaly. Bones/joints: Unremarkable. Spine stimulator electrode projects over the midthoracic spine. Surgical clips the level of the thyroid bed. IMPRESSION: No acute findings.
--- NOTE | 2023-12-07 21:35 | ED_ITS ---
Discharge Plan Disposition Patient Disposition: Home, Self-Care Condition: Good Chief Complaint: Trauma Alert Prescriptions Prescriptions: No Action promethazine-DM 6.25-15 mg/5 mL syrup 5 ml PO Q4-6H PRN (Reason: .) benzonatate 200 mg capsule 200 mg PO BID PRN (Reason: .) cholecalciferol (vitamin D3) 25 mcg (1,000 unit) capsule 25 mcg PO DAILY budesonide 3 mg capsule,delayed,extend.release 6 mg PO DAILY Patient Comments: TAKE 2 CAPSULES BY MOUTH ONCE DAILY atorvastatin 10 mg tablet 10 mg PO DAILY Patient Comments: TAKE 1 TABLET BY MOUTH ONCE DAILY primidone 50 mg tablet 200 mg PO BID Qty: 270 5RF Rx Instructions: Advised to increase primidone to 200 mg in the morning and 250 mg at night topiramate 100 mg tablet 100 mg PO HS Qty: 90 3RF estradiol 0.01 % (0.1 mg/gram) cream See Rx Instructions vaginal .COMPLEX Qty: 42.5 2RF Rx Instructions: Using finger technique daily for two weeks and then twice weekly vaginally; oxybutynin chloride 10 mg tablet extended release 24hr 10 mg PO DAILY Qty: 90 3RF hydroxyzine pamoate 25 mg capsule 25 mg PO HS trazodone 100 mg tablet 100 mg PO HS PRN (Reason: .) cyanocobalamin (vitamin B-12) 1,000 mcg capsule 1,000 mcg PO DAILY hydrochlorothiazide 12.5 mg tablet 25 mg PO DAILY losartan 50 mg tablet 50 mg PO DAILY Qty: 30 2RF phenazopyridine [Pyridium] 200 mg tablet 200 mg PO TID Qty: 10 0RF propranolol 160 mg capsule,extended release 24 hr 160 mg PO DAILY Qty: 30 5RF doxycycline hyclate 100 mg capsule 100 mg PO Q12H 10 Days Qty: 20 0RF diclofenac sodium 75 MG tablet,delayed release (DR/EC) 75 mg PO BID citalopram 20 mg tablet 20 mg PO DAILY hydromorphone (PF) 1 MG/ML solution 0.0968 mg IT CONT Rx Instructions: MEDICATION DELIVERED VIA INTRATHECAL PAIN PUMP. TOTAL VOLUME OF PUMP IS 20ML Referrals Follow up/Referrals: Joi Lepe APRN [Primary Care Provider] - See instructions Activity Restrictions/Add. Instructions Additional Instructions/Restrictions: You can ice the area of injury for help with pain control and take anti- inflammatory medications as needed for pain control. Follow-up as planned tomorrow with your primary care provider and return for any new or worsening symptoms. Clinical Impressions Clinical Impression: Hematoma of left parietal scalp Instructions Patient Instructions: How to Prevent Falls Discharge ED Provider: Marlene Jimenez General Adult HPI General Chief complaint: Trauma Alert Stated complaint: fall from standing position Time Seen by Provider: 12/07/23 21:19 Mode of Arrival: EMS Limitations: No Limitations History of Present Illness HPI narrative: Patient is an 82-year-old female with past medical history of essential tremor, osteoarthritis, history of breast cancer, history of DVT, B12 deficiency, orthostatic hypotension presenting after fall from standing. She lives alone at home and states that her feet got away from her as she has some balance issues at baseline which is not abnormal for her causing her to fall. She did hit the back of her head with subsequent pain to the area. She states she is not on any blood thinning medications. She does not believe she passed out. She arrives from scene via EMS in c-collar and was hemodynamically stable en route. Related Data Home Medications Medication Instructions Recorded Confirmed diclofenac sodium 75 mg 75 mg PO BID Pain 12/02/21 10/06/23 tablet,delayed release hydromorphone (PF) 1 mg/mL 0.0968 mg intrathecal CONT CHRONIC 03/19/22 10/06/23 injection solution PAIN cyanocobalamin (vitamin B-12) 1,000 mcg PO DAILY 03/20/23 10/06/23 1,000 mcg capsule benzonatate 200 mg capsule 200 mg PO BID PRN . 05/21/23 10/06/23 promethazine-DM 6.25 mg-15 mg/5 mL 5 ml PO Q4-6H PRN . 05/21/23 10/06/23 oral syrup atorvastatin 10 mg tablet 10 mg PO DAILY 09/03/23 10/06/23 budesonide 3 mg 6 mg PO DAILY 09/03/23 10/06/23 capsule,delayed,extended release cholecalciferol (vitamin D3) 25 25 mcg PO DAILY 09/03/23 10/06/23 mcg (1,000 unit) capsule citalopram 20 mg tablet 20 mg PO DAILY MOOD 09/03/23 10/06/23 hydrochlorothiazide 12.5 mg tablet 25 mg PO DAILY Fluid 09/03/23 10/06/23 hydroxyzine pamoate 25 mg capsule 25 mg PO HS . 09/03/23 10/06/23 trazodone 100 mg tablet 100 mg PO HS PRN . 09/03/23 10/06/23 Previous Rx's Medication Instructions Recorded propranolol 160 mg capsule,24 160 mg PO DAILY #30 caps 07/14/23 hr,extended release primidone 50 mg tablet 200 mg (4 x 50 mg) PO BID Tremor 09/03/23 #270 tabs topiramate 100 mg tablet 100 mg PO HS Tremor #90 tabs 09/03/23 phenazopyridine 200 mg tablet 200 mg PO TID 6 doses #10 tabs 09/08/23 (Pyridium) losartan 50 mg tablet 50 mg PO DAILY #30 tabs 09/16/23 doxycycline hyclate 100 mg capsule 100 mg PO Q12H 10 days #20 caps 09/19/23 estradiol 0.01% (0.1 mg/gram) See Rx Instructions vaginal 10/06/23 vaginal cream .COMPLEX #42.5 grams oxybutynin chloride 10 mg 10 mg PO DAILY #90 tabs 10/06/23 tablet,extended release 24 hr Allergies Allergy/AdvReac Type Severity Reaction Status Date / Time Sulfa (Sulfonamide Allergy Severe Rash Verified 10/06/23 14:12 Antibiotics) levofloxacin [From Levaquin] Allergy Verified 10/06/23 14:12 Penicillins Allergy Unknown Verified 10/06/23 14:12 allergy reaction [facility] Disclaimer: The information contained in this section may have been updated after the patient was seen, as this information can be updated by other users. 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 HLD (hyperlipidemia) Implantable intrathecal infusion pump present Lumbar degenerative disc disease Presence of neurostimulator Surgical History History of cataract surgery History of cholecystectomy History of colon resection History of lumpectomy History of surgery pain pump, spinal stimulator History of throat surgery Family History Other Family history of cancer No family history of COPD Social History Smoking Status: Never smoker second hand exposure: No alcohol intake: never substance use type: denies use current occupational status: retired Travel in the last 8 weeks: None household members: spouse housing: house current occupational exposures/hazards: No caffeine: Yes ROS Obtained: Yes Systems reviewed as appropriate & no additional complaints except as documented Physical Exam General General appearance: alert and in no apparent distress Head Head exam: normocephalic and other (Hematoma over left posterior occiput) Eye Eye exam: Present PERRL and EOMI ENT ENT exam: Present mucous membranes moist Neck Neck exam: Present normal inspection and other (C-collared); Absent tenderness Chest Chest inspection: Present normal inspection and symmetric chest wall rise; Absent tenderness Respiratory Respiratory exam: Present normal lung sounds bilaterally; Absent respiratory distress Cardiovascular Cardiovascular exam: Present regular rate and normal rhythm Abdominal Exam Abdominal exam: Present soft; Absent distention, tenderness, guarding or rebound Extremities Exam Extremities exam: Present normal inspection, full ROM and other (Old bruising to the left upper outer thigh but no tenderness palpation throughout all extremities, sensation intact all extremities and range of motion intact all extremities); Absent tenderness Back Exam Back exam: Absent tenderness Neurological Exam Neurological exam: Present alert and oriented X3 Psychiatric Psychiatric exam: Present normal affect Skin Skin exam: Present warm and dry Medical Decision Making Medical Records Medical records reviewed: Yes I reviewed the patient's medical records. Jordy Inquiry Pt receiving controlled substance: No Vital Signs: 12/07/23 21:14 12/07/23 21:23 12/07/23 21:23 Temperature 97.8 F 97.8 F Temperature Source Oral Oral Oral Pulse Rate 60 Pulse Rate [Right Brachial] 57 L 69 Respiratory Rate 14 22 16 Blood Pressure 190/110 H Blood Pressure [Right Arm] 193/116 H 190/100 H Blood Pressure Mean Blood Pressure Mean [Right Arm] 141 130 Blood Pressure Source [Right Arm] Automatic Cuff Automatic Cuff Blood Pressure Position [Right Arm] Sitting Sitting 02 Sat by Pulse Oximetry 96 98 98 Oxygen Delivery Method Room Air Room Air Room Air 12/07/23 21:42 12/07/23 22:01 12/07/23 22:30 Temperature Temperature Source Pulse Rate 60 61 64 Pulse Rate [Right Brachial] Respiratory Rate 13 15 17 Blood Pressure 189/93 H 187/98 H 192/95 H Blood Pressure [Right Arm] Blood Pressure Mean 130 139 127 Blood Pressure Mean [Right Arm] Blood Pressure Source [Right Arm] Blood Pressure Position [Right Arm] 02 Sat by Pulse Oximetry 94 L 95 95 Oxygen Delivery Method Lab Data Lab results reviewed: Yes I reviewed the patient's lab results. Lab Results 12/07/23 20:55: WBC 6.4, RBC 3.59 L, Hgb 11.9 L, Hct 36.1 L, MCV 100.5 H, MCH 33.0 H, MCHC 32.8, RDW 14.0, Plt Count 291, MPV 9.4, Neut % (Auto) 50.3, Lymph % (Auto) 40.7, [place] % (Auto) 5.7, Eos % (Auto) 2.5, Baso % (Auto) 0.9, Neut # (Auto) 3.2, Lymph # (Auto) 2.6, [place] # (Auto) 0.4, Eos # (Auto) 0.2, Baso # (Auto) 0.1, Sodium 132 L, Potassium 4.3, Chloride 103, Carbon Dioxide 27, Anion Gap 6.3, BUN 19 H, Creatinine 1.00, Estimated Creat Clear 56, Estimated GFR 53 L , Est GFR ( Amer) 65, Glucose 98, Calcium 9.2, Total Bilirubin 0.5, AST 35, ALT 28, Alkaline Phosphatase 107, Troponin I < 0.01, Total Protein 6.9, Albumin 3.8, Globulin 3.1, Albumin/Globulin Ratio 1.2 12/07/23 20:55 12/07/23 20:55 Orders (Tests/Meds): ORDERS Category Date Time Status CT cervical spine wo con Stat Cat Scan 12/07/23 21:[address] head/brain wo con Stat Cat Scan 12/07/23 21:19 Completed Chest XR -- portable [XR chest portable] Stat Exams 12/07/23 21:20 Completed Pelvis XR 1-2 views [XR pelvis 1-2V] Stat Exams 12/07/23 22:33 Completed CBC [Complete Blood Count Auto Diff] Stat Lab 12/07/23 20:55 Completed CMP [Comprehensive Metabolic Panel] Stat Lab 12/07/23 20:55 Completed Trop I [Troponin I] Stat Lab 12/07/23 20:55 Completed ECG Data Tracing #1: Sinus bradycardia at a rate of 59 without acute ischemia or infarction ECG initial impression date: 12/07/23 ECG initial impression time: 21:17 Medical Decision Narrative: Patient is an 82-year-old female with past medical history essential tremor, hypertension, osteoarthritis, history of breast cancer, history of DVT, history of B12 deficiency and orthostatic hypotension presenting with fall from standing with subsequent traumatic hematoma to the left posterior occiput. She is hemodynamically stable and GCS 15 on arrival, no tenderness palpation throughout all extremities, no midline spinal tenderness but patient does arrive in a c- collar. She does have a large hematoma over that posterior occiput without any palpable skull fractures. Ear exam normal bilaterally. She does have some pinpoint pupils but she does have a pain pump which is likely contributory as they are equal bilaterally. EKG performed at bedside which was without acute ischemia or infarction. Fall seems mechanical in nature with isolated trauma to the head. I downgraded trauma and will obtain imaging for further evaluation as well as basic labs. CBC and CMP nonactionable, troponin negative, EKG without acute ischemia or infarction. Chest x-ray showing no acute process. CT brain and C-spine showing no acute abnormality except she does have an external posterior parietal scalp hematoma though no intracranial injury appreciated. Given that and patient remains hemodynamically stable with GCS 15 feel patient appropriate for discharge. I did clear her C-spine at bedside. I did discuss this with her son and daughter who are at bedside and they requested a pelvic x-ray given patient fell 2 weeks ago and they were concerned about a hip fracture. We did obtain a pelvis x-ray which was negative. She was ambulatory at bedside though patient is slightly weak which she states is her baseline. Given patient at her baseline with negative traumatic workup feel patient is appropriate for outpatient follow-up she has a scheduled follow-up with her PCP for tomorrow, family updated and in agreeance with plan. And discharged in stable condition. Critical Care Critical Care Time Critical Care Time: No
--- NOTE | 2023-12-07 22:33 | XR_ITS ---
PROCEDURE INFORMATION: Exam: XR Pelvis Exam date and time: 12/07/2023 10:33 PM Age: 82 years old Clinical indication: Injury or trauma; Fall; Blunt trauma (contusions or hematomas); Does not apply; Other: Head; Additional info: Fall from standing TECHNIQUE: Imaging protocol: Radiologic exam of the pelvis. Views: 1 or 2 view. COMPARISON: CR XR HIP LT 2-3V W/PELVIS 12/01/2020 4:15 PM FINDINGS: Bones/joints: No fracture or bone destruction. L4-L5 interposition graft with pedicle screws posterior fixation rods. Soft tissues: Unremarkable. Intraperitoneal space: Bilateral lower quadrant battery pack seen. IMPRESSION: 1. No fracture or bone destruction. 2. Bilateral lower quadrant battery pack seen. 3. L4-L5 interposition graft with pedicle screws posterior fixation rods.
--- NOTE | 2023-12-07 22:37 | PC.NURSE ---
Patient provided ice water. Multiple sips taken and tolerated. Patient does not report any nausea at present
[2023-12-07 22:41] LABS: Basophils # 0.1 K/mm3 (0-0.2); Basophils % 0.9 % (0.1-2.0); Eosinophils # 0.2 K/mm3 (0.0-0.4); Eosinophils % 2.5 % (0.1-12.0); Hematocrit 36.1 % (37.0-47.0); Hemoglobin 11.9 g/dL (12.2-16.2); Lymphocytes # 2.6 K/mm3 (0.7-4.5); Lymphocytes % 40.7 % (10-50); Mean Corpuscular HGB Conc 32.8 g/dL (31.8-35.4); Mean Corpuscular Volume 100.5 fl (81-99); Mean Platelet Volume 9.4 fl (7.4-10.4); Monocytes # 0.4 K/mm3 (0.1-1.0); Monocytes % 5.7 % (1.7-9.3); Neutrophils # 3.2 K/mm3 (1.8-7.8); Neutrophils % 50.3 % (37.0-80.0); Platelet Count 291 K/mm3 (142-424); Red Blood Count 3.59 M/mm3 (4.20-5.40); White Blood Count 6.4 K/mm3 (4.8-10.8)
[2023-12-07 22:42] LABS: Chloride 103 mmol/L (98-107); Potassium 4.3 mmoL/L (3.5-5.1); Sodium 132 mmol/L (136-145)
[2023-12-07 22:45] LABS: Alanine Aminotransferase 28 U/L (12-78); Albumin Level 3.8 g/dl (3.5-5.0); Albumin/Globulin Ratio 1.2 (1.1-1.8); Alkaline Phosphatase 107 U/L (38-126); Anion Gap 6.3 mEq/L (5-15); Aspartate Amino Transferase 35 U/L (14-36); Bilirubin,Total 0.5 mg/dl (0.2-1.3); Blood Urea Nitrogen 19 mg/dl (7-17); Carbon Dioxide 27 mmol/L (22.0-30.0); Creatinine Clearance Estimated 56 mL/min (50-200); Estimated Glomerular Filt Rate 53 ml/min (>60); GFR (African American) 65 ML/MIN (>60); Globulin 3.1 g/dL (1.3-3.2); Total Protein,Serum 6.9 g/dl (6.3-8.2)
[2023-12-07 22:46] LABS: Calcium 9.2 mg/dl (8.4-10.2); Glucose 98 mg/dl (74-100)
--- NOTE | 2023-12-07 22:53 | PC.NURSE ---
patient placed on bsc, call light within reach
[2023-12-07 22:58] LABS: Troponin I < 0.01 ng/ml (0.00-0.034)
== END 2023-12-07 23:36 | disposition home or self-care (01) ==
PROVIDERS: Emergency Provider Emergency Medicine; PCP Nurse Practitioner Family
DX: S00.03XA Contusion of scalp, initial encounter (principal); R51.9 Headache, unspecified; E87.1 Hypo-osmolality and hyponatremia; R00.1 Bradycardia, unspecified; E78.5 Hyperlipidemia, unspecified; I10 Essential (primary) hypertension; W18.30XA Fall on same level, unspecified, initial encounter
CPT/HCPCS: 70450; 71045; 72125; 72170; 80053; 84484; 85025; 93005; 99285

== ENCOUNTER 2023-12-23 12:47 | Day surgery (SDC) | payer MEDICARE, SELFPAY ==
[2023-12-23 13:14] VITALS: BP 131/75; PULSE 69; RESP 18; O2SAT 95; BMI 27.4
[2023-12-23 13:29] VITALS: BP 137/77; PULSE 93; RESP 18; O2SAT 96
[2023-12-23 13:31] VITALS: BP 137/77; PULSE 93; RESP 18; O2SAT 96
--- NOTE | 2023-12-23 13:35 | P.PCN_ITS ---
Procedure Date: 12/23/23 Time: 13:25 Anesthesiologist:: Shubham Lao CRNA Complications:: None Pre-procedure Diagnosis:: Degenerative disc lumbar spine multilevels. Lumbar radiculopathy. Lumbar postlaminectomy syndrome. Post-procedure Diagnosis:: Same. Indications for Procedure:: Patient is a very pleasant 82-year-old female comes our clinic today for intrathecal pain pump interrogation refill. She is currently being managed with Dilaudid 1 mg/mL at 0.1113 mg/day. Patient was increased by 5% at her last refill on 09/23/2023. She reports significant improvement in terms of her overall pain in the low back as well as bilateral hip and leg. She rates her pain today 09/13. She is not reporting any side effects or complications. She not requesting any changes. Patient is awake alert Shel[place] x 3. In no acute distress. Flexion-extension lumbar spine somewhat guarded secondary to pain. Deep tendon reflexes upper lower extremities normal. Motor strength upper and lower extremities normal. There is no gross sensory deficit. Gait is antalgic requiring a walker for stability. Procedure Details:: Details of the procedure explained to the patient. The patient taken procedure room placed in sitting position. They over the pumps cleansed using chlorhexidine as a cleansing solution. The pump was interrogated. The pump was accessed with ease using a 22-gauge inch and half needle. 9 mL of solution was withdrawn and discarded appropriately. The pump was then filled 20 cc of solution containing Dilaudid 1 mg/mL. The pump rate will continue at 0.1113 mg/day. Patient tolerated procedure without difficulty. There are no complications. Plan and Disposition:: Patient was discharged without incident
[2023-12-23 13:43] VITALS: BP 136/73; PULSE 69; RESP 18; O2SAT 95
[2023-12-23 16:08] LABS: Amphetamine/Metha Screen,Urine Negative ng/ml (<1000)
[2023-12-23 16:09] LABS: Barbiturates Screen,Urine Positive ng/ml (<200); Benzodiazepines Screen,Urine Negative ng/ml (<200)
[2023-12-23 16:10] LABS: Cannabinoid Screen,Urine Negative ng/ml (<50); Cocaine Screen,Urine Negative ng/ml (<300)
[2023-12-23 16:11] LABS: Methadone Screen,Urine Negative ng/ml (<300)
[2023-12-23 16:12] LABS: Opiate Screen,Urine Negative ng/ml (<300); Phencyclidine Screen,Urine Negative ng/ml (<25)
== END 2023-12-23 13:45 | disposition home or self-care (01) ==
PROVIDERS: Anesthesiology; PCP Family Medicine; Visit Provider Nurse Anesthetist, Certified Registered
DX: M51.16 Intervertebral disc disorders with radiculopathy, lumbar region (principal); M96.1 Postlaminectomy syndrome, not elsewhere classified; Z97.8 Presence of other specified devices; Z45.1 Encounter for adjustment and management of infusion pump
CPT/HCPCS: 80307; 80361; 80365; 95991; G0480

== ENCOUNTER 2023-12-25 11:53 | Emergency (ER) | payer MEDICARE, SELFPAY ==
[2023-12-25 12:00] VITALS: BP 162/82; PULSE 74; RESP 20; TEMP 36.6; O2SAT 99; BMI 27.4
--- NOTE | 2023-12-25 12:03 | XR_ITS ---
FINAL REPORT TECHNIQUE: Chest PA & Lateral CLINICAL HISTORY: Shortness of breath COMPARISON: 07/23/2021 FINDINGS: 2 views of the chest were performed. The heart size is normal. The mediastinum is within normal limits. There is no acute cardiopulmonary process. There are no pleural effusions. There is no pneumothorax. The bony thorax appears intact. IMPRESSION: No acute cardiopulmonary process. Reviewed, Interpreted and Dictated by Ike Monroy MD Transcribed by Paula Biswas Authenticated and [facility]
--- NOTE | 2023-12-25 12:07 | ECG_ITS ---
APPROVED REPORT Exam: Resting ECG HR:63 bpm ECG Measurements Heart Rate 63 AXES FL 155 P 84 QRSd 93 QRS 42 QT 396 T 45 QTc 404 Conclusion SINUS RHYTHM Electronically signed by : NIKI LAYTON, 12/25/2023 15:50:44
--- NOTE | 2023-12-25 12:07 | PC.NURSE ---
Dr. Mendosa at BS for pt eval
--- NOTE | 2023-12-25 12:08 | PC.NURSE ---
DR LAYTON AT BEDSIDE
--- NOTE | 2023-12-25 12:23 | ED_ITS ---
Discharge Plan Disposition Patient Disposition: Home, Self-Care Chief Complaint: Shortness of Breath/Dyspnea Prescriptions Prescriptions: No Action promethazine-DM 6.25-15 mg/5 mL syrup 5 ml PO Q4-6H PRN (Reason: .) benzonatate 200 mg capsule 200 mg PO BID PRN (Reason: .) cholecalciferol (vitamin D3) 25 mcg (1,000 unit) capsule 25 mcg PO DAILY budesonide 3 mg capsule,delayed,extend.release 6 mg PO DAILY Patient Comments: TAKE 2 CAPSULES BY MOUTH ONCE DAILY atorvastatin 10 mg tablet 10 mg PO DAILY Patient Comments: TAKE 1 TABLET BY MOUTH ONCE DAILY primidone 50 mg tablet 200 mg PO BID Qty: 270 5RF Rx Instructions: Advised to increase primidone to 200 mg in the morning and 250 mg at night topiramate 100 mg tablet 100 mg PO HS Qty: 90 3RF estradiol 0.01 % (0.1 mg/gram) cream See Rx Instructions vaginal .COMPLEX Qty: 42.5 2RF Rx Instructions: Using finger technique daily for two weeks and then twice weekly vaginally; oxybutynin chloride 10 mg tablet extended release 24hr 10 mg PO DAILY Qty: 90 3RF hydroxyzine pamoate 25 mg capsule 25 mg PO HS trazodone 100 mg tablet 100 mg PO HS PRN (Reason: .) cyanocobalamin (vitamin B-12) 1,000 mcg capsule 1,000 mcg PO DAILY hydrochlorothiazide 12.5 mg tablet 25 mg PO DAILY losartan 50 mg tablet 50 mg PO DAILY Qty: 30 2RF phenazopyridine [Pyridium] 200 mg tablet 200 mg PO TID Qty: 10 0RF propranolol 160 mg capsule,extended release 24 hr 160 mg PO DAILY Qty: 30 5RF doxycycline hyclate 100 mg capsule 100 mg PO Q12H 10 Days Qty: 20 0RF diclofenac sodium 75 MG tablet,delayed release (DR/EC) 75 mg PO BID citalopram 20 mg tablet 20 mg PO DAILY hydromorphone (PF) 1 MG/ML solution 0.0968 mg IT CONT Rx Instructions: MEDICATION DELIVERED VIA INTRATHECAL PAIN PUMP. TOTAL VOLUME OF PUMP IS 20ML Referrals Follow up/Referrals: Soy Liu MD [Primary Care Provider] - See instructions Activity Restrictions/Add. Instructions Additional Instructions/Restrictions: Call your family doctor to establish care for this visit to the emergency department and schedule follow-up within 48 hours to ensure improvement. If you have any worsening of your condition or any other concerning signs or symptoms, return to the emergency department or your primary care doctor for further evaluation. Clinical Impressions Clinical Impression: Acute pneumonitis Discharge ED Provider: Jl Mendosa HPI General Chief Complaint: Shortness of Breath/Dyspnea Stated Complaint: soa low o2 elevated heart rate Time Seen by Provider: 12/25/23 11:59 Mode of Arrival: Ambulatory Source of Information: Patient Limitations: No Limitations Description of Symptoms (Recalled from ER Triage Doc. by RN): PT REPORTS INCREASED SHORTNESS OF BREATH THAT IS WORSE THIS AM. History of Present Illness HPI narrative: Please note that above description of symptoms, in this electronic medical record under categorization of recalled from ER triage doctor by RN are reflective of an initial nursing assessment, however, is not reflective of my full history and physical exam that was personally taken and clarified. Consequentially, this preceding description of symptoms, which may include the patient's categorized chief complaint in the EMR, do not reflect my personal clinical impression, and the ultimate description of history of present illness and patient stated complaints should be deferred to this section of the note. Unless stated otherwise or congruent with this section of the note, additional signs, symptoms, or incongruence should be interpreted as inaccurate with my clinical impression. Related Data Home Medications Medication Instructions Recorded Confirmed diclofenac sodium 75 mg 75 mg PO BID Pain 12/02/21 10/06/23 tablet,delayed release hydromorphone (PF) 1 mg/mL 0.0968 mg intrathecal CONT CHRONIC 03/19/22 10/06/23 injection solution PAIN cyanocobalamin (vitamin B-12) 1,000 mcg PO DAILY 03/20/23 10/06/23 1,000 mcg capsule benzonatate 200 mg capsule 200 mg PO BID PRN . 05/21/23 10/06/23 promethazine-DM 6.25 mg-15 mg/5 mL 5 ml PO Q4-6H PRN . 05/21/23 10/06/23 oral syrup atorvastatin 10 mg tablet 10 mg PO DAILY 09/03/23 10/06/23 budesonide 3 mg 6 mg PO DAILY 09/03/23 10/06/23 capsule,delayed,extended release cholecalciferol (vitamin D3) 25 25 mcg PO DAILY 09/03/23 10/06/23 mcg (1,000 unit) capsule citalopram 20 mg tablet 20 mg PO DAILY MOOD 09/03/23 10/06/23 hydrochlorothiazide 12.5 mg tablet 25 mg PO DAILY Fluid 09/03/23 10/06/23 hydroxyzine pamoate 25 mg capsule 25 mg PO HS . 09/03/23 10/06/23 trazodone 100 mg tablet 100 mg PO HS PRN . 09/03/23 10/06/23 Previous Rx's Medication Instructions Recorded propranolol 160 mg capsule,24 160 mg PO DAILY #30 caps 07/14/23 hr,extended release primidone 50 mg tablet 200 mg (4 x 50 mg) PO BID Tremor 09/03/23 #270 tabs topiramate 100 mg tablet 100 mg PO HS Tremor #90 tabs 09/03/23 phenazopyridine 200 mg tablet 200 mg PO TID 6 doses #10 tabs 09/08/23 (Pyridium) losartan 50 mg tablet 50 mg PO DAILY #30 tabs 09/16/23 doxycycline hyclate 100 mg capsule 100 mg PO Q12H 10 days #20 caps 09/19/23 estradiol 0.01% (0.1 mg/gram) See Rx Instructions vaginal 10/06/23 vaginal cream .COMPLEX #42.5 grams oxybutynin chloride 10 mg 10 mg PO DAILY #90 tabs 10/06/23 tablet,extended release 24 hr Allergies Allergy/AdvReac Type Severity Reaction Status Date / Time Sulfa (Sulfonamide Allergy Severe Rash Verified 10/06/23 14:12 Antibiotics) levofloxacin [From Levaquin] Allergy Verified 10/06/23 14:12 Penicillins Allergy Unknown Verified 10/06/23 14:12 allergy reaction [facility] Disclaimer: The information contained in this section may have been updated after the patient was seen, as this information can be updated by other users. 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 HLD (hyperlipidemia) Implantable intrathecal infusion pump present Lumbar degenerative disc disease Presence of neurostimulator Surgical History History of cataract surgery History of cholecystectomy History of colon resection History of lumpectomy History of surgery pain pump, spinal stimulator History of throat surgery Family History Other Family history of cancer No family history of COPD Social History Smoking Status: Never smoker second hand exposure: No alcohol intake: never substance use type: denies use current occupational status: retired Travel in the last 8 weeks: None household members: spouse housing: house current occupational exposures/hazards: No caffeine: Yes ROS Obtained: Yes All systems reviewed & no additional complaints except as documented Physical Exam General General appearance: alert and in no apparent distress Neck Neck exam: Present normal inspection and trachea midline Chest Chest inspection: Present normal inspection and symmetric chest wall rise Respiratory Respiratory exam: Present normal lung sounds bilaterally; Absent respiratory distress, wheezes, stridor, accessory muscle use or prolonged expiratory phase Cardiovascular Cardiovascular exam: Present regular rate and normal rhythm Extremities Exam Extremities exam: Absent edema Neurological Exam Neurological exam: Present alert, oriented X3 and CN II-XII intact Skin Skin exam: Present warm and dry; Absent cyanosis, diaphoresis or pallor HEART Score HEART Score HEART Score assessment performed?: Yes HEART Score: 4 Critical Care Critical Care Time Critical Care Time: No Medical Decision Making Medical Records Medical records reviewed: Yes I reviewed the patient's medical records. Jordy Inquiry Pt receiving controlled substance: No Jordy was queried for this patient: No Vital Signs Vital Signs: 12/25/23 12:00 12/25/23 12:31 12/25/23 13:00 Temperature 97.9 F Temperature Source Oral Pulse Rate 73 67 Pulse Rate [Apical] 74 Respiratory Rate 20 17 12 Blood Pressure 169/81 H 133/74 Blood Pressure [Right Arm] 162/82 H Blood Pressure Mean 112 93 Blood Pressure Mean [Right Arm] 108 Blood Pressure Source [Right Arm] Automatic Cuff Blood Pressure Position [Right Arm] Sitting 02 Sat by Pulse Oximetry 99 98 94 L Oxygen Delivery Method Room Air Lab Data Labs: Lab Results 12/25/23 12:00: D-Dimer 0.85 H 12/25/23 12:10: WBC 5.2, RBC 3.76 L, Hgb 12.4, Hct 39.0, MCV 103.8 H, MCH 33.1 H , MCHC 31.9, RDW 14.1, Plt Count 289, MPV 8.3, Neut % (Auto) 64.2, Lymph % (Auto) 27.0, [place] % (Auto) 5.9, Eos % (Auto) 2.0, Baso % (Auto) 0.9, Neut # (Auto) 3.3, Lymph # (Auto) 1.4, [place] # (Auto) 0.3, Eos # (Auto) 0.1, Baso # (Auto) 0.1, Sodium 135 L, Potassium 3.8, Chloride 101, Carbon Dioxide 24, Anion Gap 13.8, BUN 30 H, Creatinine 1.00, Estimated Creat Clear 52, Estimated GFR 53 L, Est GFR ( Amer) 64, Glucose 90, Calcium 9.5, Total Bilirubin 0.5, AST 31, ALT 27, Alkaline Phosphatase 95, Troponin I < 0.01, NT-Pro-B Natriuret Pep 172, Total Protein 7.5, Albumin 4.2, Globulin 3.3 H, Albumin/Globulin Ratio 1.3, Procalcitonin 0.055 12/25/23 12:10 12/25/23 12:10 Response Orders (Tests/Meds): ED MEDICATIONS Discontinued Medications Generic Name Dose Route Start Last Admin Trade Name Freq PRN Reason Stop Dose Admin Aspirin 324 mg 12/25/23 12:19 12/25/23 12:26 Aspirin 81mg Chewable Tablet PO 12/25/23 12:20 324 mg ONCE ONE Administration Iopamidol 100 ml 12/25/23 13:41 12/25/23 13:44 Iopamidol-370 (76%);100ml Bottle IV 12/25/23 13:42 100 ml ONCE ONE Administration Sodium Chloride 40 ml 12/25/23 13:41 12/25/23 13:43 0.9 % Sodium Chloride 50 Ml Vial IV 12/25/23 13:42 40 ml ONCE ONE Administration Sodium Chloride 10 ml 12/25/23 13:41 12/25/23 13:44 Sodium Chloride 0.9% 10ml Syr (Rad Only) IV 12/25/23 13:42 10 ml ONCE ONE Administration ORDERS Category Date Time Status CT angio chest PE protocol Stat Cat Scan 12/25/23 13:14 Completed CXR 2 view (NOT portable) [XR chest 2V] Stat Exams 12/25/23 12:03 Taken Complete Blood Count Auto Diff Stat Lab 12/25/23 12:10 Completed Comprehensive Metabolic Panel Stat Lab 12/25/23 12:10 Completed D-Dimer Stat Lab 12/25/23 12:00 Completed NT Pro Brain Natriuretic Pep. Stat Lab 12/25/23 12:10 Completed Procalcitonin Stat Lab 12/25/23 12:10 Completed Troponin I Q3H Lab 12/25/23 15:15 Ordered Troponin I Q3H Lab 12/25/23 18:15 Ordered Troponin I Stat Lab 12/25/23 12:10 Completed MDM Narrative Medical Decision Narrative: 83-year-old female history of anxiety, hyperlipidemia, cerebellar degeneration with essential tremor, DVT anticoagulation, in the very remote past not currently on an tact relation presenting with shortness of breath. Patient was seen by [facility] this morning, 12/24. They were concerned for elevated blood pressure, elevated heart rate, low oxygen, but none of these numbers were relayed to family and no specifics were given upon arrival to the emergency department. Patient states that she has been feeling short of breath for very long time, worse over the past couple of days. No associated cough, nausea or vomiting, PND, orthopnea, chest pain, lower extremity swelling, abdominal pain, chest pain, diarrhea, sick contacts. Per family on additional conversation, patient has been increasingly anxious as of late. Self discontinued her beta- noah and has not been taking that in a couple of weeks. Has had recent loss of spouse, and multiple family members leave the state. She thinks it is primarily anxiety, but out of concern for low oxygen, brought her to the emergency department for evaluation. History was obtained via conversation with patient and family. On arrival, patient hemodynamically stable, alert, oriented x4, appropriate, GCS 15, moving all extremities spontaneously, pupils equal and reactive to light. Full physical exam performed and significant for chronically ill-appearing woman who is in no acute distress. Nontachypneic, nontachycardic, only mildly hypertensive. 100% on room air with no increased work of breathing. Differential includes microvascular coronary artery disease, CHF, ACS, PA, coronary artery dissection, pneumothorax, PE, dissection, pericarditis, myocarditis, pneumothorax, aortic aneurysm, pneumonia, bronchitis, among others. Patient was given aspirin p.o. for symptomatic management and correction of underlying abnormalities. Workup independently interpreted and significant for nonactionable CBC or chemistry. Kidney function normal, troponin negative, BNP negative, chest x-ray without acute cardiopulmonary space disease. D-dimer elevated at 0.85 outside of age adjusted. Because patient has history of DVT and elevated dimer, CT PE ordered. CT PE without PE, but concern for pneumonitis, no consolidation. See radiology read for full review of final results. Independent interpretation of EKG shows sinus rhythm [address] or T wave changes concerning for acute ischemia. Patient placed on continuous cardiac monitoring and continuous pulse ox with initial blood pressure 162/82, heart rate 74, saturation 99% on room air. Heart score 4. On reevaluation, patient resting comfortably in bed. Given patient presentation, workup, history, this most likely represents pneumonitis. Because patient at baseline without signs or symptoms of clinical decompensation, deemed appropriate for discharge. Results were relayed to patient who voiced understanding and were agreeable to outpatient management and follow up. I discussed my clinical impression with patient and answered all questions. At this time, the evidence for any other entities in the differential is insufficient to warrant any further testing or ED observation. This was explained as well. Advisory was given that persistent or worsening symptoms require further evaluation. I confirmed the understanding of this discussion. Nut Picker disclaimer Much of this encounter note is an electronic associate professor of pathology spoken language to printed text. Electronic associate professor of pathology of the spoken language may permit errors. Although I have reviewed the note, some errors may still exist.
[2023-12-25] MEDS: ASPIRIN 81MG CHEWABLE TABLET 324 MG PO (12:26)
[2023-12-25 12:31] VITALS: BP 169/81; PULSE 73; RESP 17; O2SAT 98
[2023-12-25 12:36] LABS: Basophils # 0.1 K/mm3 (0-0.2); Basophils % 0.9 % (0.1-2.0); Eosinophils # 0.1 K/mm3 (0.0-0.4); Hemoglobin 12.4 g/dL (12.2-16.2); Lymphocytes # 1.4 K/mm3 (0.7-4.5); Mean Corpuscular HGB Conc 31.9 g/dL (31.8-35.4); Mean Corpuscular Hemoglobin 33.1 pg (27.0-31.2); Mean Corpuscular Volume 103.8 fl (81-99); Mean Platelet Volume 8.3 fl (7.4-10.4); Monocytes # 0.3 K/mm3 (0.1-1.0); Monocytes % 5.9 % (1.7-9.3); Neutrophils # 3.3 K/mm3 (1.8-7.8); Neutrophils % 64.2 % (37.0-80.0); Platelet Count 289 K/mm3 (142-424); Red Blood Count 3.76 M/mm3 (4.20-5.40); Red Cell Distribution Width 14.1 % (11.5-17.5); White Blood Count 5.2 K/mm3 (4.8-10.8)
[2023-12-25 12:40] LABS: Alanine Aminotransferase 27 U/L (12-78); Alkaline Phosphatase 95 U/L (38-126); Aspartate Amino Transferase 31 U/L (14-36); Bilirubin,Total 0.5 mg/dl (0.2-1.3); Blood Urea Nitrogen 30 mg/dl (7-17); Calcium 9.5 mg/dl (8.4-10.2); Carbon Dioxide 24 mmol/L (22.0-30.0); Chloride 101 mmol/L (98-107); Creatinine Clearance Estimated 52 mL/min (50-200); Estimated Glomerular Filt Rate 53 ml/min (>60); GFR (African American) 64 ML/MIN (>60); Glucose 90 mg/dl (74-100); Sodium 135 mmol/L (136-145)
[2023-12-25 12:41] LABS: Albumin Level 4.2 g/dl (3.5-5.0); Albumin/Globulin Ratio 1.3 (1.1-1.8); Anion Gap 13.8 mEq/L (5-15); Globulin 3.3 g/dL (1.3-3.2); Potassium 3.8 mmoL/L (3.5-5.1); Total Protein,Serum 7.5 g/dl (6.3-8.2)
[2023-12-25 12:52] LABS: NT Pro Brain Natriuretic Pep. 172 pg/mL (0-450)
[2023-12-25 12:56] LABS: D-Dimer 0.85 ug/mL (0.0-0.5)
[2023-12-25 12:58] LABS: Procalcitonin 0.055 ng/mL (0.0-2.0)
[2023-12-25 13:00] VITALS: BP 133/74; PULSE 67; RESP 12; O2SAT 94
[2023-12-25 13:05] LABS: Troponin I < 0.01 ng/ml (0.00-0.034)
--- NOTE | 2023-12-25 13:14 | CT_ITS ---
FINAL REPORT TECHNIQUE: Postcontrast axial images of the chest were performed in a CTA protocol. This study was performed with techniques to keep radiation doses as low as reasonably achievable, (ALARA). Individualized dose reduction technique using automated exposure control or adjustment of mA and/or kV according to the patient's size were employed. CLINICAL HISTORY: soa, dimer elevated COMPARISON: 06/08/2021 FINDINGS: The heart is normal in size. No adenopathy is identified. No pleural or pericardial effusion is identified. There is a prominent pericardial recess. The thoracic aorta is normal in caliber with no focal aneurysm or dissection identified. There is no filling defect to suggest pulmonary embolism. Patchy groundglass opacities are seen likely due to acute pneumonitis, new from prior exam. The images of the upper abdomen are unremarkable. IMPRESSION: No evidence for PE on this exam. Acute pneumonitis, new from prior exam. Reviewed, Interpreted and Dictated by Ike Monroy MD Transcribed by Essence Peter Authenticated and [facility]
[2023-12-25] MEDS: 0.9 % SODIUM CHLORIDE 50 ML VIAL 40 ML IV (13:43)
[2023-12-25] MEDS: IOPAMIDOL-370 (76%);100ML BOTTLE 100 ML IV (13:44)
[2023-12-25] MEDS: SODIUM CHLORIDE 0.9% 10ML SYR (RAD ONLY) 10 ML IV (13:44)
[2023-12-25 15:05] VITALS: BP 146/94; PULSE 65; RESP 18; TEMP 36.6; O2SAT 98
[2023-12-25] MEDS: DEXAMETHASONE 4MG TABLET 10 MG PO (15:12)
== END 2023-12-25 15:19 | disposition home or self-care (01) ==
PROVIDERS: Emergency Provider Emergency Medicine; PCP Family Medicine
DX: J84.114 Acute interstitial pneumonitis (principal); R06.02 Shortness of breath; E78.5 Hyperlipidemia, unspecified
CPT/HCPCS: 71046; 71275; 80053; 83880; 84145; 84484; 85025; 85378; 93005; 99285; Q9967

== ENCOUNTER 2024-01-22 15:12 | Outpatient (CLI) | payer MEDICARE, SELFPAY ==
[2024-01-22 15:39] LABS: Blood Urea Nitrogen 31 mg/dl (7-17); Estimated Glomerular Filt Rate 53 ml/min (>60); GFR (African American) 64 ML/MIN (>60)
== END 2024-01-22 23:59 | disposition home or self-care (01) ==
LOC: LAB 15:15
PROVIDERS: PCP Nurse Practitioner Family; Visit Provider Nurse Practitioner Family
DX: J44.9 Chronic obstructive pulmonary disease, unspecified (principal)
CPT/HCPCS: 36415; 82565; 84520

== ENCOUNTER 2024-01-27 13:01 | Outpatient (CLI) | payer MEDICARE, SELFPAY ==
--- NOTE | 2024-01-27 | CA_ITS ---
APPROVED REPORT EXAM: Comprehensive 2D, Doppler, and color-flow Echocardiogram Farmer General: Rosemarie Lofton, RCS, RVS Ht: 5 ft 5 in Wt: 172lbs BSA: 1.86 BP: 131/70 mmHg Indications: COPD, SOB, LOZADA, Fatigue, PHTN 2D Dimensions Aortic Root 3.01 cm LA Volume 46.00 mL Left Atrium 3.33 cm LA Volume Index 24.017555 mL/m2 (M/F) 16-34 RVID Base (AP4) 2.77 cm (M/F) 2.5-4.1 EF AP4 64.30 % LVOT 2.07 cm (M/F) 1.5-2.5 GL Strain -22.7 % M-Mode Dimensions RVDd 2.31 cm (0.9-2.6) LVDd 4.88 cm (3.5-5.7) Ao Diam 3.16 cm (2.0-3.7) LVDs 3.21 cm (3.5-5.7) IVSd 0.80 cm (0.6-1.1) PWd 0.90 cm (0.6-1.1) EF (Teich) 63.00% EPSs 0.44 cm FS 34.20% EDV (Teich) 111.70 mL TAPSE 1.58 (<1.7) ESV (Teich) 41.30 mL LV Diastology E Decel Time 194 (160-240 msec) E/A Ratio 0.99 MED E' 10.3 (>= 7 cm/sec) MED A' 8.60 cm/s E'/MED E' Ratio 8.13 (<= 14) LAT E' 11.0 (>= 10 cm/sec) LAT A' 7.60 cm/s E/LAT E' Ratio 7.61 (<= 14) Aortic Valve LVOT Max 54.0 (70-110 cm/s) AISHWARYA Index 1.24 cm2/m2 LVOT VTI 14.58 cm AoV Peak Ryan. 85.0 (50-130 cm/s) AO Mean GR. 1.50 (<5 mmHg) AO VTI 21.4 (18-25 cm) AISHWARYA (VTI) 2.30 (2.5-4.5 cm2) Mitral Valve MV E Max Ryan. 84.0 (40-130 cm/s) MV A Velocity 84.0 (40-130 cm/s) E/A Ratio 0.99 MV Decel. Time 194 (160-240 ms) Pulmonary Valve IN End VMAX 153.0 cm/s Tricuspid Valve TR P. Velocity 272.00 cm/s Left Ventricle The left ventricle is normal size. The left ventricular systolic function is normal. The left ventricular ejection fraction is within the normal range. Proximal septal thickening is noted. There is normal LV segmental wall motion. The left ventricular diastolic function is normal. LVEF is 55%. Right Ventricle The right ventricle is normal size. The right ventricular systolic function is normal. Atria The left atrium size is normal. The right atrium size is normal. There is no Doppler evidence of interatrial shunt. Aortic Valve The aortic valve is mildly thickened. There is no aortic valvular stenosis. Trace aortic regurgitation. Mitral Valve The mitral valve leaflets are mildly thickened. No evidence of mitral valve stenosis. Mild mitral regurgitation. Tricuspid Valve The tricuspid valve leaflets are thin and pliable. Trace tricuspid regurgitation. There is insufficient TR jet to estimate RVSP. Pulmonic Valve The pulmonary valve is normal in structure. Trace pulmonic regurgitation. Great Vessels The aortic root is normal in size. The ascending aorta is normal in size. IVC is normal in size and collapses >50% with inspiration. Pericardium There is no pericardial effusion. Other Information Study Quality: Fair Conclusion Normal biventricular systolic function. Mild MR. Electronically signed by : Kristie Bello MD 01/31/2024 22:05:13
--- NOTE | 2024-01-27 13:07 | CT_ITS ---
FINAL REPORT TECHNIQUE: Axial CT with contrast with 3-D MIP reconstruction. This study was performed with techniques to keep radiation doses as low as reasonably achievable, (ALARA). Individualized dose reduction techniques using automated exposure control or adjustment of mA and/or kV according to the patient's size were employed. CLINICAL HISTORY: COPD,ASTHMA ON EXACERBATION COMPARISON: CTA 12/25/2023 FINDINGS: Pulmonary vessels enhance in normal fashion without evidence of embolism. Thoracic aorta shows no dissection or aneurysm. There has been resolution of groundglass opacities in the lower lobe since the prior exam. There is mild atelectasis in the left lung base. There is no significant pleural effusion. There is no significant pericardial effusion. No mediastinal or hilar adenopathy is present. IMPRESSION: Resolution of pneumonia without acute findings. Reviewed, Interpreted and Dictated by Willard Stuart MD Transcribed by Paula Biswas Authenticated and [facility]
[2024-01-27] MEDS: SODIUM CHLORIDE 0.9% 10ML SYR (RAD ONLY) 10 ML IV (14:14)
[2024-01-27] MEDS: IOPAMIDOL-370 (76%);100ML BOTTLE 75 ML IV (14:14)
== END 2024-01-27 23:59 | disposition home or self-care (01) ==
LOC: RAD 13:02
PROVIDERS: PCP Family Medicine; Visit Provider Nurse Practitioner Family
DX: J44.9 Chronic obstructive pulmonary disease, unspecified (principal); J45.901 Unspecified asthma with (acute) exacerbation; R06.02 Shortness of breath; R06.09 Other forms of dyspnea; R53.83 Other fatigue; I27.20 Pulmonary hypertension, unspecified
CPT/HCPCS: 71260; 93306; Q9967

== ENCOUNTER 2024-02-24 13:53 | Outpatient (CLI) | payer MEDICARE, SELFPAY ==
--- NOTE | 2024-02-24 13:57 | XR_ITS ---
FINAL REPORT CLINICAL HISTORY: Lt Knee Pain COMPARISON: 12/01/2020 FINDINGS: Left knee Three views were obtained. There is no acute fracture or dislocation. Patient is status post left knee arthroplasty. IMPRESSION: No acute process. Reviewed, Interpreted and Dictated by Willard Stuart MD Transcribed by Joi Cuba Authenticated and [facility]
--- NOTE | 2024-02-24 13:57 | XR_ITS ---
FINAL REPORT CLINICAL HISTORY: Lt Hip Pain COMPARISON: 12/01/2020 FINDINGS: Left hip Three views were obtained. There is no acute fracture or dislocation. There are mild degenerative changes No soft tissue abnormality is identified. IMPRESSION: No acute process. Reviewed, Interpreted and Dictated by Willard Stuart MD Transcribed by Joi Cuba Authenticated and . [facility]
== END 2024-02-24 23:59 | disposition home or self-care (01) ==
LOC: RAD 13:54
PROVIDERS: PCP Nurse Practitioner Family; Visit Provider Physician Assistant
DX: M25.552 Pain in left hip (principal); M25.562 Pain in left knee
CPT/HCPCS: 73502; 73562

== ENCOUNTER 2024-03-30 12:54 | Day surgery (SDC) | payer MEDICARE, SELFPAY ==
[2024-03-30 13:18] VITALS: BP 129/87; PULSE 87; RESP 16; O2SAT 99; BMI 27.8
[2024-03-30 13:42] LABS: POC Glucose,Bedside 169 (70-110)
[2024-03-30 14:03] VITALS: BP 131/66; PULSE 78; RESP 18; O2SAT 99
--- NOTE | 2024-03-30 14:04 | EXP.PAIN.PRO ---
Procedure Date: 03/30/24 Time: 13:45 Anesthesiologist:: Shubham Lao CRNA Complications:: None Pre-procedure Diagnosis:: Degenerative disc lumbar spine multilevels. Lumbar radiculopathy. Lumbar postlaminectomy syndrome. Post-procedure Diagnosis:: Same. Indications for Procedure:: Patient is a very pleasant 83-year-old female comes our clinic today for intrathecal pain pump interrogation and refill. She is currently being managed with Dilaudid 1 mg/mL at a rate of 0.1113 mg/day. She is doing very well with her current settings. She is not requesting any changes. She is not reporting side effects or complications. Patient is awake alert [place] x 3. In no acute distress. Flexion-extension lumbar spine guarded secondary to pain. Deep tendon reflexes upper lower extremities normal. Motor strength upper EXTR lower extremities normal. There is no gross sensory deficit. Patient presents in a wheelchair today due to distance from the parking lot to the clinic. Procedure Details:: Details of the procedure explained to the patient. The patient taken procedure room patient sitting position. The area of the pump was cleansed using chlorhexidine as a cleansing solution. The pump was interrogated. The pump was accessed with ease using a 22-gauge inch and half needle. 8 mL of solution was withdrawn discarded appropriate. The pump was then filled 20 cc of solution containing hydromorphone 1 mg/mL. The rate will continue at 0.113 mg/day. Patient tolerated procedure without difficulty. No complications. Plan and Disposition:: Patient was discharged without incident.
[2024-03-30 14:07] VITALS: BP 135/75; PULSE 81; RESP 18; O2SAT 93
[2024-03-30 14:08] VITALS: BP 135/75; PULSE 81; RESP 18; O2SAT 93
== END 2024-03-30 14:03 | disposition home or self-care (01) ==
PROVIDERS: PCP Nurse Practitioner Family; Visit Provider Nurse Anesthetist, Certified Registered
DX: M51.36 Other intervertebral disc degeneration, lumbar region (principal); M96.1 Postlaminectomy syndrome, not elsewhere classified; Z79.891 Long term (current) use of opiate analgesic
CPT/HCPCS: 82962; 95991

== ENCOUNTER 2024-05-07 08:15 | Outpatient (CLI) | payer MEDICARE, SELFPAY ==
--- NOTE | 2024-05-07 08:18 | CT_ITS ---
FINAL REPORT TECHNIQUE: Axial images through the abdomen and pelvis was performed with and without contrast. Reformatted images were obtained and reviewed. This study was performed with techniques to keep radiation doses as low as reasonably achievable (ALARA). Individualized dose reduction techniques using automated exposure control or adjustment of mA and/or kV according to the patient's size were employed. CLINICAL HISTORY: ABD PAIN FINDINGS: Streak artifact is seen arising from infusion pump devices in the superior right gluteal region and mid left posterior abdominal wall. There is scarring at the left base. There is fatty infiltration of the liver. The gallbladder is absent. The spleen is unremarkable. The adrenals are normal. The pancreas is unremarkable. There is a mass in the superior pole of the left kidney measuring 1.6 cm in diameter. Mass is heterogeneous and shows significant enhancement worrisome for possible neoplasm. Precontrast images demonstrate no nephrolithiasis. The appendix is normal. There is scattered diverticuli throughout descending and sigmoid colon. There is a fibroid uterus. The osseous structures demonstrate lumbar scoliosis convex to the left measuring 20 degrees. There is no free fluid or adenopathy. IMPRESSION: Mass in the superior pole of the left kidney concerning for renal cell carcinoma. Urologic evaluation is recommended. Reviewed, Interpreted and Dictated by Ike Monroy MD Transcribed by Joi Cuba Authenticated and . [facility]
[2024-05-07] MEDS: SODIUM CHLORIDE 0.9% 10ML SYR (RAD ONLY) 10 ML IV (08:43)
[2024-05-07] MEDS: IOPAMIDOL-370 (76%);100ML BOTTLE 75 ML IV (08:43)
== END 2024-05-07 23:59 | disposition home or self-care (01) ==
LOC: RAD 08:16
PROVIDERS: PCP Nurse Practitioner Family; Visit Provider Nurse Practitioner Family
DX: R10.9 Unspecified abdominal pain (principal)
CPT/HCPCS: 74178; Q9967

== ENCOUNTER 2024-06-04 14:46 | Outpatient (CLI) | payer MEDICARE, SELFPAY | END 2024-06-04 23:59 | disposition home or self-care (01) | LOC: RT 14:46 | PROVIDERS: PCP Nurse Practitioner Family; Visit Provider Internal Medicine Pulmonary Disease | DX: R06.02 Shortness of breath (principal); R79.81 Abnormal blood-gas level; J45.909 Unspecified asthma, uncomplicated | CPT/HCPCS: 94060; 94727; 94729 ==

== ENCOUNTER 2024-07-16 10:47 | Day surgery (SDC) | payer MEDICARE, SELFPAY ==
[2024-07-16 11:10] VITALS: BP 126/79; PULSE 77; RESP 16; O2SAT 99; BMI 28.3
--- NOTE | 2024-07-16 11:25 | EXP.PAIN.PRO ---
Procedure Date: 07/16/24 Time: 11:25 Anesthesiologist:: Kalyn Gill APRN Complications:: None Pre-procedure Diagnosis:: Degenerative disc disease of lumbar spine with lumbar radiculopathy symptoms Post-procedure Diagnosis:: Same Indications for Procedure:: Patient is a pleasant 83-year-old female who presents today for intrathecal refill and reprogram. Today she rates her pain a 0 out of 10. Patient states that she would like to see about decreasing the pump not that there is anything wrong with it however she would like to see if she gets a little bit more energy with not getting as much medication.Patient is currently managed with Dilaudid 1 mg/mL with a daily dose of 0.113 mg/day. She denies any side effects from this medication. Her Jordy has been reviewed and is appropriate. Physical Exam: General: Alert and oriented x3, no acute distress, pleasant and cooperative Lungs: Respirations even and unlabored, symmetrical chest expansion Eyes: PERRL Musculoskeletal: Flexion and extension of lumbar [spine] somewhat guarded secondary to pain, [antalgic gait noted] Neurological: Speech clear, no gross sensory deficit Procedure Details:: Informed consent was obtained and the risk and benefits of the procedure were explained to the patient. The patient had noninvasive monitoring placed including noninvasive blood pressure cuff and pulse oximeter. Patient's pump was interrogated. The area over the pump was cleansed with chlorhexidine as a cleansing solution. In sterile fashion the pump was accessed with a 22-gauge needle. Approximately 8 mls of the pump solution was removed and discarded appropriately. The pump was then refilled with 20 mL's of Dilaudid 1 mg/mL. The needle was withdrawn and a bandage was placed over the puncture site. The infusion rate was reprogrammed and decreased to Dilaudid 0.095mg/day. The patient tolerated well with no complication. Plan and Disposition:: Patient tolerated the procedure well with no complications and was discharged neurologically intact. I did discuss with the patient if she is starting to experience worsening pain due to the decrease she can call us before her next intrathecal appointment refill date and that we can increase her back up. Patient acknowledges understanding and agrees with plan of care. Patient will return to clinic on or before her next intrathecal refill date. We will see the patient back in the clinic at the next intrathecal refill. Patient has been instructed to contact the clinic with any concerns before the next appointment. Dr. Solo has reviewed this note and agrees with this plan of care. This note was dictated using voice recognition software and make contain errors or omissions. -- It Is medically necessary for this patient to continue to have their intrathecal pump refilled at regular intervals. This patient had an intrathecal pain pump implanted after meeting criteria of chronic intractable pain for greater than 3 months and failing conservative treatments. Patient has committed and been compliant to the treatment plan and all planned follow up care. Since implantation of the intrathecal pain pump, the patient has had decreased pain and been more functional. Oral medications have been reduced including intake of oral opioids. Patient continues to do well with intrathecal therapy with decrease in pain symptoms and increase in functional status. Stopping intrathecal medications can lead to life threatening withdrawal, seizures, cardiac arrest, severe pain, and possible . Pumps that are not refilled at regular intervals can be damages and cause and need for replacement. We continually titrate dose and concentration to optimize pain relief and function. We are limited in concentration for certain drugs to safely deliver medications through the pump and stay within the recommendations from the Polyanalgesic Consensus Committee Guidelines. Depending on dose and concentration these pumps may need to be refilled sooner than 3 months as we titrate. A UDS is needed to verify patient's compliance with our office pain contract. This is ordered based off specific treatments related to chronic pain with the potential to abuse certain medications.
[2024-07-16 11:30] VITALS: BP 148/88; PULSE 77; RESP 18; O2SAT 99
[2024-07-16 11:32] VITALS: BP 148/88; PULSE 75; RESP 18; O2SAT 99
[2024-07-16 11:45] VITALS: BP 168/87; PULSE 65; RESP 16; O2SAT 99
== END 2024-07-16 11:45 | disposition home or self-care (01) ==
PROVIDERS: PCP Nurse Practitioner Family; Visit Provider Nurse Anesthetist, Certified Registered
DX: M51.16 Intervertebral disc disorders with radiculopathy, lumbar region (principal)
CPT/HCPCS: 62370

== ENCOUNTER 2024-10-22 07:50 | Outpatient (CLI) | payer MEDICARE, SELFPAY ==
--- NOTE | 2024-10-22 07:52 | CT_ITS ---
FINAL REPORT TECHNIQUE: Axial CT of the abdomen and pelvis, without and with IV contrast. Coronal and sagittal images were obtained and reviewed. This study was performed with techniques to keep radiation doses as low as reasonably achievable, (ALARA). Individualized dose reduction techniques using automated exposure control or adjustment of mA and/or kV according to the patient''s size were employed. CLINICAL HISTORY: DISORDER OF KIDNEY AND URETERS; left kidney mass COMPARISON: 05/07/2024 FINDINGS: Abdomen: There is redemonstration of a soft tissue mass in the upper pole left kidney measuring 16 mm. This has precontrast density of 40 Hounsfield units with a postcontrast density of 86 Hounsfield units, compatible with enhancing lesion. In the lower pole of the left kidney is a lesion measuring 33 mm. However, streak artifact from pain pump obscures density measurements of this lesion. Both kidneys appear stable. There is mild bilateral renal atrophy. There is no evidence of obstruction. Remaining solid organs are negative. The patient is status post cholecystectomy. No retroperitoneal adenopathy seen. No bowel obstruction or fluid collection is seen. Pelvis: There are numerous uterine masses compatible with fibroids. The ovaries are not well seen but there is no evidence of ovarian mass. The appendix appears unremarkable. There is no pelvic adenopathy. IMPRESSION: Stable enhancing lesion upper pole left kidney most compatible with renal cell carcinoma. No evidence of metastatic adenopathy. Stable presumed benign cyst lower pole left kidney. Uterine fibroids again noted. Reviewed, Interpreted and Dictated by Willard Stuart MD Transcribed by Paula Biswas Authenticated and [facility]
[2024-10-22 08:26] LABS: Blood Urea Nitrogen 33 mg/dl (7-17); Estimated Glomerular Filt Rate 48 ml/min (>60); GFR (African American) 58 ML/MIN (>60)
[2024-10-22] MEDS: SODIUM CHLORIDE 0.9% 10ML SYR (RAD ONLY) 10 ML IV (09:15)
[2024-10-22] MEDS: IOPAMIDOL-370 (76%);100ML BOTTLE 75 ML IV (09:15)
== END 2024-10-22 23:59 | disposition home or self-care (01) ==
LOC: RAD 07:50
PROVIDERS: PCP Nurse Practitioner Family; Visit Provider Urology
DX: N28.89 Other specified disorders of kidney and ureter (principal)
CPT/HCPCS: 36415; 74178; 82565; 84520; Q9967

== ENCOUNTER 2024-10-29 09:09 | Day surgery (SDC) | payer MEDICARE, SELFPAY ==
[2024-10-29 09:26] VITALS: BP 117/92; PULSE 82; RESP 18; TEMP 36.6; O2SAT 98; BMI 27.4
--- NOTE | 2024-10-29 09:53 | P.PCN_ITS ---
Procedure Date: 10/29/24 Time: 10:13 Anesthesiologist:: Kalyn Gill APRN Complications:: None Pre-procedure Diagnosis:: Degenerative disc disease of lumbar spine with lumbar radiculopathy symptoms Post-procedure Diagnosis:: Same Indications for Procedure:: Patient is a pleasant 83-year-old female who presents today for intrathecal refill and reprogram. Today she rates her pain a 0 out of 10. She denies any new injuries or falls. Patient is currently managed with Dilaudid 1 mg/mL with a daily dose of 0.095 mg/day. She denies any side effects. Patient does state today that her tremors are really bad. Patient does also make mention that she normally is still sleeping to about 930 but today her appointment was early so it is bothering her little bit more. Her Jordy has been reviewed. Physical Exam: General: Alert and oriented x3, no acute distress, pleasant and cooperative Lungs: Respirations even and unlabored, symmetrical chest expansion Eyes: PERRL Musculoskeletal: Flexion and extension of lumbar [spine] somewhat guarded secondary to pain, [antalgic gait noted] Neurological: Speech clear, no gross sensory deficit Procedure Details:: Informed consent was obtained and the risk and benefits of the procedure were ex plained to the patient. The patient had noninvasive monitoring placed including noninvasive blood pressure cuff and pulse oximeter. Patient's pump was interrogated. The area over the pump was cleansed with chlorhexidine as a cleansing solution. In sterile fashion the pump was accessed with a 22-gauge needle. Approximately 9.6 mls of the pump solution was removed and discarded appropriately. The pump was then refilled with 20 mL's of Dilaudid 1 mg per. The needle was withdrawn and a bandage was placed over the puncture site. The infusion rate was reprogrammed and continued at its current dosage. The patient tolerated well with no complication. Plan and Disposition:: Patient tolerated the procedure well with no complications and was discharged neurologically intact. Patient was very short of breath when she moved from her wheelchair to the chair for her pump refill. I did discuss with her whether or if this is a normal occurrence. Patient does state it is. Patient's oxygen remained at 100%. Patient does state that she does occasionally use oxygen at home as needed. Patient was counseled to call us if she has any issues between now and her next appointment. Patient will return to clinic on or before their next intrathecal refill date. We will see the patient back in the clinic at the next intrathecal refill. Patient has been instructed to contact the clinic with any concerns before the next appointment. Dr. Solo has reviewed this note and agrees with this plan of care. This note was dictated using voice recognition software and make contain errors or omissions. -- It Is medically necessary for this patient to continue to have their intrathecal pump refilled at regular intervals. This patient had an intrathecal pain pump implanted after meeting criteria of chronic intractable pain for greater than 3 months and failing conservative treatments. Patient has committed and been compliant to the treatment plan and all planned follow up care. Since implantation of the intrathecal pain pump, the patient has had decreased pain and been more functional. Oral medications have been reduced including intake of oral opioids. Patient continues to do well with intrathecal therapy with decrease in pain symptoms and increase in functional status. Stopping intrathecal medications can lead to life threatening withdrawal, seizures, cardiac arrest, severe pain, and possible . Pumps that are not refilled at regular intervals can be damages and cause and need for replacement. We continually titrate dose and concentration to optimize pain relief and function. We are limited in concentration for certain drugs to safely deliver medications through the pump and stay within the recommendations from the Polyanalgesic Consensus Committee Guidelines. Depending on dose and concentration these pumps may need to be refilled sooner than 3 months as we titrate. A UDS is needed to verify patient's compliance with our office pain contract. This is ordered based off specific treatments related to chronic pain with the potential to abuse certain medications.
[2024-10-29 10:13] VITALS: BP 153/69; PULSE 72; RESP 18; O2SAT 100
[2024-10-29 10:14] VITALS: BP 153/69; PULSE 75; RESP 18; O2SAT 100
[2024-10-29 10:26] VITALS: BP 128/69; PULSE 68; RESP 18; O2SAT 98
== END 2024-10-29 10:26 | disposition home or self-care (01) ==
PROVIDERS: PCP Nurse Practitioner Family; Visit Provider Nurse Practitioner Family
DX: M51.16 Intervertebral disc disorders with radiculopathy, lumbar region (principal)
CPT/HCPCS: 62370

== ENCOUNTER 2024-12-07 12:59 | Outpatient (POV) | payer MEDICARE, SELFPAY ==
--- OUTSIDE RECORDS SUMMARY | 2024-12-07 13:02 | XMS_ITS ---
Author Organization Unknown Immunizations Date Vaccine DateAdministered TimeAdministered VaccineCode Dose Strength Unit Manager Float DueDate CptCode CvxCode ManufacturerCode LocationCode AdministeredBy 05/25 00:00 :00 Fluzone High Dose (65yr and older) 05/25/2024 16:28:00 16:28:00 [id number] 0.5 mL [employer]i P[employer] 02/01/20 00:00:00 [id number] San[employer] P[employer] Joseluis Garcia
[2024-12-07 13:25] VITALS: BP 142/93; PULSE 83; RESP 18; O2SAT 98; BMI 27.4
--- NOTE | 2024-12-07 14:09 | A.OFFVIS_ITS ---
[facility] Disclaimer: The information contained in this section may have been updated after the patient was seen, as this information can be updated by other users. Medical History Asthma On O2 at night as needed only Dysautonomia-like disorder Presence of neurostimulator Implantable intrathecal infusion pump present Lumbar degenerative disc disease H/O malignant neoplasm of female breast HLD (hyperlipidemia) Chest pain Surgical History History of cataract surgery History of lumpectomy History of colon resection History of surgery pain pump, spinal stimulator History of throat surgery History of cholecystectomy Family History Other Family history of cancer No family history of COPD Social History Smoking Status: Never smoker second hand exposure: No alcohol intake: never substance use type: denies use current occupational status: retired Travel in the last 8 weeks?: None household members: spouse housing: house current occupational exposures/hazards: No caffeine: Yes Have you lived/traveled outside [place] in past 30 days?: No Contact w/someone who lives/traveled outside [place] past 30 days?: No Exposure to someone with infectious disease in past 14 days?: No Do you have a fever (greater than 100.4 F or 38 C)?: No Have you tested positive for COVID-19?: No Exposed to someone with COVID-19 in past 14 days?: No Do you have a sore throat?: No Do you have a cough?: No Do you have any weakness?: No Do you have any diarrhea?: No Are you experiencing any unusual bleeding?: No Do you have any muscle aches/pain?: No Do you have any abdominal pain?: No Are you experiencing loss of taste or smell?: No PM Subjective & Objective Subjective Subjective:: Patient is a pleasant 83-year-old female who presents today for reprogramming of her spinal cord stimulator. Patient rates her overall back pain as 0 out of 10. Patient is having increased pain in her legs and wants to see if the programming on her [place] stimulator can be improved. Patient denies any recent falls or injuries. She is currently managed with Dilaudid 1 mg/mL with a daily dose of 0.095 mg/day. She denies any side effects. Her Jordy has been reviewed and is appropriate. Review of Systems: General: No recent weight changes, no fever, no sleep disturbances Respiratory: No cough, no shortness of air, no recurring pulmonary infections Cardiovascular/peripheral vascular: No chest pain, no palpitations, no edema, no shortness of breath Gastrointestinal: No new onset incontinence, normal bowel movements reported Genitourinary: No new onset incontinence Musculoskeletal: Leg pain Psychiatric: [Normal mood/affect] Neurological: [Denies weakness in extremities], [denies balance issues] Pain at rest (0-10 scale): 0 Objective Objective:: Physical Exam: General: Alert and oriented x3, no acute distress, pleasant and cooperative Lungs: Respirations even and unlabored, symmetrical chest expansion Eyes: PERRL Musculoskeletal: Flexion and extension of lumbar [spine] somewhat guarded secondary to pain, [antalgic gait noted] Neurological: Speech clear, no gross sensory deficit Has patient had previous pain injection?: No Conservative treatment options previously tried: Home exercise plan Length of treatment: Longer than 12 weeks Meds Home Medications and Allergies Home Medications ?Medication ?Instructions ?Recorded ?Confirmed ?Type diclofenac sodium 75 mg 75 mg PO BID Pain 12/02/21 12/07/24 History tablet,delayed release cholecalciferol (vitamin D3) 25 25 mcg PO DAILY 09/03/23 12/07/24 History mcg (1,000 unit) capsule topiramate 100 mg tablet 100 mg PO HS Tremor #90 tabs 09/03/23 12/07/24 Rx estradiol 0.01% (0.1 mg/gram) See Rx Instructions vaginal 10/06/23 12/07/24 Rx vaginal cream .COMPLEX #42.5 grams levalbuterol HCl 0.63 mg/3 mL 0.63 mg (3 mL) inhalation TID PRN 02/19/24 12/07/24 Rx solution for nebulization shortness of breath or wheezing #90 mL montelukast 10 mg tablet 10 mg PO DAILY 04/20/24 12/07/24 History rosuvastatin 20 mg tablet 20 mg PO HS 04/20/24 12/07/24 History mecobalamin (vitamin B12) 1,000 1,000 mcg PO DAILY 08/18/24 12/07/24 History mcg chewable tablet pyridoxine (vitamin B6) 50 mg 50 mg PO DAILY 08/18/24 12/07/24 History tablet budesonide 0.25 mg/2 mL suspension 0.25 mg inhalation DIRECTED 08/23/24 12/07/24 History for nebulization triamterene 37.5 1 tab PO DAILY 08/23/24 12/07/24 History mg-hydrochlorothiazide 25 mg tablet primidone 50 mg tablet 200 mg (4 x 50 mg) PO BID Tremor 09/06/24 12/07/24 Rx #270 tabs New Prescriptions to Start Prescriptions: Allergies Allergy/AdvReac Type Severity Reaction Status Date / Time Sulfa (Sulfonamide Allergy Severe Rash Verified 08/23/24 15:12 Antibiotics) levofloxacin (From Levaquin) Allergy Unknown Verified 08/23/24 15:12 allergy reaction Penicillins Allergy Unknown Verified 08/23/24 15:12 allergy reaction Assessment and Plan *Assessment and plan (1) Lumbar radiculopathy: Status: Acute Category: Medical Code(s): M54.16 - Radiculopathy, lumbar region Plan Patient is still doing wonderful with her pump and denies any need for adjustments with the current settings related to this device. [employer] litigation claim representative was able to reprogram patient with better coverage and was also able to add a little bit new programming to target higher up as well. Patient was also having some difficulty charging her device. [employer] litigation claim representative did also review over edgar points on using her device and the charging. Patient is very pleased with how our visit went today. I did discuss at length with the patient that if she does feel like she still needs additional reprogramming between now and her next intrathecal pump refill in January to please call us and give us a couple weeks heads up and that I would be able to coordinate with the [employer] litigation claim representative to be present at that appointment for additional reprogramming. Patient agrees with this plan of care. Patient has been instructed to contact the clinic with any concerns before the next appointment. Dr. Solo has reviewed this note and agrees with this plan of care. This note was dictated using voice recognition software and make contain errors or omissions. All injections are used with Lidocaine, Bupivacaine and dexamethasone. Occasionally urine drug screen is needed to verify patient's compliance with our office pain contract. This is ordered based off specific treatments related to chronic pain with the potential to abuse certain medications.
== END 2024-12-07 23:59 | disposition home or self-care (01) ==
LOC: SC.PAIN 13:01
PROVIDERS: PCP Family Medicine; Visit Provider Nurse Practitioner Family
DX: M54.16 Radiculopathy, lumbar region (principal)
CPT/HCPCS: 99212; G0463

== ENCOUNTER 2024-12-08 12:42 | Outpatient (CLI) | payer MEDICARE, SELFPAY ==
--- OUTSIDE RECORDS SUMMARY | 2024-12-08 12:45 | XMS_ITS | Data Portability ---
Author Organization [facility] ALLISON Vera [place] CLOS[place] Address [address] [place] [address] Care Team Providers Care Boiling House Hand Name Role Phone LUNA JOAQUÍN Primary Care Provider Assessment No assessment recorded. Plan of Treatment Reminders Order Date Submit Date Provider Last Modified By Organization Details Last Modified Time Details Appointments None recorded. Lab urinalysis panel, auto 2023 024 [id number] [facility], [address], [place], [address], 19:10:28 Referral None recorded. Procedures None recorded. Surgeries None recorded. Imaging None recorded. Medication Orders None recorded. Patient TargetsNo targets recorded. Patient InstructionsNo instructions recorded. Reason for Referral None Reported. Results Created Date Observation Date Name Description Value Unit Range Abnormal Flag Note LastModifiedBy Organization Detail LastModifiedTime 05/28/2005/28/2024 urina lysis panel , auto Unknown Analyte Clean Catch Not Available [facility] [address], [place], [address], 05/28/2024 12:09:53 05/28/2005/28/2024 urina lysis panel , auto Unknown Analyte Yellow Not Available [facility] [address], [place], [address], 05/28/2024 12:09:53 05/28/2005/28/2024 urina lysis panel , auto Unknown Analyte Clear Not Available [facility] [address], [place], [address], 05/28/2024 12:09:53 05/28/2005/28/2024 urina lysis panel , auto Unknown Analyte 1.010 Not Available [facility] [address], [place], [address], 05/28/2024 12:09:53 05/28/2005/28/2024 urina lysis panel , auto Unknown Analyte 1.003- 1.035 Not Available [facility] [address], [place], [address], 05/28/2024 12:09:53 05/28/2005/28/2024 urina lysis panel , auto Unknown Analyte 6.0 Not Available [facility] [address], [place], [address], 05/28/2024 12:09:53 05/28/2005/28/2024 urina lysis panel , auto Unknown Analyte 5.0-8. 0 Not Available [facility] [address], [place], [address], 05/28/2024 12:09:53 05/28/2005/28/2024 urina lysis panel , auto Unknown Analyte Negati ve Not Available [facility] [address], [place], [address], 05/28/2024 12:09:53 05/28/2005/28/2024 urina lysis panel , auto Unknown Analyte Negati ve Not Available [facility] [address], [place], [address], 05/28/2024 12:09:53 05/28/2005/28/2024 urina lysis panel , auto Unknown Analyte Negati ve Not Available [facility] [address], [place], [address], 05/28/2024 12:09:53 05/28/2005/28/2024 urina lysis panel , auto Unknown Analyte Negati ve Not Available [facility] [address], [place], [address], 05/28/2024 12:09:53 05/28/2005/28/2024 urina lysis panel , auto Unknown Analyte Negati ve Not Available [facility] [address], [place], [address], 05/28/2024 12:09:53 05/28/2005/28/2024 urina lysis panel , auto Unknown Analyte Negati ve Not Available [facility] [address], [place], [address], 05/28/2024 12:09:53 05/28/2005/28/2024 urina lysis panel , auto Unknown Analyte Normal Not Available [facility] [address], [place], [address], 05/28/2024 12:09:53 05/28/2005/28/2024 urina lysis panel , auto Unknown Analyte Normal Not Available [facility] [address], [place], [address], 05/28/2024 12:09:53 05/28/2005/28/2024 urina lysis panel , auto Unknown Analyte Negati ve Not Available [facility] [address], [place], [address], 05/28/2024 12:09:53 05/28/2005/28/2024 urina lysis panel , auto Unknown Analyte Negati ve Not Available [facility] [address], [place], [address], 05/28/2024 12:09:53 05/28/2005/28/2024 urina lysis panel , auto Unknown Analyte Normal Not Available [facility] [address], [place], [address], 05/28/2024 12:09:53 05/28/2005/28/2024 urina lysis panel , auto Unknown Analyte Normal 1 mg/dl Not Available [facility] [address], [place], [address], 05/28/2024 12:09:53 05/28/2005/28/2024 urina lysis panel , auto Unknown Analyte Negati ve Not Available [facility] [address], [place], [address], 05/28/2024 12:09:53 05/28/2005/28/2024 urina lysis panel , auto Unknown Analyte Negati ve Not Available [facility] [address], [place], [address], 05/28/2024 12:09:53 05/28/2005/28/2024 urina lysis panel , auto Unknown Analyte Negati ve Not Available [facility] [address], [place], [address], 05/28/2024 12:09:53 05/28/2005/28/2024 urina lysis panel , auto Unknown Analyte Negati ve Not Available [facility] [address], [place], [address], 05/28/2024 12:09:53 10/23/1910/22/2024 CT, abdom en + pelvi s, w/wo contr ast No observ ation record ed. [address], [place], [address], 10/22/2024 12:54:32 Result Notes None recorded. Problems Name Problem SNOMED Code Status Onset Date Resolution Date Notes Provider Name and Address Organization Details Recorded Time Electrocardi ogram abnormal 469883416 Active 2015 Provide r: Ruth Hogan atus: Active Not Available [facility] 6 06:43:18 Problem Notes None recorded. Procedures Surgical History Date Name Laterality Status Provider Name and Address Organization Details Recorded Time cholecystectomy completed Nicole Roberts [facility] 05/28/2024 11:50:05 procedure on back completed Nicole Díaz [facility] 05/28/2024 11:50:25 procedure on knee completed Nicole Díaz [facility] 05/28/2024 11:50:34 procedure on colon completed Nicole rae [facility] 05/28/2024 11:50:53 Imaging Results Imaging Date Name Status LastModified by Organ [facility] Details LastModified Time 10/22/2024 CT, abdomen + pelvis, w/wo contrast completed [address], [place], [place], [address], 10/22/2024 12:54:32 Procedure Notes None recorded. Medical Equipment None Reported. Allergies Allergen ID Allergen Name Allergen Category Reaction Reaction Severity Criticality Documentation Date Start Date Code Code System Note Provider Name and Address Organization Details Recorded Time 070369 morphine sulfate medicatio n Not available Not available Not available 06/28/20162012 09246 RxNorm Comme nt: Creat ed By: Sandra Francis; Creat ed Date: 2012 1:04: 37 PM; Not Available [facility] 6 07:42:33 842915 Product containin g penicilli n (product) medicatio n Not available Not available Not available 06/28/20162012 73790 8001 SNOMED Comme nt: Creat ed By: Sandra Francis; Creat ed Date: 2012 1:05: 09 PM; Not Available [facility] 6 07:42:33 821279 Substance with sulfonami de structure and antibacte rial mechanism of action (substanc e) medicatio n Not available Not available Not available 06/28/20162012 14478 8003 SNOMED Comme nt: Creat ed By: Sandra Francis; Creat ed Date: 2012 1:04: 55 PM; Not Available [facility] 6 08:37:04 Medications Name Sig Start Date Stop Date Status Note LastModified by Organization Details LastModified Time primidone 50 mg tablet Take 2 tablets every day by oral route. active Not Available Not Available No t Available trazodone 50 mg tablet Take 1 tablet every day by oral route. active Not Available Not Available No t Available bisoprolo l 5 mg-hydroc hlorothia zide 6.25 mg tablet Daily 05/28 completed Frequenc y: daily;Me dication Descript ion: bisoprol ol-hydro chloroth iazide; Dosage:1 ; Route:or al; refills: 4; Quantity :90 tablet Not Available Not Available Not Available simvastat in 40 mg tablet Daily active Frequenc y: daily;Me dication Descript ion: simvasta tin; Dosage:1 ; Route:or al; refills: 0; Quantity :30 tablet Not Available Not Available Not Available hydrocodo ne 7.5 mg-acetam inophen 325 mg tablet As Directed 05/28 completed Frequenc y: as direct.; Medicati on Descript ion: hydrocod one bitartra te/aceta minophen ; Dosage:1 ; Route:or al; refills: 0 Not Available Not Available Not Available Cipro 500 mg tablet Take 1 tablet every 12 hours by oral route for 14 days. 05/28 completed Not Available Not Available Not Available Calcium-6 00 600 mg (as calcium carbonate 1,500 mg) tablet Two times a day 05/28 completed Duration : 30 days;Jaya quency: bid;Medi cation Descript ion: calcium carbonat e; Dosage:1 ; Route:or al; refills: 0; Quantity :60 tablet Not Available Not Available Not Available gabapenti n 300 mg capsule Two times a day 05/28 completed Duration : 30 days;Jaya quency: bid;Medi cation Descript ion: gabapent in; Dosage:1 ; Route:or al; refills: 0; Quantity :30 capsule Not Available Not Available Not Available diclofena c sodium 75 mg tablet,de layed release Take 1 tablet twice a day by oral route. active Not Available Not Available No t Available montel[address] st 10 mg tablet Take 1 tablet every day by oral route. active Not Available Not Available No t Available aspirin 81 mg tablet Daily active Duration : 30 days;Jaya quency: daily;Me dication Descript ion: aspirin; Dosage:1 ; Route:or al; refills: 0; Quantity :30 tablet Not Available Not Available Not Available hydrochlo rothiazid e 25 mg tablet Take 1 tablet every day by oral route. active Not Available Not Available No t Available estradiol 0.01% (0.1 mg/gram) vaginal cream Insert by vaginal route. active Not Available Not Available No t Available topiramat e 100 mg tablet Take 1 tablet twice a day by oral route. active Not Available Not Available No t Available rosuvasta tin 20 mg tablet Take 1 tablet every day by oral route. active Not Available Not Available No t Available Vitamin B-12 Daily active Duration : 10 days;Jaya quency: daily;Me dication Descript ion: cyanocob alamin; Dosage:1 ; refills: 0; Quantity :30 Not Available Not Available Not Available Dilaudid active Not Available Not Avai lable Not Available Multivita mins Daily 05/28 completed Duration : 30 days;Jaya quency: daily;Me dication Descript ion: multivit reilly; Dosage:2 ; refills: 0; Quantity :30 Not Available Not Available Not Available Vitamin D3 Daily active Frequenc y: daily;Me dication Descript ion: cholecal ciferol; Dosage:1 ; Route:or al; refills: 0 Not Available Not Available Not Available Triamtere ne-HCTZ Daily active Frequenc y: daily;Me dication Descript ion: triamter judson-hydr ochlorot hiazide; Dosage:1 ; Route:or al; refills: 0 Not Available Not Available Not Available Probiotic Formula 10 billion cell(2 billion ea) capsule 05/28 completed Medicati on Descript ion: bifidoba cterium- lactobac illus; Dosage:a s directed ; Route:or al; refills: 0 Not Available Not Available Not Available Vitals Date Recorded Body height Body mass index (BMI) Body weight Provider Name and Address Organization Details Last Updated DateTime 05/28/2024 165.1 cm 28.3 kg/m2 68565.7 g Nicole Díaz [facility] 05/28/2024 11:49:29 Social History Question Answer Notes LastModified by Organizat ion Details LastModified Time Tobacco Smoking Status Never Smoker [facility]/28/2024 11:49:56 What Is Your Level Of Caffeine Consumption? None [email or web address] Information not available 05/28/2024 What Is Your Relationship Status? [email or web address] Information not available 05/28/2024 Sex: Unknown Functional Status None recorded. Mental Status None recorded. Family History Relationship Description Onset Age of this Age Resolved Age Notes LastModified by Organization Details LastModified Time Brother Family history of malignant neoplasm [email or web address] Not available 2023 11:49:49 Medical History Condition Response Arthritis Y Asthma Y Allergies/Hayfever Y False Teeth Y Hypertension Y Gynecological HistoryNo gynecological history recorded. Obstetrics History GPAL:G 0 P 0 0 0 0 Past Encounters Encounter ID Performer Location Encounter Start Date Encounter Closed Date Diagnosis/Indication Diagnosis SNOMED-CT Code Diagnosis ICD10 Code Diagnosis Note [id number] [facility] [place] [address] 11/04/2016 18:54:14 11/04/2016 18:54:14 [id number] RONALD JACOB MD [facility] [address] [place] [address] 05/28/2024 11:31:42 05/29/2024 04:20:16 Renal mass 543096195 N28.89 Follow-up 6 months with renal mass protocol CT scan [facility] prior to visit Urge incon tinence of urine 21559230 N39.41 She will try the Gemtesa samples 75 mg. She will contact me if she needs a new prescripti on. Health Concerns Section Related Observation LastModified by Organization Detai ls LastModified Time None Recorded Concern Status LastModified by Organization Details LastModified Time None Recorded Advance Directives Directive None Recorded Payers Insurance Date Sequence Insurance Name Policy Number Policy Chiu Covered Member ID Chiu Member ID Guarantor Name 11/05/2024 2 [employer] OPTIONS (MEDICARE SUPPLEMENT) Shani Brandon Javon [id number] Shani Alejandro 11/05/2024 1 [place] Shani Alejandro [id number] Shani Alejandro Notes Date Note Type Note Provider Name and Address Organization Details Recorded Time 05/28/2024 text/html I cared for her late for several years. She also has history of urolithiasis. She recently had some abdominal discomfort and had a CT scan which revealed no stones but did show a small mass 1.6 cm superior pole left kidney which enhanced. She has had no further pain. She has had no recent issues with urinary infections. She does have an issues with significant tremor. She states that her doctors told her she is does not have Parkinson's. Her only other urologic complaint is urinary urgency and frequency. She has some issues with ambulation and actually is in a wheelchair today for this visit. I do not have the images to review. We discussed that considering her age this is a very small lesion and typically this would be followed. She was given 6 weeks samples of Gemtesa. We discussed repeating her CT scan in 6 months renal mass protocol. This will be performed at [facility] and she will bring me the disc for my review. RONALD JACOB [place] [facility] [place], [address], [facility] 05/28/2024 19:11:10 OBGyn Episode No OBEpisode recorded.
[2024-12-08 13:55] VITALS: PULSE 73; PULSE 75
[2024-12-08] MEDS: ALBUTEROL 0.083% 2.5 MG/3 ML NEB IH (13:55)
== END 2024-12-08 23:59 | disposition home or self-care (01) ==
LOC: RT 12:43
PROVIDERS: PCP Nurse Practitioner Family; Visit Provider Internal Medicine Pulmonary Disease
DX: J44.9 Chronic obstructive pulmonary disease, unspecified (principal)
CPT/HCPCS: 94060; 94618; 94640; 94726; 94729

== ENCOUNTER 2025-01-28 11:18 | Day surgery (SDC) | payer MEDICARE, SELFPAY ==
--- NOTE | 2025-01-28 11:24 | EXP.PM.HP ---
History of Present Illness *Admission Date: 01/28/25 *Reason for visit:: Intrathecal refill; DDD *History of present illness: Same [facility] Disclaimer: The information contained in this section may have been updated after the patient was seen, as this information can be updated by other users. Medical History Asthma On O2 at night as needed only Dysautonomia-like disorder Presence of neurostimulator Implantable intrathecal infusion pump present Lumbar degenerative disc disease H/O malignant neoplasm of female breast HLD (hyperlipidemia) Chest pain Surgical History History of cataract surgery History of lumpectomy History of colon resection History of surgery pain pump, spinal stimulator History of throat surgery History of cholecystectomy Family History Other Family history of cancer No family history of COPD Social History Smoking Status: Never smoker second hand exposure: No alcohol intake: never substance use type: denies use current occupational status: retired Travel in the last 8 weeks?: None household members: spouse housing: house current occupational exposures/hazards: No caffeine: Yes Have you lived/traveled outside [place] in past 30 days?: No Contact w/someone who lives/traveled outside US past 30 days?: No Exposure to someone with infectious disease in past 14 days?: No Do you have a fever (greater than 100.4 F or 38 C)?: No Have you tested positive for COVID-19?: No Exposed to someone with COVID-19 in past 14 days?: No Do you have a sore throat?: No Do you have a cough?: No Do you have any weakness?: No Do you have any diarrhea?: No Are you experiencing any unusual bleeding?: No Do you have any muscle aches/pain?: No Do you have any abdominal pain?: No Are you experiencing loss of taste or smell?: No Other Medical History Have you received the Flu Vaccine for this season: Yes Have you received the Pneumonia Vaccine: Yes Review of Systems Review of Systems Review of systems:: pertinent systems reviewed and negative unless documented below Review of systems (narrative): Review of Systems: General: No recent weight changes, no fever, no sleep disturbances Respiratory: No cough, no shortness of air, no recurring pulmonary infections Cardiovascular/peripheral vascular: No chest pain, no palpitations, no edema, no shortness of breath Gastrointestinal: No new onset incontinence, normal bowel movements reported Genitourinary: No new onset incontinence Musculoskeletal: Chronic back pain Psychiatric: [Normal mood/affect] Neurological: [Denies weakness in extremities], [denies balance issues] Meds Home Medications and Allergies Home Medications ?Medication ?Instructions ?Recorded ?Confirmed ?Type diclofenac sodium 75 mg 75 mg PO BID Pain 12/02/21 12/08/24 History tablet,delayed release cholecalciferol (vitamin D3) 25 25 mcg PO DAILY 09/03/23 12/08/24 History mcg (1,000 unit) capsule topiramate 100 mg tablet 100 mg PO HS Tremor #90 tabs 09/03/23 12/08/24 Rx estradiol 0.01% (0.1 mg/gram) See Rx Instructions vaginal 10/06/23 12/08/24 Rx vaginal cream .COMPLEX #42.5 grams montelukast 10 mg tablet 10 mg PO DAILY 04/20/24 12/08/24 History rosuvastatin 20 mg tablet 20 mg PO HS 04/20/24 12/08/24 History mecobalamin (vitamin B12) 1,000 1,000 mcg PO DAILY 08/18/24 12/08/24 History mcg chewable tablet pyridoxine (vitamin B6) 50 mg 50 mg PO DAILY 08/18/24 12/08/24 History tablet budesonide 0.25 mg/2 mL suspension 0.25 mg inhalation DIRECTED 08/23/24 12/08/24 History for nebulization triamterene 37.5 1 tab PO DAILY 08/23/24 12/08/24 History mg-hydrochlorothiazide 25 mg tablet primidone 50 mg tablet 200 mg (4 x 50 mg) PO BID Tremor 09/06/24 12/08/24 Rx #270 tabs budesonide 0.25 mg/2 mL suspension 0.25 mg (2 mL) inhalation TID PRN 12/08/24 12/08/24 Rx for nebulization shortness of breath or wheezing 90 days #540 mL levalbuterol HCl 0.63 mg/3 mL 0.63 mg (3 mL) inhalation TID PRN 12/08/24 12/08/24 Rx solution for nebulization shortness of breath or wheezing #90 mL magnesium aspart,citrate,oxide mg PO 12/08/24 12/08/24 History New Prescriptions to Start Prescriptions: Allergies Allergy/AdvReac Type Severity Reaction Status Date / Time Sulfa (Sulfonamide Allergy Severe Rash Verified 12/08/24 14:46 Antibiotics) levofloxacin (From Levaquin) Allergy Unknown Verified 12/08/24 14:46 allergy reaction Penicillins Allergy Unknown Verified 12/08/24 14:46 allergy reaction Exam Constitutional Constitutional: no acute distress *Routine HEENT Exam Head: Present normocephalic and atraumatic Eye: Present PERRL ENT: Present mucous membranes moist *Routine Neck Exam Neck: Present supple *Routine Respiratory Exam Respiratory: Present CTA bilaterally *Routine Cardiovascular Exam Cardiovascular: Present RRR *Routine Abdominal Exam Abdominal: Present soft *Routine Rectal Exam Rectal:: deferred *Routine Genitalia Exam Genitalia:: deferred Routine Back/Spine/Pelvis Exam Back/Spine: Present pain with flexion *Routine Skin Exam Skin: Present intact and warm *Routine Neurological Exam Neurological: Present alert and oriented X3 Routine Psychiatric Exam Psychiatric: Present normal affect and normal thought process Assessment and Plan *Assessment and plan (1) Lumbar radiculopathy: Status: Acute Category: Medical Code(s): M54.16 - Radiculopathy, lumbar region (2) Chronic back pain: Status: Chronic Qualifiers: Back pain location: low back pain Back pain laterality: midline Sciatica presence: unspecified whether sciatica present Qualified Code(s): M54.50 - Low back pain, unspecified; G89.29 - Other chronic pain Category: Medical Code(s): M54.9 - Dorsalgia, unspecified; G89.29 - Other chronic pain Plan Patient has been instructed to contact the clinic with any concerns before the next appointment. Dr. Solo has reviewed this note and agrees with this plan of care. This note was dictated using voice recognition software and make contain errors or omissions. All injections are used with Lidocaine, Bupivacaine and dexamethasone. Occasionally urine drug screen is needed to verify patient's compliance with our office pain contract. This is ordered based off specific treatments related to chronic pain with the potential to abuse certain medications.
--- NOTE | 2025-01-28 11:26 | P.PCN_ITS ---
Procedure Date: 01/28/25 Time: 11:35 Anesthesiologist:: Kalyn Gill APRN Complications:: None Pre-procedure Diagnosis:: Degenerative disc disease of the lumbar spine, chronic pain syndrome Post-procedure Diagnosis:: Same Indications for Procedure:: Patient is a pleasant 84-year-old female who presents today for intrathecal refill and reprogram. Today she rates her pain a 0 out of 10. She states that most of her pain is when she is up walking. She states that she just has more leg pain and feels very weak in her legs. She denies any new falls.She is currently managed with 1 mg Dilaudid with a daily dose of 0.095 mg/day. She denies any side effects to this medication. She is asking if we can go up on this medication. Her Jordy has been reviewed and is appropriate. Physical Exam: General: Alert and oriented x3, no acute distress, pleasant and cooperative Lungs: Respirations even and unlabored, symmetrical chest expansion Eyes: PERRL Musculoskeletal: Flexion and extension of lumbar [spine] somewhat guarded secondary to pain, [antalgic gait noted] Neurological: Speech clear, no gross sensory deficit Procedure Details:: Informed consent was obtained and the risk and benefits of the procedure were explained to the patient. The patient had noninvasive monitoring placed including noninvasive blood pressure cuff and pulse oximeter. Patient's pump was interrogated. The area over the pump was cleansed with chlorhexidine as a cleansing solution. In sterile fashion the pump was accessed with a 22-gauge needle. Approximately 11 mls of the pump solution was removed and discarded appropriately. The pump was then refilled with 20 mL's of Dilaudid 1 mg/mL. The needle was withdrawn and a bandage was placed over the puncture site. The infusion rate was reprogrammed and increased 5% Dilaudid 0.0997 mg/day. The pa tient tolerated well with no complication. Plan and Disposition:: Patient tolerated the procedure well with no complications and was discharged neurologically intact. I did discuss with the patient that the pump medication did not do much for her worsening leg symptoms as it really does overall affect the the back more. Patient was counseled that I do think that she would benefit from home health to help work with her leg weakness and build additional strength. Patient is agreeable to me ordering home health therapy for her low back and leg symptoms. We will submit for this at today's visit. She was counseled that they should be contacting her to get this started. Patient agrees with this plan of care. Patient will return to clinic on or before their next intrathecal refill date. We will see the patient back in the clinic at the next intrathecal refill. Patient has been instructed to contact the clinic with any concerns before the next appointment. Dr. Solo has reviewed this note and agrees with this plan of care. This note was dictated using voice recognition software and make contain errors or omissions. -- It Is medically necessary for this patient to continue to have their intrathecal pump refilled at regular intervals. This patient had an intrathecal pain pump implanted after meeting criteria of chronic intractable pain for greater than 3 months and failing conservative treatments. Patient has committed and been compliant to the treatment plan and all planned follow up care. Since implantation of the intrathecal pain pump, the patient has had decreased pain and been more functional. Oral medications have been reduced including intake of oral opioids. Patient continues to do well with intrathecal therapy with decrease in pain symptoms and increase in functional status. Stopping intrathecal medications can lead to life threatening withdrawal, seizures, cardiac arrest, severe pain, and possible . Pumps that are not refilled at regular intervals can be damages and cause and need for replacement. We continually titrate dose and concentration to optimize pain relief and function. We are limited in concentration for certain drugs to safely deliver medications through the pump and stay within the recommendations from the [employer] Guidelines. Depending on dose and concentration these pumps may need to be refilled sooner than 3 months as we titrate. A UDS is needed to verify patient's compliance with our office pain contract. This is ordered based off specific treatments related to chronic pain with the potential to abuse certain medications.
[2025-01-28 11:27] VITALS: BP 126/76; PULSE 72; RESP 18; O2SAT 98; BMI 27.4
[2025-01-28 11:37] VITALS: BP 166/92; PULSE 76; RESP 20; O2SAT 98
[2025-01-28 11:58] VITALS: BP 118/70; PULSE 64; RESP 18; O2SAT 98
== END 2025-01-28 11:58 | disposition home or self-care (01) ==
PROVIDERS: PCP Nurse Practitioner Family; Visit Provider Nurse Practitioner Family
DX: Z45.1 Encounter for adjustment and management of infusion pump (principal); M51.369 Other intervertebral disc degeneration, lumbar region without mention of lumbar back pain or lower extremity pain; G89.4 Chronic pain syndrome; J45.909 Unspecified asthma, uncomplicated; E78.5 Hyperlipidemia, unspecified; Z88.0 Allergy status to penicillin; Z88.2 Allergy status to sulfonamides; Z88.1 Allergy status to other antibiotic agents; Z79.899 Other long term (current) drug therapy
CPT/HCPCS: 95991